=== PATIENT | male | born 1950 | race Caucasian/White ===

== ENCOUNTER 2018-04-14 20:03 | Observation (INO) | payer MEDICARE, BC, SELFPAY ==
[2018-04-14] VITALS (44 sets, daily range): BP systolic 94–129; BP diastolic 43–87; PULSE 58–142; RESP 10–18; TEMP 36.8–37; O2SAT 97–100
--- NOTE | 2018-04-14 20:14 | DI.RPTCT_ITS ---
SYMPTOM/DIAGNOSIS: INTERMITTENT NUMBNESS RT SIDE NONCONTRAST HEAD CT: Note is made of small regions of diminished density in the white matter bilaterally consistent with small vessel disease. The lee white matter differentiation is intact. There is no evidence of a hemorrhage or mass. The ventricles are unremarkable. The skull is unremarkable. No soft tissue abnormality is seen. The sinuses are unremarkable. There is no evidence of a mastoid effusion. SUMMARY: No acute abnormality is demonstrated.
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
[2018-04-14 20:32] LABS: Abs Immature Grans 0.01 k/cumm (0.0-0.09); Absolute Basophil Count 0.03 k/cumm (0.0-0.2); Absolute Eosinophil Count 0.14 k/cumm (0.0-0.7); Absolute Lymphocyte Count 1.71 k/cumm (1.2-3.4); Basophils % 0.5; Eosinophils % 2.4; HCT 33.6 % (40.0-50.0); HGB 10.5 g/dL (13.5-17.5); Immature Grans % 0.2; Lymphocytes % 29.5; Mean Corp. HGB Concentration 31.3 g/dL (32.0-36.0); Mean Corpuscular Hemoglobin 28.5 pg (27.0-33.0); Mean Corpuscular Volume 91.3 fL (80-95); Mean Platelet Volume 9.3 fL (8.0-11.0); Monocytes % 15.5; Neutrophils % 51.9; Platelet Count 282 x1000/uL (130-400); RBC 3.68 m/cumm (4.50-6.00); RBC Distribution Width 14.4 % (11.8-14.1); White Blood Cell Count 5.79 k/cumm (4.4-10.8)
[2018-04-14 20:42] LABS: ALT 41 U/L (12-78); AST 19 U/L (15-37); Albumin 3.5 g/dL (3.4-5.0); Alkaline Phosphatase 151 U/L (46-116); Anion Gap 6.4 mmol/L (3-11); BUN 12 mg/dL (7-18); Bilirubin, Total 0.3 mg/dL (0.2-1.0); CO2 27.6 mmol/L (21.0-32.0); Calcium 8.8 mg/dL (8.5-10.1); Chloride 105 mmol/L (98-107); Glucose 89 mg/dL (70-100); Magnesium 1.9 mg/dL (1.8-2.4); Potassium 3.9 mmol/L (3.5-5.1); Sodium 139 mmol/L (136-145); Total Protein 7.1 g/dL (6.4-8.2)
[2018-04-14 20:46] LABS: Troponin I 0.23 ng/mL (0.00-0.06)
--- NOTE | 2018-04-14 21:04 | DI.VRAD_ITS ---
EXAM: CT Head Without Intravenous Contrast CLINICAL HISTORY: 68 years old, male; Signs and symptoms; Numbness / parasthesia; Right TECHNIQUE: Axial computed tomography images of the head/brain without intravenous contrast. Coronal and sagittal reformatted images were created and reviewed. COMPARISON: CT - HEAD WITHOUT CONTRAST 01/19/2018 8:03 PM FINDINGS: Brain: There are areas of diminished density in the white matter bilaterally consistent with chronic small vessel ischemic changes. Becerril-white matter differentiation is intact and unremarkable. No mass lesion. No evidence of intracranial hemorrhage. Ventricles: Unremarkable. No ventriculomegaly. Bones/joints: Unremarkable. No acute fracture. Soft tissues: Unremarkable. Sinuses: Unremarkable as visualized. No acute sinusitis. Mastoid air cells: Unremarkable as visualized. No mastoid effusion. IMPRESSION: Chronic ischemic changes bilaterally. Dictated and Authenticated by: Jayde Prajapati MD. Ordering:LITTLE FRENCH MD
[2018-04-15] VITALS (30 sets, daily range): BP systolic 95–123; BP diastolic 59–80; PULSE 56–68; RESP 11–22; TEMP 36.2–37.2; O2SAT 98–100
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
[2018-04-15] MEDS: Lactated Ringers 1,000 ML 75 ML IV (00:23)
[2018-04-15 00:44] LABS: Troponin I 0.22 ng/mL (0.00-0.06)
[2018-04-15 04:28] LABS: Cholesterol 116 mg/dL (50-200); HDL Cholesterol 59 mg/dL (40-60); LDL CHOLESTEROL 56 mg/dL (<100); Triglyceride 67 mg/dL (30-150)
[2018-04-15 04:35] LABS: Troponin I 0.19 ng/mL (0.00-0.06)
[2018-04-15 04:53] LABS: Hemoglobin A1C 5.2 % (4.5-6.2)
--- NOTE | 2018-04-15 07:43 | PDOC.CMIN ---
Care Management Initial Assess REASON FOR HOSPITALIZATION:: TIA: Elevated troponin PAST MEDICAL HISTORY/PAST SURGICAL HISTORY:: CAD, AFIB, previously intubated, [place]), TIA, GERD, Arthroscopy (knee, shoulder),tonsillectomy, vasectomy, cardiac catherterization 12/19/17, had a period of rehabiliation following an acute stay at [facility]: discharged home on 04/12/18. PREVIOUS FUNCTIONAL STATUS/SOCIAL/FAMILY SUPPORTS:: Carlton is independent at baseline and resides with his , Areli in [place], [place]. 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 CURRENT FUNCTIONAL STATUS:: Carlton was unavailable throughout the morning due to testing and imaging. CM was able to meet with him in the afternoon, he was tired-reading a magazine and gracious in interaction. CM reviewed discharge planning-Carlton reported his was working on coordinating increased services at home including CHH/RN/PT/OT/Speech. CM will support coordination and request MD orders for discharge. ADVANCE DIRECTIVES:: On file at [facility]; Lula; as Agent, Will Erica Reed as alternate. CODE STATUS:: Full Code INSURANCE COVERAGE / FINANCIAL ISSUES:: Medicare. BC/BS CURRENT HOME/COMMUNITY SERVICES/EQUIPMENT:: Carlton reports no current services or equipment. PRIMARY CARE PHYSICIAN:: Umu Paredes POTENTIAL DISCHARGE NEEDS:: Transthoracic echocardiogram, MRI of the brain, CTA of cervical vessels and cerebral vessels. Possible prolonged cardiac rehabilitation program director upon discharge, new orders for CHH/RN/PT/OT/Speech. PATIENT/FAMILY EDUCATION NEEDS:: Review of discharge instructions, follow up appointments, discuss Ask Me Three. ANTICIPATED BARRIERS TO DISCHARGE:: None identified. TRANSPORTATION:: Via private vehicle with his , Areli. PLAN:: Carlton will have a workup of his symptomology. He will likely discharge home with an outpatient follow up plan, new orders for CHH/RN/PT/OT/RN and prolonged monitoring. He will transport via private vehicle with his .
--- NOTE | 2018-04-15 07:55 | INITIAL_ITS ---
Care Management Initial Assess REASON FOR HOSPITALIZATION:: TIA: Elevated troponin PAST MEDICAL HISTORY/PAST SURGICAL HISTORY:: CAD, AFIB, previously intubated, [place] (S), TIA, GERD, Arthroscopy (knee, shoulder),tonsillectomy, vasectomy, cardiac catherterization 12/19/17, had a period of rehabiliation following an acute stay at [facility]: discharged home on 04/12/18. PREVIOUS FUNCTIONAL STATUS/SOCIAL/FAMILY SUPPORTS:: Carlton is independent at baseline and resides with his , Areli in [place], [place]. 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 CURRENT FUNCTIONAL STATUS:: Carlton was unavailable throughout the morning due to testing and imaging. CM was able to meet with him in the afternoon, he was tired-reading a magazine and gracious in interaction. CM reviewed discharge planning-Carlton reported his was working on coordinating increased services at home including CHH/RN/PT/OT/Speech. CM will support coordination and request MD orders for discharge. ADVANCE DIRECTIVES:: On file at [facility]; Lula; as Agent, Will Erica Reed as alternate. CODE STATUS:: Full Code INSURANCE COVERAGE / FINANCIAL ISSUES:: Medicare. BC/BS CURRENT HOME/COMMUNITY SERVICES/EQUIPMENT:: Carlton reports no current services or equipment. PRIMARY CARE PHYSICIAN:: Umu Paredes POTENTIAL DISCHARGE NEEDS:: Transthoracic echocardiogram, MRI of the brain, CTA of cervical vessels and cerebral vessels. Possible prolonged potline monitor upon discharge, new orders for CHH/RN/PT/OT/Speech. PATIENT/FAMILY EDUCATION NEEDS:: Review of discharge instructions, follow up appointments, discuss Ask Me Three. ANTICIPATED BARRIERS TO DISCHARGE:: None identified. TRANSPORTATION:: Via private vehicle with his , Areli. PLAN:: Carlton will have a workup of his symptomology. He will likely discharge home with an outpatient follow up plan, new orders for CHH/RN/PT/OT/RN and prolonged monitoring. He will transport via private vehicle with his .
--- NOTE | 2018-04-15 08:55 | DI.RPTCT_ITS ---
SYMPTOM/DIAGNOSIS: TIA, S/P STEMI, VF ARREST, HYPOXIC ENCEPH [id number] CTA OF THE NECK AND BRAIN: CT angiography was performed with multi slice acquisition and multi planar and 3D reconstruction. The study was carried out with an intravenous administration of 85 cc's of Omnipaque 350. 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 Dense plaque is identified in the carotid bulb bilaterally and takeoff the right and left internal carotid artery and in the carotid syphon bilaterally. The [place] appears intact. The anterior, middle cerebral and posterior cerebral vessels are intact. SUMMARY: When compared with prior examinations, again noted is the occlusion of the left vertebral artery. Again noted are the atherosclerotic changes involving the carotid arteries with no evidence of significant stenosis. The [place] of [place] is intact.
[2018-04-15] MEDS: Omnipaque 350 MG/ML 100 ML BTL IJ (08:59)
--- NOTE | 2018-04-15 09:00 | MERGE_ITS ---
*[facility]* *[facility]* [address] [place] [address] Date of study: 04/15/2018 Transthoracic Echocardiography M-mode, complete 2D, complete spectral Doppler, and color Doppler *STUDY CONCLUSIONS* Summary: 1. Left ventricle: The cavity size was normal. Wall thickness was increased in a pattern of mild LVH. Systolic function was mildly reduced. The estimated ejection fraction was 45-50%. Hypokinesis of the inferolateral, inferior, and inferoseptal myocardium. 2. Right ventricle: The cavity size was normal. Systolic function was normal. 3. Aortic valve: There was mild regurgitation. 4. Mitral valve: There was mild to moderate regurgitation. 5. Inferior vena cava: The vessel was patent and normal in size. The respirophasic diameter changes were in the normal range (greater than or equal to 50%), consistent with normal central venous pressure. *PATIENT PRESENTATION* Height: 175.3cm ((69in) ) S/D Pressure: 111 / 68 Weight: 57.2kg ((125.7lb) ) BSA: 1.66m^2 Test start time: 09:00 AM. Test stop time: 10:00 AM. PERFORMING Unknown PERFORMING [facility] REFERRING David Blanchard [employer]ER RT Agustina Johns)(WILLOW)JUSTIN *PROCEDURE DATA* Procedure information: The patient was identified by two identifiers. This study was interpreted by [facility]. Pertinent images and digital data are archived for permanent storage and are available for subsequent review. No prior study was available for comparison. Study status: Routine. Transthoracic echocardiography. M-mode, complete 2D, complete spectral Doppler, and color Doppler. A Transthoracic Echocardiogram was performed. Scanning was performed from the parasternal, apical, subcostal, and suprasternal notch acoustic windows. Images were obtained using an [id number] cardiac ultrasound machine. Image quality was adequate. Study completion: The patient tolerated the procedure well. There were no complications. History: PMH: TIA s/p STEMI, VF arrest, hypoxic enceph. ( 01/2018) hx PAF. *CARDIAC ANATOMY* Left ventricle: The cavity size was normal. Wall thickness was increased in a pattern of mild LVH. Systolic function was mildly reduced. The estimated ejection fraction was 45-50%. Regional wall motion abnormalities: Hypokinesis of the inferolateral, inferior, and inferoseptal myocardium. Findings consistent with diastolic dysfunction. There was no evidence of elevated ventricular filling pressure by Doppler parameters. Aortic valve: Trileaflet; mildly thickened leaflets. Mobility was not restricted. Doppler: Transvalvular velocity was within the normal range. There was no stenosis. There was mild regurgitation. VTI ratio of LVOT to aortic valve: 0.63. Valve area (VTI): 1.9cm^2. Indexed valve area (VTI): 1.1cm^2/m^2. Peak velocity ratio of LVOT to aortic valve: 0.56. Valve area (Vmax): 1.7cm^2. Indexed valve area (Vmax): 1cm^2/m^2. Mean velocity ratio of LVOT to aortic valve: 0.57. Valve area (Vmean): 1.7cm^2. Indexed valve area (Vmean): 1cm^2/m^2. Mean gradient (S): 6.3mm Hg. Peak gradient (S): 11.4mm Hg. Aorta: Aortic root: The aortic root was normal in size. Ascending aorta: The ascending aorta was normal in size. Mitral valve: Mildly thickened leaflets. Mobility was not restricted. Doppler: Transvalvular velocity was within the normal range. There was no evidence for stenosis. There was mild to moderate regurgitation. Valve area by pressure half-time: 4.1cm^2. Indexed valve area by pressure half-time: 2.5cm^2/m^2. Left atrium: The atrium was normal in size. Right ventricle: The cavity size was normal. Systolic function was normal. Pulmonic valve: The pulmonary valve appears to be grossly normal. Doppler: Transvalvular velocity was within the normal range. There was no evidence for stenosis. There was trivial regurgitation. Tricuspid valve: Structurally normal valve. Doppler: Transvalvular velocity was within the normal range. There was no evidence for stenosis. There was trivial regurgitation. Pulmonary artery: The main pulmonary artery was normal-sized. Pulmonary systolic pressure was within the normal range, in the range of 25mm Hg to 30mm Hg. Right atrium: The atrium was normal in size. Pericardium: There was no pericardial effusion. Systemic veins: Inferior vena cava: Well visualized. The vessel was patent and normal in size. The respirophasic diameter changes were in the normal range (greater than or equal to 50%), consistent with normal central venous pressure. Baseline ECG: Normal sinus rhythm. Measurements Left ventricle Value Reference LV ID, ED, PLAX 4.3 cm 3.5 - 6.0 LV ID, ES, PLAX 3.4 cm 2.1 - 4.0 LV PW thickness, ED, PLAX 1.1 cm LV end-diastolic volume, 1-p A2C 63 ml LV ejection fraction, 1-p A2C 43 % LV end-diastolic volume, 1-p A4C 81 ml LV ejection fraction, 1-p A4C 47 % LV e', lateral 0.102 m/sec LV E/e', lateral 6 LV e', medial 0.071 m/sec LV E/e', medial 8 LV e', average 0.087 m/sec LV E/e', average 7 Ventricular septum Value Reference IVS thickness, ED, PLAX 1.1 cm LVOT Value Reference LVOT ID, A-P 1.9 cm LVOT area 3 cm^2 LVOT peak velocity, S 0.95 m/sec LVOT mean velocity, S 0.68 m/sec LVOT VTI, S 18.6 cm LVOT peak gradient, S 3.6 mm Hg LVOT mean gradient, S 2.1 mm Hg Stroke volume (SV), LVOT DP 55 ml Stroke index (SV/bsa), LVOT DP 33 ml/m^2 Aortic valve Value Reference Aortic valve peak velocity, S 1.7 m/sec Aortic valve mean velocity, S 1.19 m/sec Aortic valve VTI, S 29.5 cm Aortic mean gradient, S 6.3 mm Hg Aortic peak gradient, S 11.4 mm Hg VTI ratio, LVOT/AV 0.63 Aortic valve area, VTI 1.9 cm^2 Velocity ratio, peak, LVOT/AV 0.56 Aortic valve area, peak velocity 1.7 cm^2 Velocity ratio, mean, LVOT/AV 0.57 Aortic valve area, mean velocity 1.7 cm^2 Aortic valve area/bsa, mean velocity 1 cm^2/m^2 Aorta Value Reference Aortic root ID, ED 3.5 cm Ascending aorta ID, A-P, S 3.2 cm RVOT Value Reference RVOT VTI, S 14.9 cm Left atrium Value Reference LA ID, A-P, ES 2.7 cm LA ID/bsa, A-P 1.6 cm/m^2 <=2.2 LA area, ES, A4C 14.9 cm^2 8.8 - 23.4 LA area, ES, A2C 18 cm^2 LA volume/bsa, ES, 1-p A4C 22 ml/m^2 LA volume, ES, 2-p 41 ml LA volume/bsa, ES, 2-p 25 ml/m^2 LA/aortic root ratio 0.76 Mitral valve Value Reference Mitral E-wave peak velocity 0.58 m/sec Mitral A-wave peak velocity 0.56 m/sec Mitral deceleration time 184 ms 150 - 230 Mitral pressure half-time 53 ms Mitral E/A ratio, peak 1.03 Mitral valve area, PHT, DP 4.1 cm^2 Tricuspid valve Value Reference Tricuspid regurg peak velocity 2.7 m/sec Tricuspid peak RV-RA gradient 28.4 mm Hg Right atrium Value Reference RA area, ES, A4C 14.5 cm^2 8.3 - 19.5 Legend: (L) and (H) mino values outside specified reference range. I have personally reviewed the images and have reviewed and edited the reported findings. Electronically signed by Sabrina Naylor 04/15/2018 11:49
--- NOTE | 2018-04-15 09:08 | PHARADMIT ---
Admission Pharmacy Clinical Review TIA, Elevated troponis Code Status Full Code Current Weight Wgt- 57.1 kg Renally Cleared and Narrow Therapeutic Index Meds CrCl~ 64 mL/min Meds-OK QTc Value / Action Taken QTc-429 na BP Control, Fever BP- 111/68 Tmax- 37C Electrolytes reviewed Na- 139 K+3.9 Mag-1.9 DVT Prophylaxis Plavix, Opiate Usage / Scheduled Bowel Regimen Ordered No Yes Plt/SCr for Heparin / Enoxaparin Plts- 282 SCr-0.90 INR for Warfarin na H/H stable, WBC/Bands H&H- 10.5/33.6 WBC- 5.79 Antibiotic appropriateness na Cultures and Sensitivities na Surgical ABX d/c within 24 hr na DM control / Insulin Dosing BG- 89 HgA1c- 5.2 Heart Failure (Check EF%) (TYLER's, B-Block, Diuretics) Lisinopril, Lopressor, NTG IV to PO Switch No Home Meds Reviewed YES Home Meds Not Ordered Clonazepam, 5-FU Topical, Omeprazole, TAC Crm Comments
[2018-04-15] MEDS: Clopidogrel 75 MG TAB PO (10:46)
[2018-04-15] MEDS: Folic Acid 1 MG TAB PO (10:46)
[2018-04-15] MEDS: Aspirin E.C. 81 MG TABEC PO (10:46)
[2018-04-15] MEDS: Hydroxychloroquine 200 MG TAB PO (10:46)
[2018-04-15] MEDS: Metoprolol 25 MG TAB PO (10:47)
[2018-04-15] MEDS: Lisinopril 5 MG TAB 2.5 MG PO (10:57)
--- NOTE | 2018-04-15 11:40 | DI.REPORT_ITS ---
SYMPTOMS/DIAGNOSIS: TIA, S/P STEMI, VF ARREST, HYPOXIC ENCEPH 02/01 BRAIN MRI: T 2 sagittal and axial and T 2 axial Blade and T 1 axial and T 2 axial hemo and diffusion weighed pulse sequences were performed. Moderate generalized atrophy is demonstrated. There are small regions of increased signal in the frontoparietal white matter bilaterally. There is no evidence of a hemorrhage or mass. There is no evidence of an infarct. The ventricles are intact. The normal flow void is identified in the demonstrated segments of the [place] and cerebral vessels. SUMMARY: Atrophy and evidence of small vessel disease. No acute abnormality seen.
--- NOTE | 2018-04-15 14:44 | CHAPLAIN ---
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 I had been in the ER when Dr. Pepper was brought in for his heart attack and also saw Areli at [facility] [place] [facility] after Dr. Pepper was transferred there. She tells me that Dr. Pepper had just returned from rehab two days ago and has regained much of his abilities but still has some problem with short term memory. Their son just started as a Freshman at [employer] this week. They also have a younger daughter. Areli said the past few months have been very up and down, not smooth, but that Dr. Pepper's doctors said he could be back driving within a year.
--- NOTE | 2018-04-15 18:39 | PROG.BLANK ---
Date of Service: 04/15/18 Time of Service: 18:39 Progress Note Patient seen at 9:30 am. Case discussed now with Dr. Stacy after studies done including MRI. 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 No afib on monitor, but given his history and previous recommendations he should be on triple therapy including anticoagulation. Will draw INR and restart warfarin. Dr. Stacy also concerned with low BPs. He is on low dose metoprolol and lisinopril. Pulse in 50s. Will decrease metoprolol succinate to 12.5mg. Plan possible discharge if stable overnight.
--- NOTE | 2018-04-15 18:42 | PROG.BLANK_ITS ---
Date of Service: 04/15/18 Time of Service: 18:39 Progress Note Patient seen at 9:30 am. Case discussed now with Dr. Stacy after studies done including MRI. 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 No afib on monitor, but given his history and previous recommendations he should be on triple therapy including anticoagulation. Will draw INR and restart warfarin. Dr. Stacy also concerned with low BPs. He is on low dose metoprolol and lisinopril. Pulse in 50s. Will decrease metoprolol succinate to 12.5mg. Plan possible discharge if stable overnight.
[2018-04-15 19:52] LABS: Prothrombin Time 10.2 sec (9.3-10.8)
[2018-04-15] MEDS: Warfarin 5 MG TAB PO (20:23)
[2018-04-15] MEDS: Atorvastatin 40 MG TAB 80 MG PO (22:45)
[2018-04-15] MEDS: Donepezil 5 MG TAB PO (22:45)
[2018-04-16 07:06] LABS: Prothrombin Time 10.1 sec (9.3-10.8)
[2018-04-16 08:17] VITALS: BP 114/74; PULSE 63; RESP 20; TEMP 36.6; O2SAT 100
[2018-04-16] MEDS: Folic Acid 1 MG TAB PO (08:49)
[2018-04-16] MEDS: Clopidogrel 75 MG TAB PO (08:49)
[2018-04-16] MEDS: Metoprolol CR 25 MG TABCR 12.5 MG PO (08:49)
[2018-04-16] MEDS: Lisinopril 5 MG TAB 2.5 MG PO (08:49)
[2018-04-16] MEDS: Aspirin E.C. 81 MG TABEC PO (08:49)
[2018-04-16] MEDS: Hydroxychloroquine 200 MG TAB PO (08:49)
--- NOTE | 2018-04-16 09:29 | DISCHARGE ---
Discharge - Discharge Orders Referrals: Umu Paredes MD, DC [Primary Care Provider] - 04/20/18 11:00 am Sabrina Naylor MD [MD CONSULTING PHYSICIAN] - - Discharge Plan Disposition: HOME W/HOME HEALTH SERVICE Condition: Stable Diet:: Heart Heathy, but I would not restrict sodium Equipment/Supplies:: No Equipment Needed Activity:: Activity as Tolerated (As per physical therapy recommendations) - Instructions Micromedex Instructions: Ischemic Stroke (DC), Safe Use of Anticoagulants (DC) Additional Instructions: We are starting back on warfarin. You will need close follow up of INRs over the weekend this can be done through home health. [facility] should be able to follow and adjust the warfarin dose. Be on the look out for bleeding. We talked about the balance of your heart medications providing protection to your heart, and low blood pressures possibly contributing to in the brain. We discussed cutting metoprolol vs the lisinopril. Both are low doses already. The metoprolol can also prevent atrial fibrillation, so I think I will leave this for now. You saw Dr. Johnson from Neurology here. I have also placed a referral to see Dr. Seaman, the candle wrapping machine operator, as an outpatient per your request.
--- NOTE | 2018-04-16 09:34 | PDOC.DISCH_ITS ---
Discharge - Discharge Orders Referrals: Umu Paredes MD, DC [Primary Care Provider] - 04/20/18 11:00 am Sabrina Naylor MD [MD CONSULTING PHYSICIAN] - - Discharge Plan Disposition: HOME W/HOME HEALTH SERVICE Condition: Stable Diet:: Heart Heathy, but I would not restrict sodium Equipment/Supplies:: No Equipment Needed Activity:: Activity as Tolerated (As per physical therapy recommendations) - Instructions Micromedex Instructions: Ischemic Stroke (DC), Safe Use of Anticoagulants (DC) Additional Instructions: We are starting back on warfarin. You will need close follow up of INRs over the weekend this can be done through home health. [facility] should be able to follow and adjust the warfarin dose. Be on the look out for bleeding. We talked about the balance of your heart medications providing protection to your heart, and low blood pressures possibly contributing to in the brain. We discussed cutting metoprolol vs the lisinopril. Both are low doses already. The metoprolol can also prevent atrial fibrillation, so I think I will leave this for now. You saw Dr. Johnson from Neurology here. I have also placed a referral to see Dr. Seaman, the permaculture contractor, as an outpatient per your request.
--- NOTE | 2018-04-16 09:59 | PDOC.HHF2F ---
Date of Service: 04/16/18 Time of Service: 09:59 1. Encounter Date and Reason I certify that ALISON WEBSTER was seen by Trenton Beth on 04/16/18 and that I had a [id number] encounter with this patient that meets the physician face to face encounter requirements. 2. Clinical Findings Supporting Skilled Need and Homebound Status I certify that home health services are medically necessary, include either intermittent custodial and/or physical/speech therapy, and that this patient is homebound in that absences from the home require considerable and taxing effort and are infrequent or of short duration, or are attributable to the need to receive medical care. [X] (a) Attached documentation from encounter provides clinical findings supporting skilled need and homebound status (including what assistance patient requires to leave the home). The encounter with the patient was in whole, or in part, for the following medical condition, which is the primary reason for home health care: Acute CVA; Coronary Artery Disease; Paroxysmal Atrial Fibrillation, anoxic brain injury Retirement: medication management, follow up INR and warfarin dosing management for re-initiation of warfarin therapy Physical Therapy: unsteady gait, right leg numbness and history of falls after anoxic brain injury with new CVA with affecting left motor cortex with right hand weakness that has improved. Speech Therapy: decreased speech fluidity s/p anoxic brain injury and CVA Homebound: patient has limited mobility due to fall risk, unable to drive 3. Certification and Authentication I certify that I composed the above information based on my clinical judgement relating to this patient's medical condition and, if applicable, clinical findings communicated to me by the NPP or inpatient physician who performed the Home Health Referral. All further orders will be obtained through __Dr. Umu Paredes (Community Based Physician - PCP)
--- NOTE | 2018-04-16 10:08 | PDOC.HHF2F_ITS ---
Date of Service: 04/16/18 Time of Service: 09:59 1. Encounter Date and Reason I certify that ALISON WEBSTER was seen by Trenton Beth on 04/16/18 and that I had a [id number] encounter with this patient that meets the physician face to face encounter requirements. 2. Clinical Findings Supporting Skilled Need and Homebound Status I certify that home health services are medically necessary, include either intermittent intermediate and/or physical/speech therapy, and that this patient is homebound in that absences from the home require considerable and taxing effort and are infrequent or of short duration, or are attributable to the need to receive medical care. [X] (a) Attached documentation from encounter provides clinical findings supporting skilled need and homebound status (including what assistance patient requires to leave the home). The encounter with the patient was in whole, or in part, for the following medical condition, which is the primary reason for home health care: Acute CVA; Coronary Artery Disease; Paroxysmal Atrial Fibrillation, anoxic brain injury Snf: medication management, follow up INR and warfarin dosing management for re-initiation of warfarin therapy Physical Therapy: unsteady gait, right leg numbness and history of falls after anoxic brain injury with new CVA with affecting left motor cortex with right hand weakness that has improved. Speech Therapy: decreased speech fluidity s/p anoxic brain injury and CVA Homebound: patient has limited mobility due to fall risk, unable to drive 3. Certification and Authentication I certify that I composed the above information based on my clinical judgement relating to this patient's medical condition and, if applicable, clinical findings communicated to me by the NPP or inpatient physician who performed the Home Health Referral. All further orders will be obtained through __Dr. Umu Paredes ( Community Based Physician - PCP)
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
--- NOTE | 2018-04-16 12:18 | DSE_ITS ---
Date of Admission: April 14, 2018 Date of Discharge: April 16, 2018 PCP: Umu Paredes M.D. Presentation on Admission: This is a 68-year-old gentleman with history of [id number] cardiac arrest with prolonged recovery after an anoxic brain injury as well as history of CVA and paroxysmal atrial fibrillation, who presented with acute onset of right hand clumsiness, numbness. Initial CT of the head was unrevealing, but he was admitted for work-up for TIA vs. CVA. Hospital Course: New symptoms of clumsiness in the right hand resolved prior to arrival at the hospital. Upon evaluation here he did have some numbness in the right foot, but it had been chronic since his cardiac arrest in January. Initial CT of the head was negative as above. CTA of the head and neck showed old occlusion of left vertebral artery and atherosclerotic changes in the carotid arteries without significant stenosis. An echocardiogram was performed which showed mild LVH and mildly-reduced ejection fraction of 45 to 50%. MRI of the brain was then done which was read as no acute abnormality; however, the neurologist Dr. Chi did see a new punctate lesion in the left parietal lobe that is consistent with the patient's symptoms in his right hand. She felt that this was a new stroke. She recommended Dr. Pepper go back on triple anticoagulation given his history of atrial fibrillation and the recommendations made by his microfabrication engineer manager and neurologist at [facility]. She also expressed concern about the patient's low blood pressures possibly contributing to his stroke given that the abnormal area was in the circulatory watershed, and may be affected by general low perfusion to his brain. Patient's blood pressures do run in the 90s to 100s systolic with a pulse in the 50s at rest to the 60s. Patient was back to his previous baseline during his admission here. Home Health with physical therapy and speech were ordered on discharge, as the patient has had difficulty with gait stability and speech fluidity since his cardiac event with anoxic brain injury in January. Cardiovascular: Patient did have a troponin elevated to the intermediate range upon presentation. It trended down slightly. He does not have any chest pain and his EKG did not have ischemic changes, so this was not consistent with ACS. He was in normal sinus rhythm during his entire stay. As above, there was concern that his blood pressure is running lower than what is ideal for his brain health. Given this, when balanced with the known heart disease and slight troponin elevation, he was continued on his metoprolol at his current dose, but his lisinopril was stopped. His microfabrication engineer manager and neurologist may address this issue on follow-up. Significant Test Results: 1. CT of the head 04/14/2018 showing no acute abnormality. 2. CTA 04/15/2018 of the head and neck showing old occlusion of left vertebral artery. Atherosclerotic changes involving the carotid arteries with no evidence of significant stenosis. [place] intact. 3. Echocardiogram 04/15/2018 showing mild LVH. Systolic function mildly reduced with ejection fraction of 45 to 50%. Hypokinesis of the inferolateral, inferior, and inferior septal myocardium. No significant valvular disease or clot noted. Normal central venous pressure. 4. MRI of the brain 04/15/2018 showing atrophy and evidence of small vessel disease. No acute abnormality per Radiology; punctate left parietal acute ischemia in the motor cortex per Dr. Chi from Neurology. 5. Laboratory: Troponin of 0.23, 0.22, and 0.19. Hemoglobin and hematocrit of 10.5 and 33.6. INR of 1.0 on 04/15 and 1.0 on 04/16 after his first dose of 5 mg of Warfarin on . Discharge Problems: 1. Acute ischemic CVA, motor cortex of left parietal lobe. 2. Coronary artery disease with ischemic cardiomyopathy. 3. Paroxysmal atrial fibrillation. 4. Anemia. Other Diagnoses: 1. Rheumatoid arthritis. 2. Hypoxic ischemic encephalopathy. 3. History of traumatic vertebral artery dissection. Discharge Medications: 1. Aspirin 81 mg PO daily. 2. Clopidogrel 75 mg PO daily. 3. Warfarin 5 mg PO daily (dose titration based on INR follow-up with Home Health and outpatient primary care clinic). 4. Donepezil 5 mg PO daily. 5. Atorvastatin 80 mg PO daily. 6. Folic acid 1 mg PO daily. 7. Hydroxychloroquine 200 mg PO daily. 8. Keppra 750 mg PO BID. 9. Methotrexate 20 mg PO weekly. 10. Metoprolol tartrate 6.25 mg PO BID Discharge Plan: Patient will be discharged with Home Health services including nursing, PT, and speech therapy. Plan is for Home Health to draw the INRs over the weekend, then the patient should follow up for Warfarin dosing management through his primary care at [facility]. As above, his lisinopril is being held due to concern for low blood pressures. Bleeding precautions reviewed. Plan is to follow up locally with Neurology with Dr. Chi and Cardiology with Dr. Naylor. Condition on Discharge: Stable. Greater than 40 minutes spent coordinating this discharge. cc: Umu Paredes M.D. Dione Chi M.D. Sabrina Naylor M.D.
[2018-04-16 13:07] VITALS: PULSE 78
--- NOTE | 2018-04-16 14:51 | PDOC.CMDIS ---
LACE Index Scoring Tool - Questions: Length of Stay (in days): 3 Acuity (Admit via E.D.?): Yes E.D. Visits: 3 - Answers: Total Score: 9 Risk of Readmission: Low Risk Care Management Discharge Reason for Hospitalization: TIA: Elevated troponin Discharge Plan: [place] will likely discharge home with an outpatient follow up plan, new orders for [facility]/RN/PT/OT/RN and prolonged monitoring per MD. He will transport via private vehicle with his . Patient/Family Education Needs: Review of community based supports, discharge planning and discharge orders. Discussed Ask Me Three. Services Needed at Discharge: Home Health Care Services ([facility]/PT/OT/RN/Speech )
== END 2018-04-16 11:18 | disposition home health service (06) ==
PROVIDERS: Family Medicine; Admitting Provider Internal Medicine; Emergency Provider Emergency Medicine; PCP Family Medicine; Visit Provider Internal Medicine
DX: I63.8 Other cerebral infarction (principal); I95.9 Hypotension, unspecified; R20.0 Anesthesia of skin; G93.1 Anoxic brain damage, not elsewhere classified; Z86.74 Personal history of sudden cardiac arrest; Z86.73 Personal history of transient ischemic attack (TIA), and cerebral infarction without residual deficits; I48.0 Paroxysmal atrial fibrillation; I51.7 Cardiomegaly; R74.8 Abnormal levels of other serum enzymes; R26.81 Unsteadiness on feet; R47.89 Other speech disturbances; I25.5 Ischemic cardiomyopathy; I25.10 Atherosclerotic heart disease of native coronary artery without angina pectoris; D64.9 Anemia, unspecified; Z79.02 Long term (current) use of antithrombotics/antiplatelets; I08.0 Rheumatic disorders of both mitral and aortic valves; M06.9 Rheumatoid arthritis, unspecified; K21.9 Gastro-esophageal reflux disease without esophagitis; I25.2 Old myocardial infarction; Z95.5 Presence of coronary angioplasty implant and graft
CPT/HCPCS: 36415; 70496; 70498; 80053; 80061; 83721; 93005; 99215; 99285; 70450; 70551; 83036; 83735; 84484; 85025; 85610; 93010; 93306; 99220; G0378; J3490; J8610

== ENCOUNTER 2018-04-20 12:59 | Outpatient (CLI) | payer MEDICARE, BC, SELFPAY ==
[2018-04-20 13:45] LABS: INR 3.3 (1.0-3.5); Prothrombin Time 30.7 sec (9.3-10.8)
[2018-04-20 14:44] LABS: ALT 39 U/L (12-78); AST 18 U/L (15-37); Albumin 3.6 g/dL (3.4-5.0); Alkaline Phosphatase 144 U/L (46-116); Anion Gap 2.9 mmol/L (3-11); BUN 13 mg/dL (7-18); Bilirubin, Total 0.3 mg/dL (0.2-1.0); CO2 29.1 mmol/L (21.0-32.0); CREATININE 0.82 mg/dL (0.70-1.30); Calcium 8.6 mg/dL (8.5-10.1); Chloride 107 mmol/L (98-107); Creatine Kinase 66 U/L (39-308); Glucose 103 mg/dL (70-100); Potassium 4.3 mmol/L (3.5-5.1); Sodium 139 mmol/L (136-145); TSH (W/Ref FT4) 1.42 uIU/mL (0.358-3.74); Total Protein 6.6 g/dL (6.4-8.2)
[2018-04-20 22:29] LABS: Cortisol (Baseline) 11 ug/dl
== END 2018-04-20 13:19 ==
PROVIDERS: PCP Family Medicine; Visit Provider Family Medicine
DX: R53.83 Other fatigue (principal); G93.1 Anoxic brain damage, not elsewhere classified; Z86.79 Personal history of other diseases of the circulatory system; I48.91 Unspecified atrial fibrillation; Z79.01 Long term (current) use of anticoagulants
CPT/HCPCS: 36415; 80053; 80400; 82550; 84443; 85610

== ENCOUNTER 2018-04-22 08:06 | Outpatient (CLI) | payer MEDICARE, BC, SELFPAY ==
[2018-04-22 09:01] LABS: Abs Immature Grans 0.01 k/cumm (0.0-0.09); Absolute Basophil Count 0.02 k/cumm (0.0-0.2); Absolute Eosinophil Count 0.16 k/cumm (0.0-0.7); Absolute Neutrophil Count 3.55 k/cumm (1.2-6.7); Basophils % 0.3; Eosinophils % 2.8; HCT 33.4 % (40.0-50.0); HGB 10.4 g/dL (13.5-17.5); Immature Grans % 0.2; Lymphocytes % 22.6; Mean Corp. HGB Concentration 31.1 g/dL (32.0-36.0); Mean Corpuscular Hemoglobin 28.4 pg (27.0-33.0); Mean Corpuscular Volume 91.3 fL (80-95); Mean Platelet Volume 9.8 fL (8.0-11.0); Monocytes % 12.2; Neutrophils % 61.9; Platelet Count 226 x1000/uL (130-400); RBC 3.66 m/cumm (4.50-6.00); RBC Distribution Width 14.5 % (11.8-14.1); White Blood Cell Count 5.74 k/cumm (4.4-10.8)
[2018-04-22 09:45] LABS: ALT 41 U/L (12-78); AST 20 U/L (15-37); Albumin 3.5 g/dL (3.4-5.0); Alkaline Phosphatase 147 U/L (46-116); Anion Gap 6.7 mmol/L (3-11); BUN 9 mg/dL (7-18); Bilirubin, Total 0.3 mg/dL (0.2-1.0); CO2 28.3 mmol/L (21.0-32.0); CREATININE 0.92 mg/dL (0.70-1.30); Calcium 8.8 mg/dL (8.5-10.1); Chloride 107 mmol/L (98-107); Glucose 90 mg/dL (70-100); Potassium 4.3 mmol/L (3.5-5.1); Sodium 142 mmol/L (136-145); Total Protein 6.5 g/dL (6.4-8.2)
== END 2018-04-22 08:26 ==
PROVIDERS: PCP Family Medicine; Visit Provider Family Medicine
DX: M06.9 Rheumatoid arthritis, unspecified (principal)
CPT/HCPCS: 36415; 80053; 85025

== ENCOUNTER 2018-04-23 03:39 | Outpatient (CLI) | payer MEDICARE, BC, SELFPAY ==
[2018-04-23 14:43] LABS: INR 1.4 (1.0-3.5); Prothrombin Time 13.6 sec (9.3-10.8)
== END 2018-04-23 03:59 ==
PROVIDERS: PCP Family Medicine; Visit Provider Family Medicine
DX: I48.91 Unspecified atrial fibrillation (principal); Z79.01 Long term (current) use of anticoagulants
CPT/HCPCS: 36415; 85610

== ENCOUNTER → 2018-05-12 13:59 | Outpatient (BNVA) | payer MEDICARE, BC, SELFPAY | PROVIDERS: Visit Provider Internal Medicine Cardiovascular Disease | DX: I48.0 Paroxysmal atrial fibrillation (principal); I25.810 Atherosclerosis of coronary artery bypass graft(s) without angina pectoris; E78.00 Pure hypercholesterolemia, unspecified; Z86.73 Personal history of transient ischemic attack (TIA), and cerebral infarction without residual deficits; Z86.74 Personal history of sudden cardiac arrest; Z95.5 Presence of coronary angioplasty implant and graft | CPT/HCPCS: 99204; 99215 ==

== ENCOUNTER 2018-05-20 11:20 | Outpatient (CLI) | payer MEDICARE, BC, SELFPAY ==
[2018-05-20 11:40] LABS: Absolute Basophil Count 0.04 k/cumm (0.0-0.2); Absolute Lymphocyte Count 1.17 k/cumm (1.2-3.4); Absolute Monocyte Count 0.61 k/cumm (0.11-0.7); Absolute Neutrophil Count 2.39 k/cumm (1.2-6.7); Basophils % 0.9; Eosinophils % 2.3; HCT 35.3 % (40.0-50.0); Lymphocytes % 27.1; Mean Corp. HGB Concentration 31.2 g/dL (32.0-36.0); Mean Corpuscular Hemoglobin 28.3 pg (27.0-33.0); Mean Corpuscular Volume 90.7 fL (80-95); Mean Platelet Volume 9.1 fL (8.0-11.0); Monocytes % 14.2; Neutrophils % 55.5; Platelet Count 224 x1000/uL (130-400); RBC 3.89 m/cumm (4.50-6.00); RBC Distribution Width 15.2 % (11.8-14.1); White Blood Cell Count 4.31 k/cumm (4.4-10.8)
[2018-05-20 11:46] LABS: INR 1.5 (1.0-3.5); Prothrombin Time 14.5 sec (9.3-10.8)
[2018-05-20 12:38] LABS: ALT 40 U/L (12-78); AST 19 U/L (15-37); Albumin 3.7 g/dL (3.4-5.0); Alkaline Phosphatase 108 U/L (46-116); Anion Gap 9.6 mmol/L (3-11); BUN 18 mg/dL (7-18); Bilirubin, Total 0.3 mg/dL (0.2-1.0); CO2 28.4 mmol/L (21.0-32.0); Calcium 9.2 mg/dL (8.5-10.1); Chloride 105 mmol/L (98-107); Glucose 88 mg/dL (70-100); Potassium 4.2 mmol/L (3.5-5.1); Sodium 143 mmol/L (136-145); Total Protein 6.7 g/dL (6.4-8.2)
== END 2018-05-20 11:40 ==
PROVIDERS: PCP Family Medicine; Visit Provider Family Medicine
DX: I48.91 Unspecified atrial fibrillation (principal); Z79.01 Long term (current) use of anticoagulants; M06.9 Rheumatoid arthritis, unspecified
CPT/HCPCS: 36415; 80053; 85025; 85610

== ENCOUNTER 2018-06-01 07:55 | Outpatient (CLI) | payer MEDICARE, BC, SELFPAY ==
[2018-06-01 13:02] LABS: Prothrombin Time 19.1 sec (9.3-10.8)
[2018-06-01 13:34] LABS: ALT 30 U/L (12-78); AST 20 U/L (15-37); Albumin 3.7 g/dL (3.4-5.0); Alkaline Phosphatase 95 U/L (46-116); Anion Gap 6.6 mmol/L (3-11); BUN 11 mg/dL (7-18); Bilirubin, Total 0.2 mg/dL (0.2-1.0); CO2 29.4 mmol/L (21.0-32.0); CREATININE 0.93 mg/dL (0.70-1.30); Calcium 8.7 mg/dL (8.5-10.1); Chloride 107 mmol/L (98-107); Glucose 113 mg/dL (70-100); Potassium 5.1 mmol/L (3.5-5.1); Sodium 143 mmol/L (136-145); Total Protein 6.7 g/dL (6.4-8.2)
[2018-06-01 14:24] LABS: Absolute Basophil Count 0.01 k/cumm (0.0-0.2); Absolute Eosinophil Count 0.11 k/cumm (0.0-0.7); Absolute Lymphocyte Count 1.15 k/cumm (1.2-3.4); Absolute Neutrophil Count 2.36 k/cumm (1.2-6.7); Basophils % 0.2; Eosinophils % 2.7; HCT 37.6 % (40.0-50.0); HGB 11.4 g/dL (13.5-17.5); Lymphocytes % 27.8; Mean Corp. HGB Concentration 30.3 g/dL (32.0-36.0); Mean Corpuscular Hemoglobin 27.1 pg (27.0-33.0); Mean Corpuscular Volume 89.3 fL (80-95); Monocytes % 12.1; Neutrophils % 57.2; Platelet Count 229 x1000/uL (130-400); RBC 4.21 m/cumm (4.50-6.00); RBC Distribution Width 15.1 % (11.8-14.1); White Blood Cell Count 4.13 k/cumm (4.4-10.8)
== END 2018-06-01 08:15 ==
PROVIDERS: PCP Family Medicine; Visit Provider Family Medicine
DX: M06.9 Rheumatoid arthritis, unspecified (principal); I48.91 Unspecified atrial fibrillation; Z79.01 Long term (current) use of anticoagulants
CPT/HCPCS: 36415; 80053; 85025; 85610

== ENCOUNTER 2018-06-24 01:07 | Outpatient (CLI) | payer MEDICARE, BC, SELFPAY ==
[2018-06-24 13:20] LABS: INR 2.7 (1.0-3.5); Prothrombin Time 25.4 sec (9.3-10.8)
[2018-06-24 13:21] LABS: Abs Immature Grans 0.01 k/cumm (0.0-0.09); Absolute Basophil Count 0.02 k/cumm (0.0-0.2); Absolute Eosinophil Count 0.07 k/cumm (0.0-0.7); Absolute Lymphocyte Count 1.28 k/cumm (1.2-3.4); Absolute Monocyte Count 0.66 k/cumm (0.11-0.7); Absolute Neutrophil Count 3.08 k/cumm (1.2-6.7); Basophils % 0.4; Eosinophils % 1.4; HCT 37.7 % (40.0-50.0); HGB 11.7 g/dL (13.5-17.5); Immature Grans % 0.2; Mean Corpuscular Hemoglobin 26.8 pg (27.0-33.0); Mean Corpuscular Volume 86.5 fL (80-95); Mean Platelet Volume 9.8 fL (8.0-11.0); Monocytes % 12.9; Neutrophils % 60.1; Platelet Count 234 x1000/uL (130-400); RBC 4.36 m/cumm (4.50-6.00); RBC Distribution Width 15.1 % (11.8-14.1); White Blood Cell Count 5.12 k/cumm (4.4-10.8)
[2018-06-24 13:40] LABS: ALT 32 U/L (12-78); AST 19 U/L (15-37); Alkaline Phosphatase 87 U/L (46-116); Anion Gap 8.5 mmol/L (3-11); BUN 14 mg/dL (7-18); Bilirubin, Total 0.3 mg/dL (0.2-1.0); CO2 28.5 mmol/L (21.0-32.0); CREATININE 0.81 mg/dL (0.70-1.30); Calcium 9.1 mg/dL (8.5-10.1); Chloride 107 mmol/L (98-107); Glucose 90 mg/dL (70-100); Potassium 4.4 mmol/L (3.5-5.1); Sodium 144 mmol/L (136-145)
== END 2018-06-24 01:27 ==
PROVIDERS: PCP Family Medicine; Visit Provider Family Medicine
DX: M06.9 Rheumatoid arthritis, unspecified (principal); I48.1 Persistent atrial fibrillation; Z79.01 Long term (current) use of anticoagulants
CPT/HCPCS: 36415; 80053; 85025; 85610

== ENCOUNTER 2018-07-27 09:45 | Outpatient (CLI) | payer MEDICARE, BC, SELFPAY ==
[2018-07-27 12:26] LABS: Absolute Basophil Count 0.02 k/cumm (0.0-0.2); Absolute Eosinophil Count 0.07 k/cumm (0.0-0.7); Absolute Lymphocyte Count 1.02 k/cumm (1.2-3.4); Absolute Monocyte Count 0.63 k/cumm (0.11-0.7); Absolute Neutrophil Count 2.98 k/cumm (1.2-6.7); Basophils % 0.4; Eosinophils % 1.5; HCT 38.2 % (40.0-50.0); HGB 11.9 g/dL (13.5-17.5); Lymphocytes % 21.6; Mean Corp. HGB Concentration 31.2 g/dL (32.0-36.0); Mean Corpuscular Hemoglobin 26.3 pg (27.0-33.0); Mean Corpuscular Volume 84.3 fL (80-95); Mean Platelet Volume 9.8 fL (8.0-11.0); Monocytes % 13.3; Neutrophils % 63.2; Platelet Count 213 x1000/uL (130-400); RBC 4.53 m/cumm (4.50-6.00); RBC Distribution Width 15.9 % (11.8-14.1); White Blood Cell Count 4.72 k/cumm (4.4-10.8)
[2018-07-27 12:30] LABS: INR 2.9 (1.0-3.5); Prothrombin Time 27.6 sec (9.3-10.8)
[2018-07-27 13:00] LABS: ALT 34 U/L (12-78); AST 20 U/L (15-37); Albumin 3.9 g/dL (3.4-5.0); Alkaline Phosphatase 80 U/L (46-116); BUN 12 mg/dL (7-18); Bilirubin, Total 0.4 mg/dL (0.2-1.0); CREATININE 0.81 mg/dL (0.70-1.30); Calcium 9.1 mg/dL (8.5-10.1); Chloride 104 mmol/L (98-107); Glucose 91 mg/dL (70-100); Potassium 4.8 mmol/L (3.5-5.1); Sodium 142 mmol/L (136-145); Total Protein 6.9 g/dL (6.4-8.2)
== END 2018-07-27 10:05 ==
PROVIDERS: PCP Family Medicine; Visit Provider Family Medicine
DX: M06.9 Rheumatoid arthritis, unspecified (principal); I48.91 Unspecified atrial fibrillation; Z79.01 Long term (current) use of anticoagulants
CPT/HCPCS: 36415; 80053; 85025; 85610

== ENCOUNTER 2018-08-27 12:49 | Outpatient (CLI) | payer MEDICARE, BC, SELFPAY ==
[2018-08-27 13:45] LABS: INR 3.6 (0.9-1.1); Prothrombin Time 36.9 sec (9.3-11.0)
== END 2018-08-27 13:09 ==
PROVIDERS: PCP Family Medicine; Visit Provider Family Medicine
DX: I48.91 Unspecified atrial fibrillation (principal); Z79.01 Long term (current) use of anticoagulants
CPT/HCPCS: 36415; 85610

== ENCOUNTER 2018-09-08 11:49 | Outpatient (CLI) | payer MEDICARE, BC, SELFPAY ==
[2018-09-08 12:33] LABS: HCT 39.2 % (40.0-50.0); HGB 12.4 g/dL (13.5-17.5); Mean Corp. HGB Concentration 31.6 g/dL (32.0-36.0); Mean Corpuscular Hemoglobin 27.2 pg (27.0-33.0); Mean Platelet Volume 9.8 fL (8.0-11.0); Platelet Count 200 x1000/uL (130-400); RBC 4.56 m/cumm (4.50-6.00); RBC Distribution Width 16.2 % (11.8-14.1); White Blood Cell Count 4.54 k/cumm (4.4-10.8)
[2018-09-08 13:40] LABS: Iron 38 ug/dL (50-175)
[2018-09-08 13:54] LABS: ALT 25 U/L (12-78); AST 19 U/L (15-37); Albumin 3.9 g/dL (3.4-5.0); Alkaline Phosphatase 78 U/L (46-116); Anion Gap 9.8 mmol/L (3-11); BUN 15 mg/dL (7-18); Bilirubin, Total 0.5 mg/dL (0.2-1.0); CO2 27.2 mmol/L (21.0-32.0); CREATININE 0.92 mg/dL (0.70-1.30); Calcium 9.2 mg/dL (8.5-10.1); Chloride 106 mmol/L (98-107); Cholesterol 124 mg/dL (50-200); Glucose 86 mg/dL (70-100); HDL Cholesterol 53 mg/dL (40-60); LDL CHOLESTEROL 62 mg/dL (<100); Magnesium 1.8 mg/dL (1.8-2.4); Potassium 4.5 mmol/L (3.5-5.1); Sodium 143 mmol/L (136-145); TSH (W/Ref FT4) 2.29 uIU/mL (0.358-3.74); Triglyceride 54 mg/dL (30-150)
[2018-09-11 11:50] LABS: Testosterone, Free 9.12 ng/dL (3.47-13.0); Testosterone, Total 608 ng/dL (240-950)
== END 2018-09-08 12:09 ==
PROVIDERS: PCP Family Medicine; Visit Provider Family Medicine
DX: E06.9 Thyroiditis, unspecified (principal); E78.00 Pure hypercholesterolemia, unspecified; I48.0 Paroxysmal atrial fibrillation; G93.1 Anoxic brain damage, not elsewhere classified; I63.9 Cerebral infarction, unspecified; Z95.5 Presence of coronary angioplasty implant and graft
CPT/HCPCS: 36415; 80053; 80061; 83721; 84402; 84403; 85027; 83540; 83735; 84443

== ENCOUNTER → 2018-09-27 09:15 | Outpatient (BNVA) | payer MEDICARE, BC, SELFPAY | PROVIDERS: PCP Family Medicine; Visit Provider Internal Medicine Cardiovascular Disease | DX: I48.0 Paroxysmal atrial fibrillation (principal); I25.2 Old myocardial infarction; Z86.73 Personal history of transient ischemic attack (TIA), and cerebral infarction without residual deficits; I25.10 Atherosclerotic heart disease of native coronary artery without angina pectoris; I10 Essential (primary) hypertension | CPT/HCPCS: 99214 ==

== ENCOUNTER 2018-09-27 09:25 | Outpatient (CLI) | payer MEDICARE, BC, SELFPAY | END 2018-09-27 09:45 | PROVIDERS: PCP Family Medicine; Visit Provider Internal Medicine Cardiovascular Disease | DX: I48.0 Paroxysmal atrial fibrillation (principal); I25.2 Old myocardial infarction; I25.10 Atherosclerotic heart disease of native coronary artery without angina pectoris; Z86.73 Personal history of transient ischemic attack (TIA), and cerebral infarction without residual deficits | CPT/HCPCS: 99214; 93005; 93010 ==

== ENCOUNTER 2018-10-08 01:09 | Outpatient (CLI) | payer MEDICARE, BC, SELFPAY ==
[2018-10-08 12:12] LABS: Abs Immature Grans 0.01 k/cumm (0.0-0.09); Absolute Basophil Count 0.01 k/cumm (0.0-0.2); Absolute Eosinophil Count 0.07 k/cumm (0.0-0.7); Absolute Lymphocyte Count 1.13 k/cumm (1.2-3.4); Absolute Monocyte Count 0.54 k/cumm (0.11-0.7); Absolute Neutrophil Count 3.75 k/cumm (1.2-6.7); Basophils % 0.2; Eosinophils % 1.3; HCT 40.8 % (40.0-50.0); HGB 12.9 g/dL (13.5-17.5); Immature Grans % 0.2; Lymphocytes % 20.5; Mean Corp. HGB Concentration 31.6 g/dL (32.0-36.0); Mean Corpuscular Hemoglobin 27.4 pg (27.0-33.0); Mean Corpuscular Volume 86.6 fL (80-95); Mean Platelet Volume 9.5 fL (8.0-11.0); Monocytes % 9.8; Platelet Count 198 x1000/uL (130-400); RBC 4.71 m/cumm (4.50-6.00); RBC Distribution Width 16.2 % (11.8-14.1); White Blood Cell Count 5.51 k/cumm (4.4-10.8)
[2018-10-08 12:23] LABS: INR 1.8 (0.9-1.1); Prothrombin Time 17.9 sec (9.3-11.0)
[2018-10-08 13:30] LABS: ALT 25 U/L (12-78); AST 19 U/L (15-37); Albumin 3.9 g/dL (3.4-5.0); Alkaline Phosphatase 86 U/L (46-116); Anion Gap 8.6 mmol/L (3-11); BUN 13 mg/dL (7-18); Bilirubin, Total 0.4 mg/dL (0.2-1.0); CO2 27.4 mmol/L (21.0-32.0); CREATININE 0.86 mg/dL (0.70-1.30); Calcium 9.2 mg/dL (8.5-10.1); Chloride 106 mmol/L (98-107); Glucose 132 mg/dL (70-100); Potassium 4.5 mmol/L (3.5-5.1); Sodium 142 mmol/L (136-145)
== END 2018-10-08 01:29 ==
PROVIDERS: PCP Family Medicine; Visit Provider Family Medicine
DX: M06.9 Rheumatoid arthritis, unspecified (principal); I48.91 Unspecified atrial fibrillation; Z79.01 Long term (current) use of anticoagulants
CPT/HCPCS: 36415; 80053; 85025; 85610

== ENCOUNTER 2018-10-14 18:37 | Inpatient (IN) | payer MEDICARE, BC, SELFPAY ==
[2018-10-14] VITALS (49 sets, daily range): BP systolic 125–181; BP diastolic 79–116; PULSE 62–94; RESP 10–37; TEMP 36.8; O2SAT 97–100
--- NOTE | 2018-10-14 18:59 | DI.COMBO_ITS ---
SYMPTOM/DIAGNOSIS: CRACKLES LAURA, NOT FEELING WELL, ELEVATED TROPONINS, ? WIDENED MEDIASTINUM AP AND LATERAL CHEST: Comparison is made with portable chest dated 01/19/18 and PA and lateral exam dated 08/11/17. The heart size is normal. The aorta is again noted to be tortuous and unchanged in diameter. The lungs appear clear. No infiltrate, effusion or pneumothorax is seen. IMPRESSION: No acute abnormality. THORAX CTA: CT angiography was performed with multi slice acquisition and multi planar and 3D reconstruction. The aorta and pulmonary arteries are well opacified with IV contrast. No aortic dissection or pulmonary emboli are seen. There is dilatation of the ascending aorta to a diameter of 4.1 cm. maximum. The aortic root measures 3.5 by 3.3 cm. The descending aorta measures 2.9 by 3 cm. Coronary artery calcifications are seen. There are mild aortic calcifications. No pleural or pericardial effusions or infiltrates are seen. The visualized portions of the upper abdominal organs are unremarkable. Degenerative changes are seen in the spine. There is an old sternal fracture and old bilateral rib fractures. IMPRESSION: Dilatation of the ascending aorta to 4.1 cm. No evidence of dissection or pulmonary emboli. NONCONTRAST HEAD CT: Comparison is made with 04/14/18. Atrophy and white matter changes of small vessel disease are again noted. No acute infarct, hemorrhage or mass is seen. No lacunar infarct is seen in the left mayelin-insular region. No skull fracture or sinus opacification is seen. There is some sclerosis at the inferior left mastoid air cells which appears chronic and unchanged. IMPRESSION: Small vessel disease. No acute abnormality.
[2018-10-14] MEDS: Normal Saline 1,000 ML 1000 ML IV (19:06)
[2018-10-14] MEDS: Meclizine 25 MG TAB PO (19:06)
[2018-10-14 19:22] LABS: Abs Immature Grans 0.01 k/cumm (0.0-0.09); Absolute Basophil Count 0.02 k/cumm (0.0-0.2); Absolute Eosinophil Count 0.03 k/cumm (0.0-0.7); Absolute Lymphocyte Count 1.32 k/cumm (1.2-3.4); Absolute Monocyte Count 0.66 k/cumm (0.11-0.7); Absolute Neutrophil Count 2.98 k/cumm (1.2-6.7); Basophils % 0.4; Eosinophils % 0.6; HCT 39.6 % (40.0-50.0); HGB 12.8 g/dL (13.5-17.5); Immature Grans % 0.2; Lymphocytes % 26.3; Mean Corp. HGB Concentration 32.3 g/dL (32.0-36.0); Mean Corpuscular Hemoglobin 27.8 pg (27.0-33.0); Mean Corpuscular Volume 85.9 fL (80-95); Mean Platelet Volume 9.7 fL (8.0-11.0); Monocytes % 13.1; Neutrophils % 59.4; Platelet Count 209 x1000/uL (130-400); RBC 4.61 m/cumm (4.50-6.00); RBC Distribution Width 15.9 % (11.8-14.1); White Blood Cell Count 5.02 k/cumm (4.4-10.8)
--- NOTE | 2018-10-14 19:24 | W.ED.GENAD ---
Discharge Plan Disposition Patient Disposition: [facility] INPATIENT Condition: Stable Discharge Details Chief Complaint: Dizzy/Sync Clinical Impression: Non-ST elevation CA (NSTEMI) Primary Care Provider: Umu Paredes ED Provider: Chris Hatfield [place] Meds and New Rx's Prescriptions: No Action atorvastatin [Lipitor] 80 mg tablet 80 mg PO HS Qty: 90 RF: 4 clopidogrel [Plavix] 75 mg tablet 75 mg PO DAILY Qty: 90 RF: 4 folic acid 1 mg tablet 1 mg PO DAILY Qty: 90 RF: 4 hydroxychloroquine 200 mg tablet 200 mg PO DAILY Qty: 90 RF: 4 methotrexate sodium 2.5 mg tablet 20 mg PO DIRECTED Qty: 96 RF: 4 metoprolol succinate 25 mg tablet extended release 24 hr 12.5 mg PO DAILY Qty: 45 RF: 4 omeprazole 20 mg capsule,delayed release(DR/EC) 20 mg PO DAILY RF: 0 warfarin [Coumadin] 5 mg tablet See Rx Instructions PO QPM MDD 2 Qty: 100 RF: 6 levetiracetam [Keppra] 500 mg tablet 500 mg PO BID Qty: 180 RF: 4 FE C Plus [id number] hi-oc-kug-mg tablet 1 tab PO BID Qty: 180 RF: 4 aspirin [Aspir-81] 81 MG tablet,delayed release (DR/EC) 81 mg PO DAILY RF: 0 Medical Decision Making <Edgar Tate DO - Last Filed: 10/14/18 22:06> This is a pleasant 68-year-old male with a past medical history of A. fib and cardiac arrest this past January with subsequent anoxic brain injury who presents today for evaluation of fatigue over the last few days, mild nausea that occurred while eating dinner tonight. He denies any abdominal pain chest pain headache or other complaint. He actually has no significant complaints to speak of otherwise. Neurologic exam shows no focal neurologic deficits or abnormality. No abdominal tenderness, no concerning lung sounds. Patient may certainly just be suffering from mild dehydration or a mild viral illness, his vital signs are very reassuring. We will provide normal workup to evaluate for infectious etiology, cardiac etiology or acute intracranial process with his history. If the patient's workup is benign, and his vital signs remain reassuring, feel the patient may be able to be discharged home with close follow-up. 9:15 PM Patient's laboratory workup has returned demonstrates no significant elevation in white count. INR is 1.8. Electrolytes are normal, renal function normal, troponin 0.09. TSH and lipase are normal. EKGs are benign. No evidence of ST changes. The patient's slightly elevated troponin, certainly does bring concern for mild and STEMI. Patient continues to have no chest pain, and I do not think that immediate heparinization and nitroglycerin are indicated. Chest x-ray results have been read by the virtual radiologist and they do think that there is widening of the mediastinum concerning for dissection. This is not the current clinical presentation of the patient, and I do not think that the chest x-ray looks overly widened for the mediastinum however out of an abundance of precaution we will get a CTA of the chest for further evaluation per virtual radiology's recommendation. Additionally Dr. Patel of virtual radiology also thinks that there is partial opacification of the patient's mastoids, there is no clinical evidence on exam, and his signs and symptoms clinically with inconsistent with variant. 10 PM Still pending results for CT scan. Patient continues to remain chest pain-free. Pending results and potential disposition patient will be signed out to my colleague Dr. Hatfield EKG 18: 49 Rate 82, intervals demonstrate a MT of 166, QTc of 458, QRS of 92, sinus rhythm, PVC noted. No significant ST elevations or depressions, Q waves in lead II, III, and aVF with associated T wave inversions. No other significant abnormalities EKG 20: 38 Rate 69, intervals normal, sinus rhythm, no significant ST elevations or depressions, inverted T wave in lead II, III, and aVF. Q waves in lead II, III, and aVF FINDINGS: Lungs: Unremarkable. No consolidation. Pleural space: Unremarkable. No pleural effusion. No pneumothorax. Heart/Mediastinum: There is a widened appearance to the mediastinum. The right mediastinum is prominent. The descending thoracic aorta is tortuous. These findings are unchanged from 2017. Bones/joints: Skeletal degenerative changes. IMPRESSION: 1. No focal consolidation or pneumothorax. 2. There is a widened appearance to the mediastinum. The right mediastinum is prominent. Aneurysm/vascular abnormalities in this region are not excluded. The descending thoracic aorta is tortuous. These findings are unchanged from 2017. If there is concern for acute mediastinal or vascular abnormalities or if further characterization of the mediastinum is clinically indicated, CT scan could be considered. Dictated and Authenticated by: Precious Hathaway MD. Comparison: CT HEAD WITHOUT CONTRAST 04/14/2018 8:30 PM Findings: Brain: No acute intracranial hemorrhage identified. There are periventricular white matter ischemic changes. Vascular calcifications are seen. There is an unchanged hypodensity in the left mayelin-insular region which could represent an area of old infarction. Ventricles: Normal. No ventriculomegaly. Bones/joints: Unremarkable. No acute fracture. Sinuses: No fluid levels. Mastoid air cells: Partial opacification of the left mastoid air cells which should be correlated with any concern for mastoiditis. Soft tissues: Unremarkable. Impression: 1. No acute intracranial hemorrhage identified. 2. Partial opacification of the left mastoid air cells which should be correlated with any concern for mastoiditis. Dictated and Authenticated by: Precious Hathaway MD. Ordering:KADI Hernández MD HPI <Edgar Tate DO - Last Filed: 10/14/18 22:06> General Date/Time Provider Initiated Documentation: 10/14/18 18:38. 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 He also has a history of A. fib. He is on Coumadin, Plavix and aspirin. He presents today for evaluation of weakness and fatigue. The patient presents here with his , although the patient has chronic complaints of dizziness and lightheadedness, patient and his feel that over the last 24-48 hours they have become slightly worse than normal, in addition to this while at dinner he began to feel slightly nauseous and unwell in general. Patient denies any vomiting, abdominal pain, chest pain, arm pain, headache, neck pain, shortness of breath, numbness, tingling, weakness, falls, medication changes or trauma. Aside for the fatigue and very transient nausea that the patient had while eating dinner he denies any other complaints. No other modifying factors. No other complaints at this time. Related Data Home Medications Medication Instructions Recorded Confirmed aspirin [Aspir-81] 81 mg PO DAILY 08/11/17 10/14/18 atorvastatin 80 mg tablet 80 mg PO HS #90 tab 09/18/18 02/28/19 clopidogrel 75 mg tablet 75 mg PO DAILY #90 tab 05/04/18 10/14/18 folic acid 1 mg tablet 1 mg PO DAILY #90 tab-cap 05/04/18 10/14/18 hydroxychloroquine 200 mg tablet 200 mg PO DAILY #90 tab 05/04/18 10/14/18 methotrexate sodium 2.5 mg tablet 20 mg PO DIRECTED #96 tab 05/04/18 10/14/18 metoprolol succinate ER 25 mg 12.5 mg PO DAILY #45 tab 05/04/18 10/14/18 tablet,extended release 24 hr omeprazole 20 mg capsule,delayed 20 mg PO DAILY 06/03/18 10/14/18 release warfarin 5 mg tablet See Rx Instructions PO QPM #100 06/07/18 10/14/18 tab MDD 2 levetiracetam 500 mg tablet 500 mg PO BID #180 tab 06/23/18 10/14/18 iron-vit C-vit W37-wsjoy acid 100 1 tab PO BID #180 tab 09/08/18 10/14/18 mg-250 mg-25 mcg-1 mg tablet Previous Rx's Medication Instructions Recorded atorvastatin 80 mg tablet 80 mg PO HS #90 tab 05/04/18 clopidogrel 75 mg tablet 75 mg PO DAILY #90 tab 05/04/18 folic acid 1 mg tablet 1 mg PO DAILY #90 tab-cap 05/04/18 hydroxychloroquine 200 mg tablet 200 mg PO DAILY #90 tab 05/04/18 methotrexate sodium 2.5 mg tablet 20 mg PO DIRECTED #96 tab 05/04/18 metoprolol succinate ER 25 mg 12.5 mg PO DAILY #45 tab 05/04/18 tablet,extended release 24 hr warfarin 5 mg tablet See Rx Instructions PO QPM #100 06/07/18 tab MDD 2 levetiracetam 500 mg tablet 500 mg PO BID #180 tab 06/23/18 iron-vit C-vit Q09-wrtae acid 100 1 tab PO BID #180 tab 09/08/18 mg-250 mg-25 mcg-1 mg tablet Allergies Allergy/AdvReac Type Severity Reaction Status Date / Time No Known Allergies Allergy Unverified 10/14/18 18:57 General Stated Complaint: Dizzy/Sync NOA: 2 Review of Systems <DO Franky Encarnacion Filed: 10/14/18 22:06> Review of Systems All systems reviewed & are unremarkable except as noted in HPI and below PFSH <Edgar Tate DO - Last Filed: 10/14/18 22:06> Social History household members: spouse housing: house lives independently: Yes current occupational status: retired leisure activities: sports and exercise well-balanced diet: daily or most days what type of physical activity do you participate in: walking, bicycling and regular exercise Smoking and Tabacco status: Never alcohol intake: former substance use type: does not use What is your relationship status?: Panel score (0-1 are the most socially isolated patients): 1 Exam <Edgar Tate DO - Last Filed: 10/14/18 22:06> Narrative Exam Narrative: 1.Const: Well-nourished, Well-developed, appearing stated age 2.Eyes: PERRL, no conjunctival injection, and symmetrical lids. 3.ENT: Atraumatic external nose and ears. Moist MM. Neck: Symmetric, trachea midline, No thyromegaly. Patient demonstrates good movement of cervical neck. There is no nuchal rigidity, no nuchal tenderness. Patient is able to flex the neck without any difficulty or significant pain. Negative Kernig's and Brudzinski sign. 4.CVS: +S1/S2, No murmurs or gallops. Peripheral pulses 2+ and equal in all extremities. Brisk capillary refill in all extremities. 5.RESP: Unlabored respiratory effort. Clear to auscultation bilaterally. No wheezes rales or rhonchi 6.GI: Soft, Nontender/Nondistended, No hepatosplenomegaly. No guarding or rebound. No pain at McBurney's point, negative Lan sign, no pulsatile abdominal mass or abdominal mass in general. 7.MSK: Normocephalic/Atraumatic, Extremities w/o deformity or ttp No cyanosis or clubbing, Normal movement of all extremities 8.Skin: Warm, Dry. No rashes or lesions. 9.Neuro: rehabilitation services director II-XII grossly intact. Sensation grossly intact, no focal neurologic deficits. All 6 cardinal planes of vision are fully intact. No evidence of rotatory or vertical nystagmus. The patient demonstrated a normal [id number], good dexterity. There was no evidence of dysdiadochokinesia. Patient was able to ambulate without difficulty. There was no wide-based gait. Romberg, and [id number] are both normal on testing. Sensation was intact bilaterally as well as muscle strength bilaterally for all extremities. Patient was able to verbalize butter cup with no slurring, or miss pronunciation. 10.Psych: (AAO) x3. Appropriate mood and affect Course <Edgar Tate, DO - Last Filed: 10/14/18 22:06> Vital Signs Temperature 36.8 C 10/14/18 18:53 Pulse 94 H 10/14/18 18:53 Respiratory Rate 15 10/14/18 18:53 Blood Pressure 181/98 H 10/14/18 18:53 Pulse Oximetry 100 10/14/18 18:53 Temperature 36.8 C 10/14/18 18:53 Temperature Source Oral 10/14/18 18:53 Pulse 94 H 10/14/18 18:53 Respiratory Rate 16 10/14/18 19:16 Respiratory Effort Non-Labored 10/14/18 19:16 Respiratory Depth Normal 10/14/18 19:16 Respiratory Pattern Normal 10/14/18 19:16 Blood Pressure 181/98 H 10/14/18 18:53 Blood Pressure Position Supine 10/14/18 18:53 Pulse Oximetry 100 10/14/18 18:53 Oxygen Delivery Method Room Air 10/14/18 18:53 Oxygen Flow Rate 0 10/14/18 18:53 Pain Level 0 10/14/18 18:53 Lab/Test Results Lab/Test Results: Laboratory Tests Range/Units 10/14/18 19:15 WBC (4.4-10.8) k/cumm 5.02 RBC (4.50-6.00) m/cumm 4.61 Hgb (13.5-17.5) g/dL 12.8 L Hct (40.0-50.0) % 39.6 L MCV (80-95) fL 85.9 MCH (27.0-33.0) pg 27.8 MCHC (32.0-36.0) g/dL 32.3 RDW (11.8-14.1) % 15.9 H Plt Count (130-400) x1000/uL 209 MPV (8.0-11.0) fL 9.7 Immature Gran % 0.2 Neutrophils % 59.4 Lymphocytes % 26.3 Monocytes % 13.1 Eosinophils % 0.6 Basophils % 0.4 Absolute Neutrophils (1.2-6.7) k/cumm 2.98 Absolute Lymphocytes (1.2-3.4) k/cumm 1.32 Absolute Monocytes (0.11-0.7) k/cumm 0.66 Absolute Eosinophils (0.0-0.7) k/cumm 0.03 Absolute Basophils (0.0-0.2) k/cumm 0.02 Sign Out <Edgar Tate DO - Last Filed: 10/14/18 22:06> Sign Out Data: Sign Out Comment: Pending CTA results, contact with [facility] and potentially admission here. Last updated by Edgar Tate DO at 10/14/18 22:07 Post-Handoff Eval: Pt remains HD stable. Discussed the case with Dr. [place] [facility] [place] [facility]. Did not feel acute transfer indicated, recommended admission here and trend troponins and monitoring. Dr. bang will admit the patient
--- NOTE | 2018-10-14 19:31 | ED.GENADUL_ITS ---
Discharge Plan Disposition Patient Disposition: [facility] INPATIENT Condition: Stable Discharge Details Chief Complaint: Dizzy/Sync Clinical Impression: Non-ST elevation ID (NSTEMI) Primary Care Provider: Umu Paredes ED Provider: Chris Hatfield [place] Meds and New Rx's Prescriptions: No Action atorvastatin [Lipitor] 80 mg tablet 80 mg PO HS Qty: 90 RF: 4 clopidogrel [Plavix] 75 mg tablet 75 mg PO DAILY Qty: 90 RF: 4 folic acid 1 mg tablet 1 mg PO DAILY Qty: 90 RF: 4 hydroxychloroquine 200 mg tablet 200 mg PO DAILY Qty: 90 RF: 4 methotrexate sodium 2.5 mg tablet 20 mg PO DIRECTED Qty: 96 RF: 4 metoprolol succinate 25 mg tablet extended release 24 hr 12.5 mg PO DAILY Qty: 45 RF: 4 omeprazole 20 mg capsule,delayed release(DR/EC) 20 mg PO DAILY RF: 0 warfarin [Coumadin] 5 mg tablet See Rx Instructions PO QPM MDD 2 Qty: 100 RF: 6 levetiracetam [Keppra] 500 mg tablet 500 mg PO BID Qty: 180 RF: 4 FE C Plus [id number] [id number]-zc-[id number]-mg tablet 1 tab PO BID Qty: 180 RF: 4 aspirin [Aspir-81] 81 MG tablet,delayed release (DR/EC) 81 mg PO DAILY RF: 0 Medical Decision Making <Edgar Tate DO - Last Filed: 10/14/18 22:06> This is a pleasant 68-year-old male with a past medical history of A. fib and cardiac arrest this past January with subsequent anoxic brain injury who presents today for evaluation of fatigue over the last few days, mild nausea that occurred while eating dinner tonight. He denies any abdominal pain chest pain headache or other complaint. He actually has no significant complaints to speak of otherwise. Neurologic exam shows no focal neurologic deficits or abnormality. No abdominal tenderness, no concerning lung sounds. Patient may certainly just be suffering from mild dehydration or a mild viral illness, his vital signs are very reassuring. We will provide normal workup to evaluate for infectious etiology, cardiac etiology or acute intracranial process with his history. If the patient's workup is benign, and his vital signs remain reassuring, feel the patient may be able to be discharged home with close follow-up. 9:15 PM Patient's laboratory workup has returned demonstrates no significant elevation in white count. INR is 1.8. Electrolytes are normal, renal function normal, troponin 0.09. TSH and lipase are normal. EKGs are benign. No evidence of ST changes. The patient's slightly elevated troponin, certainly does bring concern for mild and STEMI. Patient continues to have no chest pain, and I do not think that immediate heparinization and nitroglycerin are indicated. Chest x-ray results have been read by the virtual radiologist and they do think that there is widening of the mediastinum concerning for dissection. This is not the current clinical presentation of the patient, and I do not think that the chest x-ray looks overly widened for the mediastinum however out of an abundance of precaution we will get a CTA of the chest for further evaluation per virtual radiology's recommendation. Additionally Dr. Patel of virtual radiology also thinks that there is partial opacification of the patient's mastoids, there is no clinical evidence on exam, and his signs and symptoms clinically with inconsistent with variant. 10 PM Still pending results for CT scan. Patient continues to remain chest pain-free. Pending results and potential disposition patient will be signed out to my colleague Dr. Hatfield EKG 18: 49 Rate 82, intervals demonstrate a TN of 166, QTc of 458, QRS of 92, sinus rhythm, PVC noted. No significant ST elevations or depressions, Q waves in lead II, III, and aVF with associated T wave inversions. No other significant abnormalities EKG 20: 38 Rate 69, intervals normal, sinus rhythm, no significant ST elevations or depressions, inverted T wave in lead II, III, and aVF. Q waves in lead II, III, and aVF FINDINGS: Lungs: Unremarkable. No consolidation. Pleural space: Unremarkable. No pleural effusion. No pneumothorax. Heart/Mediastinum: There is a widened appearance to the mediastinum. The right mediastinum is prominent. The descending thoracic aorta is tortuous. These findings are unchanged from 2017. Bones/joints: Skeletal degenerative changes. IMPRESSION: 1. No focal consolidation or pneumothorax. 2. There is a widened appearance to the mediastinum. The right mediastinum is prominent. Aneurysm/vascular abnormalities in this region are not excluded. The descending thoracic aorta is tortuous. These findings are unchanged from 2017. If there is concern for acute mediastinal or vascular abnormalities or if further characterization of the mediastinum is clinically indicated, CT scan could be considered. Dictated and Authenticated by: Precious Hathaway MD. Comparison: CT HEAD WITHOUT CONTRAST 04/14/2018 8:30 PM Findings: Brain: No acute intracranial hemorrhage identified. There are periventricular white matter ischemic changes. Vascular calcifications are seen. There is an unchanged hypodensity in the left mayelin-insular region which could represent an area of old infarction. Ventricles: Normal. No ventriculomegaly. Bones/joints: Unremarkable. No acute fracture. Sinuses: No fluid levels. Mastoid air cells: Partial opacification of the left mastoid air cells which should be correlated with any concern for mastoiditis. Soft tissues: Unremarkable. Impression: 1. No acute intracranial hemorrhage identified. 2. Partial opacification of the left mastoid air cells which should be correlated with any concern for mastoiditis. Dictated and Authenticated by: Precious Hathaway MD. Ordering:KADI Hernández MD HPI <Edgar Tate DO - Last Filed: 10/14/18 22:06> General Date/Time Provider Initiated Documentation: 10/14/18 18:38 . 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 He also has a history of A. fib. He is on Coumadin, Plavix and aspirin. He presents today for evaluation of weakness and fatigue. The patient presents here with his , although the patient has chronic complaints of dizziness and lightheadedness, patient and his feel that over the last 24- 48 hours they have become slightly worse than normal, in addition to this while at dinner he began to feel slightly nauseous and unwell in general. Patient denies any vomiting, abdominal pain, chest pain, arm pain, headache, neck pain, shortness of breath, numbness, tingling, weakness, falls, medication changes or trauma. Aside for the fatigue and very transient nausea that the patient had while eating dinner he denies any other complaints. No other modifying factors. No other complaints at this time. Related Data Home Medications Medication Instructions Recorded Confirmed aspirin [Aspir-81] 81 mg PO DAILY 08/11/17 10/14/18 atorvastatin 80 mg tablet 80 mg PO HS #90 tab 09/18/18 02/28/19 clopidogrel 75 mg tablet 75 mg PO DAILY #90 tab 05/04/18 10/14/18 folic acid 1 mg tablet 1 mg PO DAILY #90 tab-cap 05/04/18 10/14/18 hydroxychloroquine 200 mg tablet 200 mg PO DAILY #90 tab 05/04/18 10/14/18 methotrexate sodium 2.5 mg tablet 20 mg PO DIRECTED #96 tab 05/04/18 10/14/18 metoprolol succinate ER 25 mg 12.5 mg PO DAILY #45 tab 05/04/18 10/14/18 tablet,extended release 24 hr omeprazole 20 mg capsule,delayed 20 mg PO DAILY 06/03/18 10/14/18 release warfarin 5 mg tablet See Rx Instructions PO QPM #100 06/07/18 10/14/18 tab MDD 2 levetiracetam 500 mg tablet 500 mg PO BID #180 tab 06/23/18 10/14/18 iron-vit C-vit B90-xnoql acid 100 1 tab PO BID #180 tab 09/08/18 10/14/18 mg-250 mg-25 mcg-1 mg tablet Previous Rx's Medication Instructions Recorded atorvastatin 80 mg tablet 80 mg PO HS #90 tab 05/04/18 clopidogrel 75 mg tablet 75 mg PO DAILY #90 tab 05/04/18 folic acid 1 mg tablet 1 mg PO DAILY #90 tab-cap 05/04/18 hydroxychloroquine 200 mg tablet 200 mg PO DAILY #90 tab 05/04/18 methotrexate sodium 2.5 mg tablet 20 mg PO DIRECTED #96 tab 05/04/18 metoprolol succinate ER 25 mg 12.5 mg PO DAILY #45 tab 05/04/18 tablet,extended release 24 hr warfarin 5 mg tablet See Rx Instructions PO QPM #100 06/07/18 tab MDD 2 levetiracetam 500 mg tablet 500 mg PO BID #180 tab 06/23/18 iron-vit C-vit P77-tkyiw acid 100 1 tab PO BID #180 tab 09/08/18 mg-250 mg-25 mcg-1 mg tablet Allergies Allergy/AdvReac Type Severity Reaction Status Date / Time No Known Allergies Allergy Unverified 10/14/18 18:57 General Stated Complaint: Dizzy/Sync NOA: 2 Review of Systems <DO Franky Encarnacion Filed: 10/14/18 22:06> Review of Systems All systems reviewed & are unremarkable except as noted in HPI and below PFSH <Edgar Tate DO - Last Filed: 10/14/18 22:06> Social History household members: spouse housing: house lives independently: Yes current occupational status: retired leisure activities: sports and exercise well-balanced diet: daily or most days what type of physical activity do you participate in: walking, bicycling and regular exercise Smoking and Tabacco status: Never alcohol intake: former substance use type: does not use What is your relationship status?: Panel score (0-1 are the most socially isolated patients): 1 Exam <Edgar Tate DO - Last Filed: 10/14/18 22:06> Narrative Exam Narrative: 1.Const: Well-nourished, Well-developed, appearing stated age 2.Eyes: PERRL, no conjunctival injection, and symmetrical lids. 3.ENT: Atraumatic external nose and ears. Moist MM. Neck: Symmetric, trachea midline, No thyromegaly. Patient demonstrates good movement of cervical neck. There is no nuchal rigidity, no nuchal tenderness. Patient is able to flex the neck without any difficulty or significant pain. Negative Kernig's and Brudzinski sign. 4.CVS: +S1/S2, No murmurs or gallops. Peripheral pulses 2+ and equal in all extremities. Brisk capillary refill in all extremities. 5.RESP: Unlabored respiratory effort. Clear to auscultation bilaterally. No wheezes rales or rhonchi 6.GI: Soft, Nontender/Nondistended, No hepatosplenomegaly. No guarding or rebound. No pain at McBurney's point, negative Lan sign, no pulsatile abdominal mass or abdominal mass in general. 7.MSK: Normocephalic/Atraumatic, Extremities w/o deformity or ttp No cyanosis or clubbing, Normal movement of all extremities 8.Skin: Warm, Dry. No rashes or lesions. 9.Neuro: bird sitter II-XII grossly intact. Sensation grossly intact, no focal neurologic deficits. All 6 cardinal planes of vision are fully intact. No evidence of rotatory or vertical nystagmus. The patient demonstrated a normal [id number], good dexterity. There was no evidence of dysdiadochokinesia. Patient was able to ambulate without difficulty. There was no wide-based gait. Romberg, and [id number] are both normal on testing. Sensation was intact bilaterally as well as muscle strength bilaterally for all extremities. Patient was able to verbalize butter cup with no slurring, or miss pronunciation. 10.Psych: (AAO) x3. Appropriate mood and affect Course <Edgar Tate, DO - Last Filed: 10/14/18 22:06> Vital Signs Temperature 36.8 C 10/14/18 18:53 Pulse 94 H 10/14/18 18:53 Respiratory Rate 15 10/14/18 18:53 Blood Pressure 181/98 H 10/14/18 18:53 Pulse Oximetry 100 10/14/18 18:53 Temperature 36.8 C 10/14/18 18:53 Temperature Source Oral 10/14/18 18:53 Pulse 94 H 10/14/18 18:53 Respiratory Rate 16 10/14/18 19:16 Respiratory Effort Non-Labored 10/14/18 19:16 Respiratory Depth Normal 10/14/18 19:16 Respiratory Pattern Normal 10/14/18 19:16 Blood Pressure 181/98 H 10/14/18 18:53 Blood Pressure Position Supine 10/14/18 18:53 Pulse Oximetry 100 10/14/18 18:53 Oxygen Delivery Method Room Air 10/14/18 18:53 Oxygen Flow Rate 0 10/14/18 18:53 Pain Level 0 10/14/18 18:53 Lab/Test Results Lab/Test Results: Laboratory Tests Range/Units 10/14/18 19:15 WBC (4.4-10.8) k/cumm 5.02 RBC (4.50-6.00) m/cumm 4.61 Hgb (13.5-17.5) g/dL 12.8 L Hct (40.0-50.0) % 39.6 L MCV (80-95) fL 85.9 MCH (27.0-33.0) pg 27.8 MCHC (32.0-36.0) g/dL 32.3 RDW (11.8-14.1) % 15.9 H Plt Count (130-400) x1000/uL 209 MPV (8.0-11.0) fL 9.7 Immature Gran % 0.2 Neutrophils % 59.4 Lymphocytes % 26.3 Monocytes % 13.1 Eosinophils % 0.6 Basophils % 0.4 Absolute Neutrophils (1.2-6.7) k/cumm 2.98 Absolute Lymphocytes (1.2-3.4) k/cumm 1.32 Absolute Monocytes (0.11-0.7) k/cumm 0.66 Absolute Eosinophils (0.0-0.7) k/cumm 0.03 Absolute Basophils (0.0-0.2) k/cumm 0.02 Sign Out <Edgar Tate DO - Last Filed: 10/14/18 22:06> Sign Out Data: Sign Out Comment: Pending CTA results, contact with [facility] and potentially admission here. Last updated by Edgar Tate DO at 10/14/18 22:07 Post-Handoff Eval: Pt remains HD stable. Discussed the case with Dr. Randle from [facility]. Did not feel acute transfer indicated, recommended admission here and trend troponins and monitoring. Dr. bang will admit the patient
[2018-10-14 19:38] LABS: INR 1.8 (0.9-1.1); PTT Activated 26.1 sec (21.0-31.4); Prothrombin Time 17.6 sec (9.3-11.0)
[2018-10-14 19:50] LABS: ALT 27 U/L (12-78); AST 20 U/L (15-37); Albumin 3.8 g/dL (3.4-5.0); Alkaline Phosphatase 86 U/L (46-116); Anion Gap 8.1 mmol/L (3-11); BUN 12 mg/dL (7-18); Bilirubin, Total 0.5 mg/dL (0.2-1.0); CO2 28.9 mmol/L (21.0-32.0); CREATININE 0.91 mg/dL (0.70-1.30); Calcium 9.1 mg/dL (8.5-10.1); Chloride 106 mmol/L (98-107); Glucose 111 mg/dL (70-100); Lipase 175 U/L (73-393); Potassium 3.8 mmol/L (3.5-5.1); Sodium 143 mmol/L (136-145); TSH (W/Ref FT4) 2.57 uIU/mL (0.358-3.74); Total Protein 7.2 g/dL (6.4-8.2)
[2018-10-14 20:02] LABS: Troponin I 0.09 ng/mL (0.00-0.06)
--- NOTE | 2018-10-14 20:06 | DI.VRAD_ITS ---
EXAM: CT Head Without Contrast EXAM DATE/TIME: 10/14/2018 7:01 PM CLINICAL HISTORY: 68 years old, male; Signs and symptoms; Other: Feeling unwell, retired , HX of anoxic injury TECHNIQUE: Axial computed tomography images of the head/brain without contrast. All CT scans at this facility use at least one of these dose optimization techniques: automated exposure control; mA and/or kV adjustment per patient size (includes targeted exams where dose is matched to clinical indication); or iterative reconstruction. Coronal and sagittal reformatted images were created and reviewed. COMPARISON: CT HEAD WITHOUT CONTRAST 04/14/2018 8:30 PM FINDINGS: Brain: No acute intracranial hemorrhage identified. There are periventricular white matter ischemic changes. Vascular calcifications are seen. There is an unchanged hypodensity in the left mayelin-insular region which could represent an area of old infarction. Ventricles: Normal. No ventriculomegaly. Bones/joints: Unremarkable. No acute fracture. Sinuses: No fluid levels. Mastoid air cells: Partial opacification of the left mastoid air cells which should be correlated with any concern for mastoiditis. Soft tissues: Unremarkable. IMPRESSION: 1. No acute intracranial hemorrhage identified. 2. Partial opacification of the left mastoid air cells which should be correlated with any concern for mastoiditis. Dictated and Authenticated by: Precious Hathaway MD. Ordering:KADI Hernández MD
--- NOTE | 2018-10-14 20:14 | DI.VRAD_ITS ---
EXAM: XR Chest, 2 Views EXAM DATE/TIME: 10/14/2018 7:43 PM CLINICAL HISTORY: 68 years old, male; Signs and symptoms; Other: Feeling unwell, crackle l/ipper TECHNIQUE: XR of the chest, 2 views. COMPARISON: SC PORTABLE CHEST ONE VIEW 01/19/2018 8:02 PM . 08/11/2017. FINDINGS: Lungs: Unremarkable. No consolidation. Pleural space: Unremarkable. No pleural effusion. No pneumothorax. Heart/Mediastinum: There is a widened appearance to the mediastinum. The right mediastinum is prominent. The descending thoracic aorta is tortuous. These findings are unchanged from 2017. Bones/joints: Skeletal degenerative changes. IMPRESSION: 1. No focal consolidation or pneumothorax. 2. There is a widened appearance to the mediastinum. The right mediastinum is prominent. Aneurysm/vascular abnormalities in this region are not excluded. The descending thoracic aorta is tortuous. These findings are unchanged from 2017. If there is concern for acute mediastinal or vascular abnormalities or if further characterization of the mediastinum is clinically indicated, CT scan could be considered. Dictated and Authenticated by: Precious Hathaway MD. Ordering:KADI Hernández MD
[2018-10-14] MEDS: Omnipaque 350 MG/ML 100 ML BTL IJ (20:54)
--- NOTE | 2018-10-14 22:29 | DI.VRAD_ITS ---
EXAM: CT Angiography Chest With Contrast EXAM DATE/TIME: 10/14/2018 8:22 PM CLINICAL HISTORY: 68 years old, male; Abnormal findings; Abnormal radiologic exam of lung or chest TECHNIQUE: Axial computed tomographic angiography images of the chest with intravenous contrast using CT angiography protocol. All CT scans at this facility use at least one of these dose optimization techniques: automated exposure control; mA and/or kV adjustment per patient size (includes targeted exams where dose is matched to clinical indication); or iterative reconstruction. Coronal and sagittal reformatted images were created and reviewed. MIP reconstructed images were created and reviewed. CONTRAST: Contrast Material: 100 ml of [id number]; Contrast Route: iv COMPARISON: CR XR CHEST 2V PA LATERAL 10/14/2018 7:13 PM FINDINGS: Pulmonary arteries: No pulmonary emboli. Aorta: Ascending aortic aneurysm, 41 x 40 mm, no evidence of rupture. The aortic root appears slightly prominent, approximately 35 x 33 mm. The descending aorta measures 29 x 30 mm maximally. No dissection. Lungs: Pulmonary hyperinflation with no airspace consolidation. Pleural space: No pneumothorax. No pleural effusion. Heart: Coronary atherosclerosis. Lymph nodes: No enlarged lymph nodes. Bones/joints: Old bilateral rib fractures. No acute fracture or subluxation. Soft tissues: No suspicious lesions. IMPRESSION: Ascending aortic aneurysm, 41 x 40 mm, no evidence of rupture. No acute pathology. Dictated and Authenticated by: Emmy Barnhart MD. Ordering:KADI Hernández MD
--- NOTE | 2018-10-14 23:18 | W.PM.HP.N ---
Date of service: 10/14/18 Time of Service: 23:18 Assessment and Plan (1) Confusion: Current visit: Yes Status: Acute Waxing and waning confusion per but a bit worse this evening. No clear etiology. Perhaps related to medication? He was given hydroxyzine when he first came in the ER and that certainly may be causing some side effects now at the time of my evaluation. Keppra dose has been weaned down slowly, reports past history of increased myoclonic jerking when this was discontinued but not confusion. No signs or symptoms of any infection. I think it is unlikely that his mildly elevated troponin is playing a role in his confusion absent any hemodynamic consequences. At this point monitor clinically. He has not had any infectious symptoms or signs. Neurology consultation tomorrow if available. Consider repeat neuroimaging with MRI although the history sounds like a waxing and waning problem and imaging studies may show nothing structurally new or different. Perhaps EEG? (2) Troponin level elevated: Current visit: Yes Status: Acute No chest pain symptoms. Thus far no dysrhythmias noted on monitor. Given his past history will monitor on telemetry and cycle his troponins. No change in medications at this point. (3) Paroxysmal atrial fibrillation: Current visit: Yes Status: Chronic Monitor on telemetry. Continue anticoagulation with warfarin. INR is a little bit subtherapeutic. Give his usual 5 mg dose of warfarin tonight and recheck his INR tomorrow. (4) Rheumatoid arthritis: Current visit: No Status: Chronic This has been stable on his outpatient treatment with methotrexate 15 mg once a week () and toxic lower quadrant. (5) Anoxic brain injury: Current visit: No Status: Chronic Unclear if his mental status this evening is a significant change from his baseline. With conversation from his she thinks he has been a bit more confused recently. Workup as above. (6) Ascending aortic aneurysm: Current visit: Yes Status: Acute Incidental finding on CT angiography and not likely to be causing his current symptoms or elevated troponin. This will need to be followed over time. 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 He has a past history of anoxic encephalopathy, out of hospital cardiac arrest in January 2018 with prolonged rehab both at [facility] and in [facility]. He apparently has been recuperating at home, episodically confused according to his . This evening when sitting down to dinner he complained of just feeling generally unwell. He could be more specific. Because of his past severe problems, his brought him to the emergency room promptly for further evaluation. In the emergency room he could not be any more specific and describing how he felt other than feeling confused. He has had no recent falls. No headache or vision changes. He has chronic episodic tingly feeling in the right hip area but no focal weakness. He has not had any known seizures. Per his , his neurologist, Dr. Rivera at [facility], has been weaning down on his Keppra. She reports that during his rehab stays Keppra was started prophylactically and then weaned off but he had increased myoclonic jerking each time it was discontinued. He has had a very gradual taper down to 250 mg daily for the past several days with anticipation of stopping this in a few more days. There otherwise is been no medication changes. There is no reported fevers. He has had no dysuria. No cough. He denies any chest pain. Denies any trouble with shortness of breath. He knows that he is confused. He denies feeling depressed. He does state that he has not been sleeping well. Noncontrast CT scan did not show any changes. ECG did not show any changes. He has not yet voided to provide a urine sample. His CBC is unremarkable. His chemistries are normal with the exception of a troponin of 0.09. Chest x-ray is clear, question raised of widened mediastinum, with CT angiography showing a 4.1 x 4.0 cm ascending aortic aneurysm without evidence of rupture. Please note on his home medications that his methotrexate dose has been reduced to 15 mg every , his warfarin dose is 5 mg Mondays and , 2.5 mg all other days and his Keppra dose has been weaned down to 250 mg daily. Review of Systems Review of Systems As per HPI otherwise negative [facility] Medical History History of TIA (transient ischemic attack) (Chronic) Paroxysmal atrial fibrillation (Chronic) History of cardiac arrest (Chronic) Status post myocardial infarction of inferior wall (Chronic) CAD (coronary artery disease) (Chronic) Vertebral artery dissection (Chronic 04/01/15) Ventricular hypertrophy (Chronic 04/01/15) Rheumatoid arthritis (Chronic 10/19/17) Hypercholesterolemia (Chronic 04/01/15) Acute posterior circulation transient ischemic attack (Chronic 04/01/15) Anoxic brain injury (Chronic) Elevated troponin I level (Resolved) Lyme disease (Resolved) Transient ischemic attack (Resolved) Surgical History Stented coronary artery (Chronic) S/P ablation of atrial fibrillation (Chronic 10/19/17) History of open reduction and internal fixation (ORIF) procedure (Resolved) Fracture, Open Treatment (09/09/13) Social History household members: spouse housing: house lives independently: Yes current occupational status: retired leisure activities: sports and exercise well-balanced diet: daily or most days what type of physical activity do you participate in: walking, bicycling and regular exercise Smoking and Tabacco status: Never alcohol intake: former substance use type: does not use What is your relationship status?: Panel score (0-1 are the most socially isolated patients): 1 Med Home Medications Medication Instructions Recorded Confirmed Type aspirin [Aspir-81] 81 mg PO DAILY 08/11/17 10/14/18 History atorvastatin 80 mg tablet 80 mg PO HS #90 tab 05/04/18 10/14/18 Rx clopidogrel 75 mg tablet 75 mg PO DAILY #90 tab 05/04/18 10/14/18 Rx folic acid 1 mg tablet 1 mg PO DAILY #90 tab-cap 05/04/18 10/14/18 Rx hydroxychloroquine 200 mg tablet 200 mg PO DAILY #90 tab 05/04/18 10/14/18 Rx methotrexate sodium 2.5 mg tablet 20 mg PO DIRECTED #96 tab 05/04/18 10/14/18 Rx metoprolol succinate ER 25 mg 12.5 mg PO DAILY #45 tab 05/04/18 10/14/18 Rx tablet,extended release 24 hr omeprazole 20 mg capsule,delayed 20 mg PO DAILY 06/03/18 10/14/18 History release warfarin 5 mg tablet See Rx Instructions PO QPM #100 06/07/18 10/14/18 Rx tab MDD 2 levetiracetam 500 mg tablet 500 mg PO BID #180 tab 06/23/18 10/14/18 Rx iron-vit C-vit I44-[id number] acid 100 1 tab PO BID #180 tab 09/08/18 10/14/18 Rx mg-250 mg-25 mcg-1 mg tablet Allergies Allergy/AdvReac Type Severity Reaction Status Date / Time No Known Allergies Allergy Unverified 10/14/18 18:57 Exam Narrative Exam Narrative: He is awake alert he knows he is in the hospital, not sure of the day. He does recall me when I introduced myself. He is upset that he is confused. History difficult to obtain and unreliable. Pupils are equal and reactive extraocular movements normal. No facial asymmetry. No dysarthria. No JVD. No carotid bruits heard. Lungs are clear in all clancy. No heart murmur S3 or S4. Abdomen thin normal bowel sounds nontender. Bladder is not palpably distended. He has symmetric movement of all extremities with no tremor. 2-3+ DTRs symmetrically in the right and left upper and lower extremities. Good pulses distally. He sits up unassisted, no ataxia. He appears mildly anxious. ECG old inferior and anterior ID, subtle lateral ST changes nonspecific. Chest x-ray widened mediastinum no pulmonary infiltrates or effusion. CT of brain without contrast no changes CT angiography of chest with 41 x 40 mm a sending aortic aneurysm without dissection Results Labs : 10/14/18 19:15 10/14/18 19:15 Laboratory Results - last 24 hr 10/14/18 10/14/18 10/14/18 19:15 19:15 19:15 WBC 5.02 RBC 4.61 Hgb 12.8 L Hct 39.6 L MCV 85.9 MCH 27.8 MCHC 32.3 RDW 15.9 H Plt Count 209 MPV 9.7 Immature Gran % 0.2 Neutrophils % 59.4 Lymphocytes % 26.3 Monocytes % 13.1 Eosinophils % 0.6 Basophils % 0.4 Absolute Neutrophils 2.98 Absolute Lymphocytes 1.32 Absolute Monocytes 0.66 Absolute Eosinophils 0.03 Absolute Basophils 0.02 PT 17.6 H INR 1.8 H APTT 26.1 Sodium 143 Potassium 3.8 Chloride 106 Carbon Dioxide 28.9 Anion Gap 8.1 BUN 12 Creatinine 0.91 Estimated GFR/1.73 m2 >= 60.00 Glucose 111 H Calcium 9.1 Total Bilirubin 0.5 AST 20 ALT 27 Alkaline Phosphatase 86 Troponin I 0.09 H* Total Protein 7.2 Albumin 3.8 Lipase 175 TSH 2.57 Last Vital Signs Temp 36.8 C 10/14/18 18:53 Pulse 94 H 10/14/18 18:53 Resp 16 10/14/18 19:16 BP 181/98 H 10/14/18 18:53 Pulse Ox 100 10/14/18 18:53
[2018-10-15] VITALS (9 sets, daily range): BP systolic 111–171; BP diastolic 73–97; PULSE 55–78; RESP 16–18; TEMP 35.9–36.8; O2SAT 99–100
[2018-10-15] MEDS: Warfarin 5 MG TAB PO ×2 (00:21→20:18)
[2018-10-15] MEDS: Lactated Ringers 1,000 ML 80 ML IV ×2 (00:22→17:54)
[2018-10-15] MEDS: Metoprolol CR 25 MG TABCR 12.5 MG PO ×2 (00:22→08:51)
--- NOTE | 2018-10-15 00:45 | NUR.NOTE ---
Nursing Note: Pt. arrived to room via stretcher from the ED in stable condition, patient is awake, alert, answering questions appropriately. IV noted to left ac, will start IV fluids per MD orders. Pt. seems to have issues with recent memory, asks the same questions several times. Remote memory appears intact. monitoring and evaluation advisor applied to patient. Urine collected and sent to lab per MD orders. Patient oriented to room and call system, bed alarm on.
[2018-10-15 00:50] LABS: Bilirubin Negative (Negative); Blood Negative (Negative); Clarity Clear; Glucose Negative (Negative); Ketones Negative (Negative); Leukocyte Esterase Negative (Negative); Nitrite Negative (Negative); Specific Gravity 1.015 (1.005-1.025); Urobilinogen 0.2 EU/dL (Up TO 0.2)
[2018-10-15 00:59] LABS: Troponin I 0.12 ng/mL (0.00-0.06)
--- NOTE | 2018-10-15 01:09 | NUR.NOTE ---
Nursing Note: CC notified of troponin 0.12
[2018-10-15 04:38] LABS: Troponin I 0.13 ng/mL (0.00-0.06)
--- NOTE | 2018-10-15 04:41 | NUR.NOTE ---
Nursing Note: CC notified of troponin 0.13
[2018-10-15 08:09] LABS: INR 1.5 (0.9-1.1); Prothrombin Time 15.5 sec (9.3-11.0)
[2018-10-15] MEDS: Hydroxychloroquine 200 MG TAB PO (08:50)
[2018-10-15] MEDS: Pantoprazole 20 MG TABCR PO (08:50)
[2018-10-15] MEDS: Clopidogrel 75 MG TAB PO (08:50)
[2018-10-15] MEDS: Folic Acid 1 MG TAB PO (08:50)
[2018-10-15] MEDS: Aspirin E.C. 81 MG TABEC PO (08:51)
[2018-10-15] MEDS: Normal Saline Flush 10 ML SYR (08:54)
--- NOTE | 2018-10-15 09:36 | PDOC.CMIN ---
Care Management Initial Assess REASON FOR HOSPITALIZATION:: Confusion, Elevated Troponin PAST MEDICAL HISTORY/PAST SURGICAL HISTORY:: CAD, AFIB, previously intubated, [place](S), TIA, GERD, Arthroscopy (knee, shoulder),tonsillectomy, vasectomy, cardiac catherterization 12/19/17, had a period of rehabiliation following an acute stay at [facility]: discharged home on 04/12/18. PREVIOUS FUNCTIONAL STATUS/SOCIAL/FAMILY SUPPORTS:: Carlton resides with his , Areli in [place], [place]. 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 He has struggled the past year with ongoing medical issues. CURRENT FUNCTIONAL STATUS:: Carlton was confused when CM met with him. Discussion primarily focused on his text messages and appropriate grammar and use of plural nouns. Carlton was pleasant, but does not appear to be at his baseline of functioning. ADVANCE DIRECTIVES:: On file at [facility]; Lula; as Agent, Will Reed as alternate. Has patient been provided with information about the portal?: Yes Did the patient sign up for the portal?: No CODE STATUS:: Full Code INSURANCE COVERAGE / FINANCIAL ISSUES:: Medicare. BC/BS PRIMARY CARE PHYSICIAN:: Umu Paredes PATIENT/FAMILY EDUCATION NEEDS:: Review of discharge instructions, follow up appointments, discuss Ask Me Three. ANTICIPATED BARRIERS TO DISCHARGE:: None identified. TRANSPORTATION:: Via private vehicle with his , Areli. PLAN:: Carlton will discharge home with an outpatient follow up plan, anticipate new orders for VNA as well. He will transport via private vehicle with his , Areli.
--- NOTE | 2018-10-15 09:46 | INITIAL_ITS ---
Care Management Initial Assess REASON FOR HOSPITALIZATION:: Confusion, Elevated Troponin PAST MEDICAL HISTORY/PAST SURGICAL HISTORY:: CAD, AFIB, previously intubated, [place](S), TIA, GERD, Arthroscopy (knee, shoulder),tonsillectomy, vasectomy, cardiac catherterization 12/19/17, had a period of rehabiliation following an acute stay at [facility]: discharged home on 04/12/18. PREVIOUS FUNCTIONAL STATUS/SOCIAL/FAMILY SUPPORTS:: Carlton resides with his , Areli in [place], [place]. 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 He has struggled the past year with ongoing medical issues. CURRENT FUNCTIONAL STATUS:: Carlton was confused when CM met with him. Discussion primarily focused on his text messages and appropriate grammar and use of plural nouns. Carlton was pleasant, but does not appear to be at his baseline of functioning. ADVANCE DIRECTIVES:: On file at [facility]; Lula; as Agent, Will Reed as alternate. Has patient been provided with information about the portal?: Yes Did the patient sign up for the portal?: No CODE STATUS:: Full Code INSURANCE COVERAGE / FINANCIAL ISSUES:: Medicare. BC/BS PRIMARY CARE PHYSICIAN:: Umu Paredes PATIENT/FAMILY EDUCATION NEEDS:: Review of discharge instructions, follow up appointments, discuss Ask Me Three. ANTICIPATED BARRIERS TO DISCHARGE:: None identified. TRANSPORTATION:: Via private vehicle with his , Areli. PLAN:: Carlton will discharge home with an outpatient follow up plan, anticipate new orders for VNA as well. He will transport via private vehicle with his , Areli.
--- NOTE | 2018-10-15 10:29 | PHARADMIT ---
Addendum entered by Curtis Bone III 10/16/18 13:52: Pharmacy Note Subjective MD concerned that patient needs Neurology & Cardiology services. May transfer to [facility] Objective VS-OK Mag-1.7 Troponin 0.12 (flat) Other Labs-WNL Assessment Keppra IV bolus of 1gm followed by 500mg PO BID Plan awaiting Original Note: Admission Pharmacy Clinical Review CONFUSION, ELEVATED TROPONIN Code Status Full Code Current Weight Wgt-59.2 kg Renally Cleared and Narrow Therapeutic Index Meds CrCl~ 65 mL/min Meds-OK QTc Value / Action Taken QTc-458 NA BP Control, Fever BP- 171/97 Tmax- 36.8C Electrolytes reviewed Na- 143 K+3.8 DVT Prophylaxis Warfarin. Plavix, ASA-ec Opiate Usage / Scheduled Bowel Regimen Ordered No Yes Plt/SCr for Heparin / Enoxaparin Plts-209 SCr-0.91 INR for Warfarin INR-1.5 H/H stable, WBC/Bands H&H- 12.8/39.6 WBC- 5.02 Antibiotic appropriateness none Cultures and Sensitivities none Surgical ABX d/c within 24 hr na DM control / Insulin Dosing BG-111 Heart Failure (Check EF%) (TYLER's, B-Block, Diuretics) Toprol-XL, IV to PO Switch No Home Meds Reviewed Yes Home Meds Not Ordered Fe-c Plus, MTX, Comments Troponin- 0.09 ^ 0.12 ^ 0.13
[2018-10-15] MEDS: Potassium Chloride 20 MEQ TABCR PO (11:58)
[2018-10-15] MEDS: Magnesium Oxide 400 MG TAB PO (11:59)
--- NOTE | 2018-10-15 12:55 | PGE_ITS ---
Date of Service Date of service: 10/15/18 Time of Service: 12:54 Assessment and Plan (1) Altered mental status: Current visit: Yes Status: Acute Patient's spouse attributing worsening confusion to stoppage of Keppra - potential for medication withdrawl or atypical seizure considered, and Levetiracetam was reinitiated: Discussed with neurology at [facility] [place] - recommendation for loading dose of IV Kepppra, followed by reinitiation at 500mg BID dosing. Other Differential includes: - No evidence of alcohol or drug use. - CXR and CT Chest without evidence of infiltrates - not hypoxic. Patient also afebrile and without leukocytosis, with a normal urinalysis. Doubt infectious etiology. - No evidence of JUWAN or abnormal LFTs - doubt Uremia or Hepatic Encephalopathy. - Not dehydrated by exam, and worsened overnight despite gentle IVFs. - No appearance of arrhythmias by telemetry. - Patient does have a history of CAD, and with minimal and equivocal increase in troponin that appears flat and uncahnged. Will continue to trend, but doubt ischemia as etiology. - MRI brain ruled out acute CVA & space occupying lesion. - Normal electrolytes, sodium, calcium, and TSH. - No new medications reported. (2) Troponin level elevated: Current visit: Yes Status: Acute Plan as above. (3) Paroxysmal atrial fibrillation: Current visit: Yes Status: Chronic Continue BB. Monitor daily INR on coumadin. (4) CAD (coronary artery disease): Current visit: No Status: Chronic Continue DAPT - patient is s/p ELAN in January of 2018. Also on high potency statin, BB. (5) Rheumatoid arthritis: Current visit: No Status: Chronic Currently on Hydroxychloroquin. (6) DVT prophylaxis: Current visit: Yes Status: Acute On coumadin. Monitor daily INR. 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 Dr. Pepper has a history of Cardiac Arrest in January of 2018 secondary to an inferoposterior STEMI, requiring CPR in the field, defibrillation and intubation once transported to the hospital. The patient was then transferred to [facility] where he underwent a LHC, s/p ELAN to the RCA & RPDA. He was also noted to have a 60% stenosis of his LAD that was not intervened on. His hospitalization was further complicated by EEG proven hypoxic brain injury, as well as a small left parietal lobe lesion by MRI. He also developed Myoclonic jerks while hospitalized, and was treated with Keppra. The patient underwent a prolonged rehab following his hospitalization. Since then Dr. Pepper has been following with his neurologist Dr. Feliciano Rivera at [facility]. Attempts have been made to taper his Keppra off. Per discussion with the patient's , it appears that during 2 prior attempts at decreasing his dose the patient developed 'twitching' type behavior. He had been undergoing a taper with Keppra at 500mg twice daily for 2 weeks, 250mg twice daily for 2 weeks, followed by 250mg once a day for 2 weeks, and the day prior to his admission the patient's Keppra was finally tapered off. On the evening of his presentation to the ED the patient was noted to be confused, complaining of feeling unwell. His evaluation in the ED was generally unremarkable, but the patient is noted to be confused. This morning he appears oriented to person only, and his confusion appears to have worsened. He remains afebrile. The patient's other history includes RA, Paroxysmal Afib for which he is anticoagulated, CAD as above, and he remains on DAPT following his stenting, ICMP with an EF of 45%, Moderate MR, and prior traumatic vertebral artery dissection and associated CVA in March 2015. He also has evidence of a dilated ascending Aorta at 4.1 cm. Exam Narrative Exam Narrative: General: Patient appears comfortable, Awake and Alert, not oriented to time or place, NAD Neck: Supple CV: Regular, nontachycardic, S1S2, No rubs, murmurs, or gallops. Pulmonary: Clear to auscultation bilaterally, no crackles, wheezing, or rhonchi Abdomen: + Bowel Sounds, soft, nontender, nondistended Vascular: No lower extremity edema Neurologic: CN II-XII grossly intact. No focal deficits. Psych: Normal mood and affect. Objective Objective Clinical Data: Abnormal lab results 10/14/18 10/14/18 10/14/18 Range/Units 19:15 19:15 19:15 Hgb 12.8 L (13.5-17.5) g/dL Hct 39.6 L (40.0-50.0) % RDW 15.9 H (11.8-14.1) % PT 17.6 H (9.3-11.0) sec INR 1.8 H (0.9-1.1) Glucose 111 H (70-100) mg/dL Troponin I 0.09 H* (0.00-0.06) ng/mL 10/15/18 10/15/18 10/15/18 Range/Units 00:27 04:10 07:20 Hgb (13.5-17.5) g/dL Hct (40.0-50.0) % RDW (11.8-14.1) % PT 15.5 H (9.3-11.0) sec INR 1.5 H (0.9-1.1) Glucose (70-100) mg/dL Troponin I 0.12 H* 0.13 H* (0.00-0.06) ng/mL Vital Signs Temperature 36.7 C 10/15/18 11:32 Temperature Source Tympanic 10/15/18 11:32 Pulse 69 10/15/18 11:32 Pulse Rhythm Regular 10/15/18 00:01 Pulse 74 10/14/18 23:16 Respiratory Rate 18 10/15/18 11:32 Respiratory Effort Non-Labored 10/15/18 00:01 Respiratory Depth Normal 10/15/18 00:01 Respiratory Pattern Tachypnea 10/15/18 00:01 Blood Pressure 132/91 H 10/15/18 11:32 Blood Pressure Mean 107 10/14/18 23:16 Blood Pressure Position Supine 10/14/18 18:53 Pulse Oximetry 99 10/15/18 11:32 Oxygen Delivery Method Room Air 10/15/18 11:32 Oxygen Flow Rate 0 10/15/18 11:32 Pain Level 0 10/14/18 23:38 Intake & Output 10/14/18 10/15/18 10/15/18 23:59 11:59 23:59 Intake Total 1533.333 / 1533.333 Output Total 350 / 350 Balance 1183.333 / 1183.333 Weight 59.2 kg 59.2 kg Intake: IV 1533.333 / 1533.333 Output: Urine 350 / 350 Other: Urine Color Yellow Urine Appearance Clear Voiding Methods Toilet Laboratory Results WBC 5.02 k/cumm (4.4-10.8) 10/14/18 19:15 RBC 4.61 m/cumm (4.50-6.00) 10/14/18 19:15 Hgb 12.8 g/dL (13.5-17.5) L 10/14/18 19:15 Hct 39.6 % (40.0-50.0) L 10/14/18 19:15 MCV 85.9 fL (80-95) 10/14/18 19:15 MCH 27.8 pg (27.0-33.0) 10/14/18 19:15 MCHC 32.3 g/dL (32.0-36.0) 10/14/18 19:15 RDW 15.9 % (11.8-14.1) H 10/14/18 19:15 Plt Count 209 x1000/uL (130-400) 10/14/18 19:15 MPV 9.7 fL (8.0-11.0) 10/14/18 19:15 Immature Gran % 0.2 10/14/18 19:15 Neutrophils % 59.4 10/14/18 19:15 Lymphocytes % 26.3 10/14/18 19:15 Monocytes % 13.1 10/14/18 19:15 Eosinophils % 0.6 10/14/18 19:15 Basophils % 0.4 10/14/18 19:15 Absolute Neutrophils 2.98 k/cumm (1.2-6.7) 10/14/18 19:15 Absolute Lymphocytes 1.32 k/cumm (1.2-3.4) 10/14/18 19:15 Absolute Monocytes 0.66 k/cumm (0.11-0.7) 10/14/18 19:15 Absolute Eosinophils 0.03 k/cumm (0.0-0.7) 10/14/18 19:15 Absolute Basophils 0.02 k/cumm (0.0-0.2) 10/14/18 19:15 PT 15.5 sec (9.3-11.0) H 10/15/18 07:20 INR 1.5 (0.9-1.1) H 10/15/18 07:20 APTT 26.1 sec (21.0-31.4) 10/14/18 19:15 Sodium 143 mmol/L (136-145) 10/14/18 19:15 Potassium 3.8 mmol/L (3.5-5.1) 10/14/18 19:15 Chloride 106 mmol/L (98-107) 10/14/18 19:15 Carbon Dioxide 28.9 mmol/L (21.0-32.0) 10/14/18 19:15 Anion Gap 8.1 mmol/L (3-11) 10/14/18 19:15 BUN 12 mg/dL (7-18) 10/14/18 19:15 Creatinine 0.91 mg/dL (0.70-1.30) 10/14/18 19:15 Estimated GFR/1.73 m2 >= 60.00 (mL/min/1.73m2) 10/14/18 19:15 Glucose 111 mg/dL (70-100) H 10/14/18 19:15 Calcium 9.1 mg/dL (8.5-10.1) 10/14/18 19:15 Total Bilirubin 0.5 mg/dL (0.2-1.0) 10/14/18 19:15 AST 20 U/L (15-37) 10/14/18 19:15 ALT 27 U/L (12-78) 10/14/18 19:15 Alkaline Phosphatase 86 U/L (46-116) 10/14/18 19:15 Troponin I 0.13 ng/mL (0.00-0.06) H* 10/15/18 04:10 Total Protein 7.2 g/dL (6.4-8.2) 10/14/18 19:15 Albumin 3.8 g/dL (3.4-5.0) 10/14/18 19:15 Lipase 175 U/L (73-393) 10/14/18 19:15 TSH 2.57 uIU/mL (0.358-3.74) 10/14/18 19:15 Urine Color Yellow (Yellow) 10/15/18 00:30 Urine Clarity Clear 10/15/18 00:30 Urine pH 8.0 (5-8) 10/15/18 00:30 Ur Specific Schuyler 1.015 (1.005-1.025) 10/15/18 00:30 Urine Protein Negative mg/dL (Negative) 10/15/18 00:30 Urine Ketones Negative mg/dL (Negative) 10/15/18 00:30 Urine Blood Negative (Negative) 10/15/18 00:30 Urine Nitrite Negative (Negative) 10/15/18 00:30 Urine Bilirubin Negative (Negative) 10/15/18 00:30 Urine Urobilinogen 0.2 EU/dL (Up TO 0.2) 10/15/18 00:30 Ur Leukocyte Esterase Negative (Negative) 10/15/18 00:30 Urine Glucose Negative mg/dL (Negative) 10/15/18 00:30
--- NOTE | 2018-10-15 13:20 | DI.MRI_ITS ---
SYMPTOMS/DIAGNOSIS: ACUTELY ALTERED MENTAL STATUS, CONFUSION, ELEVATED TROPONIN MRA OF THE BRAIN: A 3D [id number] study was performed. The left vertebral artery appears diminutive. The remaining vessels are normal in diameter. No dissection, occlusion or significant stenosis is seen. IMPRESSION: MRA of the [place] is within normal limits. MRI OF THE BRAIN: Comparison is made with March,. T2 sagittal, T1, T2, FLAIR, diffusion and gradient echo axial sequences were performed. There is stable mild atrophy. There are a few tiny scattered areas of high signal in the white matter, consistent with small vessel disease. No acute infarct, hemorrhage or mass is seen. The ventricles are normal in size. The vascular flow voids appear intact. The orbits, sinuses and pituitary are unremarkable. IMPRESSION: Stable mild atrophy and small vessel disease. No acute abnormality.
--- NOTE | 2018-10-15 14:44 | CHAPLAIN ---
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 His had just left, he said. I explained who I was and he asked me to stay with because he didn't want to be alone. He said he felt nauseated and thought he might throw up. He asked that we make a plan for what he would do if he did throw up. He had a basin on his lap, but was worried about how he would get sitting up and then how he would get to the commode if he needed to. He talked about different steps we could take in making a plan. I assured him that we could get help if needed. His thoughts were jumbled, and he wasn't sure where he was and seemed surprised to learn that he was at [facility]. I asked if his kids (who are school age) were on vacation this week, and he said he didn't know. He talked about an episode of being sick when he was a teenager and responded to some questions about his childhood, but would get of track easily, although he said that talking was a good distraction. At times he would say he was going to rest, but that just lasted a few moments. I stayed about 45 minutes and left when his nurse returned.
[2018-10-15 15:26] LABS: Troponin I 0.15 ng/mL (0.00-0.06)
[2018-10-15] MEDS: Atorvastatin 40 MG TAB 80 MG PO (22:25)
[2018-10-16] VITALS (9 sets, daily range): BP systolic 111–124; BP diastolic 66–81; PULSE 52–65; RESP 16–18; TEMP 36–36.9; O2SAT 95–99
[2018-10-16] MEDS: Lactated Ringers 1,000 ML 80 ML IV ×2 (06:43→19:35)
[2018-10-16 07:24] LABS: Absolute Basophil Count 0.01 k/cumm (0.0-0.2); Absolute Eosinophil Count 0.07 k/cumm (0.0-0.7); Absolute Lymphocyte Count 1.16 k/cumm (1.2-3.4); Absolute Monocyte Count 0.58 k/cumm (0.11-0.7); Absolute Neutrophil Count 2.25 k/cumm (1.2-6.7); Basophils % 0.2; Eosinophils % 1.7; HCT 36.4 % (40.0-50.0); HGB 11.5 g/dL (13.5-17.5); Lymphocytes % 28.5; Mean Corp. HGB Concentration 31.6 g/dL (32.0-36.0); Mean Corpuscular Hemoglobin 27.3 pg (27.0-33.0); Mean Corpuscular Volume 86.5 fL (80-95); Mean Platelet Volume 9.4 fL (8.0-11.0); Monocytes % 14.3; Neutrophils % 55.3; Platelet Count 171 x1000/uL (130-400); RBC 4.21 m/cumm (4.50-6.00); RBC Distribution Width 16.1 % (11.8-14.1); White Blood Cell Count 4.07 k/cumm (4.4-10.8)
[2018-10-16 07:37] LABS: INR 1.8 (0.9-1.1); Prothrombin Time 18.4 sec (9.3-11.0)
[2018-10-16 07:44] LABS: BUN 11 mg/dL (7-18); CREATININE 0.81 mg/dL (0.70-1.30); Calcium 8.8 mg/dL (8.5-10.1); Chloride 109 mmol/L (98-107); Glucose 97 mg/dL (70-100); Magnesium 1.7 mg/dL (1.8-2.4); Potassium 3.9 mmol/L (3.5-5.1); Sodium 146 mmol/L (136-145)
[2018-10-16 07:45] LABS: Troponin I 0.12 ng/mL (0.00-0.06)
[2018-10-16] MEDS: Metoprolol CR 25 MG TABCR 12.5 MG PO (08:04)
[2018-10-16] MEDS: Clopidogrel 75 MG TAB PO (08:05)
[2018-10-16] MEDS: Folic Acid 1 MG TAB PO (08:05)
[2018-10-16] MEDS: Hydroxychloroquine 200 MG TAB PO (08:05)
[2018-10-16] MEDS: Aspirin E.C. 81 MG TABEC PO (08:05)
[2018-10-16] MEDS: Pantoprazole 20 MG TABCR PO (08:05)
[2018-10-16 12:06] LABS: NT-proBNP 405 pg/mL
[2018-10-16] MEDS: MAGNESIUM SULFATE 2 GM/50 ML BAG IVPB (12:14)
--- NOTE | 2018-10-16 12:48 | PDOC.CMPRO ---
- If Service Date Differs Date of service: 10/16/18 Time of Service: 12:48 Care Management Progress Note S/O: Carlton is lying in bed this morning, pleasant and receptive to discussion. his family is in the room with him and offering support. He remains on IVF and telemetry at this time. No change in DC plan. A: 68 y/o male admitted 10/14/18 for confusion, elevated troponin. P: Carlton will return home with no anticipated services once medically cleared. He will F/U with PCP and plan of care as prescribed.
--- NOTE | 2018-10-16 15:52 | W.PM.PROGNOT ---
Date of Service Date of service: 10/16/18 Time of Service: 15:52 Assessment and Plan (1) Altered mental status: Current visit: Yes Status: Acute Improved with reinitiation of keppra - therefore, it is possible he was having complex partial seizures resulting in his mental status change. Continue keppra 500mg BID dosing. Will discuss with neurology at [facility] to ensure they would not like an EEG. (2) Troponin level elevated: Current visit: Yes Status: Acute Checking echo. Does have a history of mild systolic dysfunction and pro BNP is slightly elevated. On tele, he does have frequent PVCs and bigeminy. Continue to monitor on tele. No obvious ACS. (3) Paroxysmal atrial fibrillation: Current visit: Yes Status: Chronic Continue BB. Monitor daily INR on coumadin. (4) CAD (coronary artery disease): Current visit: No Status: Chronic Continue DAPT - patient is s/p ELAN in January of 2018. Also on high potency statin, BB. Continue tele - as above (5) Rheumatoid arthritis: Current visit: No Status: Chronic Currently on Hydroxychloroquin. (6) DVT prophylaxis: Current visit: Yes Status: Acute On coumadin. Monitor daily INR. 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 When asked to speak about that in more detail, he stated that he is more aware of his self and his surroundings, not as confused. Denied dizziness except for after he got back into bed after using the bathroom. Denied headache, visual changes, neck pain, numbness, tingling, chest pain, shortness of breath, or nausea. Exam Narrative Exam Narrative: General: Very pleasant middle-aged male, laying comfortably in bed, able to fluently speak about his condition to me, but does tell me he does not know what tonic clonic mean when we talk about seizures, A&Ox2 (does not know the year). HEENT: EOMI, MMM Heart: RRR, no m/r/g Lungs: CTAB GI: abdomen is soft, nontender, nondistended Extremities: no e/c/c BLE's, 2+ pedal pulses B; 4/4 strength throughout Objective Objective Clinical Data: Abnormal lab results 10/16/18 10/16/18 10/16/18 Range/Units 07:05 07:05 07:05 WBC 4.07 L (4.4-10.8) k/cumm RBC 4.21 L (4.50-6.00) m/cumm Hgb 11.5 L (13.5-17.5) g/dL Hct 36.4 L (40.0-50.0) % MCHC 31.6 L (32.0-36.0) g/dL RDW 16.1 H (11.8-14.1) % Absolute Lymphocytes 1.16 L (1.2-3.4) k/cumm PT 18.4 H (9.3-11.0) sec INR 1.8 H (0.9-1.1) Sodium 146 H (136-145) mmol/L Chloride 109 H (98-107) mmol/L Magnesium 1.7 L (1.8-2.4) mg/dL Troponin I 0.12 H* (0.00-0.06) ng/mL NT-Pro-B Natriuret Pep 405 H ( - 299) pg/mL Vital Signs Temperature 36.3 C L 10/16/18 15:51 Temperature Source Tympanic 10/16/18 15:51 Pulse 52 L 10/16/18 15:51 Pulse Rhythm Regular 10/16/18 09:51 Pulse 74 10/14/18 23:16 Respiratory Rate 18 10/16/18 15:51 Respiratory Effort 10/16/18 09:51 Respiratory Depth Normal 10/16/18 09:51 Respiratory Pattern Normal 10/16/18 09:51 Blood Pressure 111/70 10/16/18 15:51 Blood Pressure Mean 107 10/14/18 23:16 Blood Pressure Position Supine 10/14/18 18:53 Pulse Oximetry 97 10/16/18 15:51 Oxygen Delivery Method Room Air 10/16/18 15:51 Oxygen Flow Rate 0 10/16/18 15:51 Pain Level 0 10/16/18 12:00 Intake & Output 10/15/18 10/16/18 10/16/18 23:59 11:59 23:59 Intake Total 859.333 / 2392.666 1450 / 9.333 689.333 / 2139.333 Balance 859.333 / 2.666 1450 / 9.333 689.333 / 9.333 Intake: IV 499.333 / 2032.666 1000 / 1449.333 449.333 / 1449.333 Oral 360 / 360 450 / 690 240 / 690 Other: Urine Color Yellow Yellow Urine Appearance Clear Clear Clear Comment pt stood at toilet, voided, and flushed. UOP x 1, large in toilet. not measured Voiding Methods Toilet Laboratory Results WBC 4.07 k/cumm (4.4-10.8) L 10/16/18 07:05 RBC 4.21 m/cumm (4.50-6.00) L 10/16/18 07:05 Hgb 11.5 g/dL (13.5-17.5) L 10/16/18 07:05 Hct 36.4 % (40.0-50.0) L 10/16/18 07:05 MCV 86.5 fL (80-95) 10/16/18 07:05 MCH 27.3 pg (27.0-33.0) 10/16/18 07:05 MCHC 31.6 g/dL (32.0-36.0) L 10/16/18 07:05 RDW 16.1 % (11.8-14.1) H 10/16/18 07:05 Plt Count 171 x1000/uL (130-400) 10/16/18 07:05 MPV 9.4 fL (8.0-11.0) 10/16/18 07:05 Immature Gran % 0.0 10/16/18 07:05 Neutrophils % 55.3 10/16/18 07:05 Lymphocytes % 28.5 10/16/18 07:05 Monocytes % 14.3 10/16/18 07:05 Eosinophils % 1.7 10/16/18 07:05 Basophils % 0.2 10/16/18 07:05 Absolute Neutrophils 2.25 k/cumm (1.2-6.7) 10/16/18 07:05 Absolute Lymphocytes 1.16 k/cumm (1.2-3.4) L 10/16/18 07:05 Absolute Monocytes 0.58 k/cumm (0.11-0.7) 10/16/18 07:05 Absolute Eosinophils 0.07 k/cumm (0.0-0.7) 10/16/18 07:05 Absolute Basophils 0.01 k/cumm (0.0-0.2) 10/16/18 07:05 PT 18.4 sec (9.3-11.0) H 10/16/18 07:05 INR 1.8 (0.9-1.1) H 10/16/18 07:05 APTT 26.1 sec (21.0-31.4) 10/14/18 19:15 Sodium 146 mmol/L (136-145) H 10/16/18 07:05 Potassium 3.9 mmol/L (3.5-5.1) 10/16/18 07:05 Chloride 109 mmol/L (98-107) H 10/16/18 07:05 Carbon Dioxide 29.0 mmol/L (21.0-32.0) 10/16/18 07:05 Anion Gap 8.0 mmol/L (3-11) 10/16/18 07:05 BUN 11 mg/dL (7-18) 10/16/18 07:05 Creatinine 0.81 mg/dL (0.70-1.30) 10/16/18 07:05 Estimated GFR/1.73 m2 >= 60.00 (mL/min/1.73m2) 10/16/18 07:05 Glucose 97 mg/dL (70-100) 10/16/18 07:05 Calcium 8.8 mg/dL (8.5-10.1) 10/16/18 07:05 Magnesium 1.7 mg/dL (1.8-2.4) L 10/16/18 07:05 Total Bilirubin 0.5 mg/dL (0.2-1.0) 10/14/18 19:15 AST 20 U/L (15-37) 10/14/18 19:15 ALT 27 U/L (12-78) 10/14/18 19:15 Alkaline Phosphatase 86 U/L (46-116) 10/14/18 19:15 Troponin I 0.12 ng/mL (0.00-0.06) H* 10/16/18 07:05 NT-Pro-B Natriuret Pep 405 pg/mL (-299) H 10/16/18 07:05 Total Protein 7.2 g/dL (6.4-8.2) 10/14/18 19:15 Albumin 3.8 g/dL (3.4-5.0) 10/14/18 19:15 Lipase 175 U/L (73-393) 10/14/18 19:15 TSH 2.57 uIU/mL (0.358-3.74) 10/14/18 19:15 Urine Color Yellow (Yellow) 10/15/18 00:30 Urine Clarity Clear 10/15/18 00:30 Urine pH 8.0 (5-8) 10/15/18 00:30 Ur Specific [place] 1.015 (1.005-1.025) 10/15/18 00:30 Urine Protein Negative mg/dL (Negative) 10/15/18 00:30 Urine Ketones Negative mg/dL (Negative) 10/15/18 00:30 Urine Blood Negative (Negative) 10/15/18 00:30 Urine Nitrite Negative (Negative) 10/15/18 00:30 Urine Bilirubin Negative (Negative) 10/15/18 00:30 Urine Urobilinogen 0.2 EU/dL (Up TO 0.2) 10/15/18 00:30 Ur Leukocyte Esterase Negative (Negative) 10/15/18 00:30 Urine Glucose Negative mg/dL (Negative) 10/15/18 00:30 MRI/MRA brain: Stable mild atrophy and small vessel disease. No acute abnormality. MRA of [place] is within normal limits.
[2018-10-16] MEDS: Warfarin 5 MG TAB 7.5 MG PO (19:32)
[2018-10-16] MEDS: Atorvastatin 40 MG TAB 80 MG PO (21:22)
[2018-10-17] VITALS (9 sets, daily range): BP systolic 110–126; BP diastolic 75–82; PULSE 47–63; RESP 16–18; TEMP 36.2–36.5; O2SAT 97–100
[2018-10-17 07:51] LABS: Abs Immature Grans 0.01 k/cumm (0.0-0.09); Absolute Basophil Count 0.02 k/cumm (0.0-0.2); Absolute Lymphocyte Count 1.11 k/cumm (1.2-3.4); Absolute Monocyte Count 0.53 k/cumm (0.11-0.7); Absolute Neutrophil Count 2.45 k/cumm (1.2-6.7); Basophils % 0.5; Eosinophils % 2.4; HCT 36.5 % (40.0-50.0); HGB 11.5 g/dL (13.5-17.5); Immature Grans % 0.2; Lymphocytes % 26.3; Mean Corp. HGB Concentration 31.5 g/dL (32.0-36.0); Mean Corpuscular Hemoglobin 27.4 pg (27.0-33.0); Mean Corpuscular Volume 86.9 fL (80-95); Mean Platelet Volume 9.8 fL (8.0-11.0); Monocytes % 12.6; Platelet Count 172 x1000/uL (130-400); RBC Distribution Width 15.7 % (11.8-14.1); White Blood Cell Count 4.22 k/cumm (4.4-10.8)
[2018-10-17 07:59] LABS: Anion Gap 8.9 mmol/L (3-11); BUN 12 mg/dL (7-18); CO2 27.1 mmol/L (21.0-32.0); CREATININE 0.78 mg/dL (0.70-1.30); Calcium 8.5 mg/dL (8.5-10.1); Chloride 108 mmol/L (98-107); Glucose 89 mg/dL (70-100); Magnesium 1.8 mg/dL (1.8-2.4); Potassium 3.8 mmol/L (3.5-5.1); Sodium 144 mmol/L (136-145)
[2018-10-17 08:00] LABS: INR 2.7 (0.9-1.1); Prothrombin Time 27.6 sec (9.3-11.0)
[2018-10-17] MEDS: Lactated Ringers 1,000 ML 80 ML IV (08:52)
[2018-10-17] MEDS: Folic Acid 1 MG TAB PO (08:53)
[2018-10-17] MEDS: Hydroxychloroquine 200 MG TAB PO (08:53)
[2018-10-17] MEDS: Aspirin E.C. 81 MG TABEC PO (08:53)
[2018-10-17] MEDS: Clopidogrel 75 MG TAB PO (08:53)
[2018-10-17] MEDS: Pantoprazole 20 MG TABCR PO (08:53)
[2018-10-17] MEDS: Metoprolol CR 25 MG TABCR 12.5 MG PO (08:53)
--- NOTE | 2018-10-17 14:06 | PGE_ITS ---
Date of Service Date of service: 10/17/18 Time of Service: 14:02 Assessment and Plan (1) Altered mental status: Current visit: Yes Status: Resolved Resolved with reinitiation of keppra - therefore, it is possible he was having complex partial seizures resulting in his mental status change. Continue keppra 500 mg BID. Will contact neurology at [facility]. (2) Troponin level elevated: Current visit: Yes Status: Acute Checking echo and obtaining a cardiology consult. Does have a history of mild systolic dysfunction and pro BNP is slightly elevated. On tele, he does have frequent PVCs and bigeminy. Continue to monitor on tele. No obvious ACS. (3) Paroxysmal atrial fibrillation: Current visit: Yes Status: Chronic Continue BB. Monitor daily INR on coumadin. (4) CAD (coronary artery disease): Current visit: No Status: Chronic Continue DAPT - patient is s/p ELAN in January of 2018. Also on high potency statin, BB. Continue tele - as above (5) Rheumatoid arthritis: Current visit: No Status: Chronic Currently on Hydroxychloroquin. (6) DVT prophylaxis: Current visit: Yes Status: Acute On coumadin. Monitor daily INR. (7) Discharge planning issues: Current visit: Yes Status: Acute Possible discharge tomorrow Subjective Interval history since last seen: Dr Pepper states he continues to feel better, less confused, almost back to his baseline. He is able to tell me the date and who the president is without hesitation today. Denies dizziness, headache, chest pain, shortness of breath, nausea, vomiting. Nursing notes that the patient has frequent PVC's on tele. Exam Narrative Exam Narrative: General: Very pleasant middle-aged male, laying comfortably in bed, looks even better, A&OX3, able to carry out a more complex conversation today HEENT: EOMI, MMM Heart: RRR, no m/r/g Lungs: CTAB GI: abdomen is soft, nontender, nondistended Extremities: no e/c/c BLE's, 2+ pedal pulses B; 4/4 strength throughout Objective Objective Clinical Data: Abnormal lab results 10/17/18 10/17/18 10/17/18 Range/Units 07:00 07:00 07:00 WBC 4.22 L (4.4-10.8) k/cumm RBC 4.20 L (4.50-6.00) m/cumm Hgb 11.5 L (13.5-17.5) g/dL Hct 36.5 L (40.0-50.0) % MCHC 31.5 L (32.0-36.0) g/dL RDW 15.7 H (11.8-14.1) % Absolute Lymphocytes 1.11 L (1.2-3.4) k/cumm PT 27.6 H D (9.3-11.0) sec INR 2.7 H D (0.9-1.1) Chloride 108 H (98-107) mmol/L Vital Signs Temperature 36.3 C L 10/17/18 07:50 Temperature Source Tympanic 10/17/18 07:50 Pulse 55 L 10/17/18 07:50 Pulse Rhythm Regular 10/16/18 15:50 Pulse 74 10/14/18 23:16 Respiratory Rate 16 10/17/18 07:50 Respiratory Effort 10/16/18 15:50 Respiratory Depth Normal 10/16/18 15:50 Respiratory Pattern Normal 10/16/18 15:50 Blood Pressure 116/78 10/17/18 07:50 Blood Pressure Mean 107 10/14/18 23:16 Blood Pressure Position Supine 10/14/18 18:53 Pulse Oximetry 99 10/17/18 07:50 Oxygen Delivery Method Room Air 10/17/18 07:50 Oxygen Flow Rate 0 10/17/18 07:50 Pain Level 0 10/17/18 07:50 Intake & Output 10/16/18 10/17/18 10/17/18 23:59 11:59 23:59 Intake Total 689.333 / 2139.333 1000 / 1000 Output Total 300 / 300 1100 / 1100 Balance 389.333 / 1839.333 -100 / -100 Intake: IV 449.333 / 6708.961 9940 / 1000 Oral 240 / 690 Output: Urine 300 / 300 1100 / 1100 Other: Urine Color Yellow Yellow Urine Appearance Clear Clear Comment not measured Voiding Methods Urinal Urinal Laboratory Results WBC 4.22 k/cumm (4.4-10.8) L 10/17/18 07:00 RBC 4.20 m/cumm (4.50-6.00) L 10/17/18 07:00 Hgb 11.5 g/dL (13.5-17.5) L 10/17/18 07:00 Hct 36.5 % (40.0-50.0) L 10/17/18 07:00 MCV 86.9 fL (80-95) 10/17/18 07:00 MCH 27.4 pg (27.0-33.0) 10/17/18 07:00 MCHC 31.5 g/dL (32.0-36.0) L 10/17/18 07:00 RDW 15.7 % (11.8-14.1) H 10/17/18 07:00 Plt Count 172 x1000/uL (130-400) 10/17/18 07:00 MPV 9.8 fL (8.0-11.0) 10/17/18 07:00 Immature Gran % 0.2 10/17/18 07:00 Neutrophils % 58.0 10/17/18 07:00 Lymphocytes % 26.3 10/17/18 07:00 Monocytes % 12.6 10/17/18 07:00 Eosinophils % 2.4 10/17/18 07:00 Basophils % 0.5 10/17/18 07:00 Absolute Neutrophils 2.45 k/cumm (1.2-6.7) 10/17/18 07:00 Absolute Lymphocytes 1.11 k/cumm (1.2-3.4) L 10/17/18 07:00 Absolute Monocytes 0.53 k/cumm (0.11-0.7) 10/17/18 07:00 Absolute Eosinophils 0.10 k/cumm (0.0-0.7) 10/17/18 07:00 Absolute Basophils 0.02 k/cumm (0.0-0.2) 10/17/18 07:00 PT 27.6 sec (9.3-11.0) H D 10/17/18 07:00 INR 2.7 (0.9-1.1) H D 10/17/18 07:00 APTT 26.1 sec (21.0-31.4) 10/14/18 19:15 Sodium 144 mmol/L (136-145) 10/17/18 07:00 Potassium 3.8 mmol/L (3.5-5.1) 10/17/18 07:00 Chloride 108 mmol/L (98-107) H 10/17/18 07:00 Carbon Dioxide 27.1 mmol/L (21.0-32.0) 10/17/18 07:00 Anion Gap 8.9 mmol/L (3-11) 10/17/18 07:00 BUN 12 mg/dL (7-18) 10/17/18 07:00 Creatinine 0.78 mg/dL (0.70-1.30) 10/17/18 07:00 Estimated GFR/1.73 m2 >= 60.00 (mL/min/1.73m2) 10/17/18 07:00 Glucose 89 mg/dL (70-100) 10/17/18 07:00 Calcium 8.5 mg/dL (8.5-10.1) 10/17/18 07:00 Magnesium 1.8 mg/dL (1.8-2.4) 10/17/18 07:00 Total Bilirubin 0.5 mg/dL (0.2-1.0) 10/14/18 19:15 AST 20 U/L (15-37) 10/14/18 19:15 ALT 27 U/L (12-78) 10/14/18 19:15 Alkaline Phosphatase 86 U/L (46-116) 10/14/18 19:15 Troponin I 0.12 ng/mL (0.00-0.06) H* 10/16/18 07:05 NT-Pro-B Natriuret Pep 405 pg/mL (-299) H 10/16/18 07:05 Total Protein 7.2 g/dL (6.4-8.2) 10/14/18 19:15 Albumin 3.8 g/dL (3.4-5.0) 10/14/18 19:15 Lipase 175 U/L (73-393) 10/14/18 19:15 TSH 2.57 uIU/mL (0.358-3.74) 10/14/18 19:15 Urine Color Yellow (Yellow) 10/15/18 00:30 Urine Clarity Clear 10/15/18 00:30 Urine pH 8.0 (5-8) 10/15/18 00:30 Ur Specific [place] 1.015 (1.005-1.025) 10/15/18 00:30 Urine Protein Negative mg/dL (Negative) 10/15/18 00:30 Urine Ketones Negative mg/dL (Negative) 10/15/18 00:30 Urine Blood Negative (Negative) 10/15/18 00:30 Urine Nitrite Negative (Negative) 10/15/18 00:30 Urine Bilirubin Negative (Negative) 10/15/18 00:30 Urine Urobilinogen 0.2 EU/dL (Up TO 0.2) 10/15/18 00:30 Ur Leukocyte Esterase Negative (Negative) 10/15/18 00:30 Urine Glucose Negative mg/dL (Negative) 10/15/18 00:30
--- NOTE | 2018-10-17 14:27 | PDOC.CMPRO ---
- If Service Date Differs Date of service: 10/17/18 Time of Service: 14:27 Care Management Progress Note S/O: Carlton is doing well when this underwriter solicitation director visits this morning. He states that he is feeling better and feeling clearer in regards to his mentation. He is scheduled to have an Echo tomorrow as well as cardiology consult. A: 68 y/o male admitted 10/14/18 for confusion, elevated troponin. P: Carlton will return home with no anticipated services once medically cleared. He will F/U with PCP and plan of care as prescribed.
[2018-10-17] MEDS: Warfarin 5 MG TAB PO (19:27)
[2018-10-17] MEDS: Atorvastatin 40 MG TAB 80 MG PO (21:39)
[2018-10-18] VITALS (7 sets, daily range): BP systolic 102–134; BP diastolic 58–86; PULSE 58–76; RESP 16–18; TEMP 36.2–36.7; O2SAT 99–100
--- NOTE | 2018-10-18 07:50 | MERGE_ITS ---
*[facility]* *[facility]* [address] [place] [address] Date of study: 10/18/2018 Transthoracic Echocardiography M-mode, complete 2D, complete spectral Doppler, and color Doppler *STUDY CONCLUSIONS* Summary: 1. Left ventricle: The cavity size was normal. Systolic function was at the lower limits of normal. The estimated ejection fraction was 50-55%. Moderate hypokinesis of the inferior myocardium. Severe hypokinesis of the basalinferior myocardium. Diastolic parameters were normal. There was no evidence of elevated ventricular filling pressure by Doppler parameters. 2. Mitral valve: There was moderate regurgitation. 3. Right ventricle: The cavity size was normal. Wall thickness was normal. Systolic function was normal. 4. Atrial septum: There was increased thickness of the septum, consistent with lipomatous hypertrophy. No defect or patent foramen ovale was identified. 5. Pulmonary arteries: Pulmonary systolic pressure was in the range of 20mm Hg to 30mm Hg. 6. Inferior vena cava: The vessel was patent and normal in size. The respirophasic diameter changes were in the normal range (greater than or equal to 50%), consistent with normal central venous pressure. *PATIENT PRESENTATION* Height: 172.7cm ((68in) ) S/D Pressure: 128 / 80 Weight: 59kg ((129.7lb) ) BSA: 1.68m^2 Test start time: 08:55 AM. Test stop time: 08:50 AM. CONSULTING Umu Paredes PERFORMING Unknown PERFORMING [facility] FIELD PLACEMENT DIRECTOR RT Nat (R)(CT), [facility] ORDERING Ivelisse Varela REFERRING Ivelisse Varela *PROCEDURE DATA* Procedure information: This study was interpreted by [facility]. Pertinent images and digital data are archived for permanent storage and are available for subsequent review. Comparison was made to the study of 04/15/2018. Study status: Routine. Transthoracic echocardiography. M-mode, complete 2D, complete spectral Doppler, and color Doppler. A Transthoracic Echocardiogram was performed. Scanning was performed from the parasternal, apical, subcostal, and suprasternal notch acoustic windows. Images were obtained using an [id number] cardiac ultrasound machine. Image quality was adequate. Study completion: The patient tolerated the procedure well. *CARDIAC ANATOMY* Left ventricle: The cavity size was normal. Systolic function was at the lower limits of normal. The estimated ejection fraction was 50-55%. Regional wall motion abnormalities: Moderate hypokinesis of the inferior myocardium. Severe hypokinesis of the basalinferior myocardium. The tissue Doppler parameters were normal. Diastolic parameters were normal. There was no evidence of elevated ventricular filling pressure by Doppler parameters. Aortic valve: Trileaflet; mildly thickened, mildly calcified leaflets. Doppler: There was no stenosis. There was no regurgitation. VTI ratio of LVOT to aortic valve: 0.79. Valve area (VTI): 2.2cm^2. Indexed valve area (VTI): 1.3cm^2/m^2. Peak velocity ratio of LVOT to aortic valve: 0.79. Valve area (Vmax): 2.2cm^2. Indexed valve area (Vmax): 1.3cm^2/m^2. Mean velocity ratio of LVOT to aortic valve: 0.75. Valve area (Vmean): 2.1cm^2. Indexed valve area (Vmean): 1.3cm^2/m^2. Mean gradient (S): 2.8mm Hg. Peak gradient (S): 4.9mm Hg. Aorta: Aortic root: The aortic root was normal in size. Ascending aorta: The ascending aorta was mildly dilated. Mitral valve: Doppler: There was no evidence for stenosis. There was moderate regurgitation. Valve area by pressure half-time: 3.8cm^2. Indexed valve area by pressure half-time: 2.3cm^2/m^2. Left atrium: The atrium was normal in size. Atrial septum: There was increased thickness of the septum, consistent with lipomatous hypertrophy. No defect or patent foramen ovale was identified. Right ventricle: The cavity size was normal. Wall thickness was normal. Systolic function was normal. Pulmonic valve: Doppler: There was no evidence for stenosis. There was trivial regurgitation. Tricuspid valve: Doppler: There was mild regurgitation. Pulmonary artery: Poorly visualized. Pulmonary systolic pressure was in the range of 20mm Hg to 30mm Hg. Right atrium: The atrium was normal in size. Pericardium: There was no pericardial effusion. Systemic veins: Inferior vena cava: Well visualized. The vessel was patent and normal in size. The respirophasic diameter changes were in the normal range (greater than or equal to 50%), consistent with normal central venous pressure. Baseline ECG: Bradycardia. Measurements Left ventricle Value 04/15/2018 Reference LV ID, ED, PLAX 5.4 cm 4.3 3.5 - 6.0 LV ID, ES, PLAX 3.8 cm 3.4 2.1 - 4.0 LV PW thickness, ED, PLAX 0.8 cm 1.1 LV end-diastolic volume, 105 ml 63 1-p A2C LV ejection fraction, 1-p 46 % 43 A2C LV end-diastolic volume, 133 ml 81 1-p A4C LV ejection fraction, 1-p 61 % 47 A4C LV e', lateral 0.13 m/sec 0.102 LV E/e', lateral 5 6 LV e', medial 0.101 m/sec 0.071 LV E/e', medial 6 8 LV e', average 0.115 m/sec 0.087 LV E/e', average 6 7 Ventricular septum Value 04/15/2018 Reference IVS thickness, ED, PLAX 1.1 cm 1.1 LVOT Value 04/15/2018 Reference LVOT ID, A-P 1.9 cm 1.9 LVOT area 2.8 cm^2 3 LVOT peak velocity, S 0.87 m/sec 0.95 LVOT mean velocity, S 0.6 m/sec 0.68 LVOT VTI, S 18.1 cm 18.6 LVOT peak gradient, S 3.1 mm Hg 3.6 LVOT mean gradient, S 1.6 mm Hg 2.1 Stroke volume (SV), LVOT 51 ml 55 DP Stroke index (SV/bsa), 31 ml/m^2 33 LVOT DP Aortic valve Value 04/15/2018 Reference Aortic valve peak 1.1 m/sec 1.7 velocity, S Aortic valve mean 0.79 m/sec 1.19 velocity, S Aortic valve VTI, S 23.0 cm 29.5 Aortic mean gradient, S 2.8 mm Hg 6.3 Aortic peak gradient, S 4.9 mm Hg 11.4 VTI ratio, LVOT/AV 0.79 0.63 Aortic valve area, VTI 2.2 cm^2 1.9 Velocity ratio, peak, 0.79 0.56 LVOT/AV Aortic valve area, peak 2.2 cm^2 1.7 velocity Velocity ratio, mean, 0.75 0.57 LVOT/AV Aortic valve area, mean 2.1 cm^2 1.7 velocity Aortic valve area/bsa, 1.3 cm^2/m^2 1 mean velocity Aorta Value 04/15/2018 Reference Aortic root ID, ED 3.7 cm 3.5 Ascending aorta ID, A-P, S 3.6 cm 3.2 Left atrium Value 04/15/2018 Reference LA ID, A-P, ES 3.2 cm 2.7 LA ID/bsa, A-P 1.9 cm/m^2 1.6 <=2.2 LA area, ES, A4C 16.2 cm^2 14.9 8.8 - 23.4 LA area, ES, A2C 18 cm^2 18 LA volume/bsa, ES, 1-p A4C 26 ml/m^2 22 LA volume, ES, 2-p 44 ml 41 LA volume/bsa, ES, 2-p 26 ml/m^2 25 LA/aortic root ratio 0.88 0.76 Mitral valve Value 04/15/2018 Reference Mitral E-wave peak 0.64 m/sec 0.58 velocity Mitral A-wave peak 0.5 m/sec 0.56 velocity Mitral deceleration time 197 ms 184 150 - 230 Mitral pressure half-time 57 ms 53 Mitral E/A ratio, peak 1.28 1.03 Mitral valve area, PHT, DP 3.8 cm^2 4.1 Pulmonary veins Value 04/15/2018 Reference Pulmonary vein peak 0.36 m/sec velocity, S Pulmonary vein peak 0.35 m/sec velocity, D Pulmonary vein velocity 1.01 ratio, peak, S/D Tricuspid valve Value 04/15/2018 Reference Tricuspid regurg peak 2.3 m/sec 2.7 velocity Tricuspid peak RV-RA 22 mm Hg 28.4 gradient Right atrium Value 04/15/2018 Reference RA area, ES, A4C 14.9 cm^2 14.5 8.3 - 19.5 Legend: (L) and (H) mino values outside specified reference range. I have personally reviewed the images and have reviewed and edited the reported findings. Electronically signed by Chris Burnette MD 10/18/2018 10:38
[2018-10-18 07:52] LABS: Abs Immature Grans 0.01 k/cumm (0.0-0.09); Absolute Basophil Count 0.01 k/cumm (0.0-0.2); Absolute Eosinophil Count 0.11 k/cumm (0.0-0.7); Absolute Lymphocyte Count 1.17 k/cumm (1.2-3.4); Absolute Monocyte Count 0.63 k/cumm (0.11-0.7); Absolute Neutrophil Count 3.11 k/cumm (1.2-6.7); Basophils % 0.2; Eosinophils % 2.2; HGB 12.2 g/dL (13.5-17.5); Immature Grans % 0.2; Lymphocytes % 23.2; Mean Corp. HGB Concentration 31.3 g/dL (32.0-36.0); Mean Corpuscular Hemoglobin 27.2 pg (27.0-33.0); Mean Corpuscular Volume 87.1 fL (80-95); Mean Platelet Volume 9.8 fL (8.0-11.0); Monocytes % 12.5; Neutrophils % 61.7; Platelet Count 195 x1000/uL (130-400); RBC 4.48 m/cumm (4.50-6.00); RBC Distribution Width 15.9 % (11.8-14.1); White Blood Cell Count 5.04 k/cumm (4.4-10.8)
[2018-10-18 07:57] LABS: Anion Gap 8.7 mmol/L (3-11); BUN 11 mg/dL (7-18); CO2 27.3 mmol/L (21.0-32.0); Calcium 8.7 mg/dL (8.5-10.1); Chloride 107 mmol/L (98-107); Glucose 94 mg/dL (70-100); Magnesium 1.9 mg/dL (1.8-2.4); Potassium 3.9 mmol/L (3.5-5.1); Sodium 143 mmol/L (136-145)
[2018-10-18 08:09] LABS: INR 3.8 (0.9-1.1); Prothrombin Time 38.4 sec (9.3-11.0)
--- NOTE | 2018-10-18 08:54 | PDOC.CMDIS ---
LACE Index Scoring Tool - Questions: Length of Stay (in days): 3 Acuity (Admit via E.D.?): Yes Comorbidities: Previous M.I. E.D. Visits: 3 - Answers: Total Score: 10 Risk of Readmission: High Risk Care Management Discharge Reason for Hospitalization: Confusion, Elevated Troponin Discharge Plan: Car[place] will discharge home with no additional services anticipated at this time. He will follow up with his PCP and plan of care as prescribed-including outpatient follow up with Neurology. He will transport via private vehicle with his , Areli. Patient/Family Education Needs: Review discharge instructions, discuss self care needs upon discharge Ask Me Three. Dr. 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
[2018-10-18] MEDS: Metoprolol CR 25 MG TABCR 12.5 MG PO (09:20)
[2018-10-18] MEDS: Hydroxychloroquine 200 MG TAB PO (09:20)
[2018-10-18] MEDS: Pantoprazole 20 MG TABCR PO (09:20)
[2018-10-18] MEDS: Aspirin E.C. 81 MG TABEC PO (09:20)
[2018-10-18] MEDS: Folic Acid 1 MG TAB PO (09:20)
[2018-10-18] MEDS: Clopidogrel 75 MG TAB PO (09:20)
--- NOTE | 2018-10-18 13:37 | W.PM.DS.N ---
Date of service: 10/18/18 Time of Service: 13:38 DS: Diagnosis Discharge Diagnosis (1) Altered mental status: Status: Resolved (2) Troponin level elevated: Status: Acute (3) Paroxysmal atrial fibrillation: Status: Chronic (4) CAD (coronary artery disease): Status: Chronic (5) Rheumatoid arthritis: Status: Chronic Discharge Plan Disposition Patient Disposition: HOME Condition: Stable Discharge Details Reason For Visit: CONFUSION, ELEVATED TROPONIN Admit Date/Time: 10/16/18 11:07 Admit Provider: Jose F Burton Attending Provider: Jose F Burton Primary Care Provider: Umu Paredes [facility] Hospital Course: Mr Pepper is a 68 year old male with PMHx of anoxic encephalopathy following a cardiac arrest, CAD s/p stenting, paroxysmal Afib on coumadin, h/o vertebral artery dissection and TIA, who was admitted to [facility] on 10/14/18 with mental status changes in setting of discontinuation of keppra as well as borderline elevated troponin. Both neurology and cardiology at [facility] were consulted as these services were not available at [facility] at the time. MRI/MRA of the brain ruled out any acute CVA. Per neurology, recommendations were made to resume keppra 500 mg PO BID after a loading dose. Per cardiology, we were to trend the troponins, monitor the patient on telemetry, obtain an echo, and if there is any evidence of ACS, treat accordingly. In short, the patient did not have an ACS on this admission. He did have frequent PVC's observed on tele, but no actual Vtach. He had an echocardiogram revealing EF of 50-55% (unchanged from prior). There were areas of hypokinesis at the basalinferior myocardium, and recommendation is for the patient to follow up for outpatient stress test as well as with his passenger elevator operator at [facility], Dr Naylor. Cardiology will have to follow his dilated aortic root. His mental status is now back to his baseline, and it is felt that the patient can be discharged home today. His INR is slightly elevated on discharged, so he is instructed to hold coumadin until INR check on 10/20/18. Home Meds and New Rx's Prescriptions: Continued atorvastatin [Lipitor] 80 mg tablet 80 mg PO HS Qty: 90 RF: 4 clopidogrel [Plavix] 75 mg tablet 75 mg PO DAILY Qty: 90 RF: 4 folic acid 1 mg tablet 1 mg PO DAILY Qty: 90 RF: 4 hydroxychloroquine 200 mg tablet 200 mg PO DAILY Qty: 90 RF: 4 methotrexate sodium 2.5 mg tablet 20 mg PO DIRECTED Qty: 96 RF: 4 metoprolol succinate 25 mg tablet extended release 24 hr 12.5 mg PO DAILY Qty: 45 RF: 4 omeprazole 20 mg capsule,delayed release(DR/EC) 20 mg PO DAILY RF: 0 FE C Plus [id number]-cb-[id number]-mg tablet 1 tab PO BID Qty: 180 RF: 4 levetiracetam [Keppra] 500 mg tablet 500 mg PO BID Qty: 180 RF: 4 aspirin [Aspir-81] 81 MG tablet,delayed release (DR/EC) 81 mg PO DAILY RF: 0 Discontinued warfarin [Coumadin] 5 mg tablet See Rx Instructions PO QPM MDD 2 Qty: 100 RF: 6 Discharge Instructions Instructions: Cardiac Stress Test (DC), Altered Mental Status (GEN) Additional Instructions: Do not take coumadin until follow up INR on 10/20/18. Follow up for your stress test at [facility] in 1-2 weeks. Follow up with your PCP as scheduled this week. Follow up with Dr Rivera and Dr Naylor in 1-2 weeks. Return to the hospital with any worsening of mental status, fever, bleeding, chest pain, or shortness of breath. Stand Alone Forms: Nursing Discharge Form Referrals: Diagnostic Imaging [Other] - 10/20/18 8:00 am (You have an MPI Stress Test on ThursdayOctober 20 at 8am. The instructions for the test will be provided to you. Please call [phone] if you have any quetions or need to reschedule.) Umu Paredes MD, [place] [Primary Care Provider] - Sabrina Naylor MD [MD CONSULTING PHYSICIAN] - (1-2 weeks - follow up post stress test) Activity:: Activity as Tolerated Equipment/Supplies:: No Equipment Needed Diet:: heart healthy Discharge Orders Discharge Orders: Discharge Order (Routine); Ordered 10/18/18 Ordered By: Ivelisse Varela Other Ambulatory Orders: Prothrombin Time (Routine) Timeframe: 20181020 Location: Determined by Patient Ordered By: Ivelisse Varela Exam Narrative Exam Narrative: General: Very pleasant middle-aged male, laying comfortably in bed, A&OX3, able to have a conversation about his care with me today, but asking questions like what am I looking for in the stress test. HEENT: EOMI, MMM Heart: RRR, no m/r/g Lungs: CTAB GI: abdomen is soft, nontender, nondistended Extremities: no e/c/c BLE's, 2+ pedal pulses B; 4/4 strength throughout DS: Data Vitals/I&O Vitals and I&O: Vital Signs Temperature 36.2 C L 10/18/18 11:55 Temperature Source Tympanic 10/18/18 11:55 Pulse 60 10/18/18 11:55 Pulse Rhythm Regular 10/18/18 09:40 Pulse 74 10/14/18 23:16 Respiratory Rate 16 10/18/18 11:55 Respiratory Effort Non-Labored 10/18/18 09:40 Respiratory Depth Normal 10/18/18 09:40 Respiratory Pattern Normal 10/18/18 09:40 Blood Pressure 134/86 10/18/18 11:55 Blood Pressure Mean 107 10/14/18 23:16 Blood Pressure Position Supine 10/14/18 18:53 Pulse Oximetry 99 10/18/18 11:55 Oxygen Delivery Method Room Air 10/18/18 11:55 Oxygen Flow Rate 0 10/18/18 11:55 Pain Level 0 10/18/18 11:55 Comment 10/18/18 03:25 Intake & Output 10/17/18 10/18/18 10/18/18 23:59 11:59 23:59 Intake Total 973.333 / 2333.333 610 / 610 Output Total 350 / 1450 225 / 925 700 / 925 Balance 623.333 / 883.333 -225 / -315 -90 / -315 Intake: IV 493.333 / 1493.333 Oral 480 / 840 610 / 610 Output: Urine 350 / 1450 225 / 925 700 / 925 Other: Urine Color Yellow Yellow Yellow Urine Appearance Clear Clear Urine Odor None Comment Pre bladder scan. Voiding Methods Urinal Urinal Urinal Completed studies during hospitalization [Text1]: CT head w/o contrast 10/14/18: Small vessel disease. No acute abnormality. CTA chest 10/14/18: Dilatation of the ascending aorta to 4.1 cm. No evidence of dissection or pulmonary emboli. CXR 10/14/18: No acute abnormality. MRI/MRA brain 10/15/18: MRA of the [place] is within normal limits. Stable mild atrophy and small vessel disease. No acute abnormality. Echo 10/18/18: 1. Left ventricle: The cavity size was normal. Systolic function was at the lower limits of normal. The estimated ejection fraction was 50-55%. Moderate hypokinesis of the inferior myocardium. Severe hypokinesis of the basalinferior myocardium. Diastolic parameters were normal. There was no evidence of elevated ventricular filling pressure by Doppler parameters. 2. Mitral valve: There was moderate regurgitation. 3. Right ventricle: The cavity size was normal. Wall thickness was normal. Systolic function was normal. 4. Atrial septum: There was increased thickness of the septum, consistent with lipomatous hypertrophy. No defect or patent foramen ovale was identified. 5. Pulmonary arteries: Pulmonary systolic pressure was in the range of 20mm Hg to 30mm Hg. 6. Inferior vena cava: The vessel was patent and normal in size. The respirophasic diameter changes were in the normal range (greater than or equal to 50%), consistent with normal central venous pressure. Labs on day of discharge: Labs from last 24 hours 10/18/18 10/18/18 10/18/18 07:15 07:15 07:15 WBC 5.04 RBC 4.48 L Hgb 12.2 L Hct 39.0 L MCV 87.1 MCH 27.2 MCHC 31.3 L RDW 15.9 H Plt Count 195 MPV 9.8 Immature Gran % 0.2 Neutrophils % 61.7 Lymphocytes % 23.2 Monocytes % 12.5 Eosinophils % 2.2 Basophils % 0.2 Absolute Neutrophils 3.11 Absolute Lymphocytes 1.17 L Absolute Monocytes 0.63 Absolute Eosinophils 0.11 Absolute Basophils 0.01 PT 38.4 H D INR 3.8 H D Sodium 143 Potassium 3.9 Chloride 107 Carbon Dioxide 27.3 Anion Gap 8.7 BUN 11 Creatinine 0.80 Estimated GFR/1.73 m2 >= 60.00 Glucose 94 Calcium 8.7 Magnesium 1.9 PFSH Medical History History of TIA (transient ischemic attack) (Chronic) Paroxysmal atrial fibrillation (Chronic) History of cardiac arrest (Chronic) Status post myocardial infarction of inferior wall (Chronic) CAD (coronary artery disease) (Chronic) Vertebral artery dissection (Chronic 04/01/15) Ventricular hypertrophy (Chronic 04/01/15) Rheumatoid arthritis (Chronic 10/19/17) Hypercholesterolemia (Chronic 04/01/15) Acute posterior circulation transient ischemic attack (Chronic 04/01/15) Anoxic brain injury (Chronic) Elevated troponin I level (Resolved) Lyme disease (Resolved) Transient ischemic attack (Resolved) Surgical History Stented coronary artery (Chronic) S/P ablation of atrial fibrillation (Chronic 10/19/17) History of open reduction and internal fixation (ORIF) procedure (Resolved) Fracture, Open Treatment (09/09/13) Social History household members: spouse housing: house lives independently: Yes current occupational status: retired leisure activities: sports and exercise well-balanced diet: daily or most days what type of physical activity do you participate in: walking, bicycling and regular exercise Smoking and Tabacco status: Never alcohol intake: former substance use type: does not use What is your relationship status?: Panel score (0-1 are the most socially isolated patients): 1
--- NOTE | 2018-10-18 13:47 | DSE_ITS ---
Date of service: 10/18/18 Time of Service: 13:38 DS: Diagnosis Discharge Diagnosis (1) Altered mental status: Status: Resolved (2) Troponin level elevated: Status: Acute (3) Paroxysmal atrial fibrillation: Status: Chronic (4) CAD (coronary artery disease): Status: Chronic (5) Rheumatoid arthritis: Status: Chronic Discharge Plan Disposition Patient Disposition: HOME Condition: Stable Discharge Details Reason For Visit: CONFUSION, ELEVATED TROPONIN Admit Date/Time: 10/16/18 11:07 Admit Provider: Jose F Burton Attending Provider: Jose F Burton Primary Care Provider: Umu Paredes [facility] Course Hospital Course: Mr Pepper is a 68 year old male with PMHx of anoxic encephalopathy following a cardiac arrest, CAD s/p stenting, paroxysmal Afib on coumadin, h/o vertebral artery dissection and TIA, who was admitted to [facility] on 10/14/18 with mental status changes in setting of discontinuation of keppra as well as borderline elevated troponin. Both neurology and cardiology at [facility] were consulted as these services were not available at [facility] at the time. MRI/MRA of the brain ruled out any acute CVA. Per neurology, recommendations were made to resume keppra 500 mg PO BID after a loading dose. Per cardiology, we were to trend the troponins, monitor the patient on telemetry, obtain an echo, and if there is any evidence of ACS, treat accordingly. In short, the patient did not have an ACS on this admission. He did have frequent PVC's observed on tele, but no actual Vtach. He had an echocardiogram revealing EF of 50-55% (unchanged from prior). There were areas of hypokinesis at the basalinferior myocardium, and recommendation is for the patient to follow up for outpatient stress test as well as with his thermal intelligence analyst at [facility], Dr Naylor. Cardiology will have to follow his dilated aortic root. His mental status is now back to his baseline, and it is felt that the patient can be discharged home today. His INR is slightly elevated on discharged, so he is instructed to hold coumadin until INR check on 10/20/18. Home Meds and New Rx's Prescriptions: Continued atorvastatin [Lipitor] 80 mg tablet 80 mg PO HS Qty: 90 RF: 4 clopidogrel [Plavix] 75 mg tablet 75 mg PO DAILY Qty: 90 RF: 4 folic acid 1 mg tablet 1 mg PO DAILY Qty: 90 RF: 4 hydroxychloroquine 200 mg tablet 200 mg PO DAILY Qty: 90 RF: 4 methotrexate sodium 2.5 mg tablet 20 mg PO DIRECTED Qty: 96 RF: 4 metoprolol succinate 25 mg tablet extended release 24 hr 12.5 mg PO DAILY Qty: 45 RF: 4 omeprazole 20 mg capsule,delayed release(DR/EC) 20 mg PO DAILY RF: 0 FE C Plus [id number] [id number]-bt-[id number]-mg tablet 1 tab PO BID Qty: 180 RF: 4 levetiracetam [Keppra] 500 mg tablet 500 mg PO BID Qty: 180 RF: 4 aspirin [Aspir-81] 81 MG tablet,delayed release (DR/EC) 81 mg PO DAILY RF: 0 Discontinued warfarin [Coumadin] 5 mg tablet See Rx Instructions PO QPM MDD 2 Qty: 100 RF: 6 Discharge Instructions Instructions: Cardiac Stress Test (DC), Altered Mental Status (GEN) Additional Instructions: Do not take coumadin until follow up INR on 10/20/18. Follow up for your stress test at [facility] in 1-2 weeks. Follow up with your PCP as scheduled this week. Follow up with Dr Rivera and Dr Naylor in 1-2 weeks. Return to the hospital with any worsening of mental status, fever, bleeding, chest pain, or shortness of breath. Stand Alone Forms: Nursing Discharge Form Referrals: Diagnostic Imaging [Other] - 10/20/18 8:00 am (You have an MPI Stress Test on ThursdayOctober 20 at 8am. The instructions for the test will be provided to you. Please call [phone] if you have any quetions or need to reschedule.) Umu Paredes MD, [place] [Primary Care Provider] - Sabrina Naylor MD [MD CONSULTING PHYSICIAN] - (1-2 weeks - follow up post stress test) Activity:: Activity as Tolerated Equipment/Supplies:: No Equipment Needed Diet:: heart healthy Discharge Orders Discharge Orders: Discharge Order (Routine); Ordered 10/18/18 Ordered By: Ivelisse Varela Other Ambulatory Orders: Prothrombin Time (Routine) Timeframe: 20181020 Location: Determined by Patient Ordered By: Ivelisse Varela Exam Narrative Exam Narrative: General: Very pleasant middle-aged male, laying comfortably in bed, A&OX3, able to have a conversation about his care with me today, but asking questions like what am I looking for in the stress test. HEENT: EOMI, MMM Heart: RRR, no m/r/g Lungs: CTAB GI: abdomen is soft, nontender, nondistended Extremities: no e/c/c BLE's, 2+ pedal pulses B; 4/4 strength throughout DS: Data Vitals/I&O Vitals and I&O: Vital Signs Temperature 36.2 C L 10/18/18 11:55 Temperature Source Tympanic 10/18/18 11:55 Pulse 60 10/18/18 11:55 Pulse Rhythm Regular 10/18/18 09:40 Pulse 74 10/14/18 23:16 Respiratory Rate 16 10/18/18 11:55 Respiratory Effort Non-Labored 10/18/18 09:40 Respiratory Depth Normal 10/18/18 09:40 Respiratory Pattern Normal 10/18/18 09:40 Blood Pressure 134/86 10/18/18 11:55 Blood Pressure Mean 107 10/14/18 23:16 Blood Pressure Position Supine 10/14/18 18:53 Pulse Oximetry 99 10/18/18 11:55 Oxygen Delivery Method Room Air 10/18/18 11:55 Oxygen Flow Rate 0 10/18/18 11:55 Pain Level 0 10/18/18 11:55 Comment 10/18/18 03:25 Intake & Output 10/17/18 10/18/18 10/18/18 23:59 11:59 23:59 Intake Total 973.333 / 2333.333 610 / 610 Output Total 350 / 1450 225 / 925 700 / 925 Balance 623.333 / 883.333 -225 / -315 -90 / -315 Intake: IV 493.333 / 1493.333 Oral 480 / 840 610 / 610 Output: Urine 350 / 1450 225 / 925 700 / 925 Other: Urine Color Yellow Yellow Yellow Urine Appearance Clear Clear Urine Odor None Comment Pre bladder scan. Voiding Methods Urinal Urinal Urinal Completed studies during hospitalization [Text1]: CT head w/o contrast 10/14/18: Small vessel disease. No acute abnormality. CTA chest 10/14/18: Dilatation of the ascending aorta to 4.1 cm. No evidence of dissection or pulmonary emboli. CXR 10/14/18: No acute abnormality. MRI/MRA brain 10/15/18: MRA of the [place] is within normal limits. Stable mild atrophy and small vessel disease. No acute abnormality. Echo 10/18/18: 1. Left ventricle: The cavity size was normal. Systolic function was at the lower limits of normal. The estimated ejection fraction was 50-55%. Moderate hypokinesis of the inferior myocardium. Severe hypokinesis of the basalinferior myocardium. Diastolic parameters were normal. There was no evidence of elevated ventricular filling pressure by Doppler parameters. 2. Mitral valve: There was moderate regurgitation. 3. Right ventricle: The cavity size was normal. Wall thickness was normal. Systolic function was normal. 4. Atrial septum: There was increased thickness of the septum, consistent with lipomatous hypertrophy. No defect or patent foramen ovale was identified. 5. Pulmonary arteries: Pulmonary systolic pressure was in the range of 20mm Hg to 30mm Hg. 6. Inferior vena cava: The vessel was patent and normal in size. The respirophasic diameter changes were in the normal range (greater than or equal to 50%), consistent with normal central venous pressure. Labs on day of discharge: Labs from last 24 hours 10/18/18 10/18/18 10/18/18 07:15 07:15 07:15 WBC 5.04 RBC 4.48 L Hgb 12.2 L Hct 39.0 L MCV 87.1 MCH 27.2 MCHC 31.3 L RDW 15.9 H Plt Count 195 MPV 9.8 Immature Gran % 0.2 Neutrophils % 61.7 Lymphocytes % 23.2 Monocytes % 12.5 Eosinophils % 2.2 Basophils % 0.2 Absolute Neutrophils 3.11 Absolute Lymphocytes 1.17 L Absolute Monocytes 0.63 Absolute Eosinophils 0.11 Absolute Basophils 0.01 PT 38.4 H D INR 3.8 H D Sodium 143 Potassium 3.9 Chloride 107 Carbon Dioxide 27.3 Anion Gap 8.7 BUN 11 Creatinine 0.80 Estimated GFR/1.73 m2 >= 60.00 Glucose 94 Calcium 8.7 Magnesium 1.9 PFSH Medical History History of TIA (transient ischemic attack) (Chronic) Paroxysmal atrial fibrillation (Chronic) History of cardiac arrest (Chronic) Status post myocardial infarction of inferior wall (Chronic) CAD (coronary artery disease) (Chronic) Vertebral artery dissection (Chronic 04/01/15) Ventricular hypertrophy (Chronic 04/01/15) Rheumatoid arthritis (Chronic 10/19/17) Hypercholesterolemia (Chronic 04/01/15) Acute posterior circulation transient ischemic attack (Chronic 04/01/15) Anoxic brain injury (Chronic) Elevated troponin I level (Resolved) Lyme disease (Resolved) Transient ischemic attack (Resolved) Surgical History Stented coronary artery (Chronic) S/P ablation of atrial fibrillation (Chronic 10/19/17) History of open reduction and internal fixation (ORIF) procedure (Resolved) Fracture, Open Treatment (09/09/13) Social History household members: spouse housing: house lives independently: Yes current occupational status: retired leisure activities: sports and exercise well-balanced diet: daily or most days what type of physical activity do you participate in: walking, bicycling and regular exercise Smoking and Tabacco status: Never alcohol intake: former substance use type: does not use What is your relationship status?: Panel score (0-1 are the most socially isolated patients): 1
== END 2018-10-18 15:25 | disposition home or self-care (01) | DRG 948 ==
LOC: ER 23:16 → MS 23:44
PROVIDERS: Internal Medicine; Student in an Organized Health Care Education/Training Program; Admitting Provider Internal Medicine; Emergency Provider Emergency Medicine; PCP Family Medicine; Visit Provider Internal Medicine
DX: R41.82 Altered mental status, unspecified (principal); G93.1 Anoxic brain damage, not elsewhere classified; G40.209 Localization-related (focal) (partial) symptomatic epilepsy and epileptic syndromes with complex partial seizures, not intractable, without status epilepticus; R74.8 Abnormal levels of other serum enzymes; I48.0 Paroxysmal atrial fibrillation; I25.10 Atherosclerotic heart disease of native coronary artery without angina pectoris; M06.9 Rheumatoid arthritis, unspecified; Z86.74 Personal history of sudden cardiac arrest; Z79.01 Long term (current) use of anticoagulants; I34.0 Nonrheumatic mitral (valve) insufficiency; Z86.73 Personal history of transient ischemic attack (TIA), and cerebral infarction without residual deficits; Z79.899 Other long term (current) drug therapy; I49.3 Ventricular premature depolarization; R00.8 Other abnormalities of heart beat
CPT/HCPCS: 36415; 70544; 71275; 80048; 80053; 83690; 93005; 93306; 96360; 96361; 99220; 99232; 99233; 99239; 99285; 70450; 70551; 71046; 81003; 83735; 83880; 84443; 84484; 85025; 85610; 85730; 93010; 99226; G0378; J1953; J3490

== ENCOUNTER → 2018-10-18 08:30 | Outpatient (BNVA) | payer MEDICARE, BC, SELFPAY | PROVIDERS: PCP Family Medicine; Visit Provider Internal Medicine Interventional Cardiology | DX: R69 Illness, unspecified (principal) ==

== ENCOUNTER 2018-10-20 00:22 | Outpatient (CLI) | payer MEDICARE, BC, SELFPAY ==
--- NOTE | 2018-10-20 08:30 | MERGEMPI_ITS ---
*[facility]* *[facility]* [address] [place] [address] Myocardial Perfusion Imaging - SPECT Colin protocol Date of study: 10/20/2018 (Report amended ) *PATIENT PRESENTATION* Height: 175.3cm (69in) Blood Pressure: Weight: 59.1kg (130lb) BSA: 1.69m^2 Referring physician: Angel Talbot Ordering physician: Ivelisse Varela Impressions: - Study changed from exercise to pharmacological stress test because of unstable gait. - Moderate myocardial infarction, in the territory of the left anterior descending coronary artery. - No evidence for myocardial ischemia. Summary: 1. Myocardial perfusion imaging: There is a moderate sized, complete, fixed defect involving the apical anterior, apical inferior, apical lateral, apical septal, and apical wall(s). This suggests moderate myocardial infarction in the distribution of the left anterior descending coronary artery. 2. The calculated left ventricular ejection fraction after stress: 37%. LV global systolic function is moderately reduced. There is dyskinesis involving the apical wall(s) of the left ventricle. There is hypokinesis involving the inferior wall(s) of the left ventricle. 3. Stress ECG conclusions: The stress ECG is negative. 4. Stress: The target heart rate was not achieved. 5. Baseline ECG: There was an oldinferior myocardial infarction. 6. Treadmill exercise testing was performed using the Colin protocol. The patient exercised for 3 min, to protocol stage 1, to a maximal work rate of 4.9mets. Exercise was terminated due to gait disturbance. Imaging information: gated. Image quality reduced due to diaphragmatic attenuation and subdiaphragmatic activity. Recommendations: 1. Medical management is recommended. 2. Clinical correlation is recommended. Indication: I25.10. History: REASON FOR TESTING: PATIENT TESTING TODAY FOR FURTHER RISK STRATIFICATION RELATED TO RECENT HOSPITILIZATION FOR AMS AND ELEVATED TROPONIN. DENIES CHEST PAIN UPON ARRIVAL TO TESTING TODAY. SIGNIFICANT PAST MEDICAL HISTORY: PAROXYSMAL ATRIAL FIBRILLATION, S/P ABLATION (10/2017), ANOXIC ENCEPHALOPATHY, CARDIAC ARREST JANUARY 2018, STENTED CORONARY ARTERY, TIA, VERTEBRAL ARTERY DISSECTION 2014, VENTRICULAR HYPERTROPHY, CARDIAC ECHO EF 50-55% (OCTOBER 2018). SMOKING STATUS: NEVER. EXERCISE ROUTINE: SEDENTARY SINCE ME LAST JANUARY. PRIOR TO ME PATIENT WAS WALKING, BICYCLING AND EXERCISING DAILY. Risk factors: Dyslipidemia. Cholesterol: 124mg/dl. HDL: 53mg/dl. LDL: 62mg/dl. Triglycerides: 54mg/dl. ALLERGIES: NO KNOWN ALLERGIES. MEDICATIONS: ASPIRIN 81 MG DAILY, ATORVASTATIN 80 MG HS, CLOPIDOGREL 75 MG DAILY, FOLIC ACID 1 MG DAILY, HYDROXYCHLOROQUINE 200 MG DAILY, METHOTREXATE SODIUM 20 MG DIRECTED, METOPROLOL SUCCINATE ER 12.5 MG DAILY, OMEPRAZOLE 20 MG DAILY, WARFARIN 2.5 MG DAILY EXCEPT FOR TUESDAYS AND FRIDAYS, THOSE DAYS HE TAKES 5 MGS (CURRENTLY ON HOLD TILL WHEN HE SEES HIS PCP), LEVETIRACETAM 500 MG BID, IRON/VIT C/B12/FOLIC ACID 1 TAB DAILY. Imaging Technique: Protocol: Colin protocol. Acquisition: Gated SPECT; 1 day - rest/stress. The patient was imaged in the supine position. Attenuation correction used. Isotope administration: - Rest. Tc[99m]-sestamibi. Dose: 10.2mCi. Injection time: 08:15 AM. Injection to stress time: 00:45. - Stress. Tc[99m]-sestamibi. Dose: 32.1mCi. Injection time: 10:17 AM. 1-2 min before end of exercise Baseline ECG: SINUS RHYTHM. HR 66 BPM. There was an oldinferior myocardial infarction. Stress protocol: + +---+ + + !Stage !HR !BP (mmHg) !Comments ! + +---+ + + !Baseline supine !66 !106/80 (89)! ! + +---+ + + !Baseline standing !80 !108/78 (88)! ! + +---+ + + !Stage I; 1.7mph, 10degrees; 3 min!104!120/74 (89)! ! + +---+ + + !Recovery; 1 min !103!124/80 (95)! ! + +---+ + + !1 min !98 !126/80 (95)!Inject Regadenoson.! + +---+ + + !3 min !89 !110/78 (89)! ! + +---+ + + !6 min !81 !110/80 (90)! ! + +---+ + + !1 min !---! !Inject Regadenoson.! + +---+ + + * Stress results: STRESS TEST ENDED IN 3 MINUTES 10 SECONDS DUE TO INABILITY TO CONTINUE SAFELY WALKING AT A FASTER RATE. NORMAL HEART RATE AND BLOOD PRESSURE RESPONSE TO EXERCISE. MAX HEART RATE: 108 70 % OF TARGET HEART RATE ACHIEVED. MET'S: 4.93. OCCASIONAL PVC'S WITH PRE EXERCISE STANDING AND WALKING ON TREADMILL, THROUGH EARLY RECOVERY PERIOD. ONCE PATIENT RESTING ON STRETCHER PVC'S SUBSIDED. NO ANGINA. NO SIGNIFICANT ST SEGMENT CHANGES. FUNCTIONAL CAPACITY: MARKEDLY DIMINISHED CAPACITY. LEXISCAN STRESS TEST ENDED IN 6 MINUTES 30 SECONDS. NORMAL HEART RATE AND BLOOD PRESSURE RESPONSE TO LEXISCAN INJECTION. PVC'S NOTED IN THE FIRST MINUTE POST LEXICAN INJECTION, THEN SUBSIDED. NO ANGINA. NO SIGNIFICAN ST SEGMENT CHANGES. Maximal heart rate during stress was 108bpm (71% of maximal predicted heart rate). The maximal predicted heart rate was 153bpm. The target heart rate was not achieved. The rate-pressure product for the peak heart rate and blood pressure was 56615iw Hg/min. Stress ECG: The stress ECG is negative. Myocardial perfusion: Imaging information: gated. Image quality reduced due to diaphragmatic attenuation and subdiaphragmatic activity. There is a moderate sized, complete, fixed defect involving the apical anterior, apical inferior, apical lateral, apical septal, and apical wall(s). This suggests moderate myocardial infarction in the distribution of the left anterior descending coronary artery. Ventricular Function (Wall Motion): The calculated left ventricular ejection fraction after stress: 37%. LV global systolic function is moderately reduced. There is dyskinesis involving the apical wall(s) of the left ventricle. There is hypokinesis involving the inferior wall(s) of the left ventricle. Study data: Angel Talbot MD supervised and was readily available during the procedure. This study was interpreted by [facility]. Study status: Routine. Consent: The risks, benefits, and alternatives to the procedure were explained to the patient and informed consent was obtained. Procedure: Initial setup. A baseline ECG was recorded. Surface ECG leads and manual cuff blood pressure measurements were monitored. Heart sounds: Normal. Lung sounds: Normal. Treadmill exercise testing was performed using the Colin protocol. The patient exercised for 3 min, to protocol stage 1, to a maximal work rate of 4.9mets. Exercise was terminated due to gait disturbance. Study completion: All catheters inserted during the procedure were removed. The patient tolerated the procedure well and was discharged from the lab. Discharge: The patient left the laboratory in stable condition. Birthdate: Patient birthdate: 1950. Sex: Gender: male. Study date: Study date: 10/20/2018. Study time: 00:01 AM. Signature Documentation: - The imaging portion of this study was interpreted by Nuclear Customer Management Specialist Angel Talbot MD. - The imaging portion of this study was interpreted by Nuclear Radiologist Tera Guzman MD. - The Stress ECG portion of this study was interpreted by Angel Talbot MD. Electronically signed by Angel Talbot 10/20/2018 15:23
[2018-10-20] MEDS: Regadenoson 0.4 MG/5 ML SYR IVP (10:26)
[2018-10-20 11:55] LABS: INR 2.1 (0.9-1.1); Prothrombin Time 21.1 sec (9.3-11.0)
== END 2018-10-20 00:42 ==
PROVIDERS: PCP Family Medicine; Visit Provider Internal Medicine
DX: I48.0 Paroxysmal atrial fibrillation (principal); I25.2 Old myocardial infarction; R26.81 Unsteadiness on feet; I25.10 Atherosclerotic heart disease of native coronary artery without angina pectoris; E78.5 Hyperlipidemia, unspecified; Z79.01 Long term (current) use of anticoagulants
CPT/HCPCS: 36415; 78452; 93016; 93018; 85610; 93017; J2785

== ENCOUNTER 2018-11-08 07:34 | Outpatient (CLI) | payer MEDICARE, BC, SELFPAY ==
[2018-11-08 11:47] LABS: HCT 41.5 % (40.0-50.0); HGB 13.1 g/dL (13.5-17.5); Mean Corp. HGB Concentration 31.6 g/dL (32.0-36.0); Mean Corpuscular Hemoglobin 27.5 pg (27.0-33.0); Mean Corpuscular Volume 87.2 fL (80-95); Mean Platelet Volume 9.9 fL (8.0-11.0); Platelet Count 202 x1000/uL (130-400); RBC 4.76 m/cumm (4.50-6.00); RBC Distribution Width 15.1 % (11.8-14.1); White Blood Cell Count 4.58 k/cumm (4.4-10.8)
[2018-11-08 12:16] LABS: ALT 29 U/L (12-78); AST 17 U/L (15-37); Albumin 3.8 g/dL (3.4-5.0); Alkaline Phosphatase 81 U/L (46-116); BUN 14 mg/dL (7-18); Bilirubin, Total 0.4 mg/dL (0.2-1.0); CREATININE 0.89 mg/dL (0.70-1.30); Chloride 105 mmol/L (98-107); Glucose 89 mg/dL (70-100); Sodium 143 mmol/L (136-145); Total Protein 6.7 g/dL (6.4-8.2)
[2018-11-08 12:40] LABS: ESR 6 MM/HR (1-20)
== END 2018-11-08 07:54 ==
PROVIDERS: PCP Family Medicine; Visit Provider Internal Medicine Rheumatology
DX: M05.79 Rheumatoid arthritis with rheumatoid factor of multiple sites without organ or systems involvement (principal)
CPT/HCPCS: 36415; 80053; 85027; 85652

== ENCOUNTER 2018-11-15 07:28 | Outpatient (CLI) | payer MEDICARE, BC, SELFPAY ==
[2018-11-15 11:18] LABS: Abs Immature Grans 0.01 k/cumm (0.0-0.09); Absolute Basophil Count 0.02 k/cumm (0.0-0.2); Absolute Eosinophil Count 0.04 k/cumm (0.0-0.7); Absolute Lymphocyte Count 1.27 k/cumm (1.2-3.4); Absolute Monocyte Count 0.57 k/cumm (0.11-0.7); Absolute Neutrophil Count 3.34 k/cumm (1.2-6.7); Basophils % 0.4; Eosinophils % 0.8; HCT 41.2 % (40.0-50.0); HGB 13.3 g/dL (13.5-17.5); Immature Grans % 0.2; Lymphocytes % 24.2; Mean Corp. HGB Concentration 32.3 g/dL (32.0-36.0); Mean Corpuscular Hemoglobin 27.9 pg (27.0-33.0); Mean Corpuscular Volume 86.4 fL (80-95); Mean Platelet Volume 9.5 fL (8.0-11.0); Monocytes % 10.9; Neutrophils % 63.5; Platelet Count 189 x1000/uL (130-400); RBC 4.77 m/cumm (4.50-6.00); RBC Distribution Width 15.1 % (11.8-14.1); White Blood Cell Count 5.25 k/cumm (4.4-10.8)
[2018-11-15 11:32] LABS: Prothrombin Time 20.6 sec (9.3-11.0)
[2018-11-15 12:03] LABS: ALT 27 U/L (12-78); AST 16 U/L (15-37); Alkaline Phosphatase 84 U/L (46-116); Anion Gap 11.1 mmol/L (3-11); BUN 12 mg/dL (7-18); Bilirubin, Total 0.5 mg/dL (0.2-1.0); CO2 28.9 mmol/L (21.0-32.0); CREATININE 0.91 mg/dL (0.70-1.30); Calcium 9.2 mg/dL (8.5-10.1); Chloride 104 mmol/L (98-107); Glucose 106 mg/dL (70-100); Potassium 3.8 mmol/L (3.5-5.1); Sodium 144 mmol/L (136-145)
== END 2018-11-15 07:48 ==
PROVIDERS: PCP Family Medicine; Visit Provider Family Medicine
DX: I48.91 Unspecified atrial fibrillation (principal); Z79.01 Long term (current) use of anticoagulants; M06.9 Rheumatoid arthritis, unspecified
CPT/HCPCS: 36415; 80053; 85025; 85610

== ENCOUNTER 2018-12-13 09:12 | Outpatient (CLI) | payer MEDICARE, BC, SELFPAY ==
[2018-12-13 14:15] LABS: Prothrombin Time 12.5 sec (9.3-11.0)
[2018-12-13 14:26] LABS: INR 1.2 (0.9-1.1)
== END 2018-12-13 09:32 ==
PROVIDERS: PCP Family Medicine; Visit Provider Family Medicine
DX: I48.91 Unspecified atrial fibrillation (principal); Z79.01 Long term (current) use of anticoagulants
CPT/HCPCS: 36415; 85610

== ENCOUNTER 2018-12-21 07:56 | Outpatient (CLI) | payer MEDICARE, BC, SELFPAY ==
[2018-12-21 12:27] LABS: INR 2.9 (0.9-1.1); Prothrombin Time 29.7 sec (9.3-11.0)
== END 2018-12-21 08:16 ==
PROVIDERS: PCP Family Medicine; Visit Provider Family Medicine
DX: I48.91 Unspecified atrial fibrillation (principal); Z79.01 Long term (current) use of anticoagulants
CPT/HCPCS: 36415; 85610

== ENCOUNTER → 2018-12-31 12:41 | Outpatient (BNVA) | payer MEDICARE, BC, SELFPAY | PROVIDERS: PCP Family Medicine; Visit Provider Internal Medicine Cardiovascular Disease | DX: I25.10 Atherosclerotic heart disease of native coronary artery without angina pectoris (principal); I48.0 Paroxysmal atrial fibrillation; Z79.01 Long term (current) use of anticoagulants; E78.00 Pure hypercholesterolemia, unspecified; I10 Essential (primary) hypertension | CPT/HCPCS: 99214 ==

== ENCOUNTER 2019-01-11 08:31 | Outpatient (CLI) | payer MEDICARE, BC, SELFPAY ==
[2019-01-11 13:44] LABS: Absolute Basophil Count 0.02 k/cumm (0.0-0.2); Absolute Eosinophil Count 0.15 k/cumm (0.0-0.7); Absolute Lymphocyte Count 1.44 k/cumm (1.2-3.4); Absolute Monocyte Count 0.93 k/cumm (0.11-0.7); Absolute Neutrophil Count 2.57 k/cumm (1.2-6.7); Basophils % 0.4; Eosinophils % 2.9; HCT 41.8 % (40.0-50.0); HGB 13.3 g/dL (13.5-17.5); Lymphocytes % 28.2; Mean Corp. HGB Concentration 31.8 g/dL (32.0-36.0); Mean Corpuscular Hemoglobin 27.7 pg (27.0-33.0); Mean Corpuscular Volume 86.9 fL (80-95); Mean Platelet Volume 9.8 fL (8.0-11.0); Monocytes % 18.2; Neutrophils % 50.3; Platelet Count 183 x1000/uL (130-400); RBC 4.81 m/cumm (4.50-6.00); RBC Distribution Width 14.9 % (11.8-14.1); White Blood Cell Count 5.11 k/cumm (4.4-10.8)
[2019-01-11 14:03] LABS: INR 1.9 (0.9-1.1); Prothrombin Time 18.9 sec (9.3-11.0)
[2019-01-11 14:20] LABS: ALT 28 U/L (12-78); AST 19 U/L (15-37); Albumin 3.9 g/dL (3.4-5.0); Alkaline Phosphatase 105 U/L (46-116); Anion Gap 10.9 mmol/L (3-11); BUN 11 mg/dL (7-18); Bilirubin, Total 0.5 mg/dL (0.2-1.0); CO2 29.1 mmol/L (21.0-32.0); CREATININE 0.97 mg/dL (0.70-1.30); Calcium 9.1 mg/dL (8.5-10.1); Chloride 102 mmol/L (98-107); Glucose 96 mg/dL (70-100); Potassium 3.9 mmol/L (3.5-5.1); Sodium 142 mmol/L (136-145)
== END 2019-01-11 08:51 ==
PROVIDERS: PCP Family Medicine; Visit Provider Family Medicine
DX: I48.91 Unspecified atrial fibrillation (principal); Z79.01 Long term (current) use of anticoagulants; M06.9 Rheumatoid arthritis, unspecified
CPT/HCPCS: 80053; 85025; 85610

== ENCOUNTER 2019-01-27 16:39 | Outpatient (CLI) | payer MEDICARE, BC, SELFPAY ==
[2019-01-27 17:23] LABS: Abs Immature Grans 0.01 k/cumm (0.0-0.09); Absolute Basophil Count 0.01 k/cumm (0.0-0.2); Absolute Lymphocyte Count 1.38 k/cumm (1.2-3.4); Absolute Monocyte Count 0.95 k/cumm (0.11-0.7); Absolute Neutrophil Count 5.51 k/cumm (1.2-6.7); Basophils % 0.1; Eosinophils % 1.3; HGB 13.1 g/dL (13.5-17.5); Immature Grans % 0.1; Lymphocytes % 17.3; Mean Corpuscular Hemoglobin 27.9 pg (27.0-33.0); Mean Corpuscular Volume 87.2 fL (80-95); Mean Platelet Volume 9.8 fL (8.0-11.0); Monocytes % 11.9; Neutrophils % 69.3; Platelet Count 213 x1000/uL (130-400); RBC Distribution Width 15.3 % (11.8-14.1); White Blood Cell Count 7.96 k/cumm (4.4-10.8)
[2019-01-27 17:27] LABS: INR 3.4 (0.9-1.1); Prothrombin Time 34.1 sec (9.3-11.0)
[2019-01-27 19:01] LABS: ALT 25 U/L (12-78); AST 16 U/L (15-37); Albumin 3.7 g/dL (3.4-5.0); Alkaline Phosphatase 99 U/L (46-116); Anion Gap 12.4 mmol/L (3-11); BUN 11 mg/dL (7-18); Bilirubin, Total 0.4 mg/dL (0.2-1.0); CO2 25.6 mmol/L (21.0-32.0); Calcium 9.1 mg/dL (8.5-10.1); Chloride 104 mmol/L (98-107); Glucose 134 mg/dL (70-100); Potassium 4.1 mmol/L (3.5-5.1); Sodium 142 mmol/L (136-145); Total Protein 6.9 g/dL (6.4-8.2)
== END 2019-01-27 16:59 ==
PROVIDERS: PCP Family Medicine; Visit Provider Family Medicine
DX: M06.9 Rheumatoid arthritis, unspecified (principal); I48.91 Unspecified atrial fibrillation
CPT/HCPCS: 36415; 80053; 85025; 85610

== ENCOUNTER 2019-02-09 11:30 | Outpatient (CLI) | payer MEDICARE, BC, SELFPAY ==
[2019-02-09 13:35] LABS: INR 2.9 (0.9-1.1); Prothrombin Time 29.2 sec (9.3-11.0)
== END 2019-02-09 11:50 ==
PROVIDERS: PCP Family Medicine; Visit Provider Family Medicine
DX: I48.91 Unspecified atrial fibrillation (principal); Z79.01 Long term (current) use of anticoagulants
CPT/HCPCS: 36415; 85610

== ENCOUNTER 2019-03-08 01:38 | Outpatient (CLI) | payer MEDICARE, BC, SELFPAY ==
[2019-03-08 10:56] LABS: Abs Immature Grans 0.01 k/cumm (0.0-0.09); Absolute Basophil Count 0.01 k/cumm (0.0-0.2); Absolute Eosinophil Count 0.06 k/cumm (0.0-0.7); Absolute Lymphocyte Count 1.01 k/cumm (1.2-3.4); Absolute Monocyte Count 0.58 k/cumm (0.11-0.7); Basophils % 0.2; Eosinophils % 1.3; HCT 42.7 % (40.0-50.0); HGB 13.4 g/dL (13.5-17.5); Immature Grans % 0.2; Lymphocytes % 21.6; Mean Corp. HGB Concentration 31.4 g/dL (32.0-36.0); Mean Corpuscular Hemoglobin 27.5 pg (27.0-33.0); Mean Corpuscular Volume 87.5 fL (80-95); Mean Platelet Volume 10.1 fL (8.0-11.0); Monocytes % 12.4; Neutrophils % 64.3; Platelet Count 181 x1000/uL (130-400); RBC 4.88 m/cumm (4.50-6.00); RBC Distribution Width 15.4 % (11.8-14.1); White Blood Cell Count 4.67 k/cumm (4.4-10.8)
[2019-03-08 11:57] LABS: ALT 52 U/L (12-78); AST 27 U/L (15-37); Albumin 3.7 g/dL (3.4-5.0); Alkaline Phosphatase 87 U/L (46-116); Bilirubin, Total 0.3 mg/dL (0.2-1.0); Total Protein 6.7 g/dL (6.4-8.2)
[2019-03-08 11:59] LABS: C-Reactive Protein < 0.05 mg/dL (0.0-0.3)
== END 2019-03-08 01:58 ==
PROVIDERS: PCP Family Medicine; Visit Provider Internal Medicine
DX: M06.9 Rheumatoid arthritis, unspecified (principal)
CPT/HCPCS: 36415; 80076; 82565; 85025; 86140

== ENCOUNTER 2019-03-16 09:25 | Outpatient (CLI) | payer MEDICARE, BC, SELFPAY | END 2019-03-16 09:45 | PROVIDERS: PCP Family Medicine; Visit Provider Family Medicine | DX: I48.91 Unspecified atrial fibrillation (principal); Z79.01 Long term (current) use of anticoagulants | CPT/HCPCS: 36415; 85610 ==

== ENCOUNTER 2019-04-13 09:55 | Outpatient (CLI) | payer MEDICARE, BC, SELFPAY ==
[2019-04-13 11:47] LABS: Abs Immature Grans 0.01 k/cumm (0.0-0.09); Absolute Basophil Count 0.01 k/cumm (0.0-0.2); Absolute Eosinophil Count 0.07 k/cumm (0.0-0.7); Absolute Lymphocyte Count 0.94 k/cumm (1.2-3.4); Absolute Monocyte Count 0.65 k/cumm (0.11-0.7); Absolute Neutrophil Count 2.66 k/cumm (1.2-6.7); Basophils % 0.2; Eosinophils % 1.6; HGB 14.3 g/dL (13.5-17.5); Immature Grans % 0.2; Lymphocytes % 21.7; Mean Corp. HGB Concentration 32.5 g/dL (32.0-36.0); Mean Corpuscular Hemoglobin 28.4 pg (27.0-33.0); Mean Corpuscular Volume 87.3 fL (80-95); Mean Platelet Volume 9.7 fL (8.0-11.0); Neutrophils % 61.3; Platelet Count 188 x1000/uL (130-400); RBC 5.04 m/cumm (4.50-6.00); RBC Distribution Width 15.4 % (11.8-14.1); White Blood Cell Count 4.34 k/cumm (4.4-10.8)
[2019-04-13 11:57] LABS: INR 3.3 (0.9-1.1); Prothrombin Time 33.6 sec (9.3-11.0)
[2019-04-13 12:41] LABS: ALT 50 U/L (16-63); AST 24 U/L (15-37); Albumin 3.8 g/dL (3.4-5.0); Alkaline Phosphatase 94 U/L (46-116); Anion Gap 8.6 mmol/L (3-11); BUN 14 mg/dL (7-18); Bilirubin, Total 0.4 mg/dL (0.2-1.0); CO2 29.4 mmol/L (21.0-32.0); CREATININE 0.92 mg/dL (0.70-1.30); Chloride 106 mmol/L (98-107); Glucose 94 mg/dL (70-100); Potassium 4.8 mmol/L (3.5-5.1); Sodium 144 mmol/L (136-145); Total Protein 6.9 g/dL (6.4-8.2)
== END 2019-04-13 10:15 ==
PROVIDERS: PCP Family Medicine; Visit Provider Family Medicine
DX: M06.9 Rheumatoid arthritis, unspecified (principal); I48.91 Unspecified atrial fibrillation; Z79.01 Long term (current) use of anticoagulants
CPT/HCPCS: 36415; 80053; 85025; 85610

== ENCOUNTER 2019-05-12 08:41 | Outpatient (CLI) | payer MEDICARE, BC, SELFPAY ==
[2019-05-12 12:32] LABS: Abs Immature Grans 0.01 k/cumm (0.0-0.09); Absolute Basophil Count 0.02 k/cumm (0.0-0.2); Absolute Eosinophil Count 0.07 k/cumm (0.0-0.7); Absolute Lymphocyte Count 1.03 k/cumm (1.2-3.4); Absolute Monocyte Count 0.52 k/cumm (0.11-0.7); Absolute Neutrophil Count 2.59 k/cumm (1.2-6.7); Basophils % 0.5; Eosinophils % 1.7; HCT 41.7 % (40.0-50.0); HGB 13.5 g/dL (13.5-17.5); Immature Grans % 0.2; Lymphocytes % 24.3; Mean Corp. HGB Concentration 32.4 g/dL (32.0-36.0); Mean Corpuscular Hemoglobin 28.4 pg (27.0-33.0); Mean Corpuscular Volume 87.8 fL (80-95); Mean Platelet Volume 9.4 fL (8.0-11.0); Monocytes % 12.3; Platelet Count 177 x1000/uL (130-400); RBC 4.75 m/cumm (4.50-6.00); RBC Distribution Width 14.7 % (11.8-14.1); White Blood Cell Count 4.24 k/cumm (4.4-10.8)
[2019-05-12 12:51] LABS: Prothrombin Time 42.8 sec (9.3-11.0)
[2019-05-12 13:42] LABS: INR 4.4 (0.9-1.1)
[2019-05-12 14:40] LABS: ALT 32 U/L (16-63); AST 18 U/L (15-37); Albumin 3.7 g/dL (3.4-5.0); Alkaline Phosphatase 91 U/L (46-116); Anion Gap 8.9 mmol/L (3-11); BUN 10 mg/dL (7-18); Bilirubin, Total 0.5 mg/dL (0.2-1.0); CO2 28.1 mmol/L (21.0-32.0); Calcium 8.9 mg/dL (8.5-10.1); Chloride 107 mmol/L (98-107); Glucose 89 mg/dL (70-100); Potassium 4.2 mmol/L (3.5-5.1); Sodium 144 mmol/L (136-145); Total Protein 6.6 g/dL (6.4-8.2)
== END 2019-05-12 09:01 ==
PROVIDERS: PCP Family Medicine; Visit Provider Family Medicine
DX: M06.9 Rheumatoid arthritis, unspecified (principal); I48.91 Unspecified atrial fibrillation; Z79.01 Long term (current) use of anticoagulants
CPT/HCPCS: 36415; 80053; 85025; 85610

== ENCOUNTER → 2019-05-13 09:16 | Outpatient (BNVA) | payer MEDICARE, BC, SELFPAY | PROVIDERS: PCP Family Medicine; Referring Provider Family Medicine; Visit Provider Internal Medicine Cardiovascular Disease | DX: G93.1 Anoxic brain damage, not elsewhere classified (principal); I25.10 Atherosclerotic heart disease of native coronary artery without angina pectoris; I48.0 Paroxysmal atrial fibrillation; I77.74 Dissection of vertebral artery; I10 Essential (primary) hypertension | CPT/HCPCS: 99214 ==

== ENCOUNTER 2019-05-17 07:40 | Outpatient (CLI) | payer MEDICARE, BC, SELFPAY ==
[2019-05-17 14:12] LABS: INR 1.8 (0.9-1.1); Prothrombin Time 18.3 sec (9.3-11.0)
== END 2019-05-17 08:00 ==
PROVIDERS: PCP Family Medicine; Visit Provider Family Medicine
DX: I48.91 Unspecified atrial fibrillation (principal); Z79.01 Long term (current) use of anticoagulants
CPT/HCPCS: 36415; 85610

== ENCOUNTER 2019-05-24 11:09 | Outpatient (CLI) | payer MEDICARE, BC, SELFPAY ==
[2019-05-24 11:50] LABS: INR 2.3 (0.9-1.1)
== END 2019-05-24 11:29 ==
PROVIDERS: PCP Family Medicine; Visit Provider Family Medicine
DX: I48.91 Unspecified atrial fibrillation (principal); Z79.01 Long term (current) use of anticoagulants
CPT/HCPCS: 36415; 85610

== ENCOUNTER 2019-06-13 07:52 | Outpatient (CLI) | payer MEDICARE, BC, SELFPAY ==
[2019-06-13 16:08] LABS: Abs Immature Grans 0.01 k/cumm (0.0-0.09); Absolute Basophil Count 0.01 k/cumm (0.0-0.2); Absolute Eosinophil Count 0.06 k/cumm (0.0-0.7); Absolute Lymphocyte Count 1.36 k/cumm (1.2-3.4); Absolute Monocyte Count 0.61 k/cumm (0.11-0.7); Absolute Neutrophil Count 3.98 k/cumm (1.2-6.7); Basophils % 0.2; HCT 44.8 % (40.0-50.0); HGB 14.6 g/dL (13.5-17.5); Immature Grans % 0.2; Lymphocytes % 22.6; Mean Corp. HGB Concentration 32.6 g/dL (32.0-36.0); Mean Corpuscular Hemoglobin 28.6 pg (27.0-33.0); Mean Corpuscular Volume 87.7 fL (80-95); Mean Platelet Volume 9.5 fL (8.0-11.0); Monocytes % 10.1; Neutrophils % 65.9; Platelet Count 197 x1000/uL (130-400); RBC 5.11 m/cumm (4.50-6.00); RBC Distribution Width 14.5 % (11.8-14.1); White Blood Cell Count 6.03 k/cumm (4.4-10.8)
[2019-06-13 16:22] LABS: INR 2.2 (0.9-1.1); Prothrombin Time 21.5 sec (9.3-11.0)
[2019-06-13 17:15] LABS: ALT 43 U/L (16-63); AST 22 U/L (15-37); Albumin 4.1 g/dL (3.4-5.0); Alkaline Phosphatase 92 U/L (46-116); Anion Gap 9.8 mmol/L (3-11); BUN 11 mg/dL (7-18); Bilirubin, Total 0.4 mg/dL (0.2-1.0); CO2 28.2 mmol/L (21.0-32.0); CREATININE 0.95 mg/dL (0.70-1.30); Calcium 9.3 mg/dL (8.5-10.1); Chloride 106 mmol/L (98-107); Glucose 113 mg/dL (70-100); Sodium 144 mmol/L (136-145); Total Protein 7.1 g/dL (6.4-8.2)
== END 2019-06-13 08:12 ==
PROVIDERS: PCP Family Medicine; Visit Provider Family Medicine
DX: M06.9 Rheumatoid arthritis, unspecified (principal); I48.91 Unspecified atrial fibrillation; Z79.01 Long term (current) use of anticoagulants
CPT/HCPCS: 36415; 80053; 85025; 85610

== ENCOUNTER 2019-06-30 07:51 | Outpatient (CLI) | payer MEDICARE, BC, SELFPAY ==
[2019-06-30 13:44] LABS: INR 3.4 (0.9-1.1); Prothrombin Time 33.1 sec (9.3-11.0)
== END 2019-06-30 08:11 ==
PROVIDERS: PCP Family Medicine; Visit Provider Family Medicine
DX: I48.91 Unspecified atrial fibrillation (principal); Z79.01 Long term (current) use of anticoagulants
CPT/HCPCS: 36415; 85610

== ENCOUNTER 2019-07-08 01:39 | Outpatient (CLI) | payer MEDICARE, BC, SELFPAY ==
[2019-07-08 12:56] LABS: Prothrombin Time 19.8 sec (9.3-11.0)
== END 2019-07-08 01:59 ==
PROVIDERS: PCP Family Medicine; Visit Provider Family Medicine
DX: I48.91 Unspecified atrial fibrillation (principal); Z79.01 Long term (current) use of anticoagulants
CPT/HCPCS: 36415; 85610

== ENCOUNTER 2019-07-11 16:20 | Outpatient (CLI) | payer MEDICARE, BC, SELFPAY ==
[2019-07-11 16:48] LABS: Abs Immature Grans 0.01 k/cumm (0.0-0.09); Absolute Basophil Count 0.02 k/cumm (0.0-0.2); Absolute Eosinophil Count 0.05 k/cumm (0.0-0.7); Absolute Neutrophil Count 4.48 k/cumm (1.2-6.7); Basophils % 0.3; Eosinophils % 0.8; HCT 44.4 % (40.0-50.0); HGB 14.5 g/dL (13.5-17.5); Immature Grans % 0.2; Lymphocytes % 22.5; Mean Corp. HGB Concentration 32.7 g/dL (32.0-36.0); Mean Corpuscular Hemoglobin 28.8 pg (27.0-33.0); Mean Corpuscular Volume 88.3 fL (80-95); Mean Platelet Volume 9.7 fL (8.0-11.0); Neutrophils % 67.2; Platelet Count 191 x1000/uL (130-400); RBC 5.03 m/cumm (4.50-6.00); RBC Distribution Width 14.7 % (11.8-14.1); White Blood Cell Count 6.66 k/cumm (4.4-10.8)
[2019-07-11 17:34] LABS: CREATININE 0.88 mg/dL (0.70-1.30)
[2019-07-11 17:42] LABS: C-Reactive Protein < 0.05 mg/dL (0.0-0.3)
[2019-07-11 18:17] LABS: ESR 13 mm/hr (1-20)
== END 2019-07-11 16:40 ==
PROVIDERS: PCP Family Medicine; Visit Provider Internal Medicine
DX: M06.9 Rheumatoid arthritis, unspecified (principal)
CPT/HCPCS: 36415; 85652; 82040; 82565; 85025; 86140

== ENCOUNTER 2019-07-25 10:55 | Outpatient (CLI) | payer MEDICARE, BC, SELFPAY ==
[2019-07-25 15:48] LABS: INR 1.6 (0.9-1.1); Prothrombin Time 16.3 sec (9.3-11.0)
== END 2019-07-25 11:15 ==
PROVIDERS: PCP Family Medicine; Visit Provider Family Medicine
DX: I48.91 Unspecified atrial fibrillation (principal); Z79.01 Long term (current) use of anticoagulants
CPT/HCPCS: 36415; 85610

== ENCOUNTER 2019-08-22 08:21 | Outpatient (CLI) | payer MEDICARE, BC, SELFPAY ==
[2019-08-22 16:22] LABS: INR 1.5 (0.9-1.1); Prothrombin Time 14.9 sec (9.3-11.0)
== END 2019-08-22 08:41 ==
PROVIDERS: PCP Family Medicine; Visit Provider Family Medicine
DX: I48.91 Unspecified atrial fibrillation (principal); Z79.01 Long term (current) use of anticoagulants
CPT/HCPCS: 36415; 85610

== ENCOUNTER 2019-08-31 09:12 | Outpatient (CLI) | payer MEDICARE, BC, SELFPAY ==
[2019-08-31 14:42] LABS: INR 3.5 (0.9-1.1)
== END 2019-08-31 09:32 ==
PROVIDERS: PCP Family Medicine; Visit Provider Family Medicine
DX: I48.91 Unspecified atrial fibrillation (principal); Z79.01 Long term (current) use of anticoagulants
CPT/HCPCS: 36415; 85610

== ENCOUNTER 2019-09-09 09:28 | Outpatient (CLI) | payer MEDICARE, BC, SELFPAY | END 2019-09-09 09:48 | PROVIDERS: PCP Family Medicine; Visit Provider Family Medicine | DX: R69 Illness, unspecified (principal) | CPT/HCPCS: 36415; 80053; 85025 ==

== ENCOUNTER 2019-09-12 11:55 | Outpatient (CLI) | payer MEDICARE, BC, SELFPAY ==
[2019-09-12 17:00] LABS: INR 2.6 (0.9-1.1); Prothrombin Time 25.4 sec (9.3-11.0)
== END 2019-09-12 12:15 ==
PROVIDERS: PCP Family Medicine; Visit Provider Family Medicine
DX: I48.91 Unspecified atrial fibrillation (principal); Z79.01 Long term (current) use of anticoagulants
CPT/HCPCS: 36415; 85610

== ENCOUNTER 2019-09-19 13:49 | Outpatient (CLI) | payer MEDICARE, BC, SELFPAY ==
[2019-09-19 16:50] LABS: INR 2.8 (0.9-1.1); Prothrombin Time 27.5 sec (9.3-11.0)
== END 2019-09-19 14:09 ==
PROVIDERS: PCP Family Medicine; Visit Provider Family Medicine
DX: I48.91 Unspecified atrial fibrillation (principal); Z79.01 Long term (current) use of anticoagulants
CPT/HCPCS: 36415; 85610

== ENCOUNTER 2019-10-18 09:44 | Outpatient (CLI) | payer MEDICARE, BC, SELFPAY ==
[2019-10-18 12:33] LABS: Abs Immature Grans 0.01 k/cumm (0.0-0.09); Absolute Basophil Count 0.01 k/cumm (0.0-0.2); Absolute Eosinophil Count 0.04 k/cumm (0.0-0.7); Absolute Lymphocyte Count 1.32 k/cumm (1.2-3.4); Absolute Monocyte Count 0.65 k/cumm (0.11-0.7); Absolute Neutrophil Count 2.92 k/cumm (1.2-6.7); Basophils % 0.2; Eosinophils % 0.8; HCT 44.6 % (40.0-50.0); HGB 14.8 g/dL (13.5-17.5); Immature Grans % 0.2 %; Lymphocytes % 26.7; Mean Corp. HGB Concentration 33.2 g/dL (32.0-36.0); Mean Corpuscular Volume 90.5 fL (80-95); Mean Platelet Volume 9.7 fL (8.0-11.0); Monocytes % 13.1; Platelet Count 186 x1000/uL (130-400); RBC 4.93 m/cumm (4.50-6.00); RBC Distribution Width 14.5 % (11.8-14.1); White Blood Cell Count 4.95 k/cumm (4.4-10.8)
[2019-10-18 12:42] LABS: INR 2.3 (0.9-1.1); Prothrombin Time 22.2 sec (9.3-11.0)
[2019-10-18 13:22] LABS: Albumin 3.9 g/dL (3.4-5.0); C-Reactive Protein 0.06 mg/dL (0.0-0.3); CREATININE 0.92 mg/dL (0.70-1.30)
[2019-10-18 13:25] LABS: ESR 2 mm/hr (1-20)
[2019-10-21 16:05] LABS: ALT 36 U/L (16-63); AST 22 U/L (15-37); Alkaline Phosphatase 82 U/L (46-116); Bilirubin, Direct 0.18 mg/dL (0.00-0.20); Bilirubin, Total 0.6 mg/dL (0.2-1.0); Total Protein 6.6 g/dL (6.4-8.2)
== END 2019-10-18 10:04 ==
PROVIDERS: PCP Family Medicine; Visit Provider Internal Medicine
DX: M06.9 Rheumatoid arthritis, unspecified (principal); I48.91 Unspecified atrial fibrillation; Z79.01 Long term (current) use of anticoagulants; Z79.899 Other long term (current) drug therapy
CPT/HCPCS: 36415; 80076; 85652; 82040; 82565; 85025; 85610; 86140

== ENCOUNTER → 2020-01-05 16:05 | Outpatient (BNVA) | payer MEDICARE, BC, SELFPAY | PROVIDERS: PCP Family Medicine; Referring Provider Family Medicine; Visit Provider Internal Medicine Cardiovascular Disease | DX: I25.10 Atherosclerotic heart disease of native coronary artery without angina pectoris (principal); I63.9 Cerebral infarction, unspecified; Z79.01 Long term (current) use of anticoagulants; Z95.5 Presence of coronary angioplasty implant and graft; Z86.73 Personal history of transient ischemic attack (TIA), and cerebral infarction without residual deficits; I48.0 Paroxysmal atrial fibrillation; Z86.74 Personal history of sudden cardiac arrest | CPT/HCPCS: 99204; 99443 ==

== ENCOUNTER 2020-01-16 01:29 | Outpatient (CLI) | payer MEDICARE, BC, SELFPAY ==
--- NOTE | 2020-01-16 11:45 | DI.NM_ITS ---
APPROVED REPORT Exam: Pharmacologic Patient Location: Out-Patient Room/Bed: Stress Nurse: Bibi Romo RN BMI: 19.93 Baseline Rhythm: Sinus Bradycardia, Old Inferior Infarct. Indications: Patient testing today for further risk stratification. Medical History Medical History: Ascending Aortic Aneurysm, Paroxysmal Atrial Fibrillation with Ablation (10/2017), Ch ronic Coagulation, CAD, Cardiac Arrest, TIA, CVA, Vertebral Artery Dissection with Thrombosis, Ventri cular Hypertrophy, Anoxic Brain Injury, RA. Cardiac Medications: Atorvastatin, Warfarin, Aspirin Allergies: No known drug allergies Cardiac Risk Factors: FHX of CAD, Hyperlipidemia, CVD Previous Cardiac Procedures: PCI, Ablation, Stent (3) placement. Pretest Chest Pain Characteristics: None Exercise History: Sedentary Physical Disabilities: Legs Lung Sounds: Clear to auscultation Heart Sounds: Regular Stress Test Details Test: Pharmacologic stress testing performed using 0.4 mg of regadenoson per 5 mL given IV over 10 s econds. Reason for pharmacologic stress test: physical limitation. Nuclear Acquisition: Rest Tc-99m/Stress Tc-99m 1 day Rest Isotope: Tc-99m Sestamibi. Dose: 10.5 Date: 01/16/2020 Injection Time: 1200 Stress Isotope: Tc-99m Sestamibi. Dose: 32.3 Date: 01/16/2020 Injection Time: 1435 HR Resting HR Supine: 56 bpm Max Heart Rate (APMHR): 152 bpm Target HR (85% APMHR): 129 bpm Max HR Achieved: 86 bpm % of APMHR: 56 BP Resting BP Supine: 148/80 mmHg Max BP: 148/80 mmHg ECG Resting ECG: Sinus Bradycardia, Old Inferior Infarct. Ectopy: Occasional PVC's Clinical Stress Symptoms: None reported per patient. Stress ECG Conclusion 1. Patient underwent pharmacologic stress. There were no symptoms to suggest angina 2. Blunted heart rate and blood pressure response to pharmacologic stress 3. Echocardiographically nondiagnostic due to inadequate heart rate (56% of maximal predicted heart r ate for age) 4. Occasional PVCs seen Stress Test Summary STAGE HR BP Symptoms NOTES Supine 56 148/80 1 min post Lexiscan injection 85 135/80 3 min post Lexiscan injection 81 124/82 6 min post Lexiscan injection 73 124/80 MPI Conclusion Areas of infarction in the evolving the inferior, apical and anterolateral segments No ischemia Calculated EF 50% Radiologist Interpretation Probable small areas of ischemia associated with the predominantly fixed defects of inferior, apical, and anterolateral LV wall. Radiologist Interpretation by: Jay Jay Fox MD Interpretation Date/Time: 01/18/2020 08:23:23
[2020-01-16] MEDS: Regadenoson 0.4 MG/5 ML SYR IVP (14:49)
== END 2020-01-16 01:49 ==
PROVIDERS: PCP Family Medicine; Visit Provider Internal Medicine Cardiovascular Disease
DX: I25.10 Atherosclerotic heart disease of native coronary artery without angina pectoris (principal); I48.0 Paroxysmal atrial fibrillation; I25.2 Old myocardial infarction; E78.5 Hyperlipidemia, unspecified; Z79.01 Long term (current) use of anticoagulants; Z82.49 Family history of ischemic heart disease and other diseases of the circulatory system
CPT/HCPCS: 78452; 93016; 93018; 93017; J2785

== ENCOUNTER 2020-02-08 01:43 | Outpatient (CLI) | payer MEDICARE, BC, SELFPAY ==
--- NOTE | 2020-02-08 12:23 | DI.US_ITS ---
APPROVED REPORT EXAM: Comprehensive 2D, Doppler, and color-flow Echocardiogram Patient Location: Out-Patient Senior Librarian: Lyssa Valera RDCS (AE) Indications: HS STEMI, ACUTE CVA Other Information Study Quality: Adequate Conclusion Left Ventricle : The left ventricle is normal size. The overall left ventricular systolic function ap pears mildly reduced. There is normal left ventricular wall thickness. Regional wall motion abnormali ties are noted. The left ventricular diastolic function is normal. LVEF is 45-50%. Right Ventricle : The right ventricle is normal size and function. Atria : The left atrium size is normal. The right atrium size is normal. Mitral Valve : There is mitral annular calcification. No evidence of mitral valve stenosis. Mild to m oderate mitral regurgitation. Great Vessels : The aortic root is normal in size. IVC is normal in size and collapses >50% with insp iration. The ascending aorta is mildly dilated. Aortic arch is normal in caliber. See remainder of study for further details. Current echocardiogram from 10/18/2018: There is no significant change though ejection fraction has dec reased slightly. Wall motion Left Ventricle The left ventricle is normal size. The overall left ventricular systolic function appears mildly redu noreen. There is normal left ventricular wall thickness. Regional wall motion abnormalities are noted. T he left ventricular diastolic function is normal. LVEF is 45-50%. Right Ventricle The right ventricle is normal size. The right ventricular systolic function is normal. The RVSP is 24 .6 mmHg. Atria The left atrium size is normal. The right atrium size is normal. Aortic Valve The Aortic valve is sclerotic. There is no aortic valvular stenosis. Trace aortic regurgitation. Mitral Valve There is mitral annular calcification. No evidence of mitral valve stenosis. Mild to moderate mitral regurgitation. Tricuspid Valve The tricuspid valve is normal in structure. There is no tricuspid valve stenosis. Trace to mild tricu spid regurgitation. Pulmonic Valve Pulmonic valve is not well visualized. There is no pulmonic valvular stenosis. There is no pulmonic v alvular regurgitation. Great Vessels The aortic root is normal in size. The ascending aorta is mildly dilated. Aortic arch is normal in ca liber. IVC is normal in size and collapses >50% with inspiration. Pericardium There is no pericardial effusion. 2D Dimensions IVSD d PLAX 0.93 cm M: 0.6-1.2 LV Vol A2C d MOD 117.8 mL LVPW d PLAX 0.89 cm M: 0.6 - 1.2 LV Vol A4C d MOD 91.2 mL LVID d PLAX 4.64 cm M: 4.2 - 5.8 LA vol/ BSA A2C s A-L 31.3 mL/m2 LVDs 3.55 cm M: 2.5 - 4.0 LA vol/ BSA A4C s A-L 22.9 mL/m2 Ao Root d 2.70 cm M: 3.1 - 3.7 LA Vol/ BSA Biplane s A-L 30.2 mL/m2 RA Area A4C 13.67 cm2 LA Area A4C s MOD 14.00 cm2 RA Vol/ BSA A4C s A-L 20.4 mL/m2 LA Area A2C s MOD 18.52 cm2 Ao Asc Diam d 3.52 cm M: 2.6 - 3.4 LV EF A4C MOD 45.1 % LV EF Teichholz 45.7 % LV EF A2C MOD 49.2 % LVEF (Johnson's) 44.51 % M: 52 - 72 LV EF Biplane MOD 44.5 % LV Volume 82.02 mL M: 62 - 150 SV 46.17 mL LV Volume Index 47.68 mL/m2 M: 34 - 74 SV Index 26.84 mL/m2 LV Vol Biplane MOD 103.7 mL FS 22.65 % M-Mode TAPSE 2.09 cm (M/F) >1.7 LV Diastology MV E' medial 0.068 (>0.07 m/s) E/A Ratio 1.1 LV E/e MED 8.60 (<14) MV E Vmax 0.59 (0.4-1.3 m/s) MV E' lateral 0.125 (>0.1 m/s) MV A Vmax 0.55 (0.4-1.3 m/s) LV E/e LAT 4.70 (<14) MV E/A Ratio 0.99 MV E/E' medial 8.63 MV E/E' lateral 4.72 Aortic Valve LVOT Area 3.25 cm2 AoV Area Vmax 1.96 cm2 LVOT Vmax 0.72 m/s AoV Area/ BSA (Vmax) 1.14 cm2/m2 LVOT Mean Chicho. 0.47 m/s ESTUARDO Mean Chicho. 1.90 cm2 LVOT Peak Grad 2.1 mmHg ESTUARDO Mean Chicho. Index 1.10 cm2/m2 LVOT Mean Grad 1.0 mmHg LVOT VTI 0.147 m LVOT Diam s 2.00 cm AoV Vmax 1.19 m/s Velocity Ratio 0.60 AoV Mean Chicho. 0.81 m/s AoV Peak Grad 5.7 mmHg LVOT SV 47.70 mL AoV Mean Grad 3.0 mmHg AoV VTI 0.217 m AoV Area VTI 2.19 cm2 AoV Area/ BSA (VTI) 1.28 cm/m2 Mitral Valve MV DT 313 (160-240 msec) MR Vmax 5.83 m/s MV PHT 91 msec MR VTI 1.888 m MV Area PHT 2.42 cm2 MR Peak Grad 136.1 mmHg MR Mean Grad 85.0 mmHg MR PISA Radius 0.46 cm MR EROA 0.08 cm2 MR Aliasing Velocity 0.35 m/s MR PISA 1.31 cm2 Pulmonary Valve PV Vmax 0.91 (0.5-1.5 m/s) RVOT Peak Gr. 1.08 mmHg PV Peak Grad 3.3 mmHg RVOT Mean Gr. 0.75 mmHg PV Mean Grad 1.7 mmHg RVOT VTI 0.110 m PV VTI 0.139 m RVOT Vmax 0.52 m/s Tricuspid Valve TR Peak Grad 21.5 mmHg TR Vmax 2.32 m/s RA Pressure 3.00 mmHg RVSP (TR) 24.6 mmHg
== END 2020-02-08 02:03 ==
PROVIDERS: PCP Family Medicine; Visit Provider Internal Medicine Cardiovascular Disease
DX: I25.2 Old myocardial infarction (principal); I25.10 Atherosclerotic heart disease of native coronary artery without angina pectoris; I34.0 Nonrheumatic mitral (valve) insufficiency; I63.9 Cerebral infarction, unspecified
CPT/HCPCS: 93306

== ENCOUNTER → 2020-02-14 14:09 | Outpatient (BNVA) | payer MEDICARE, BC, SELFPAY | PROVIDERS: PCP Family Medicine; Referring Provider Family Medicine; Visit Provider Internal Medicine Cardiovascular Disease | DX: I48.0 Paroxysmal atrial fibrillation (principal); Z95.5 Presence of coronary angioplasty implant and graft; I10 Essential (primary) hypertension; E78.00 Pure hypercholesterolemia, unspecified; I42.8 Other cardiomyopathies | CPT/HCPCS: 99214 ==

== ENCOUNTER 2020-06-12 01:52 | Outpatient (CLI) | payer MEDICARE, BC, SELFPAY ==
[2020-06-12 10:54] LABS: INR 3.5 (0.9-1.1); Prothrombin Time 34.4 sec (9.3-11.0)
== END 2020-06-12 02:12 ==
PROVIDERS: PCP Family Medicine; Visit Provider Family Medicine
DX: Z79.01 Long term (current) use of anticoagulants (principal)
CPT/HCPCS: 36415; 85610

== ENCOUNTER 2020-06-20 03:51 | Outpatient (CLI) | payer MEDICARE, BC, SELFPAY ==
[2020-06-20 11:08] LABS: Abs Immature Grans 0.03 10^3/uL (0.0-0.06); Absolute Basophil Count 0.01 10^3/uL (0.0-0.2); Absolute Eosinophil Count 0.03 10^3/uL (0.0-0.7); Absolute Monocyte Count 0.51 10^3/uL (0.1-0.8); Absolute Neutrophil Count 3.85 10^3/uL (1.2-6.7); Basophils % 0.2; Eosinophils % 0.5; HGB 15.8 g/dL (13.5-17.5); Immature Grans % 0.5; Lymphocytes % 22.7; MCH 29.5 pg (27.0-33.0); MCHC 32.2 % (32.0-36.0); MCV 91.6 fL (80-95); MPV 9.9 fL (8.0-11.0); Monocytes % 8.9; Neutrophils % 67.2; Nucleated RBC 0 %; Platelet Count 166 10^3/uL (130-400); RBC 5.35 10^6/uL (4.36-5.78); RDW 13.9 % (11.8-14.1); RDW-SD 46.4 fL; WBC 5.73 10^3/uL (4.4-10.8)
[2020-06-20 11:19] LABS: INR 2.2 (0.9-1.1)
[2020-06-20 11:37] LABS: ALT 48 U/L (16-63); AST 26 U/L (15-37); Alkaline Phosphatase 99 U/L (46-116); Bilirubin, Direct 0.21 mg/dL (0.00-0.20); Bilirubin, Total 0.9 mg/dL (0.2-1.0); Total Protein 6.9 g/dL (6.4-8.2)
[2020-06-20 12:11] LABS: ESR 3 mm/hr (1-20)
[2020-06-20 18:22] LABS: C-Reactive Protein < 0.05 mg/dL (0.0-0.3)
== END 2020-06-20 04:11 ==
PROVIDERS: Internal Medicine; PCP Family Medicine; Visit Provider Family Medicine
DX: I48.91 Unspecified atrial fibrillation (principal); Z79.01 Long term (current) use of anticoagulants; M06.9 Rheumatoid arthritis, unspecified; Z79.899 Other long term (current) drug therapy
CPT/HCPCS: 36415; 80076; 85652; 82565; 85025; 85610; 86140

== ENCOUNTER 2020-07-03 02:01 | Outpatient (CLI) | payer MEDICARE, BC, SELFPAY ==
[2020-07-03 13:52] LABS: Abs Immature Grans 0.03 10^3/uL (0.0-0.06); Absolute Basophil Count 0.02 10^3/uL (0.0-0.2); Absolute Eosinophil Count 0.04 10^3/uL (0.0-0.7); Absolute Lymphocyte Count 1.39 10^3/uL (1.2-3.4); Absolute Monocyte Count 0.59 10^3/uL (0.1-0.8); Absolute Neutrophil Count 3.72 10^3/uL (1.2-6.7); Basophils % 0.3; Eosinophils % 0.7; HCT 47.7 % (40.0-50.0); HGB 15.9 g/dL (13.5-17.5); Immature Grans % 0.5; MCH 29.9 pg (27.0-33.0); MCHC 33.3 % (32.0-36.0); MCV 89.7 fL (80-95); MPV 9.7 fL (8.0-11.0); Monocytes % 10.2; Neutrophils % 64.3; Nucleated RBC 0 %; Platelet Count 182 10^3/uL (130-400); RBC 5.32 10^6/uL (4.36-5.78); RDW 13.7 % (11.8-14.1); RDW-SD 44.4 fL; WBC 5.79 10^3/uL (4.4-10.8)
[2020-07-03 14:14] LABS: INR 1.7 (0.9-1.1); Prothrombin Time 16.7 sec (9.3-11.0)
[2020-07-03 14:48] LABS: ESR 3 mm/hr (1-20)
[2020-07-03 15:22] LABS: ALT 47 U/L (16-63); AST 27 U/L (15-37); Albumin 4.2 g/dL (3.4-5.0); Alkaline Phosphatase 101 U/L (46-116); Bilirubin, Direct 0.15 mg/dL (0.00-0.20); Bilirubin, Total 0.7 mg/dL (0.2-1.0); CREATININE 0.94 mg/dL (0.70-1.30); Total Protein 7.2 g/dL (6.4-8.2)
[2020-07-03 15:53] LABS: C-Reactive Protein < 0.05 mg/dL (0.0-0.3)
== END 2020-07-03 02:21 ==
PROVIDERS: Internal Medicine; PCP Family Medicine; Visit Provider Family Medicine
DX: Z79.899 Other long term (current) drug therapy (principal); M06.8A Other specified rheumatoid arthritis, other specified site
CPT/HCPCS: 36415; 80076; 85652; 82565; 85025; 85610; 86140

== ENCOUNTER 2020-07-18 03:43 | Outpatient (CLI) | payer MEDICARE, BC, SELFPAY ==
[2020-07-18 15:28] LABS: Prothrombin Time 29.4 sec (9.3-11.0)
== END 2020-07-18 04:03 ==
PROVIDERS: PCP Family Medicine; Visit Provider Family Medicine
DX: I48.91 Unspecified atrial fibrillation (principal); Z79.01 Long term (current) use of anticoagulants
CPT/HCPCS: 36415; 85610

== ENCOUNTER 2020-08-01 01:25 | Outpatient (CLI) | payer MEDICARE, BC, SELFPAY ==
[2020-08-01 10:47] LABS: Abs Immature Grans 0.01 10^3/uL (0.0-0.06); Absolute Basophil Count 0.02 10^3/uL (0.0-0.2); Absolute Eosinophil Count 0.06 10^3/uL (0.0-0.7); Absolute Lymphocyte Count 1.44 10^3/uL (1.2-3.4); Absolute Monocyte Count 0.48 10^3/uL (0.1-0.8); Absolute Neutrophil Count 3.02 10^3/uL (1.2-6.7); Basophils % 0.4; Eosinophils % 1.2; HCT 48.9 % (40.0-50.0); HGB 15.7 g/dL (13.5-17.5); Immature Grans % 0.2; Lymphocytes % 28.6; MCH 29.2 pg (27.0-33.0); MCHC 32.1 % (32.0-36.0); MCV 91.1 fL (80-95); MPV 9.6 fL (8.0-11.0); Monocytes % 9.5; Neutrophils % 60.1; Nucleated RBC 0 %; Platelet Count 177 10^3/uL (130-400); RBC 5.37 10^6/uL (4.36-5.78); RDW 13.4 % (11.8-14.1); WBC 5.03 10^3/uL (4.4-10.8)
[2020-08-01 10:54] LABS: Prothrombin Time 29.1 sec (9.3-11.0)
[2020-08-01 11:38] LABS: ESR 3 mm/hr (1-20)
[2020-08-01 12:12] LABS: ALT 46 U/L (16-63); AST 23 U/L (15-37); Albumin 4.1 g/dL (3.4-5.0); Alkaline Phosphatase 97 U/L (46-116); Bilirubin, Direct 0.14 mg/dL (0.00-0.20); Bilirubin, Total 0.6 mg/dL (0.2-1.0); CREATININE 0.93 mg/dL (0.70-1.30); Total Protein 6.9 g/dL (6.4-8.2)
[2020-08-01 12:14] LABS: C-Reactive Protein < 0.05 mg/dL (0.0-0.3)
== END 2020-08-01 01:45 ==
PROVIDERS: Internal Medicine; PCP Family Medicine; Visit Provider Family Medicine
DX: I48.91 Unspecified atrial fibrillation (principal); Z79.01 Long term (current) use of anticoagulants; M06.9 Rheumatoid arthritis, unspecified; Z79.899 Other long term (current) drug therapy
CPT/HCPCS: 36415; 80076; 85652; 82565; 85025; 85610; 86140

== ENCOUNTER 2020-08-15 02:46 | Outpatient (CLI) | payer MEDICARE, BC, SELFPAY ==
[2020-08-15 12:00] LABS: INR 2.5 (0.9-1.1); Prothrombin Time 24.9 sec (9.3-11.0)
== END 2020-08-15 03:06 ==
PROVIDERS: PCP Family Medicine; Visit Provider Family Medicine
DX: I48.91 Unspecified atrial fibrillation (principal); Z79.01 Long term (current) use of anticoagulants
CPT/HCPCS: 36415; 85610

== ENCOUNTER 2020-08-28 02:59 | Outpatient (CLI) | payer MEDICARE, BC, SELFPAY ==
[2020-08-28 14:24] LABS: Prothrombin Time 31.7 sec (9.3-11.0)
[2020-08-28 14:26] LABS: INR 3.2 (0.9-1.1)
== END 2020-08-28 03:19 ==
PROVIDERS: PCP Family Medicine; Visit Provider Family Medicine
DX: I48.91 Unspecified atrial fibrillation (principal); Z79.01 Long term (current) use of anticoagulants
CPT/HCPCS: 36415; 85610

== ENCOUNTER 2020-09-27 02:58 | Outpatient (CLI) | payer MEDICARE, BC, SELFPAY ==
[2020-09-27 14:37] LABS: Prothrombin Time 29.2 sec (9.3-11.0)
== END 2020-09-27 02:59 | disposition home or self-care (01) ==
LOC: LBO 02:59
PROVIDERS: PCP Family Medicine; Visit Provider Family Medicine
DX: I48.0 Paroxysmal atrial fibrillation (principal); Z95.2 Presence of prosthetic heart valve; Z79.01 Long term (current) use of anticoagulants
CPT/HCPCS: 36415; 99214; 85610

== ENCOUNTER 2020-10-17 04:31 | Outpatient (CLI) | payer MEDICARE, BC, SELFPAY ==
[2020-10-17 13:49] LABS: INR 2.6 (0.9-1.1); Prothrombin Time 25.4 sec (9.3-11.0)
== END 2020-10-17 04:32 | disposition home or self-care (01) ==
LOC: LBO 04:32
PROVIDERS: PCP Family Medicine; Visit Provider Family Medicine
DX: I48.91 Unspecified atrial fibrillation (principal); Z79.01 Long term (current) use of anticoagulants
CPT/HCPCS: 36415; 85610

== ENCOUNTER → 2020-11-28 12:20 | Outpatient (BNVA) | payer MEDICARE, BC, SELFPAY | PROVIDERS: PCP Family Medicine; Referring Provider Family Medicine; Visit Provider Psychiatry & Neurology Neurology | DX: G93.1 Anoxic brain damage, not elsewhere classified (principal); R41.3 Other amnesia; I63.9 Cerebral infarction, unspecified; G25.3 Myoclonus; I10 Essential (primary) hypertension | CPT/HCPCS: 99215; G2212 ==

== ENCOUNTER 2020-12-05 03:27 | Outpatient (CLI) | payer MEDICARE, BC, SELFPAY ==
[2020-12-05 14:20] LABS: INR 1.9 (0.9-1.1); Prothrombin Time 18.7 sec (9.3-11.0)
== END 2020-12-05 03:28 | disposition home or self-care (01) ==
LOC: LBO 03:28
PROVIDERS: PCP Family Medicine; Visit Provider Family Medicine
DX: I48.91 Unspecified atrial fibrillation (principal); Z79.01 Long term (current) use of anticoagulants
CPT/HCPCS: 36415; 85610

== ENCOUNTER 2021-01-02 02:44 | Outpatient (CLI) | payer MEDICARE, BC, SELFPAY ==
[2021-01-02 15:24] LABS: Prothrombin Time 19.4 sec (9.3-11.0)
== END 2021-01-02 02:45 | disposition home or self-care (01) ==
LOC: LBO 02:44
PROVIDERS: PCP Family Medicine; Visit Provider Family Medicine
DX: I48.91 Unspecified atrial fibrillation (principal); Z79.01 Long term (current) use of anticoagulants
CPT/HCPCS: 36415; 85610

== ENCOUNTER 2021-03-07 03:44 | Outpatient (CLI) | payer MEDICARE, BC, SELFPAY ==
[2021-03-07 11:02] LABS: INR 2.3 (0.9-1.1); Prothrombin Time 22.4 sec (9.3-11.0)
== END 2021-03-07 03:45 | disposition home or self-care (01) ==
LOC: LBO 03:44
PROVIDERS: PCP Family Medicine; Visit Provider Family Medicine
DX: I48.0 Paroxysmal atrial fibrillation (principal); Z79.01 Long term (current) use of anticoagulants
CPT/HCPCS: 36415; 85610

== ENCOUNTER 2021-04-17 02:51 | Outpatient (CLI) | payer MEDICARE, BC, SELFPAY ==
[2021-04-17 11:02] LABS: INR 2.7 (0.9-1.1); Prothrombin Time 26.9 sec (9.3-11.0)
== END 2021-04-17 02:52 | disposition home or self-care (01) ==
LOC: LBO 02:51
PROVIDERS: PCP Family Medicine; Visit Provider Family Medicine
DX: I48.0 Paroxysmal atrial fibrillation (principal); Z79.01 Long term (current) use of anticoagulants
CPT/HCPCS: 36415; 85610

== ENCOUNTER 2021-06-20 03:01 | Outpatient (CLI) | payer MEDICARE, BC, SELFPAY ==
[2021-06-20 12:42] LABS: INR 1.9 (0.9-1.1); Prothrombin Time 18.4 sec (9.3-11.0)
== END 2021-06-20 03:02 | disposition home or self-care (01) ==
LOC: LBO 03:01
PROVIDERS: PCP Family Medicine; Visit Provider Family Medicine
DX: I48.0 Paroxysmal atrial fibrillation (principal); Z79.01 Long term (current) use of anticoagulants
CPT/HCPCS: 36415; 85610

== ENCOUNTER 2021-07-17 02:34 | Outpatient (CLI) | payer MEDICARE, BC, SELFPAY ==
[2021-07-17 13:00] LABS: INR 1.6 (0.9-1.1); Prothrombin Time 15.8 sec (9.3-11.0)
== END 2021-07-17 02:35 | disposition home or self-care (01) ==
LOC: LBO 02:35
PROVIDERS: PCP Family Medicine; Visit Provider Family Medicine
DX: I63.9 Cerebral infarction, unspecified (principal); Z79.01 Long term (current) use of anticoagulants
CPT/HCPCS: 36415; 85610

== ENCOUNTER 2021-08-12 04:12 | Outpatient (CLI) | payer MEDICARE, BC, SELFPAY ==
[2021-08-12 11:09] LABS: INR 2.4 (0.9-1.1); Prothrombin Time 23.6 sec (9.3-11.0)
== END 2021-08-12 04:13 | disposition home or self-care (01) ==
LOC: LBO 04:12
PROVIDERS: PCP Family Medicine; Visit Provider Family Medicine
DX: Z79.01 Long term (current) use of anticoagulants (principal); I63.9 Cerebral infarction, unspecified
CPT/HCPCS: 36415; 85610

== ENCOUNTER → 2021-11-27 11:14 | Outpatient (BNVA) | payer MEDICARE, BC, SELFPAY | PROVIDERS: PCP Family Medicine; Referring Provider Family Medicine; Visit Provider Psychiatry & Neurology Neurology | DX: I69.393 Ataxia following cerebral infarction (principal); I69.318 Other symptoms and signs involving cognitive functions following cerebral infarction; I69.398 Other sequelae of cerebral infarction; G25.3 Myoclonus; Z79.01 Long term (current) use of anticoagulants | CPT/HCPCS: 99214 ==

== ENCOUNTER 2022-01-06 04:04 | Outpatient (CLI) | payer MEDICARE, BC, SELFPAY ==
[2022-01-06 14:10] LABS: Prothrombin Time 21.2 sec (9.3-11.0)
[2022-01-06 14:19] LABS: INR 2.1 (0.9-1.1)
== END 2022-01-06 04:05 | disposition home or self-care (01) ==
LOC: LBO 04:04
PROVIDERS: PCP Family Medicine; Visit Provider Family Medicine
DX: I63.89 Other cerebral infarction (principal); Z79.01 Long term (current) use of anticoagulants
CPT/HCPCS: 36415; 85610

== ENCOUNTER 2022-02-21 02:25 | Outpatient (CLI) | payer MEDICARE, BC, SELFPAY ==
[2022-02-21 09:35] LABS: Prothrombin Time 19.7 sec (9.3-11.0)
== END 2022-02-21 02:26 | disposition home or self-care (01) ==
LOC: LBO 02:25
PROVIDERS: PCP Family Medicine; Visit Provider Family Medicine
DX: I48.0 Paroxysmal atrial fibrillation (principal); Z79.01 Long term (current) use of anticoagulants
CPT/HCPCS: 36415; 85610

== ENCOUNTER 2022-04-04 01:41 | Outpatient (CLI) | payer MEDICARE, BC, SELFPAY ==
[2022-04-04 11:22] LABS: INR 3.4 (0.9-1.1); Prothrombin Time 31.7 sec (9.3-11.0)
== END 2022-04-04 01:42 | disposition home or self-care (01) ==
LOC: LBO 01:41
PROVIDERS: PCP Family Medicine; Visit Provider Family Medicine
DX: I48.0 Paroxysmal atrial fibrillation (principal)
CPT/HCPCS: 36415; 85610

== ENCOUNTER 2022-04-11 01:14 | Outpatient (CLI) | payer MEDICARE, BC, SELFPAY ==
[2022-04-11 10:18] LABS: INR 2.5 (0.9-1.1); Prothrombin Time 23.5 sec (9.3-11.0)
== END 2022-04-11 01:15 | disposition home or self-care (01) ==
LOC: LBO 01:14
PROVIDERS: PCP Family Medicine; Visit Provider Family Medicine
DX: I48.0 Paroxysmal atrial fibrillation (principal); Z79.01 Long term (current) use of anticoagulants
CPT/HCPCS: 36415; 85610

== ENCOUNTER 2022-04-25 01:53 | Outpatient (CLI) | payer MEDICARE, BC, SELFPAY ==
[2022-04-25 08:21] LABS: INR 3.7 (0.9-1.1); Prothrombin Time 33.9 sec (9.3-11.0)
== END 2022-04-25 01:54 | disposition home or self-care (01) ==
LOC: LBO 01:54
PROVIDERS: PCP Family Medicine; Visit Provider Family Medicine
DX: I48.0 Paroxysmal atrial fibrillation (principal)
CPT/HCPCS: 36415; 85610

== ENCOUNTER 2022-05-02 01:43 | Outpatient (CLI) | payer MEDICARE, BC, SELFPAY ==
[2022-05-02 09:57] LABS: Prothrombin Time 19.6 sec (9.3-11.0)
== END 2022-05-02 01:44 | disposition home or self-care (01) ==
LOC: LBO 01:44
PROVIDERS: PCP Family Medicine; Visit Provider Family Medicine
DX: I48.0 Paroxysmal atrial fibrillation (principal)
CPT/HCPCS: 36415; 85610

== ENCOUNTER 2022-06-20 01:49 | Outpatient (CLI) | payer MEDICARE, BC, SELFPAY ==
[2022-06-20 11:02] LABS: INR 2.6 (0.9-1.1)
== END 2022-06-20 01:50 | disposition home or self-care (01) ==
LOC: LBO 01:51
PROVIDERS: PCP Family Medicine; Visit Provider Family Medicine
DX: I48.0 Paroxysmal atrial fibrillation (principal)
CPT/HCPCS: 36415; 85610

== ENCOUNTER 2022-08-21 02:26 | Outpatient (CLI) | payer MEDICARE, BC, SELFPAY ==
[2022-08-21 13:41] LABS: INR 2.6 (0.9-1.1); Prothrombin Time 24.6 sec (9.3-11.0)
== END 2022-08-21 02:27 | disposition home or self-care (01) ==
LOC: LBO 02:26
PROVIDERS: PCP Family Medicine; Visit Provider Family Medicine
DX: I48.0 Paroxysmal atrial fibrillation (principal)
CPT/HCPCS: 36415; 85610

== ENCOUNTER 2022-10-30 02:44 | Outpatient (CLI) | payer MEDICARE, BC, SELFPAY ==
[2022-10-30 12:39] LABS: INR 3.3 (0.9-1.1); Prothrombin Time 33.1 sec (9.3-11.0)
== END 2022-10-30 02:45 | disposition home or self-care (01) ==
LOC: LBO 02:44
PROVIDERS: PCP Family Medicine; Visit Provider Family Medicine
DX: I48.0 Paroxysmal atrial fibrillation (principal); Z79.01 Long term (current) use of anticoagulants
CPT/HCPCS: 36415; 85610

== ENCOUNTER 2022-11-13 02:27 | Outpatient (CLI) | payer MEDICARE, BC, SELFPAY ==
[2022-11-13 12:52] LABS: INR 2.2 (0.9-1.1)
== END 2022-11-13 02:28 | disposition home or self-care (01) ==
LOC: LBO 02:28
PROVIDERS: PCP Family Medicine; Visit Provider Family Medicine
DX: I48.0 Paroxysmal atrial fibrillation (principal); Z79.01 Long term (current) use of anticoagulants
CPT/HCPCS: 36415; 85610

== ENCOUNTER → 2022-12-01 11:14 | Outpatient (BNVA) | payer MEDICARE, BC, SELFPAY | PROVIDERS: PCP Family Medicine; Visit Provider Psychiatry & Neurology Neurology | DX: G93.1 Anoxic brain damage, not elsewhere classified (principal); R41.3 Other amnesia; G25.3 Myoclonus; Z86.73 Personal history of transient ischemic attack (TIA), and cerebral infarction without residual deficits; I10 Essential (primary) hypertension; E78.5 Hyperlipidemia, unspecified | CPT/HCPCS: 99214 ==

== ENCOUNTER 2022-12-18 01:40 | Outpatient (CLI) | payer MEDICARE, BC, SELFPAY ==
[2022-12-18 12:45] LABS: INR 2.5 (0.9-1.1); Prothrombin Time 24.8 sec (9.3-11.0)
== END 2022-12-18 01:41 | disposition home or self-care (01) ==
LOC: LBO 01:40
PROVIDERS: PCP Family Medicine; Visit Provider Family Medicine
DX: I48.0 Paroxysmal atrial fibrillation (principal); Z79.01 Long term (current) use of anticoagulants
CPT/HCPCS: 36415; 85610

== ENCOUNTER 2023-01-26 04:31 | Outpatient (CLI) | payer MEDICARE, BC, SELFPAY ==
[2023-01-26 11:06] LABS: INR 2.9 (0.9-1.1); Prothrombin Time 28.9 sec (9.3-11.0)
== END 2023-01-26 04:32 | disposition home or self-care (01) ==
LOC: LBO 04:31
PROVIDERS: PCP Family Medicine; Visit Provider Family Medicine
DX: I48.0 Paroxysmal atrial fibrillation (principal); Z79.01 Long term (current) use of anticoagulants
CPT/HCPCS: 36415; 85610

== ENCOUNTER 2023-02-24 08:42 | Emergency (ER) | payer MEDICARE, BC, SELFPAY ==
[2023-02-24] VITALS (18 sets, daily range): BP systolic 100–145; BP diastolic 68–90; PULSE 61–70; RESP 18; O2SAT 97–100
--- NOTE | 2023-02-24 08:30 | DI.RAD_ITS ---
Exam(s) XR PORTABLE CHEST AP EXAM: XR PORTABLE CHEST AP CLINICAL HISTORY: dizzy. TECHNIQUE: 2D digital imaging was performed. COMPARISON: No exams were available for comparison FINDINGS: Single AP portable view. Heart size is upper normal. The mediastinum is not widened. Lungs are clear. No infiltrates nor obvious pleural effusions. IMPRESSION: No acute pulmonary findings on this single AP portable view of the chest. DATA REPOSITORY: RADIATION DOSE DELIVERED:
--- NOTE | 2023-02-24 08:30 | RT.EKG_ITS ---
APPROVED REPORT Exam: Resting ECG Reason for Exam: dizzy Patient Location: E HR:64 bpm ECG Measurements Heart Rate 64 AXIS MI 170 P 43 QRSd 89 QRS 11 QT 433 T 75 QTc 447 Conclusion Sinus rhythm...normal P axis, V-rate 60- 99 Inferior infarct, old...Q >35mS, II III aVF Anterior infarct, old...Q >40mS, abnormal ST-T, V2-V5
--- NOTE | 2023-02-24 08:38 | ED.GENADUL_ITS ---
Discharge Plan Disposition Patient Disposition: Home Condition: Improving Discharge Details Clinical Impression: Vertigo Primary Care Provider: Umu Paredes ED Provider: Gudelia Peace Home Meds and New Rx's Prescriptions: New meclizine 25 mg tablet 25 mg PO TID PRN (Reason: dizziness) Qty: 30 0RF ondansetron 8 mg tablet,disintegrating 8 mg PO Q8H PRN (Reason: nausea and vomiting) Qty: 30 0RF Continued warfarin 5 mg tablet 5 mg PO DAILY Qty: 90 7RF Protocol: Dose Management Condition: Thursday Dose/Route: 2.5 mg Instruction: 0.5 x 5 mg tablets Condition: Thursday Dose/Route: 2.5 mg Instruction: 0.5 x 5 mg tablets Condition: Thursday Dose/Route: 2.5 mg Instruction: 0.5 x 5 mg tablets Condition: Thursday Dose/Route: 2.5 mg Instruction: 0.5 x 5 mg tablets Condition: Dose/Route: 2.5 mg Instruction: 0.5 x 5 mg tablets Condition: Thursday Dose/Route: 2.5 mg Instruction: 0.5 x 5 mg tablets Condition: Thursday Dose/Route: 2.5 mg Instruction: 0.5 x 5 mg tablets Protocol Text: Adjustment Start Date: Thursday02/27/23 INR Value: 2.5 INR Date: 02/27/23 Recheck Date: 03/29/23 Rx Instructions: according to [facility] levetiracetam 250 mg tablet See Rx Instructions .ROUTE .COMPLEX Qty: 180 3RF Dose Instruction: TAKE 1 TABLET BY MOUTH TWICE DAILY Rx Instructions: TAKE 1 TABLET BY MOUTH TWICE DAILY atorvastatin [Lipitor] 80 mg tablet 80 mg PO HS Qty: 90 4RF aspirin [Aspir-81] 81 MG tablet,delayed release (DR/EC) 81 mg PO DAILY Discharge Instructions Instructions: Vertigo (ED) Additional Instructions: Meclizine 25 to 50 mg every 8 hours as needed for dizziness. Zofran under your tongue as needed for nausea. Drink plenty of fluids. Recheck with your primary care doctor if no better in 24 to 48 hours. Return to ED for any concerns. Discharge Data Discharge Date/Time-TO BE ENTERED AT DEPARTURE: 02/24/23 17:01 Medical Decision Making 1115 MRI staff are trying to fit the patient in. Dr. Pino from radiology has spoken to them. The family has been updated. MRI test results discussed with Dr. Pino from radiology. He states the brain MRI is unchanged from 2019. The patient was updated on his test results. He says he is feeling a lot better and would like to go home. He looks much brighter and is cheerful and appropriate. I will discharge him with Zofran and Meclizine. Ambulating steadily. Temp 98.9. Medical Records Medical records reviewed: Yes I reviewed the patient's medical records. Imaging Data Radiologic Study: Attestation: I personally reviewed and interpreted this imaging study as follows: Radiologist's impression: Patient Name: Carlton Pepper Unit #: [id number] Loc: ER ? Ordering Provider:? Gudelia Peace M.D. Status: PRE ER ? Primary Care Provider: Umu Paredes M.D., DC Date of Exam: 02/24/23 Sex: M ? Admission Date: 02/24/23? : 1950 ? Age: 73 ? Exam(s) XR PORTABLE CHEST AP EXAM:? XR PORTABLE CHEST AP CLINICAL HISTORY: ? dizzy. ? TECHNIQUE:? 2D digital imaging was performed. COMPARISON:? No exams were available for comparison FINDINGS: Single AP portable view. Heart size is upper normal.? The mediastinum is not widened. Lungs are clear.? No infiltrates nor obvious pleural effusions. IMPRESSION: No acute pulmonary findings on this single AP portable view of the chest. MRI brain shows NAD Lab Data Lab results reviewed: Yes I reviewed the patient's lab results. Lab results narrative: Troponin 123 at 0927. This patient is baseline going back sometime. Patient's glucose is 158, INR 2.2, PTT 24.4, troponin normal, albumin 3.3, remainder benign Labs: 1300. 2nd trop unchanged. ECG Data Attestation: I personally reviewed and interpreted this ECG (s) as follows: (EKG: Normal sinus rhythm at 65, Q waves inferiorly and anteroseptally, no change vs 10/14/18) HPI General Date/Time Provider Initiated Documentation: 02/24/23 08:54 . 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 The patient has a history of atrial fibrillation and is on warfarin. He also has a history of a large stroke with anoxic brain injury. He has coronary artery disease as well as an ascending aortic aneurysm. He also has a history of vertebral artery dissection. Patient reports that he has had dizziness previously but does not think it was associated with movement (not sure). He does not have this frequently but the symptoms this morning are somewhat different. He denies chest pain, difficulty breathing, abdominal pain. He has no diarrhea or dysuria. He denies headache. He reports no fever at home but has felt cold a lot. There have been no rigors. He feels more fatigued than baseline. Related Data Home Medications Medication Instructions Recorded Confirmed aspirin 81 mg tablet,delayed 81 mg PO DAILY 08/11/17 02/24/23 release (Aspir-) atorvastatin 80 mg tablet (Lipitor) 80 mg PO HS #90 tabs 04/02/21 02/24/23 warfarin 5 mg tablet 5 mg PO DAILY #90 tabs 10/10/21 02/24/23 levetiracetam 250 mg tablet See Rx Instructions .Route 12/01/22 02/24/23 .COMPLEX #180 tabs meclizine 25 mg tablet 25 mg PO TID PRN dizziness #30 tabs 02/24/23 ondansetron 8 mg disintegrating 8 mg PO Q8H PRN nausea and 02/24/23 tablet vomiting #30 tabs Previous Rx's Medication Instructions Recorded atorvastatin 80 mg tablet (Lipitor) 80 mg PO HS #90 tabs 04/02/21 warfarin 5 mg tablet 5 mg PO DAILY #90 tabs 10/10/21 levetiracetam 250 mg tablet See Rx Instructions .Route 12/01/22 .COMPLEX #180 tabs meclizine 25 mg tablet 25 mg PO TID PRN dizziness #30 tabs 02/24/23 ondansetron 8 mg disintegrating 8 mg PO Q8H PRN nausea and 02/24/23 tablet vomiting #30 tabs Allergies Allergy/AdvReac Type Severity Reaction Status Date / Time No Known Allergies Allergy Verified 12/01/22 11:17 General NOA: 2 Review of Systems Constitutional Constitutional: Denies chills, Denies fever(s), Denies headache(s), Reports weakness and Reports other (has cold sweats) Eyes Eyes: Denies diplopia and Reports other (no redness) ENT Ears, Nose, Mouth, and Throat: Denies otalgia, Denies headache(s), Denies nasal congestion, Denies nasal discharge, Denies neck pain and Denies sore throat Cardiovascular Cardiovascular: Denies chest pain, Denies palpitations and Denies dyspnea Respiratory Respiratory: Denies cough and Denies dyspnea Gastrointestinal Gastrointestinal: Denies abdominal pain, Denies diarrhea, Reports nausea and Rep orts vomiting Genitourinary Genitourinary: Denies difficulty urinating and Denies dysuria Musculoskeletal Musculoskeletal: Denies myalgias, Denies muscle weakness, Denies neck pain, Denies numbness and Reports other (edema) Integumentary/Breasts Skin/Breast: Denies change in pigmentation and Denies rash Neurologic Neurologic: Denies headache(s), Denies numbness, Reports weakness and Reports other (has fatigue) Endocrine Endocrine: Denies palpitations PFSH All Active Problems (Updated 02/24/23 @ 16:18 by Gudelia Peace MD) Vertigo (Acute) Ambulatory dysfunction (Acute) Weakness (Acute) Apathy (Acute) Advance care planning (Acute) Myoclonus (Acute) Hypoxic brain injury (Acute) Vision changes (Acute) Supratherapeutic INR (Acute) Depression (Chronic) Memory changes (Acute) Chronic anticoagulation (Acute) Ascending aortic aneurysm (Acute) Stented coronary artery (Chronic) Resolute [place] (Zotarolimus-Eluting Coronary Stent System) Resolute Brett [id number] Ref: [id number] Lot: [id number] Exp: 10/04/2019 Resolute [place] [id number] Ref:[id number] Exp: 08/28/2019 History of TIA (transient ischemic attack) (Chronic) Paroxysmal atrial fibrillation (Chronic) History of cardiac arrest (Chronic) CAD (coronary artery disease) (Chronic) 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 S/P ablation of atrial fibrillation (Chronic 10/19/17) Rheumatoid arthritis (Chronic 10/19/17) Hypercholesterolemia (Chronic 04/01/15) Acute posterior circulation transient ischemic attack (Chronic 04/01/15) Acute CVA (cerebrovascular accident) (Chronic) Anoxic brain injury (Chronic) History of coronary artery disease (Acute) Medical History Altered mental status Confusion Discharge planning issues Dizziness DVT prophylaxis Elevated troponin I level Lyme disease 07/30/15 Lyme disease 07/30/15 Lyme disease (07/30/15) Status post myocardial infarction of inferior wall Transient ischemic attack Troponin level elevated Surgical History Fracture, Open Treatment (09/09/13) ORIF; RIGHT 5TH METATARSAL FX History of open reduction and internal fixation (ORIF) procedure 08/17/13 right 5th metatarsal fx History of open reduction and internal fixation (ORIF) procedure 08/17/13 right 5th metatarsal fx History of open reduction and internal fixation (ORIF) procedure Family History Mother , age 82 No problems noted. Father , age 78 No problems noted. Sister No problems noted. Sister No problems noted. Brother No problems noted. Social History Smoking/Tobacco Use Status: Never Smoking risk assessment performed?: Yes Alcohol Intake: former Drug use: Never Substance use type: does not use Caregiver/Support person: Yes Household members: spouse and children Housing: house Communication Needs: None Do you need help understanding health information?: Never Pets and animals: Yes Pets and animals: cat(s) and dog(s) Sexually active: Yes Do you think of yourself as: straight/heterosexual Current gender identity: male What is your relationship status?: How often do you talk on the phone with friends or family?: twice per week How often do you get together with friends or relatives?: decline to answer How often do you attend yarsanism or rastafarian services?: 1-3 times per year Do you belong to any clubs or organized social groups?: no Panel score (0-1 are the most socially isolated patients): 1 What type of physical activity do you participate in: other Details: franca chi, PT Duration: 30-45 minutes/day Frequency: 3-4 times per week Nini/Anabaptist: Evangelical Special nini needs: No Seatbelt use: always Helmet use: Yes Helmet use: always Drive intox or ride w/intox garbage collector driver: No Do you feel safe at home: Yes Do you feel safe in your relationship?: Yes Exam Const General: no acute distress, well developed, well groomed and not in acute distress Nutritional Appearance: well nourished Orientation: alert and oriented x3 HENMT Head: normocephalic and atraumatic Ears: external ears normal and TM's normal bilaterally Mouth: oropharynx normal and moist mucous membranes Throat: posterior oropharynx normal Eyes Conjunctivae: conjunctivae normal Pupils: PERRL EOM: EOM intact bilaterally Other: Nonsustainable nystagmus, several beats Neck Neck: full ROM, supple and other (2+ carotids no bruits) Chest Chest: normal inspection of the chest Resp Effort & Inspection: normal respiratory effort Auscultation: clear to auscultation bilaterally Cardio Rate: regular rate Rhythm: regular rhythm Heart Sounds: no murmurs and no rubs GI Inspection: normal to inspection Palpation: soft, nontender and other (non distended) Auscultation: normal bowel sounds Skin General skin exam: no rashes or lesions noted and other (pink, warm, dry) Neuro General: patient alert, patient awake and patient oriented x3 Cranial Nerves: CN's II-XI intact bilaterally Cognition: normal cognition (Gets slightly frustrated and forgetful but overall quite good) Speech: speech normal Motor: muscle tone normal throughout, strength 5/5 throughout and other (BARRAZA) Sensory Exam: no sensory deficits noted Coordination: [id number] test normal and Romberg test normal Extrem General: normal to inspection, full ROM and pedal edema present Psych Mental Status: mental status grossly normal Speech and Movement: speech and movement normal Affect: normal affect
--- NOTE | 2023-02-24 08:45 | DI.MRI_ITS ---
Exam(s) MR BRAIN WO EXAM: MR BRAIN WO CLINICAL HISTORY: hx CVA, anoxic inj; vertigo w/vomiting TECHNIQUE: Multiplanar multisequence MRI of the brain was performed. COMPARISON: MR MR brain wo from 10/15/2018 FINDINGS: CEREBRAL PARENCHYMA: There is no evidence of intracranial hemorrhage, mass effect, or shift of midline structures. There are no extra-axial fluid collections. Ventricular size again noted be slightly prominent but unchang ed. There is no significant new focal signal abnormality in the cerebellar hemispheres nor within the medhat s, midbrain, and thalami. Bilateral periventricular signal abnormality is again noted and appears relatively stable when compar ed to the MRI scan of 10/15/2018. Also small lacunar infarct in the left external capsule again note d. There is no significant focal signal abnormality evident on diffusion imaging to suggest acute ischem ic event. No restricted diffusion. PITUITARY GLAND: No mass nor parasellar abnormality. No obvious abnormality in the cavernous sinuses. FLOW VOIDS: Decreased flow void in the upper left vertebral artery is unchanged from previous. Flow voids in the anterior intracranial circulation remain unremarkable. PARANASAL SINUSES: The visualized paranasal sinuses appear unremarkable. No obvious finding ORBITS: No obvious findings. IMPRESSION: Minimal if any significant change when compared to the prior MRI scan of 10/15/2018. Stable chronic small-vessel white matter ischemic changes. No evidence of acute territorial infarct, new lacunar in farct, nor intracranial hemorrhage. Asymmetric abnormal signal void within the left vertebral artery at the skull base. This may reflect prior thrombosis/dissection of this vessel.. Called by myself to ER physician DATA REPOSITORY:
[2023-02-24 09:06] LABS: HCT 48.3 % (40.0-50.0); HGB 16.5 g/dL (13.5-17.5); MCH 29.4 pg (27.0-33.0); MCHC 34.2 % (32.0-36.0); MCV 86 fL (80-95); MPV 8.7 fL (8.0-11.0); Platelet Count 199 10^3/uL (130-400); RBC 5.62 10^6/uL (4.36-5.78); RDW 13.8 % (11.8-14.1); WBC 5.71 10^3/uL (4.4-10.8)
[2023-02-24] MEDS: Ondansetron 4 MG/2 ML VIAL 8 MG IVP (09:07)
[2023-02-24] MEDS: Meclizine 25 MG TAB PO (09:07)
[2023-02-24] MEDS: Normal Saline 1,000 ML 1000 ML IV (09:08)
[2023-02-24 09:17] LABS: INR 2.2 (0.9-1.1); Prothrombin Time 22.4 sec (9.3-11.0)
[2023-02-24 09:24] LABS: ALT 16 U/L (16-63); AST 13 U/L (15-37); Albumin 3.3 g/dL (3.4-5.0); Alkaline Phosphatase 88 U/L (46-116); Anion Gap 10.7 mmol/L (3-11); BUN 10 mg/dL (7-18); Bilirubin, Total 0.6 mg/dL (0.2-1.0); CO2 24.3 mmol/L (21.0-32.0); CREATININE 1.1 mg/dL (0.70-1.30); Calcium 8.8 mg/dL (8.5-10.1); Chloride 107 mmol/L (98-107); Estimated GFR 71.32 (mL/min/1.73m2); Glucose 158 mg/dL (74-106); Potassium 4.4 mmol/L (3.5-5.1); Sodium 142 mmol/L (136-145)
[2023-02-24 09:26] LABS: Magnesium 1.9 mg/dL (1.8-2.4)
[2023-02-24 09:27] LABS: Troponin I 123 ng/L (<or=60)
--- NOTE | 2023-02-24 10:22 | NUR.NOTE ---
Nursing Note: patient reports nausea is gone. call light within reach of patient at this time of writing
[2023-02-24 12:37] LABS: Troponin I 121 ng/L (<or=60)
== END 2023-02-24 17:01 | disposition home or self-care (01) ==
PROVIDERS: Emergency Provider Emergency Medicine; PCP Family Medicine
DX: R42 Dizziness and giddiness (principal); R11.2 Nausea with vomiting, unspecified
CPT/HCPCS: 36415; 80053; 85027; 93005; 96361; 96374; 99284; 70551; 71045; 80177; 83735; 84484; 85610; 93010; J2405; J3490

== ENCOUNTER 2023-02-27 02:18 | Outpatient (CLI) | payer MEDICARE, BC, SELFPAY ==
[2023-02-27 12:05] LABS: INR 2.5 (0.9-1.1); Prothrombin Time 25.4 sec (9.3-11.0)
== END 2023-02-27 02:19 | disposition home or self-care (01) ==
LOC: LBO 02:18
PROVIDERS: PCP Family Medicine; Visit Provider Family Medicine
DX: I48.0 Paroxysmal atrial fibrillation (principal); Z79.01 Long term (current) use of anticoagulants
CPT/HCPCS: 36415; 85610

== ENCOUNTER 2023-03-30 03:58 | Outpatient (CLI) | payer MEDICARE, BC, SELFPAY ==
[2023-03-30 11:57] LABS: INR 1.8 (0.9-1.1); Prothrombin Time 18.7 sec (9.3-11.0)
[2023-03-30 12:30] LABS: ALT 18 U/L (16-63); AST 16 U/L (15-37); Albumin 3.6 g/dL (3.4-5.0); Alkaline Phosphatase 91 U/L (46-116); Anion Gap 7.3 mmol/L (3-11); BUN 12 mg/dL (7-18); Bilirubin, Total 0.5 mg/dL (0.2-1.0); CO2 29.7 mmol/L (21.0-32.0); CREATININE 1.1 mg/dL (0.70-1.30); Calculated LDL 177 mg/dL (<100); Chloride 102 mmol/L (98-107); Cholesterol 264 mg/dL (<200); Estimated GFR 71.32 (mL/min/1.73m2); Glucose 80 mg/dL (74-106); HDL Cholesterol 49 mg/dL (40-60); Potassium 3.6 mmol/L (3.5-5.1); Sodium 139 mmol/L (136-145); Total Protein 7.5 g/dL (6.4-8.2); Triglyceride 190 mg/dL (<150)
[2023-03-31 16:14] LABS: Levetiracetam 2.3 mcg/mL
== END 2023-03-30 03:59 | disposition home or self-care (01) ==
LOC: LBO 03:58
PROVIDERS: PCP Family Medicine; Visit Provider Family Medicine
DX: E78.00 Pure hypercholesterolemia, unspecified (principal); G93.1 Anoxic brain damage, not elsewhere classified; I25.10 Atherosclerotic heart disease of native coronary artery without angina pectoris; I48.0 Paroxysmal atrial fibrillation; R42 Dizziness and giddiness
CPT/HCPCS: 36415; 80053; 80061; 80177; 85610

== ENCOUNTER 2023-04-09 04:07 | Outpatient (CLI) | payer MEDICARE, BC, SELFPAY ==
[2023-04-09 11:23] LABS: INR 1.7 (0.9-1.1); Prothrombin Time 16.8 sec (9.3-11.0)
== END 2023-04-09 04:08 | disposition home or self-care (01) ==
LOC: LBO 04:07
PROVIDERS: PCP Family Medicine; Visit Provider Family Medicine
DX: I48.0 Paroxysmal atrial fibrillation (principal); Z79.01 Long term (current) use of anticoagulants
CPT/HCPCS: 36415; 85610

== ENCOUNTER 2023-04-24 01:54 | Outpatient (CLI) | payer MEDICARE, BC, SELFPAY ==
[2023-04-24 11:39] LABS: INR 2.6 (0.9-1.1); Prothrombin Time 26.3 sec (9.3-11.0)
== END 2023-04-24 01:55 | disposition home or self-care (01) ==
LOC: LBO 01:54
PROVIDERS: PCP Family Medicine; Visit Provider Family Medicine
DX: I48.0 Paroxysmal atrial fibrillation (principal); Z79.01 Long term (current) use of anticoagulants
CPT/HCPCS: 36415; 85610

== ENCOUNTER 2023-07-02 04:51 | Outpatient (CLI) | payer MEDICARE, BC, SELFPAY ==
[2023-07-02 13:34] LABS: Prothrombin Time 36.8 sec (9.1-11.1)
[2023-07-02 13:42] LABS: INR 4.1 (0.9-1.1)
== END 2023-07-02 04:52 | disposition home or self-care (01) ==
LOC: LBO 04:52
PROVIDERS: PCP Family Medicine; Visit Provider Family Medicine
DX: I48.0 Paroxysmal atrial fibrillation (principal)
CPT/HCPCS: 36415; 85610

== ENCOUNTER 2023-07-10 00:54 | Outpatient (CLI) | payer MEDICARE, BC, SELFPAY ==
[2023-07-10 13:19] LABS: INR 2.3 (0.9-1.1); Prothrombin Time 21.4 sec (9.1-11.1)
== END 2023-07-10 00:55 | disposition home or self-care (01) ==
LOC: LBO 00:54
PROVIDERS: PCP Family Medicine; Visit Provider Family Medicine
DX: I48.0 Paroxysmal atrial fibrillation (principal)
CPT/HCPCS: 36415; 85610

== ENCOUNTER 2023-07-24 03:08 | Outpatient (CLI) | payer MEDICARE, BC, SELFPAY ==
[2023-07-24 13:35] LABS: INR 3.5 (0.9-1.1); Prothrombin Time 31.7 sec (9.1-11.1)
== END 2023-07-24 03:09 | disposition home or self-care (01) ==
LOC: LBO 03:08
PROVIDERS: PCP Family Medicine; Visit Provider Family Medicine
DX: I48.0 Paroxysmal atrial fibrillation (principal)
CPT/HCPCS: 36415; 85610

== ENCOUNTER 2023-07-31 02:27 | Outpatient (CLI) | payer MEDICARE, BC, SELFPAY ==
[2023-07-31 10:59] LABS: INR 2.2 (0.9-1.1); Prothrombin Time 20.5 sec (9.1-11.1)
== END 2023-07-31 02:28 | disposition home or self-care (01) ==
LOC: LBO 02:28
PROVIDERS: PCP Family Medicine; Visit Provider Family Medicine
DX: I48.0 Paroxysmal atrial fibrillation (principal)
CPT/HCPCS: 36415; 85610

== ENCOUNTER 2023-09-04 01:23 | Outpatient (CLI) | payer MEDICARE, BC, SELFPAY ==
[2023-09-04 13:34] LABS: INR 2.7 (0.9-1.1); Prothrombin Time 24.8 sec (9.1-11.1)
== END 2023-09-04 01:24 | disposition home or self-care (01) ==
LOC: LBO 01:24
PROVIDERS: PCP Family Medicine; Visit Provider Family Medicine
DX: I48.0 Paroxysmal atrial fibrillation (principal); Z79.01 Long term (current) use of anticoagulants
CPT/HCPCS: 36415; 85610

== ENCOUNTER 2023-11-05 05:46 | Outpatient (CLI) | payer MEDICARE, BC, SELFPAY ==
[2023-11-05 11:53] LABS: INR 2.5 (0.9-1.1); Prothrombin Time 23.1 sec (9.1-11.1)
== END 2023-11-05 05:47 | disposition home or self-care (01) ==
LOC: LBO 05:46
PROVIDERS: PCP Family Medicine; Visit Provider Family Medicine
DX: I48.0 Paroxysmal atrial fibrillation (principal)
CPT/HCPCS: 36415; 85610

== ENCOUNTER 2023-12-11 01:10 | Outpatient (CLI) | payer MEDICARE, BC, SELFPAY ==
[2023-12-11 11:05] LABS: INR 2.6 (0.9-1.1); Prothrombin Time 24.3 sec (9.1-11.1)
== END 2023-12-11 01:11 | disposition home or self-care (01) ==
LOC: LBO 01:11
PROVIDERS: PCP Family Medicine; Visit Provider Family Medicine
DX: I48.0 Paroxysmal atrial fibrillation (principal)
CPT/HCPCS: 36415; 85610

== ENCOUNTER 2024-01-15 00:54 | Outpatient (CLI) | payer MEDICARE, BC, SELFPAY ==
[2024-01-15 13:56] LABS: INR 2.4 (0.9-1.1); Prothrombin Time 22.1 sec (9.1-11.1)
== END 2024-01-15 00:55 | disposition home or self-care (01) ==
LOC: LBO 00:54
PROVIDERS: PCP Family Medicine; Visit Provider Family Medicine
DX: I48.0 Paroxysmal atrial fibrillation (principal)
CPT/HCPCS: 36415; 85610

== ENCOUNTER 2024-01-30 03:05 | Inpatient (IN) | payer MEDICARE, BC, SELFPAY ==
[2024-01-30] VITALS (76 sets, daily range): BP systolic 106–179; BP diastolic 71–115; PULSE 62–91; RESP 10–25; TEMP 36.7–38; O2SAT 93–99
--- NOTE | 2024-01-30 03:00 | RT.EKG_ITS ---
APPROVED REPORT Exam: Resting ECG Reason for Exam: dizziness Patient Location: E HR:78 bpm ECG Measurements Heart Rate 78 AXIS LA 147 P 44 QRSd 97 QRS 16 QT 396 T 72 QTc 452 Conclusion Sinus rhythm...normal P axis, V-rate 60- 99 Inferior infarct, old...Q >35mS, II III aVF Nonspecific T abnormalities, lateral leads...T <-0.10mV, I aVL V5 V6 appropriate intervals no ST segment or T wave abnormalities to suggest occlusive UT
--- NOTE | 2024-01-30 03:45 | DI.CT_ITS ---
Exam(s) CT BRAIN NECK CTA EXAM: CT BRAIN NECK CTA CLINICAL HISTORY: vertigo, fall on warfarin, benign exam. TECHNIQUE: Imaging Protocol: Axial CT angiography was performed with multi-slice acquisition and mu lti-planar and/or 3D reconstructions. CONTRAST MATERIAL: Intravenous: Contrast contrast volume:structured data in ml mL COMPARISON: CT CT THORAX CTA from 10/14/2018 FINDINGS: CT Head W/O and W: Ventricles and Extra axial spaces: Normal in size and morphology for the patient's age. Hemorrhage: None. Cerebral parenchyma: Normal. Midline shift: None. Brainstem/Cerebellum: Normal. Calvarium: Normal. Visualized Paranasal sinuses/Mastoids: Clear. Soft Tissues: Unremarkable. Enhancement: Unremarkable. CTA Neck W: Common Carotid: Right: No dissection, occlusion or significant stenosis. Left: No dissection, occlusion or significant stenosis. External Carotid: Right: No occlusion or significant stenosis. Left: No occlusion or significant stenosis. Internal Carotid: Right: No dissection, occlusion or significant stenosis. Left: No dissection, occlusion or significant stenosis. Vertebral Artery: Right: No dissection, occlusion or significant stenosis. Left: No dissection, occlusion or significant stenosis. Lung Apices: Normal. Bones: Within normal limits for the patient's age. Soft Tissues: Normal. Thyroid gland: Unremarkable. CTA Brain W: Internal Carotid Arteries: Normal. Anterior Cerebral Arteries: Right: No aneurysm, occlusion or significant stenosis. Left: No aneurysm, occlusion or significant stenosis. Middle Cerebral Arteries: Right: No aneurysm, occlusion or significant stenosis. Left: No aneurysm, occlusion or significant stenosis. Posterior Cerebral Arteries: Right: No aneurysm, occlusion or significant stenosis. Left: No aneurysm, occlusion or significant stenosis. Vertebral Arteries: Right: No aneurysm, occlusion or significant stenosis. Left: No aneurysm, occlusion or significant stenosis. Basilar Artery: No aneurysm, occlusion or significant stenosis. IMPRESSION: 1. No large vessel occlusion or significant stenosis on the CT angiography of the head. 2. No acute intracranial process. 3. No occlusion or significant stenosis on the CT angiography of the neck. RADIATION DOSE DELIVERED: Total DLP DATA REPOSITORY: All CT scans at this facility are submitted to the National Radiology Data Registry (NRDR) Dose Index Registry (DIR) with the [employer] (ACR). RADIATION OPTIMIZATION: All CT scans at this facility use at least one of these dose optimization te chniques: automated exposure control; mA and/or kV adjustment per patient size (includes targeted exa ms where dose is matched to clinical indication); or iterative reconstruction.
--- NOTE | 2024-01-30 03:55 | ED.GENADUL_ITS ---
Discharge Plan Disposition Patient Disposition: Admit to [facility] Condition: Good Discharge Details Clinical Impression: Anticoagulated, Vertigo, Fall, Stroke Primary Care Provider: Umu Paredes ED Provider: Precious Hooker Home Meds and New Rx's Prescriptions: No Action levetiracetam 250 mg tablet See Rx Instructions .ROUTE .COMPLEX Qty: 180 3RF Dose Instruction: TAKE 1 TABLET BY MOUTH TWICE DAILY Rx Instructions: TAKE 1 TABLET BY MOUTH TWICE DAILY atorvastatin [Lipitor] 80 mg tablet 80 mg PO HS Qty: 90 4RF warfarin 5 mg tablet 5 mg PO DAILY Qty: 90 7RF Protocol: Dose Management Condition: Thursday Dose/Route: 2.5 mg Instruction: 0.5 x 5 mg tablets Condition: Thursday Dose/Route: 2.5 mg Instruction: 0.5 x 5 mg tablets Condition: Thursday Dose/Route: 2.5 mg Instruction: 0.5 x 5 mg tablets Condition: Thursday Dose/Route: 2.5 mg Instruction: 0.5 x 5 mg tablets Condition: Dose/Route: 2.5 mg Instruction: 0.5 x 5 mg tablets Condition: Thursday Dose/Route: 2.5 mg Instruction: 0.5 x 5 mg tablets Condition: Thursday Dose/Route: 2.5 mg Instruction: 0.5 x 5 mg tablets Protocol Text: Adjustment Start Date: Thursday01/15/24 INR Value: 2.4 INR Date: 01/15/24 Recheck Date: 02/14/24 Rx Instructions: according to corner medical instruction aspirin [Aspir-81] 81 MG tablet,delayed release (DR/EC) 81 mg PO DAILY meclizine 25 mg tablet 25 mg PO TID PRN (Reason: dizziness) Qty: 30 0RF ondansetron 8 mg tablet,disintegrating 8 mg PO Q8H PRN (Reason: nausea and vomiting) Qty: 30 0RF HPI General Mode of arrival: EMS . Date/Time Provider Initiated Documentation: 01/30/24 03:18 . Limitations to Documentation: no limitations . Information obtained by: patient and EMS . HPI Narrative: 73yo M with hx prior ischemic infarct with no residual deficits, intermittent vertigo, on coumadin, presenting via EMS with severe vertigo and fall. Has never had vertigo this severe before. This evening 'felt the room spinning' and lost his balance, fell to the ground. Caught himself with his hands and lowered himself to the ground which was thickly carpeted. No head strike or loss of consciousness. Denies any pain. No numbness, tingling, or weakness. No chest pain, shortness of breath, or lightheadedness. He is otherwise in his usual state of health. Related Data Home Medications Medication Instructions Recorded Confirmed aspirin 81 mg tablet,delayed 81 mg PO DAILY 08/11/17 01/30/24 release (Aspir-) atorvastatin 80 mg tablet (Lipitor) 80 mg PO HS #90 tabs 04/02/21 01/30/24 levetiracetam 250 mg tablet See Rx Instructions .Route 12/01/22 01/30/24 .COMPLEX #180 tabs meclizine 25 mg tablet 25 mg PO TID PRN dizziness #30 tabs 02/24/23 01/30/24 ondansetron 8 mg disintegrating 8 mg PO Q8H PRN nausea and 02/24/23 01/30/24 tablet vomiting #30 tabs warfarin 5 mg tablet 5 mg PO DAILY #90 tabs 03/13/23 01/30/24 Previous Rx's Medication Instructions Recorded atorvastatin 80 mg tablet (Lipitor) 80 mg PO HS #90 tabs 04/02/21 levetiracetam 250 mg tablet See Rx Instructions .Route 12/01/22 .COMPLEX #180 tabs meclizine 25 mg tablet 25 mg PO TID PRN dizziness #30 tabs 02/24/23 ondansetron 8 mg disintegrating 8 mg PO Q8H PRN nausea and 02/24/23 tablet vomiting #30 tabs warfarin 5 mg tablet 5 mg PO DAILY #90 tabs 03/13/23 Allergies Allergy/AdvReac Type Severity Reaction Status Date / Time No Known Allergies Allergy Verified 01/30/24 03:18 General Stated Complaint: Fall/Non TraumaCriteria NOA: 3 Review of Systems Narrative: see HPI Exam Narrative Exam Narrative: GENERAL: Alert, no acute distress. SKIN: Warm and well perfused. HEAD: Atraumatic, normocephalic without edema, discoloration or evidence of trauma. Facial bones without deformities or tenderness. EYES: PERRL. No scleral icterus or conjunctival injection. Extraocular muscles intact without nystagmus or diplopia. EARS: No hemotympanum. NOSE: No nasal septal hematoma. MOUTH: No malocclusion or trismus. Moist mucus membranes without blood. NECK: Trachea midline. No discolorations or edema. CV: Regular rate and rhythm, Normal s1 and s2. No murmurs, rubs, or gallops. PV: Radial pulses 2+ bilaterally and symmetric. Dorsalis pedis pulses 2+ bilaterally and symmetric. 2+ capillary refill. No extremity edema. CHEST: No abrasions or ecchymosis. Chest symmetric with respirations. No chest wall tenderness. Lungs are clear to auscultation bilaterally. ABDOMEN: No ecchymosis or abrasions. Soft, nondistended, nontender. BACK: No abrasions, skin openings, or ecchymosis. Spine without bony tenderness, no step offs. PELVIC: Pelvis stable, nontender to lateral compression MSK: No gross deformities. Tolerates full range of motion of extremities without tenderness. Neuro: ? GCS 15.? PERRL.? EOMI.? Fluent speech, no dysarthria. Motor- 5/5 strength symmetric bilateral upper and lower extremities including shoulder abductors/adductors, elbow flexors/extensors, wrist flexors/extensors, finger abductors/adductors, hipflexors/extensors, knee flexors/extensors, ankle dorsiflexors and planter flexors. Sensation- ?Intact to light touch and symmetric multiple dermatomes including upper and lower extremities Coordination- No dysmetria on finger to nose Gait/station: ?Marked unsteadiness, unable to test. [place]-Hallpike negative. CRANIAL NERVES: II: Pupils equal and reactive, III, IV, : EOM intact, no gaze preference or deviation, no nystagmus. V: normal sensation in V1, V2, and V3 segments bilaterally VII: no asymmetry, no nasolabial fold flattening VIII: normal hearing to speech IX, X: normal palatal elevation, no uvular deviation XI: 5/5 head turn and 5/5 shoulder shrug bilaterally XII: midline tongue protrusion Course Vital Signs Vital signs: Vital Signs Temperature 36.8 C 01/30/24 03:11 Pulse 89 01/30/24 03:11 Respiratory Rate 14 01/30/24 03:11 Blood Pressure 158/115 H 01/30/24 03:11 Pulse Oximetry 98 01/30/24 03:11 Temperature 36.8 C 01/30/24 03:11 Temperature Source Temporal Artery Scan 01/30/24 03:11 Pulse 89 01/30/24 03:11 Respiratory Rate 14 01/30/24 03:11 Respiratory Effort Normal 01/30/24 03:15 Blood Pressure 158/115 H 01/30/24 03:11 Blood Pressure Position Sitting 01/30/24 03:11 Pulse Oximetry 98 01/30/24 03:11 Oxygen Delivery Method Room Air 01/30/24 03:11 Oxygen Flow Rate 0 01/30/24 03:11 Pain Level 1 01/30/24 03:11 Medical Decision Making 73yo M with hx prior ischemic infarct with no residual deficits, intermittent vertigo, presenting with severe vertigo and fall. This evening 'felt the room spinning' and lost his balance, fell to the ground. Caught himself with his hands and lowered himself to the ground which was thickly carpeted. No head strike or loss of consciousness. Vital signs reassuring on arrival, benign trauma exam. No focal neurologic deficits, no symptoms while sitting on stretcher. No vertigo provoked with head movement. Presentation concerning for possible posterior stroke vs peripheral vertigo. Will get labs, CTA head and neck, no indication for imaging of chest/abd/pelvis given reassuring trauma exam. -EKG NSR, no ST segment or T wave abnormalities to suggest occlusive [place] -Labs reviewed as below, CBC & CMP reassuring, INR therapeutic. Troponin 94 to 89 three hours later, within range of his chronic troponemia on [facility] record review; would not further pursue ACS. -CTA head and neck independently reviewed, no large intracranial hemmoraghe on my view, agree with radiology read below. -Assisted patient to stand; markedly symptomatic, unable to stand or walk. -Consulted [facility]; see their note for details, thought to be potent ially ischemic. To them he disclosed worsening vertigo over the past 5 days. Not candidate for lytics. Advised admission for further stroke care, MRI. -Discussed with patient and at bedside, agree to admission. Imaging Data Radiologic Study: Radiologist's impression: IMPRESSION: 1. No large vessel occlusion. 2. Short-segment severe stenosis the intracranial right vertebral artery. IMPRESSION: 1. No do stenosis or occlusion. 2. Redemonstrated chronically occluded left vertebral artery. 3. Poor visualization of the left ICA secondary to motion. There is probable moderate stenosis Lab Data Lab results reviewed: Yes I reviewed the patient's lab results. Labs: Laboratory Tests Range/Units 01/30/24 01/30/24 03:16 06:35 WBC (4.4-10.8) 10^3/uL 8.78 RBC (4.36-5.78) 10^6/uL 5.50 Hgb (13.5-17.5) g/dL 16.5 Hct (40.0-50.0) % 49.2 MCV (80-95) fL 90 MCH (27.0-33.0) pg 30.0 MCHC (32.0-36.0) % 33.5 RDW (11.8-14.1) % 13.6 Plt Count (130-400) 10^3/uL 179 MPV (8.0-11.0) fL 9.4 Immature Gran % % 1.5 Neutrophils % % 66.0 Lymphocytes % % 20.8 Monocytes % % 9.0 Eosinophils % % 2.1 Basophils % % 0.6 Nucleated RBC % (0.0-0.3) % 0.0 Absolute Neutrophils (1.2-6.7) 10^3/uL 5.80 Absolute Lymphocytes (1.2-3.4) 10^3/uL 1.83 Absolute Monocytes (0.1-0.8) 10^3/uL 0.79 Absolute Eosinophils (0.0-0.7) 10^3/uL 0.18 Absolute Basophils (0.0-0.2) 10^3/uL 0.05 PT (9.1-11.1) sec 21.0 H INR (0.9-1.1) 2.2 H APTT (23.6-32.8) sec 29.2 Sodium (136-145) mmol/L 143 Potassium (3.5-5.1) mmol/L 3.8 Chloride (98-107) mmol/L 104 Carbon Dioxide (21.0-32.0) mmol/L 27.7 Anion Gap (3-11) mmol/L 11.3 H BUN (7-18) mg/dL 10 Creatinine (0.70-1.30) mg/dL 1.1 Est GFR (CKD-EPI 2020) (mL/min/1.73m2) 71.32 Glucose (74-106) mg/dL 123 H Calcium (8.5-10.1) mg/dL 9.1 Magnesium (1.8-2.4) mg/dL 1.9 Total Bilirubin (0.2-1.0) mg/dL 0.5 AST (15-37) U/L 15 ALT (16-63) U/L 22 Alkaline Phosphatase (46-116) U/L 95 Troponin I (< or =60) ng/L 94 H* 89 H* Total Protein (6.4-8.2) g/dL 7.7 Albumin (3.4-5.0) g/dL 3.7 Quality:SDOH Health Related Social Needs: No Data to Display PFSH All Active Problems (Updated 01/30/24 @ 08:46 by Precious Hooker MD) Stroke (Chronic) Fall (Acute) Vertigo (Acute) Anticoagulated (Acute) Ambulatory dysfunction (Acute) Weakness (Acute) Apathy (Acute) Advance care planning (Acute) Hypoxic brain injury (Acute) Depression (Chronic) Memory changes (Acute) Chronic anticoagulation (Acute) Ascending aortic aneurysm (Acute) Paroxysmal atrial fibrillation (Chronic) 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 Rheumatoid arthritis (Chronic 10/19/17) Hypercholesterolemia (Chronic 04/01/15) Acute posterior circulation transient ischemic attack (Chronic 04/01/15) Acute CVA (cerebrovascular accident) (Chronic) Anoxic brain injury (Chronic) Medical History (Updated 01/30/24 @ 08:46 by Precious Hooker MD) Lyme disease (07/30/15) Lyme disease 07/30/15 Discharge planning issues DVT prophylaxis Altered mental status Troponin level elevated Confusion Lyme disease 07/30/15 Dizziness History of TIA (transient ischemic attack) History of cardiac arrest Status post myocardial infarction of inferior wall Elevated troponin I level Transient ischemic attack Surgical History (Updated 10/05/23 @ 20:26 by Umu Paredes MD, [place]) History of open reduction and internal fixation (ORIF) procedure History of open reduction and internal fixation (ORIF) procedure 08/17/13 right 5th metatarsal fx History of open reduction and internal fixation (ORIF) procedure 08/17/13 right 5th metatarsal fx Stented coronary artery Resolute Vansant (Zotarolimus-Eluting Coronary Stent System) Resolute Vansant [id number] Ref: [id number]: [id number] Exp: 10/04/2019 Resolute Vansant [id number] Ref:[id number] Exp: 08/28/2019 S/P ablation of atrial fibrillation (10/19/17) Fracture, Open Treatment (09/09/13) ORIF; RIGHT 5TH METATARSAL FX Family History Mother , age 82 No problems noted. Father , age 78 No problems noted. Sister No problems noted. Sister No problems noted. Brother No problems noted. Social History Smoking/Tobacco Use Status: Never Smoking risk assessment performed?: Yes Alcohol Intake: former Drug use: Never Substance use type: does not use Caregiver/Support person: Yes Household members: spouse and children Housing: house Communication Needs: None Do you need help understanding health information?: Never Pets and animals: Yes Pets and animals: cat(s) and dog(s) Sexually active: Yes Do you think of yourself as: straight/heterosexual Current gender identity: male What is your relationship status?: How often do you talk on the phone with friends or family?: twice per week How often do you get together with friends or relatives?: decline to answer How often do you attend quaker or baptist services?: 1-3 times per year Do you belong to any clubs or organized social groups?: no Panel score (0-1 are the most socially isolated patients): 1 What type of physical activity do you participate in: other Details: franca chi, PT Duration: 30-45 minutes/day Frequency: 3-4 times per week Nini/Hindu: Shinto Special nini needs: No Seatbelt use: always Helmet use: Yes Helmet use: always Drive intox 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
[2024-01-30 04:09] LABS: Abs Immature Grans 0.13 10^3/uL (0.0-0.06); Absolute Basophil Count 0.05 10^3/uL (0.0-0.2); Absolute Eosinophil Count 0.18 10^3/uL (0.0-0.7); Absolute Lymphocyte Count 1.83 10^3/uL (1.2-3.4); Absolute Monocyte Count 0.79 10^3/uL (0.1-0.8); Basophils % 0.6 %; Eosinophils % 2.1 %; HCT 49.2 % (40.0-50.0); HGB 16.5 g/dL (13.5-17.5); Immature Grans % 1.5 %; Lymphocytes % 20.8 %; MCHC 33.5 % (32.0-36.0); MCV 90 fL (80-95); MPV 9.4 fL (8.0-11.0); Platelet Count 179 10^3/uL (130-400); RDW 13.6 % (11.8-14.1); RDW-SD 44.7 fL; WBC 8.78 10^3/uL (4.4-10.8)
[2024-01-30 04:20] LABS: INR 2.2 (0.9-1.1); PTT Activated 29.2 sec (23.6-32.8)
[2024-01-30] MEDS: Normal Saline - Diluent 50 ML VIAL IJ (04:30)
[2024-01-30] MEDS: Omnipaque 350 MG/ML 100 ML BTL IJ (04:34)
[2024-01-30 04:35] LABS: ALT 22 U/L (16-63); AST 15 U/L (15-37); Albumin 3.7 g/dL (3.4-5.0); Alkaline Phosphatase 95 U/L (46-116); Anion Gap 11.3 mmol/L (3-11); BUN 10 mg/dL (7-18); Bilirubin, Total 0.5 mg/dL (0.2-1.0); CO2 27.7 mmol/L (21.0-32.0); CREATININE 1.1 mg/dL (0.70-1.30); Calcium 9.1 mg/dL (8.5-10.1); Chloride 104 mmol/L (98-107); Estimated GFR 71.32 (mL/min/1.73m2); Glucose 123 mg/dL (74-106); Magnesium 1.9 mg/dL (1.8-2.4); Potassium 3.8 mmol/L (3.5-5.1); Sodium 143 mmol/L (136-145); Total Protein 7.7 g/dL (6.4-8.2)
[2024-01-30 04:37] LABS: Troponin I 94 ng/L (< or =60)
--- NOTE | 2024-01-30 06:07 | DI.VRAD_ITS ---
PROCEDURE INFORMATION: Exam: CTA Head Without And With Contrast, Arteriography Exam date and time: 01/30/2024 4:26 AM Age: 73 years old Clinical indication: Other: Vertigo, fall on warfarin, benign exam TECHNIQUE: Imaging protocol: Computed tomographic angiography of the head without and with contrast. Exam focused on the arteries. 3D rendering (Not supervised by radiologist): MIP and/or 3D reconstructed images were created by the technologist. Contrast material: OMNI 350; Contrast volume: 85 ml; Contrast route: INTRAVENOUS (IV); COMPARISON: HEAD^MRA COW 10/15/2018 1:30 PM FINDINGS: Limitations: Limited by motion artifact. ANTERIOR CIRCULATION: Right internal carotid artery: Intracranial segment is patent with no significant stenosis or occlusion. No aneurysm. Right middle cerebral artery: No occlusion or significant stenosis. No aneurysm. Right anterior cerebral artery: No occlusion or significant stenosis. No aneurysm. Left internal carotid artery: Intracranial segment is patent with no significant stenosis. No aneurysm. Left middle cerebral artery: No occlusion or significant stenosis. No aneurysm. Left anterior cerebral artery: Redemonstrated diminutive left A1 with distal reconstitution. POSTERIOR CIRCULATION: Right vertebral artery: Severe stenosis of the V4 segment of the right vertebral artery. No occlusion. Left vertebral artery: No occlusion or significant stenosis. No aneurysm. Basilar artery: No occlusion or significant stenosis. No aneurysm. Right posterior cerebral artery: No occlusion or significant stenosis. No aneurysm. Left posterior cerebral artery: No occlusion or significant stenosis. No aneurysm. HEAD: Brain: Diffuse cerebral atrophy, consistent with patient's age. Moderate periventricular and subcortical white matter hypodensities compatible with chronic small vessel ischemic disease. No intracranial hemorrhage. No acute infarct. No extra-axial fluid collection. Cerebral ventricles: Ventricles size in proportion to the degree of atrophy. Bones: Unremarkable. No acute fracture. Paranasal sinuses: Visualized sinuses are normal. No fluid levels. Mastoid air cells: Visualized mastoids are normal. No mastoid effusion. Soft tissues: Unremarkable. IMPRESSION: 1. No large vessel occlusion. 2. Short-segment severe stenosis the intracranial right vertebral artery. PROCEDURE INFORMATION: Exam: CTA Neck Without And With Contrast Exam date and time: 01/30/2024 4:26 AM Age: 73 years old Clinical indication: Other: Vertigo, fall on warfarin, benign exam TECHNIQUE: Imaging protocol: Computed tomographic angiography of the neck without and with contrast. Exam focused on the cervical segments of the vasculature. 3D rendering (Not supervised by radiologist): MIP and/or 3D reconstructed images were created by the technologist. Contrast material: OMNI 350; Contrast volume: 85 ml; Contrast route: INTRAVENOUS (IV); COMPARISON: Vascular^CTA HEAD NECK (Adult) 04/15/2018 8:29 AM FINDINGS: Limitations: Limited by motion artifact. Right common carotid artery: No stenosis. No dissection or occlusion. Right internal carotid artery: Atherosclerotic calcifications of the proximal right internal carotid artery. No occlusion or high-grade stenosis. Right external carotid artery: No occlusion or stenosis of the origin. Left common carotid artery: No stenosis. No dissection or occlusion. Left internal carotid artery: Atherosclerotic calcifications of the proximal left internal carotid artery with at least moderate stenosis. Left external carotid artery: No occlusion or stenosis of the origin. Right vertebral artery: No stenosis. No dissection or occlusion. Left vertebral artery: Chronically occluded left vertebral artery. Soft tissues: Normal. No significant soft tissue swelling. Bones/joints: No acute fracture. IMPRESSION: 1. No do stenosis or occlusion. 2. Redemonstrated chronically occluded left vertebral artery. 3. Poor visualization of the left ICA secondary to motion. There is probable moderate stenosis. REFERENCES: NASCET CRITERIA. The degree of stenosis in the cervical segment of the internal carotid artery is based on NASCET criteria. Normal is no stenosis. Mild is less than 50% stenosis. Moderate is 50-69% stenosis. Severe is 70% to 99% stenosis. Total occlusion is no detectable patent lumen. Dictated and Authenticated by: Ciera Hill MD. Ordering:TALI Lang MD
[2024-01-30 07:11] LABS: Troponin I 89 ng/L (< or =60)
--- NOTE | 2024-01-30 08:40 | HPE_ITS ---
Date of service: 01/30/24 Time of Service: 08:40 Assessment and Plan Assessment and plan (1) Vertigo: Status: Acute Assessment and plan: patient relates hx of vertigo usually controlled w/ meclizine but now w/ acute severe attack which led to his fall at home. He did not sustained any trauma. CTA head shows chronic LICA and L vertebral artery occlusions but also he has moderate R. vertebral artery stenosis at V4 segment. It may be that his significantly compromised cerebrovascular disease may have set him up for posterior circulation TIA or CVA. While he is low therapeutic levels on his warfarin (INR 2.2), given his hx of PAF (although he is currently in NSR), I am questioning why he is not on a DOAC which would provider more reliable antcoagulation given his extensive thromobis. We will monitor him for arrhythmias overnight, get echo w/ bubble study on Thursday, looking for PFO, LV thrombus, etc. His troponin levels are mildly elevated and this may be related to a CVA. His EKG while he has old inferior MO (q's in II, III, aVF) and lateral ST-T depression they are unchanged and he denies any dyspnea or chest pain. I will trend his troponin and get echo on Thursday. For now will continue high dose statin, aspirin and warfarin but will call Neurology to discuss mangement as the ED provider did not give my any information as to the neurologists recommendation for managing his anticoagulation. Will get MRI brain on Thursday to document any new strokes. will consult PT and WASHING MACHINE STRIPER and OT tomorrow. get updated lipid profile and glycohemoglobin A1C (2) Stroke: Status: Acute Assessment and plan: suspected posterior circulation CVA although he does not have other signs/symptoms ie. quandrantic or hemianopsis, hemiparesthesia Qualifiers: CVA mechanism: unspecified Qualified Code(s): I63.9 - Cerebral infarction, unspecified (3) Left carotid artery occlusion: Status: Chronic Assessment and plan: unclear as to the age of the LICA occlusion. I have requested that nursing obtain prior MRI/MRA, CT[place] head and neck from [facility] and have asked our diagnostic imaging department to send our images from today to [facility] for overread since there is discrepancy between V-RAD and our inhouse radiologist readings. I spoke with the tele neurologist regarding therapy. He indicated that it would be reasonable to either change his warfarin to a DOAC + aspirin or continue the warfarin and change his aspirin to plavix. I would like his CTA sent to [facility] for second opinion and then hold conversation w/ an in house stroke specialist. I have relayed this to Dr. Paz to follow up and he will check w/ [facility]. 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 (5) Ascending aortic aneurysm: Status: Chronic Assessment and plan: this has been stable although was not specifically addressed this admission. was 4.1 cm but his was on thoracic angiogram from 2019 so need to find out more recent studies from [facility] Qualifiers: Presence of rupture: without rupture Qualified Code(s): I71.21 - Aneurysm of the ascending aorta, without rupture (6) Coronary atherosclerosis of [place] coronary artery: Status: Acute Assessment and plan: as noted above, no new EKG changes and no symptoms of ACS although he has mild troponin elevation, will trend, continue ASA and warfarin, statin. Qualifiers: Associated angina: without angina [place] vs. 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 He had a prolonged rehab stay and subsequently was hospitalized at [facility] 04/15/2018 to 04/16/2018 for CVA involving the left parietal cortex. At that time CTA had shown old occlusion of his left vertebral artery but intact [place]. Patient was noted to have paroxysmal atrial fibrillation was started on warfarin. He now presents with symptoms of vertigo. He said he has had dizziness off and on for months and has been treated with meclizine. However his current episode was severe enough in which she felt spinning of the room and he lost his balance and fell to the ground. He did not sustain any head injury or loss of consciousness. He denies any focal paresthesias or paraparesis and had no symptoms of chest pain or palpitations. Workup in the ER included a CTA of his head and neck which showed an occlusion of the left vertebral artery throughout its entire length and near complete occlusion of the left internal carotid artery at the level of C4 with distal reconstitution. He was also noted to have moderate stenosis of the right V4 segment vertebral artery. Laboratory studies include CBC, CMP, troponin I levels, pro time and activated PTT. Prothrombin time was therapeutic with an INR 2.2. Chemistries were remarkable for a glucose of 123 and a troponin I level of 94 with a repeat level of 89. ECG was remarkable for an old inferior infarct with Q waves in 2 3 and aVF as well as some ST depression in limb lead I mg 5 and 6 which had been present on his previous ECG unchanged compared to prior ECG performed 02/24/2023. ED provider obtained a teleneurology consult with [facility] and they recommended hospitalization for treatment of probable CVA. I did not make any further recommendations regarding antiplatelet therapy or anticoagulation therapy. The patient denies any headached, nausea or blurred vision or visual loss. He says he has glasses to treat astigmatism but does not have his glasses w/ him. He denies any focal paresthesias or weakness. Review of Systems All systems reviewed & are unremarkable except as noted in HPI and below PFSH All Active Problems (Updated 01/30/24 @ 12:19 by Baron Blanchard MD) Coronary atherosclerosis of [place] coronary artery (Acute) Occlusion of left vertebral artery (Chronic ~04/01/15) Left carotid artery occlusion (Chronic) Stroke (Acute) Fall (Acute) Vertigo (Acute) Anticoagulated (Acute) Ambulatory dysfunction (Acute) Weakness (Acute) Apathy (Acute) Advance care planning (Acute) Hypoxic brain injury (Acute) Depression (Chronic) Memory changes (Acute) Chronic anticoagulation (Acute) Ascending aortic aneurysm (Chronic) Paroxysmal atrial fibrillation (Chronic) 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 Rheumatoid arthritis (Chronic 10/19/17) Hypercholesterolemia (Chronic 04/01/15) Acute posterior circulation transient ischemic attack (Chronic 04/01/15) Acute CVA (cerebrovascular accident) (Chronic) Anoxic brain injury (Chronic) Medical History (Updated 01/30/24 @ 12:19 by Baron Blanchard MD) Lyme disease (07/30/15) Lyme disease 07/30/15 Discharge planning issues DVT prophylaxis Altered mental status Troponin level elevated Confusion Lyme disease 07/30/15 Dizziness History of TIA (transient ischemic attack) History of cardiac arrest Status post myocardial infarction of inferior wall Elevated troponin I level Transient ischemic attack Surgical History History of open reduction and internal fixation (ORIF) procedure History of open reduction and internal fixation (ORIF) procedure 08/17/13 right 5th metatarsal fx History of open reduction and internal fixation (ORIF) procedure 08/17/13 right 5th metatarsal fx Stented coronary artery Resolute [place] (Zotarolimus-Eluting Coronary Stent System) Resolute Brett [id number] Ref: [id number] Lot: [id number] Exp: 10/04/2019 Resolute [place] [id number] Ref:[id number] Exp: 08/28/2019 S/P ablation of atrial fibrillation (10/19/17) Fracture, Open Treatment (09/09/13) ORIF; RIGHT 5TH METATARSAL FX Family History Mother , age 82 No problems noted. Father , age 78 No problems noted. Sister No problems noted. Sister No problems noted. Brother No problems noted. Social History Smoking/Tobacco Use Status: Never Smoking risk assessment performed?: Yes Alcohol Intake: former Drug use: Never Substance use type: does not use Caregiver/Support person: Yes Household members: spouse and children Housing: house Communication Needs: None Do you need help understanding health information?: Never Pets and animals: Yes Pets and animals: cat(s) and dog(s) Sexually active: Yes Do you think of yourself as: straight/heterosexual Current gender identity: male What is your relationship status?: How often do you talk on the phone with friends or family?: twice per week How often do you get together with friends or relatives?: decline to answer How often do you attend hoahaoism or jewish services?: 1-3 times per year Do you belong to any clubs or organized social groups?: no Panel score (0-1 are the most socially isolated patients): 1 What type of physical activity do you participate in: other Details: franca chi, PT Duration: 30-45 minutes/day Frequency: 3-4 times per week Nini/Yazidi: Mandaeism Special nini needs: No Seatbelt use: always Helmet use: Yes Helmet use: always Drive intox or ride w/intox four horse hitch driver: No Do you feel safe at home: Yes Do you feel safe in your relationship?: Yes Meds Allergies and Home Medications Allergies Allergy/AdvReac Type Severity Reaction Status Date / Time No Known Allergies Allergy Verified 01/30/24 03:18 Home Medications Medication Instructions Recorded Confirmed Type aspirin 81 mg tablet,delayed 81 mg PO DAILY 08/11/17 01/30/24 History release (Aspir-) atorvastatin 80 mg tablet (Lipitor) 80 mg PO HS #90 tabs 04/02/21 01/30/24 Rx levetiracetam 250 mg tablet See Rx Instructions .Route 12/01/22 01/30/24 Rx .COMPLEX #180 tabs meclizine 25 mg tablet 25 mg PO TID PRN dizziness #30 tabs 02/24/23 01/30/24 Rx ondansetron 8 mg disintegrating 8 mg PO Q8H PRN nausea and 02/24/23 01/30/24 Rx tablet vomiting #30 tabs warfarin 5 mg tablet 5 mg PO DAILY 01/30/24 01/30/24 History Exam Narrative Exam Narrative: Dr. Reed sitting up in bed he is alert oriented x 3 no acute distress HEENT is unremarkable there is no facial asymmetry full extraocular motions intact. Neck is supple no JVD no carotid bruits Lungs are clear to auscultation Heart is regular rate and rhythm no appreciable murmur rub or gallop Abdomen soft nondistended nontender Lower extremities without peripheral cyanosis or edema Neurologic exam: normal speech, EOMI, no nystagmus, PERRLA, no facial asymmtry, normal ROM and strenght in both UE and LE, normal sensation to light touch over face, arms, legs; Babinski equivocal as too much withdrawal, no focal visual field deficits. Results Labs 01/30/24 03:16 01/30/24 03:16 Labs: Laboratory Results - last 24 hr 01/30/24 01/30/24 03:16 06:35 WBC 8.78 RBC 5.50 Hgb 16.5 Hct 49.2 MCV 90 MCH 30.0 MCHC 33.5 RDW 13.6 Plt Count 179 MPV 9.4 Immature Gran % 1.5 Neutrophils % 66.0 Lymphocytes % 20.8 Monocytes % 9.0 Eosinophils % 2.1 Basophils % 0.6 Nucleated RBC % 0.0 Absolute Neutrophils 5.80 Absolute Lymphocytes 1.83 Absolute Monocytes 0.79 Absolute Eosinophils 0.18 Absolute Basophils 0.05 PT 21.0 H INR 2.2 H APTT 29.2 Sodium 143 Potassium 3.8 Chloride 104 Carbon Dioxide 27.7 Anion Gap 11.3 H BUN 10 Creatinine 1.1 Est GFR (CKD-EPI 2020) 71.32 Glucose 123 H Calcium 9.1 Magnesium 1.9 Total Bilirubin 0.5 AST 15 ALT 22 Alkaline Phosphatase 95 Troponin I 94 H* 89 H* Total Protein 7.7 Albumin 3.7 Last Vital Signs Temp 36.8 C 01/30/24 03:11 Pulse 72 01/30/24 07:16 Resp 16 01/30/24 07:16 BP 157/92 H 01/30/24 07:16 Pulse Ox 96 01/30/24 07:16 Time Spent Time spent with Patient: 55-74 minutes Time was spent: preparing to see the patient(eg.review tests), obtaining and/or reviewing separately otained hiistory, ordering medications,tests, procedures, referring, communicating with other health workforce investment act career manager, counseling the patient and care coordination
[2024-01-30] MEDS: Pantoprazole 40 MG TABCR PO (09:35)
[2024-01-30] MEDS: levETIRAcetam 250 MG TAB PO ×2 (10:36→22:59)
[2024-01-30] MEDS: Acetaminophen 325 MG TAB PO (10:37)
[2024-01-30] MEDS: Normal Saline Flush 10 ML SYR IVP ×2 (10:38→23:00)
[2024-01-30] MEDS: Aspirin E.C. 81 MG TABEC PO (10:38)
[2024-01-30 10:44] LABS: Hemoglobin A1C 5.5 % (<5.7)
[2024-01-30 10:49] LABS: Troponin I 101 ng/L (< or =60)
--- NOTE | 2024-01-30 11:47 | IN_ITS ---
PT Notes Visit Reasons: vertigo, r/o CVA, gait instability Inpatient Physical Therapy Evaluation Date: 01/30/24 Referring Doctor: Dr. 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 Admitted to acute care following acute episode of severe dizziness resulting in fall. Imaging indicates the followin. There is occlusion of the left vertebral artery through its entire length. This is been present on prior examinations. 2. There is near complete occlusion of the left internal carotid artery at the level of C4 with distal reconstitution. 3. No acute intracranial process. 4. Atherosclerotic calcification is seen in the distal right vertebral artery with moderate stenosis at the level of the foramen magnum. Social History/Home Situation: Carlton resides in a private home with his . They have 2 college-age children. He uses a 4WW at baseline due to chronic ataxia. Equipment Owned/DME: 4WW Subjective: Carlton states that he has had dizziness for years, but yesterday had a severe attack like he's never experienced. States that he felt as though he was pushed to the ground. He denies room-spinning dizziness, but does endorse oscillopsia intermittently. Denies nausea, vomiting, visual changes, hearing changes, difficulty with speech or swallowing. Exacerbating factors: standing, walking, turning head. Relieving factors: lying in bed Quality: off balance, like being pushed, oscillopsia. (-) room spinning. Symptoms do not resolve with time. Objective: General Observation: Resting in bed with IV in RUE. Mental Status: A&Ox3. Pleasant and cooperative. Endorses issues with his memory. Unable to recall specifics on pattern of symptoms prior to acute issues yesterday. Also questions whether his has been here at the hospital with him at any point. He is able to provide a general history, and follow commands easily. Pain: stiffness in bilat hips Vital Signs: BP 157/101, HR 95. Nursing aware. ROM: Right Upper Extremity: WFL Left Upper Extremity: WFL Right Lower Extremity: Hip flexion 120*. ER 45*. IR 20*. Knee motion 0-135. Left Lower Extremity: Hip flexion 120*. ER 45*. IR 20*. Knee motion 0-135. Strength: Right Upper Extremity: Shoulder flexion 4/5. Biceps 4+/5. Triceps 4/5. Photovoltaic Panel Installer is strong and equal. Left Upper Extremity: Shoulder flexion 4/5. Biceps 4+/5. Triceps 4/5. Photovoltaic Panel Installer is strong and equal. Right Lower Extremity: Hip flexion 4+/5. Quads 5/5. Ankle DF 3/5 or greater. Left Lower Extremity: Hip flexion 4+/5. Quads 5/5. Ankle DF 3/5 or greater. Bed Mobility/Transfers: supine-sit: supervision, with cues for slow transfer sit-supine: independent sit-stand: CGA with bed elevated, wide SHEREE, cues for technique. Very apprehensive, but completes with CGA only stand-sit: CGA Gait: Performs stand step transfer to chair, with FWW and min A. Requires cues for steps, and demonstrates wide SHEREE throughout. Posture: In standing, he demonstrates increased thoracic kyphosis and heavy reliance on UE support to walker. Cervical protraction and extension, which he's able to correct with cues. Coordination: markedly reduced with alternating toe tapping Balance: Static Sitting: good Dynamic Sitting: good Static Standing: fair Dynamic Standing: poor Special Tests: Mobility Limitations Standardized Measure [facility] 6 clicks Basic Mobility Inpatient Short Form: Raw Score: 17 CMS Score: 51% impairment Vestibular Screen: Test of skew: (-) Head thrust: (-) Nystagmus: demonstrates vertical nystagmus in lateral gaze Melvin-Halpike: performed in modified sidelying position to avoid vertebral artery occlusion. (-) to either side for dizziness, although does demonstrate non-fatiguing vertical nystagmus with testing to the L>R Lateral body position (for assessment of horizontal canal BPPV): (-) Informed Consent/Education: Patient instructed in purpose of PT consult and plan of care. Treatment: Initial Evaluation 82904 Therapeutic Activities 03496 (10 minutes) Instruction in bed mobility and transfer techniques with slow movements to reduce symptoms of dizziness Performed static standing x 2 minutes with UE support to FWW, cues for cervical positioning and monitoring of symptoms. Patient remains moderately symptomatic throughout. Instructed in chin tuck positioning in standing to avoid cervical extension in standing position Assessment: Patient is a 73 year old male referred to physical therapy services with the diagnosis of fall risk assessment. Patient presents with significant mobility impairments with continued dizziness in sitting and standing positions. He has an extensive medical history, including vertebral artery dissection in 2015 and [place] resulting in hypoxic brain injury in 2018. He's not showing any signs of peripheral vestibular component contributing to his symptoms. He does have underlying mobility issues, exacerbated by his current medical issues. Requires skilled PT intervention during his acute care stay to maximize safety and mobility with goal of resuming independent ambulation with device. He currently demonstrates the following impairment level findings: 1. vertical nystagmus with (-) testing for peripheral vestibular disorders 2. elevated blood pressure 3. ataxia 4. decreased coordination Impairments are contributing to the following functional limitations: 1. unable to transfer independently 2. unable to ambulate household distances 3. unable to manage stairs Patient is assessed as Moderate 93190 complexity based on the following: History: As above. Complicated by chronic mobility impairments and complicated medical history Examination: functional limitations as above Presentation: evolving Decision Making: moderate Goals: Goals X1 week 1. Supine-Sit : independent 2. Sit-Supine : independent 3. Sit-Stand SBA with FWW 4. Stand-Sit SBA with FWW 5. Bed-Chair SBA with FWW 6. Chair-Bed SBA with FWW 7. Gait SBA with FWW x 50' Plan of Care/Treatment Plan: 1-2x/day, 7 days/week x 1 week. Plan of care has been reviewed with the BROADCAST FIELD SUPERVISOR providing the service under Physical Therapy direction. Initiate Physical Therapy intervention for strengthening, bed mobility, transfers, gait, stairs, balance training, use of assistive device. DISCHARGE RECOMMENDATIONS: Home with Home Health PT TREATMENT CODE/TIME: [id number] ([id number], 44238) Peyton Hernandez PT, DPT, AIB-C [facility] Please sign an return this page within 30 days if you agree with the above POC. Thank you! Physician Signature Date [facility] All Active Problems (Updated 01/30/24 @ 12:19 by Baron Blanchard MD) Coronary atherosclerosis of [place] coronary artery (Acute) Occlusion of left vertebral artery (Chronic ~04/01/15) Left carotid artery occlusion (Chronic) Stroke (Acute) Fall (Acute) Vertigo (Acute) Anticoagulated (Acute) Ambulatory dysfunction (Acute) Weakness (Acute) Apathy (Acute) Advance care planning (Acute) Hypoxic brain injury (Acute) Depression (Chronic) Memory changes (Acute) Chronic anticoagulation (Acute) Ascending aortic aneurysm (Chronic) Paroxysmal atrial fibrillation (Chronic) 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 Rheumatoid arthritis (Chronic 10/19/17) Hypercholesterolemia (Chronic 04/01/15) Acute posterior circulation transient ischemic attack (Chronic 04/01/15) Acute CVA (cerebrovascular accident) (Chronic) Anoxic brain injury (Chronic) Medical History (Updated 01/30/24 @ 12:19 by Baron Blanchard MD) Lyme disease (07/30/15) Lyme disease 07/30/15 Discharge planning issues DVT prophylaxis Altered mental status Troponin level elevated Confusion Lyme disease 07/30/15 Dizziness History of TIA (transient ischemic attack) History of cardiac arrest Status post myocardial infarction of inferior wall Elevated troponin I level Transient ischemic attack Surgical History History of open reduction and internal fixation (ORIF) procedure History of open reduction and internal fixation (ORIF) procedure 08/17/13 right 5th metatarsal fx History of open reduction and internal fixation (ORIF) procedure 08/17/13 right 5th metatarsal fx Stented coronary artery Resolute [place] (Zotarolimus-Eluting Coronary Stent System) Resolute Brett [id number] Ref: [id number] Lot: [id number] Exp: 10/04/2019 Resolute Brett 2.80spc67da Ref:[id number] Lot:[id number] Exp: 08/28/2019 S/P ablation of atrial fibrillation (10/19/17) Fracture, Open Treatment (09/09/13) ORIF; RIGHT 5TH METATARSAL FX
[2024-01-30 11:54] LABS: Bilirubin Negative (Negative); Blood Trace-intact (Negative); Clarity Clear (Clear); Glucose Negative (Negative); Ketones Negative (Negative); Leukocyte Esterase Negative (Negative); Nitrite Negative (Negative); Urobilinogen 0.2 mg/dL (Up to 0.2)
[2024-01-30 12:06] LABS: Bacteria Negative HPF (Negative); C & S Indicated? No; Casts Negative LPF (Negative); Crystals Negative HPF (Negative); Epithelial Cells Negative HPF (Negative); Mucus Negative (Negative); WBC 0-2 HPF (0-5)
[2024-01-30 14:17] LABS: Troponin I 103 ng/L (< or =60)
--- NOTE | 2024-01-30 16:06 | INITIAL_ITS ---
Date of service: 01/30/24 Time of Service: 16:06 Care Management Initial Assmt Initial Assessment Reason for Hospitalization: Vertigo Functional Status/Living Situation Patient Presentation: Carlton was awake watching TV when CM met with him. He is pleasant and easily engages in conversation. 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 He enjoyed his profession and stated that he had hoped to work until he was 81 but had to retire early after suffering complications of a stroke nearly 6 years ago. He is now thinking about writing a book about his experiences, in his free time. Town of Residence: [facility] Resides with: Spouse (Areli Pepper) Significant Other/Family: Local Natural Supports: , son and daughter Employment Status: Retired Instrumental Activities of Daily Living (ADLs): Independent Medications Medication Management: No Issues/Barriers identified Physical Functioning/Mobility Assistive Device: FWW walker Advance Directives Advance Directives: Do you have an Advance Directive: Y 09/06/18 15:04 AD On File at [facility]: Y 10/21/17 12:23 Date Asked 10/27/22 10/27/22 16:32 AD Date Reviewed 11/01/23 11/01/23 09:54 COLST On File at [facility] Yes 02/18/22 15:11 COLST Date Scanned 03/05/21 02/18/22 15:11 Code Status Resuscitation Status Full Code Portal Pt does not currently have a portal and education provided: Yes Insurance Coverage/Financial Issues Insurance: BC/BS of [place] Medicare ACO Member: Yes Care Team Visit Care Team Role Provider Type Umu Paredes MD, [place] Primary Care Provider [facility] Dilma Barragan Other Providers REG OCCUPATIONAL THERAPIST InPatient [facility] Other Providers OTHER Precious Hooker MD Emergency Provider [facility] STAFF PHYSICIAN Baron Blanchard MD Admit Provider [facility] STAFF PHYSICIAN Attending Provider Discharge Potential Discharge Needs: PCP F/U Appt Anticipated Barriers to Discharge: None Identified Patient/Family Education Needs: Review discharge instructions, discuss Ask Me Three Transportation: Private vehicle Plan: Anticipated Carlton will discharge home with [facility] PT services. He will follow up with community providers and his discharge plan of care as instructed. He will transport via private vehicle with . CM will follow. 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 Rheumatoid arthritis (Chronic 10/19/17) Hypercholesterolemia (Chronic 04/01/15) Acute posterior circulation transient ischemic attack (Chronic 04/01/15) Acute CVA (cerebrovascular accident) (Chronic) Anoxic brain injury (Chronic) Medical History (Updated 01/30/24 @ 12:19 by Baron Blanchard MD) Lyme disease (07/30/15) Lyme disease 07/30/15 Discharge planning issues DVT prophylaxis Altered mental status Troponin level elevated Confusion Lyme disease 07/30/15 Dizziness History of TIA (transient ischemic attack) History of cardiac arrest Status post myocardial infarction of inferior wall Elevated troponin I level Transient ischemic attack Surgical History History of open reduction and internal fixation (ORIF) procedure History of open reduction and internal fixation (ORIF) procedure 08/17/13 right 5th metatarsal fx History of open reduction and internal fixation (ORIF) procedure 08/17/13 right 5th metatarsal fx Stented coronary artery Resolute [place] (Zotarolimus-Eluting Coronary Stent System) Resolute [place] [id number] Ref: [id number] Lot: [id number] Exp: 10/04/2019 Resolute [place] [id number] Ref:[id number] Exp: 08/28/2019 S/P ablation of atrial fibrillation (10/19/17) Fracture, Open Treatment (09/09/13) ORIF; RIGHT 5TH METATARSAL FX Family History Mother , age 82 No problems noted. Father , age 78 No problems noted. Sister No problems noted. Sister No problems noted. Brother No problems noted. Social History Smoking/Tobacco Use Status: Never Smoking risk assessment performed?: Yes Alcohol Intake: former Drug use: Never Substance use type: does not use Caregiver/Support person: Yes Household members: spouse and children Housing: house Communication Needs: None Do you need help understanding health information?: Never Pets and animals: Yes Pets and animals: cat(s) and dog(s) Sexually active: Yes Do you think of yourself as: straight/heterosexual Current gender identity: male What is your relationship status?: How often do you talk on the phone with friends or family?: twice per week How often do you get together with friends or relatives?: decline to answer How often do you attend latter-day or buddhist services?: 1-3 times per year Do you belong to any clubs or organized social groups?: no Panel score (0-1 are the most socially isolated patients): 1 What type of physical activity do you participate in: other Details: franca chi, PT Duration: 30-45 minutes/day Frequency: 3-4 times per week Nini/Quaker: Jehovah'S Witness Special nini needs: No Seatbelt use: always Helmet use: Yes Helmet use: always Drive intox or ride w/intox helper driver: No Do you feel safe at home: Yes Do you feel safe in your relationship?: Yes SDOH(Care Management) Screening Will the Patient Participate in the Screening?: Declined to provide Do you worry about having a steady place to live?: choose not to answer In the past 12 months, have you had to go without electric, gas, oil or water in your home?: choose not to answer Have you or anyone in your house had to go without enough food to eat?: choose not to answer Has lack of transportation kept you from medical appointments or from doing things needed for daily living?: choose not to answer Has anyone in your support network made you feel unsafe for any reason?: choose not to answer
[2024-01-30] MEDS: Atorvastatin 40 MG TAB 80 MG PO (22:59)
[2024-01-30] MEDS: Meclizine 25 MG TAB PO (23:00)
[2024-01-31] VITALS (7 sets, daily range): BP systolic 95–145; BP diastolic 63–98; PULSE 69–86; RESP 16; TEMP 36.9–37.1; O2SAT 95–99
[2024-01-31 07:10] LABS: INR 2.1 (0.9-1.1); Prothrombin Time 19.5 sec (9.1-11.1)
[2024-01-31 07:33] LABS: Anion Gap 8.9 mmol/L (3-11); BUN 7 mg/dL (7-18); CO2 27.1 mmol/L (21.0-32.0); Calcium 8.9 mg/dL (8.5-10.1); Calculated LDL 152 mg/dL (<100); Chloride 106 mmol/L (98-107); Cholesterol 212 mg/dL (<200); Estimated GFR 79.97 (mL/min/1.73m2); Glucose 95 mg/dL (74-106); HDL Cholesterol 45 mg/dL (40-60); Potassium 3.5 mmol/L (3.5-5.1); Sodium 142 mmol/L (136-145); Triglyceride 78 mg/dL (<150)
[2024-01-31 07:38] LABS: Troponin I 101 ng/L (< or =60)
[2024-01-31] MEDS: Pantoprazole 40 MG TABCR PO (08:18)
[2024-01-31] MEDS: Aspirin E.C. 81 MG TABEC PO (08:18)
[2024-01-31] MEDS: levETIRAcetam 250 MG TAB PO ×2 (08:18→21:45)
[2024-01-31] MEDS: Normal Saline Flush 10 ML SYR IVP ×2 (08:19→22:45)
--- NOTE | 2024-01-31 11:02 | PGE_ITS ---
Date of Service Date of service: 01/31/24 Time of Service: 11:02 Assessment and Plan Assessment and plan (1) Vertigo: Status: Acute Assessment and plan: patient has central vertigo which was recently worsened over past few days but now has improved and seems to have resolved. The issue I am left with is his LICA seems to be new but unclear as to how new. It does not seem to be the cause of his current symptoms however, I am concerned since he has significant cerebrovascular and cardiac atherosclerotic disease and he is dependent on cerebral flow from the right side to supply his left side. His right vertebral V4 semgement is moderately narrowed. I think his severe vertigo episode may have been d/t the low flow through his left V4 segment. Hypotension and arrhythmias need to be avoided. I have spoken w/ 3 different neurologists [place] [facility] [place] two different tele- health neurologists (Dr. Leonardo Fontaine yesterday and Dr. Mccauley today) and with [facility] neurologist, Dr. Nuria Lee. Both Dr. Fontaine and Dr. Mccauley agreed that his anticoagulation should be changed from warfarin to a DOAC such as apixaban d/t ease of administration, more reliable anticoagulation, less drug-drug interaction and food interaction, and that his platelet therapy ought to be changed to Plavix. Dr. Lee did not want to give a third opinion on the patient's anticoagulation/antiplatelet strategy but only would review [facility] images compared to our images with regard to the LICA occlusion. [facility] was having trouble uploading our images but she said that the only CTA images [facility] has were from 2018 and this did not show LICA occlusion although he had moderate atherosclerotic calcifications of the left internal bulb. (2) Stroke: Status: Acute Assessment and plan: suspected posterior circulation CVA although he does not have other signs/symptoms ie. quandrantic or hemianopsis, hemiparesthesia. His vertigo has now resolved. I have implemented the changes in his antiplatelet and anticoagulant therapy as noted above. Qualifiers: CVA mechanism: unspecified Qualified Code(s): I63.9 - Cerebral infarction, unspecified (3) Left carotid artery occlusion: Status: Chronic Assessment and plan: discussion w/ [facility] as noted above (4) Occlusion of left vertebral artery: Status: Chronic Assessment and plan: this appears old and dates back to 2014. (5) Ascending aortic aneurysm: Status: Chronic Assessment and plan: this has been stable although was not specifically addressed this admission. was 4.1 cm but his was on thoracic angiogram from 2019 so need to find out more recent studies from [facility] Qualifiers: Presence of rupture: without rupture Qualified Code(s): I71.21 - Aneurysm of the ascending aorta, without rupture (6) Coronary atherosclerosis of pala coronary artery: Status: Acute Assessment and plan: as noted above, no new EKG changes and no symptoms of ACS although he has mild troponin elevation Qualifiers: [place] vs. transplanted heart: pala heart Associated angina: without angina Qualified Code(s): I25.10 - Atherosclerotic heart disease of pala coronary artery without angina pectoris Subjective Subjective Interval history since last seen: Dr. Pepper says that his dizziness is much improved, it is gone now. He managed to transfer from the bed to the chair w/out any vertigo feelings. Appetite is improved. His Areli was in the room at the time of my visit and had questions for me. She would like to inquire if he is eligible for a short term rehab stay. She feels that he is less mobile than his usual state and week and needs some rehab before returning home. She is concerned since he will be home alone. I told her that depends upon P.T. recommendations. I told them about his CTA of his head and neck which showed total LICA occlusion in addition to prior known LVA occlusion (present since 2014). I told them that I could not ascertain when this occurred as his LICA was patent on his other studies from 2018 (that was the last CTA of head and neck in our system), his other brain imaging studies were from brain MRI/MRA 10/15/2018 (but no MRA cervical vessels), head CT 10/14/18 and brain MRI 04/15/18. I told them that I would reach out to [facility] neurology again for guidance. I told them that I spoke w/ tele-neurologist yesterday and he (Dr. Fontaine) recommended a change from warfarin to a DOAC such as apixaban and change aspirin to Plavix. Exam Narrative Exam Narrative: Carlton is sitting up in his chair watching TV, alert, oriented, pleasant, smiling; normal speech pattern, normal though pattern No facial asymmetry Normal ROM and strength in arms and legs Lungs: clear Heart: RRR (telemetry shows sinus rhythm rates 60's to 70's, 1st degree AV block Abdomen: soft, nontender Objective Last Vital Signs Temp 37.0 C 01/31/24 07:35 Pulse 69 01/31/24 07:35 Resp 16 01/31/24 07:35 BP 130/70 01/31/24 08:17 Pulse Ox 98 01/31/24 07:35 Laboratory Results - last 24 hr 01/30/24 01/30/24 01/31/24 11:10 13:50 05:50 PT 19.5 H INR 2.1 H Sodium 142 Potassium 3.5 Chloride 106 Carbon Dioxide 27.1 Anion Gap 8.9 BUN 7 Creatinine 1.0 Est GFR (CKD-EPI 2020) 79.97 Glucose 95 Calcium 8.9 Troponin I 103 H* 101 H* Triglycerides 78 Total Cholesterol 212 H LDL Cholesterol, Calc 152 H HDL Cholesterol 45 Urine Color Yellow Urine Clarity Clear Urine pH 6.0 Ur Specific [place] 1.010 Urine Protein Negative Urine Ketones Negative Urine Blood Trace-intact H Urine Nitrite Negative Urine Bilirubin Negative Urine Urobilinogen 0.2 Ur Leukocyte Esterase Negative Urine RBC 3-5 H Urine WBC 0-2 Ur Epithelial Cells Negative Urine Crystals Negative Urine Bacteria Negative Urine Casts Negative Urine Mucus Negative Ur Culture Indicated? No Urine Glucose Negative Time Spent with Patient Time Spent with Patient: >50 minutes Time was spent: preparing to see the patient(eg.review tests), ordering medications,tests, procedures, referring, communicating with other health adult live in caregiver, indepentently interpreting results, counseling the patient and care coordination
--- NOTE | 2024-01-31 11:37 | PT.INTREAT ---
Date of service: 01/31/24 Time of Service: 10:50 PT Notes Visit Reasons: vertigo, r/o CVA, gait instability Inpatient Physical Therapy Treatment Note [facility] Date: 01/31/2024 PRECAUTIONS: Standard, Fall SUBJECTIVE: Stated he did feel slight dizziness when attempting to go from supine to sitting, but once he slowed down and maintained good posture indicated he was good. Discussed the importance of keeping good positioning of his back and neck when transferring to avoid instability. Dr. Pepper and his expressed concern about having ongoing home health PT once discharged from hospital. This was relayed to supervising PT. Nurse Karlo indicated that Dr. Pepper would like to take a shower so kept activity level light to allow for this later in the morning if able. Indicated he vaguely remembers getting up with PT yesterday. OBJECTIVE: ? PAIN: Back pain for recent fall and ongoing history with spinal issues. Therapeutic Activities (52729l7): Direct one-on-one instruction in dynamic activities to improve functional performance. ? BED MOBILITY/TRANSFERS? Rolling right with HOB at 45 degrees with CGA and verbal cueing, is to maintain slight chin tuck to avoid cervical extension Supine-sit:?CGA and verbal cuing ? Sit-stand: CGA of 2 with verbal cueing for hand placement on bed and walker? Stand-sit: CGA of 2 with verbal cueing for hand placement on walker and chair ? Bed-Chair: side stepped for 4 steps and 2 steps backward, with CGA and verbal cueing for posture and safety? Slow controlled movement to maintain proper posture and safe gait patterning Provided skilled cues and instruction on performance and technique throughout. ? Therapeutic Exercises (63158h7): Direct one-on-one instruction in therapeutic exercises to develop strength, endurance, range of motion and flexibility. ? Exercises: ? Performed ankle pumps, LAQs, seated marching and seated hip abd/ adduction x 10 reps each. ASSESSMENT:? Did well with transitions in bed and ambulation to chair, but does require reminders for safe posturing and assurance with his movement. PLAN: Continue to encourage increased mobility as tolerated and instruct with safe position training to avoid instability with movement/ dizziness. TREATMENT CODE/TIME: [id number], 10:50 to 11:05 (15 minutes)
[2024-01-31] MEDS: Clopidogrel 75 MG TAB PO (12:35)
[2024-01-31] MEDS: Ezetimibe 10 MG TAB PO (12:35)
[2024-01-31] MEDS: Apixaban 5 MG TAB PO (21:44)
[2024-01-31] MEDS: Rosuvastatin 20 MG TAB 40 MG PO (21:45)
[2024-01-31] MEDS: Meclizine 25 MG TAB PO (22:44)
[2024-02-01] VITALS (11 sets, daily range): BP systolic 115–148; BP diastolic 86–117; PULSE 49–131; RESP 16–20; TEMP 36.9–37.3; O2SAT 94–99
--- NOTE | 2024-02-01 08:15 | RT.EKG_ITS ---
APPROVED REPORT Exam: Resting ECG Reason for Exam: NR to Afib Patient Location: I HR:123 bpm ECG Measurements Heart Rate 123 AXIS NE [id number] P [id number] QRSd 88 QRS 32 QT 275 T 193 QTc 394 Conclusion Atrial fibrillation...V-rate 93-150, irreg A-activity Inferior infarct, old...Q >35mS, II III aVF Repol abnrm suggests ischemia, diffuse leads...ST-T neg, ant/lat/inf
[2024-02-01] MEDS: Metoprolol 5 MG/5 ML VIAL IVP (08:36)
--- NOTE | 2024-02-01 08:43 | PT.INTREAT ---
PT Notes Visit Reasons: vertigo, r/o CVA, gait instability Inpatient Physical Therapy Treatment Note [facility] Date: 02/01/24 PRECAUTIONS:Standard OBJECTIVE: Therapeutic Activities (08904e[2]): Direct one-on-one instruction in dynamic activities to improve functional performance. ? BED MOBILITY/TRANSFERS? Supine-sit: Min assist x 1? Sit-supine: Min asssit x1 ? Sit-stand: CGAx1? Stand-sit: CGAx1 ? Provided skilled cues and instruction on performance and technique throughout. Gait Training ([id number][]): Direct one-on-one instruction and skilled instruction in: [X] movement sequencing [X] Provided verbal cues for equipment management and technique GAIT? Assistive Device: FWW ? Weight bearing: Full Assist: CGA ? Distance:? approx 30ft ? Nursing met with us while we were on our way back into the room and mentioned pt was experiencing tachycardia and that was going to be enough PT for now.? ASSESSMENT:? Pt required assist with transfers from supine to sit and sit to supine but did well once up and moving. We will check in with nursing on pts status and if able cont to progress as per sugar. PLAN: Cont as per PT POC. TREATMENT CODE/TIME: 8-8:23 TAx2
[2024-02-01] MEDS: Clopidogrel 75 MG TAB PO (08:48)
[2024-02-01] MEDS: levETIRAcetam 250 MG TAB PO ×2 (08:48→20:12)
[2024-02-01] MEDS: Pantoprazole 40 MG TABCR PO (08:48)
[2024-02-01] MEDS: Apixaban 5 MG TAB PO ×2 (08:49→20:12)
[2024-02-01] MEDS: Ezetimibe 10 MG TAB PO (08:49)
[2024-02-01] MEDS: Normal Saline Flush 10 ML SYR IVP ×2 (09:21→20:13)
--- NOTE | 2024-02-01 09:50 | PDOC.CMPRO ---
Date of service: 02/01/24 Time of Service: 09:50 Care Management Progress Note Progress Note Text Progress Note Text: Carlton was working with PT when CM met with him. His mobility appeared to be limited by his pain and anxiety regarding falling. He expressed concern about staff being able to intervene if he fell; he was assured by PT that there were several staff members in the room, prepared to help, as there were two RN's in the room at the time as well. CM sat down and discussed his discharge plan with him after his PT session ended; PT made a recommendation that he consider short term rehab based on how he responded to therapy today. CM discussed short term rehab with Carlton, and he stated that he is agreeable, but does want to stay local, if possible. CM will send referrals to [facility] and [facility], at his request. Carlton also asked that CM discuss this with his , whom he stated is at work today, but will be present tomorrow. CM will meet with them both tomorrow to discuss discharge planning considerations further. Discharge Potential Discharge Needs: Consult Consult Services Needed: Other (Neurology, OT, Speech) and PT Evaluation Anticipated Barriers to Discharge: Medical Status Patient/Family Education Needs: Review discharge instructions, discuss Ask Me Three Transportation: Private vehicle Plan: Anticipated Carlton will discharge home with New [facility] PT services vs SNF for short term rehab. He will follow up with community providers and his discharge plan of care as instructed. He will transport via private vehicle with . CM will follow. SDOH(Care Management) Screening Will the Patient Participate in the Screening?: Declined to provide Do you worry about having a steady place to live?: choose not to answer In the past 12 months, have you had to go without electric, gas, oil or water in your home?: choose not to answer Have you or anyone in your house had to go without enough food to eat?: choose not to answer Has lack of transportation kept you from medical appointments or from doing things needed for daily living?: choose not to answer Has anyone in your support network made you feel unsafe for any reason?: choose not to answer
--- NOTE | 2024-02-01 09:55 | DI.MRI_ITS ---
Exam(s) MR BRAIN WO EXAM: MR BRAIN WO CLINICAL HISTORY: vertigo, cva TECHNIQUE: Multiplanar multisequence MRI of the brain was performed. COMPARISON: MR MR BRAIN WO from 02/24/[address] BRAIN NECK CTA from 01/30/2024 FINDINGS: VENTRICLES AND EXTRA AXIAL SPACES: Prominent but unchanged. MIDLINE SHIFT: None. CEREBRAL PARENCHYMA: No focus of restricted diffusion to suggest acute infarct. No space-occupying le tonya identified. Moderate atrophy. Mild scattered foci of high signal in the white matter consistent with sequela of chronic microvascular disease. single punctate focus of signal void on SWI images, consistent with punctate microhemorrhage, unchanged from prior. HEMORRHAGE: None. BRAINSTEM/CEREBELLUM: Normal. VISUALIZED PARANASAL SINUSES/MASTOIDS:Clear. Vasculature: Lack of flow void in the left vertebral artery., old finding. PITUITARY GLAND: Unremarkable. ORBITS: Unremarkable. IMPRESSION: No evidence of acute infarct or other acute abnormality. DATA REPOSITORY:
--- NOTE | 2024-02-01 10:30 | DI.US_ITS ---
APPROVED REPORT EXAM: Comprehensive 2D, Doppler, and color-flow Echocardiogram Patient Location: In-Patient Room/Bed: [address] Machine: Brandon Mora RDCS (AE) Indications: CVA Echo Enhancing Agent Indication: Rule out Shunt Agent(s) / Amount(s) Used: Agitated Saline 30.0 cc Comments: Contrast study was performed with 3 IV injections of 10ccs of agitated normal saline, at re st, with cough and post valsalva maneuver. Negative contrast study for shunt flow. Other Information Technically limited study due to body habitus, inability to position patient. Conclusion Very technically difficult and suboptimal study Left ventricular wall thickness chamber size and systolic function appears grossly normal Normal right ventricular size and function Both atria are normal in size No intracardiac shunting is identified on injection of agitated saline Aortic valve is sclerotic without hemodynamically significant aortic stenosis or regurgitation There is mild mitral regurgitation Wall motion Left Ventricle The left ventricle is grossly normal size. Technically limited exam due to body habitus. The left sabine tricular systolic function is normal. The left ventricular ejection fraction is within the normal ran ge. Unable to assess LV wall thickness. There is normal LV segmental wall motion. There is no ventric ular septal defect visualized. LVEF is 55%. Right Ventricle The right ventricle is normal size. Right ventricular systolic function is grossly normal. Atria The left atrium size is normal. The right atrium size is normal. Saline bubble contrast intravenous i njection does not demonstrate PFO. Aortic Valve The aortic valve is not well visualized. Number of aortic valve leaflets could not be assessed. There is no aortic valvular stenosis. No aortic regurgitation is present. Mitral Valve The mitral valve is normal in structure. No evidence of mitral valve stenosis. Mild mitral regurgitat ion. Tricuspid Valve The tricuspid valve is normal in structure. There is no tricuspid valve stenosis. Trace tricuspid reg urgitation. Unable to assess PA pressure. Pulmonic Valve Pulmonic valve is not well visualized. Great Vessels The aortic root is normal in size. Ascending aorta is not well visualized. Aortic arch is not well vi sualized. IVC is normal in size and collapses >50% with inspiration. Pericardium There is no pericardial effusion. 2D Dimensions Ao Root d 2.94 cm M: 3.1 - 3.7 M-Mode TAPSE 1.31 cm (M/F) >1.7 Auto EF LV EDV A4C 71.2 mL LV EDV A2C 39.7 mL LV EDV BP LV ESV A4C 35.6 mL LV ESV A2C 20.1 mL LV ESV BP LVEF(%) A4C 50.0 % LVEF(%) A2C 49.5 % LVEF(%) BP LV SV A4C 35.6 ml LV SV A2C 19.7 ml LV SV BP LV CO A4C 3.7 L/min LV CO A2C 1.9 L/min LV CO BP HR A4C 104.35 BPM HR A2C 98.37 BPM LV EDV Index (BP) LA Volume LA Length A4C 2.4 cm LA Length A2C 3.3 cm LA Area A4C s 7.56 cm2 LA Area A2C s 5.84 cm2 LA Vol A4C A-L 20.16 mL LA Vol A2C A-L 8.90 mL LA Vol Biplane A-L 15.6 mL LA Vol/BSA A4C A-L LA Vol/BSA A2C A-L LA Vol/BSA BP A-L 8.7 mL/m2 LA Vol A4C MOD 18.7 mL LA Vol A2C MOD 8.5 mL LA Vol BP MOD 14.6 mL RA Volume RA Area A4C 3.6 cm2 RA ESV A4C (A-L) 4.9mL RA Vol/BSA A4C A-L RA Length A4C 2.2 cm RA ESV A4C (MOD) 4.5mL LV Diastology MV E' medial 0.069 (>0.07 m/s) MV E Vmax 0.72 (0.4-1.3 m/s) MV E' lateral 0.088 (>0.1 m/s) Aortic Valve AoV Vmax 0.81 m/s LVOT Vmax 0.62 m/s AoV Peak Grad 2.6 mmHg LVOT Peak Grad 1.6 mmHg AoV Area (Vmax) 1.94 cm2 LVOT VTI 0.109 m AoV VTI 0.144 m LVOT Mean Grad 0.8 mmHg AoV Mean [place]o. 0.54 m/s LVOT SV 27.62 mL AoV Mean Grad 1.4 mmHg LVOT Diam s 1.75 cm AoV Area (VTI) 1.91 cm2 Velocity Ratio 0.77
--- NOTE | 2024-02-01 12:43 | SP_ITS ---
Date of service: 02/01/24 Time of Service: 12:00 Subjective Clinical (Bedside) Swallow Evaluation Speech Language Pathology Referred by: Dr Blanchard Referral Type: Clinical Swallow Evaluation, Cognitive/Communication Screening Reason for Referral/HPI: Carlton Pepper is a 73 yo male who was adm to [facility] 01/30/24 with fall due to significant dizziness. 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 He is undergoing workup for posterior circulation CVA vs TIA. FURNACE ATTENDANT referral placed per stroke protocol; RN questioning some processing difficulty - eg when asked to grab walker which was in front of him, he initially reached behind him. Patient states he feels slow motion mentally as well as physically deconditioned, but otherwise mentally feels back at baseline. He denies changes with memory/focus/processing/word retrieval. MRI negative for acute infarct. FURNACE ATTENDANT IMPRESSIONS & RECOMMENDATIONS: Patient presents with WNL swallow function- oral mechanism examination and PO trials were unremarkable. In regards to cognitive-communication functioning, patient achieved 100% accuracy for screening completed today with the Quick Aphasia Battery, including areas of complex auditory comprehension and multi-step instructions. FURTHER FURNACE ATTENDANT SERVICES: No further FURNACE ATTENDANT services indicated Diet Recommendations: Regular Solids Thin Liquids Medications as per patient preference [address] with PO SUBJECTIVE: Patient received alert/awake, oriented x 4, agreeable to evaluation Pain Reported? Low back spasms, no pain reported Baseline Swallow Function: Patient denies swallowing difficulty prior to admission and eats a regular diet at baseline. PO Trials Assessed: IDDSI 0 Thin Liquids IDDSI 7 Regular Solid Oral Mechanism Examination: Dentition is WNL. Oral mucosa is pink, moist. Cranial Nerve Assessment: CN V ? Trigeminal Facial Sensation WNL Jaw Strength/ROM WNL ?WNL CN VII- Facial WNL labial ROM, strength, coordination. WNL lingual sensation WNL CN IX ? Glossopharyngeal WNL palatal elevation with phonation. No evidence of nasal emissions WNL CN X ? Vagus WNL Vocal quality and volume. Strong/sharp volitional cough WNL CX XII ? Hypoglossal WNL lingual ROM, strength, coordination WNL Oral Phase Findings: WFL Pharyngeal Phase Findings: WFL ? [place] Swallow Protocol Results: PASS Quick Aphasia Battery (QAB): Orientation = 3/3 Follow Commands = 2/2 Action Picture Description = 2/2 Connected Speech Sample = normal rate of speech/word finding/syntax. No impairment evident. Word Comprehension (Fo8 pictures) = 8/8 Auditory Comprehension (eg If I was at the park when you arrived, did I get there first?)07/28 Picture Naming = 6/6 Repetition = 6/6 Reading Aloud (word to sentence) = 6/6 Motor Speech = 5/5 ASSESSMENT: Further FURNACE ATTENDANT Services not indicated. Recommendation at Discharge: N/A Recommendations: ? Education Provided to: Patient Topics Addressed: rationale for FURNACE ATTENDANT jackelin, findings PLAN:Eval Only FURNACE ATTENDANT CPT Code: 25518 Clinical Swallowing Evaluation TOTAL TIME: 20 Minutes 1200-1220pm
--- NOTE | 2024-02-01 13:28 | W.PM.PROGNOT ---
Date of Service Date of service: 02/01/24 Time of Service: 13:28 Assessment and Plan Assessment and plan (1) Vertigo: Status: Acute Assessment and plan: -patient has central vertigo which was recently worsened over past few days but now has improved and seems to have resolved. -LICA seems to be new but unclear as to how new; does not seem to be the cause of his current symptoms however, -His right vertebral V4 semgement is moderately narrowed. -severe vertigo episode may have been d/t the low flow through his left V4 segment. Hypotension and arrhythmias need to be avoided. -previous physician had spoken w/ 3 different neurologists [place] [facility] including two different [facility] neurologists (Dr. Leonardo Fontaine yesterday and Dr. Mccauley today) and with [facility] neurologist, Dr. Nuria Lee. -Both Dr. Fontaine and Dr. Mccauley agreed that his anticoagulation should be changed from warfarin to a DOAC such as apixaban d/t ease of administration, more reliable anticoagulation, less drug-drug interaction and food interaction, and that his platelet therapy ought to be changed to Plavix. -Dr. Lee did not want to give a third opinion on the patient's anticoagulation/antiplatelet strategy but only would review [facility] images compared to our images with regard to the LICA occlusion. -[facility] was having trouble uploading our images but she said that the only CTA images [facility] has were from 2018 and this did not show LICA occlusion although he had moderate atherosclerotic calcifications of the left internal bulb. -MRI on 01/31 did not show any evidence of acute infarct or other acute abnormalities (2) Stroke: Status: Acute Assessment and plan: -had suspected posterior circulation CVA although he does not have other signs/symptoms ie. quandrantic or hemianopsis, hemiparesthesia and MRI was without acute findings as noted above -His vertigo has now resolved. -changes in his antiplatelet and anticoagulant therapy are noted above. 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 (5) Ascending aortic aneurysm: Status: Chronic Assessment and plan: -this has been stable although was not specifically addressed this admission. was 4.1 cm but his was on thoracic angiogram from 2019 so need to find out more recent studies from [facility] Qualifiers: Presence of rupture: without rupture Qualified Code(s): I71.21 - Aneurysm of the ascending aorta, without rupture (6) Coronary atherosclerosis of [place] coronary artery: Status: Acute Assessment and plan: -as noted above, no new EKG changes and no symptoms of ACS although he has mild troponin elevation Qualifiers: [place] vs. transplanted heart: [place] heart Associated angina: without angina Qualified Code(s): I25.10 - Atherosclerotic heart disease of [place] coronary artery without angina pectoris (7) Paroxysmal A-fib: Status: Acute Assessment and plan: -has history of a-fib but was NSR on admission -converted to a-fib AM 01/31 with HR up to 120's at rest -gave 5mg IV lopressor with good effect -started 12.5mg PO lopressor afternoon 01/31, will increase dose as needed -already on anticoagulation as noted above Subjective Subjective Interval history since last seen: Patient states that he is doing well today and his only complaint is his back pain. Of note, he does not recall me showing up to his room about half hour prior when he was on the phone Exam Narrative Exam Narrative: Well-appearing older gentleman laying in bed in no acute distress, ANO x 4, heart irregularly irregular with rate in the low 100s, lungs clear to auscultation bilaterally, abdomen soft, nontender, nondistended, normal strength and sensation of bilateral upper and lower extremities Objective Last Vital Signs Temp 98.8 F 02/01/24 12:47 Pulse 90 02/01/24 12:47 Resp 18 02/01/24 12:47 BP 129/98 H 02/01/24 12:47 Pulse Ox 95 02/01/24 12:47 Time Spent with Patient Time Spent with Patient: >50 minutes Time was spent: preparing to see the patient(eg.review tests), obtaining and/or reviewing separately otained hiistory, ordering medications,tests, procedures, referring, communicating with other health child care education coordinator, indepentently interpreting results, counseling the patient and care coordination
[2024-02-01] MEDS: Lidocaine 5% Patch 1 PATCH TP (13:42)
[2024-02-01] MEDS: Metoprolol 12.5 MG TAB PO ×2 (13:42→15:43)
--- NOTE | 2024-02-01 13:57 | PHA.REVIEW2 ---
Pharmacy Admission Review Admission Clinical Review Admission Pharmacy Review: Coronary atherosclerosis of [place] coronary artery (Acute) Stroke (Acute) Fall (Acute) Vertigo (Acute) Anticoagulated (Acute) No Known Allergies Allergy (Verified 01/30/24 03:18) Resuscitation Status Full Code Height 5 ft 9 in Weight 63.8 kg Comments Comments/Follow Ups: Watch BP, HR, SCr, labs and for med changes (possible renal dose adjustments). Pharmacy Admission Review Renal Dosing Renal Dosing: BUN 7 mg/dL (7-18) 01/31/24 05:50 Creatinine 1.0 mg/dL (0.70-1.30) 01/31/24 05:50 Medications needing adjustments: Reviewed (Crcl ~60 mL/min current meds okay.) Anticoagulation Anticoagulation: Hgb 16.5 g/dL (13.5-17.5) 01/30/24 03:16 Hct 49.2 % (40.0-50.0) 01/30/24 03:16 Plt Count 179 10^3/uL (130-400) 01/30/24 03:16 INR 2.1 (0.9-1.1) H 01/31/24 05:50 Creatinine 1.0 mg/dL (0.70-1.30) 01/31/24 05:50 DVT Prophylaxis: N/A Therapeutic Anticoagulation: Reviewed Medications: Apixaban Opiate Usage Evaluate Pain Scale/Pains Meds: N/A Relevant Labs Relevant Labs: Sodium 142 mmol/L (136-145) 01/31/24 05:50 Potassium 3.5 mmol/L (3.5-5.1) 01/31/24 05:50 Chloride 106 mmol/L (98-107) 01/31/24 05:50 Magnesium 1.9 mg/dL (1.8-2.4) 01/30/24 03:16 Electrolytes, C-Reactive P, ESR: Reviewed (no labs today) DM Control DM Control: N/A Cardiac Review Cardiac Review: Troponin I 101 ng/L (< or =60) H* 01/31/24 05:50 BP, HR, EF%: Reviewed (BP and HR have been normal to high most of admission so far. Pt. went into afib this morning per progress note, metoprolol started.) QTc Review QTc: Reviewed (QTc 394 on EKG today) IV to PO Switch IV Medications: Reviewed Home Meds Home Med List reviewed: Reviewed Relevent Home Meds Not ordered & why?: aspirin (changed to clopidogrel per progress note), atorvastatin (has rosuvastatin ordered), warfarin (changed to apixaban per progress note) Current Meds Current Medication Order Review: Reviewed Comments Comments/Follow Ups: Watch BP, HR, SCr, labs and for med changes (possible renal dose adjustments).
--- NOTE | 2024-02-01 15:27 | PTTR_ITS ---
PT Notes Visit Reasons: vertigo, r/o CVA, gait instability Inpatient Physical Therapy Treatment Note [facility] Date: 02/01/2024 PRECAUTIONS: Standard. Impaired safety awareness. Activity as tolerated. OBJECTIVE: Resting in bed. Nurse Eunice and Nurse preceptee present in rom to assist Vital signs: HR rapid fluctuation from 98-130s during slow bed mobility attempt for this session, BP 148/117 right before supine to sit BED MOBILITY/TRANSFERS? Supine-sit: minimal assist with HOB at 45 degrees with report of increased back pain and lightheadedness ? Sit-supine: minimal asssit x 2 with report of with report of increased back pain and lightheadedness ? Sit-stand: Deferred due to HR fluctuation, increase in LBP, and confusion? Stand-sit: Deferred due to HR fluctuation, increase in LBP, and confusion? ? GAIT? Deferred due to medical status with rapid HR fluctuation of 98-130s bpm right after sitting from supine even with HOB elevated to about 45 degrees above horizontal. ? ASSESSMENT:? Pain in low back, increased confusion, lightheadedness and HR fluctuation severely limited patient's bed mobility performance this afternoon. He only was able to tolerated edge of bed sitting before he complained of significant loss of sense of balance. Transfers and ambulation were deferred for this patient for safety reasons due to severe lightheadedness and confusion. He will benefit from gradual functional mobility progression under a short-term SNF placement pr ior to discharging home. PLAN: Coordinate with nurse for pain/HR medication to minimize limitations in functional performance. Progress mobility level, strength, balance, range of motion as tolerated to achieve highest functional level and reduce fall risk. DISCHARGE RECOMMENDATIONS: [] [] Home with no services [] [] Home with services [specify] [] Home with outpatient PT [] [] SNF for continued rehabilitation [] [] Cream Separator Operator Care [] [] SNF versus LTC based on ability to participate and progress [] [X] Short-term rehab placement prior to discharge to home vs PT to regain highest functional level and increased ability of patient to thrive at home with TREATMENT CODE/TIME: 23608 x 20 minutes for 1 unit (14:27-14:47).
--- NOTE | 2024-02-01 15:49 | NUR.NOTE ---
PT went to reevaluate pt for dc and he became fearful of falling when starting to sit up in bed. His low back pain was strong as well and he experienced vertigo. He became agitated with his situation and clenched his jaw, his bottom teeth started to bleed as a direct result. His HR shot up to the 140s. Hospitalist notified. Additional dose of metoprolol has already been ordered, which was given at this time. Nursing Note:
--- NOTE | 2024-02-01 16:47 | PCNE_ITS ---
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 PMHx sig for h/o [place] (2018), vertigo, PAF, CVA hx Hospital course: Presented to ED on January 29 after suffering from a fall at home related to increased dizziness[place] [facility] [place] advised admit for further stroke care and MRI, scans with concerns over cerebrovascular cardiac atherosclerotic blood flow. Echo and MRI today both negative. PT initial evaluation okay for home with services, per CM report post palliative visit PT now recommending SNF after significant assistance needed with standing, tachycardic with fear of falling and uncontrolled pain Per staff: Pain low back, worse with any movement, stable with rest. Able to walk 30 feet today however the needed assistance getting up. New onset of A-fib today now on metoprolol. Some concerns with short-term memory loss Ciro is exhausted today he feels like he is mowing the hospital for 3 weeks, he is aware he is only there for 3 days. He is only had the 1 fall prior to admission. He uses a walker full-time at home due to fear of falling and chronic back pain, feels this onset is an acute on chronic back pain and he is not too worried, feels it will get better with time and rest. He lives in a 3 story home in [email or web address] bedroom is now downstairs, he feels mostly comfortable to return home his said Tatum could provide assistance that he needs, however he would follow her direction and if she felt more comfortable going to a correction he would do this. His 2 children Kiersten and Ilya are home from college intermittently this summer. 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 He does not want any of his care to be rushed, would not want surgery or transfer to tertiary hospital, would like slow cautious decision-making. Assessment and Plan Assessment and plan (1) Paroxysmal A-fib: Status: Acute Assessment and plan: Started on metoprolol 12.5 mg today (2) Coronary atherosclerosis of [place] coronary artery: Status: Acute Qualifiers: [place] vs. 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 (4) Left carotid artery occlusion: Status: Chronic (5) Stroke: Status: Acute Assessment and plan: Vertigo resolved, MRI today no evidence of acute infarct or other acute abnormalities changes to medications Per [facility] telene[place] recommendations, changed from warfarin to apixaban and antiplatelet therapy to Plavix Qualifiers: CVA mechanism: unspecified Qualified Code(s): I63.9 - Cerebral infarction, unspecified (6) Fall: Status: Acute Assessment and plan: With significant fear of falling New PT recommendation skilled rehab ondischarge (7) Vertigo: Status: Acute Assessment and plan: Resolved, central vertigo, LICA new compared to previous studies, right vertebral be worse segment moderately narrowed, to avoid hypotension and arrhythmias (8) Ambulatory dysfunction: Status: Acute Assessment and plan: As above (9) Weakness: Status: Acute Assessment and plan: As above (10) Memory changes: Status: Acute Assessment and plan: Suspect vascular component Will continue to review (11) Physician orders for life-sustaining treatment (POLST) form indicates patient wish for [id number] status: Status: Acute Assessment and plan: Reviewed previously completed COLST form, up-to-date, change CODE STATUS back to original preference (12) Advance care planning: Status: Acute Assessment and plan: Reviewed previously completed COLST form including care preferences. He does not want CPR performed on him if his heart were to stop. He would not want a big theatrical workup including transfer or surgery, no rushed procedures, would want thoughtful conversations regarding goals of care prior to completing anything Reviewed discharge plan of home health versus rehab, concern for inability to care safely for self at home, he would be agreeable to rehab for short time with plan to return home as soon as able Reviewed palliative care and role in future care, agreeable to ongoing conversations and work Spent 20 minutes with ACP (13) Palliative care patient: Status: Acute Assessment and plan: Palliative care will continue to follow in outpatient setting, office visit versus correction to be determined in 1 to 2 weeks Review of Systems Narrative: As per HPI PFSH All Active Problems (Updated 02/01/24 @ 17:08 by Aleida Peralta NP) Palliative care patient (Acute) Physician orders for life-sustaining treatment (POLST) form indicates patient wish for [id number] status (Acute) Paroxysmal A-fib (Acute) Coronary atherosclerosis of [place] coronary artery (Acute) Occlusion of left vertebral artery (Chronic ~04/01/15) Left carotid artery occlusion (Chronic) Stroke (Acute) Fall (Acute) Vertigo (Acute) Anticoagulated (Acute) Ambulatory dysfunction (Acute) Weakness (Acute) Apathy (Acute) Advance care planning (Acute) Hypoxic brain injury (Acute) Depression (Chronic) Memory changes (Acute) Chronic anticoagulation (Acute) Ascending aortic aneurysm (Chronic) Paroxysmal atrial fibrillation (Chronic) 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 Rheumatoid arthritis (Chronic 10/19/17) Hypercholesterolemia (Chronic 04/01/15) Acute posterior circulation transient ischemic attack (Chronic 04/01/15) Acute CVA (cerebrovascular accident) (Chronic) Anoxic brain injury (Chronic) Medical History Lyme disease (07/30/15) Lyme disease 07/30/15 Discharge planning issues DVT prophylaxis Altered mental status Troponin level elevated Confusion Lyme disease 07/30/15 Dizziness History of TIA (transient ischemic attack) History of cardiac arrest Status post myocardial infarction of inferior wall Elevated troponin I level Transient ischemic attack Surgical History History of open reduction and internal fixation (ORIF) procedure History of open reduction and internal fixation (ORIF) procedure 08/17/13 right 5th metatarsal fx History of open reduction and internal fixation (ORIF) procedure 08/17/13 right 5th metatarsal fx Stented coronary artery Resolute Brett (Zotarolimus-Eluting Coronary Stent System) Resolute Buckner [id number] Ref: [id number] Lot: [id number] Exp: 10/04/2019 Resolute Brett [id number] Ref:[id number] Exp: 08/28/2019 S/P ablation of atrial fibrillation (10/19/17) Fracture, Open Treatment (09/09/13) ORIF; RIGHT 5TH METATARSAL FX Family History Mother , age 82 No problems noted. Father , age 78 No problems noted. Sister No problems noted. Sister No problems noted. Brother No problems noted. Social History Smoking/Tobacco Use Status: Never Smoking risk assessment performed?: Yes Alcohol Intake: former Drug use: Never Substance use type: does not use Caregiver/Support person: Yes Household members: spouse and children Housing: house Communication Needs: None Do you need help understanding health information?: Never Pets and animals: Yes Pets and animals: cat(s) and dog(s) Sexually active: Yes Do you think of yourself as: straight/heterosexual Current gender identity: male What is your relationship status?: How often do you talk on the phone with friends or family?: twice per week How often do you get together with friends or relatives?: decline to answer How often do you attend druze or adventism services?: 1-3 times per year Do you belong to any clubs or organized social groups?: no Panel score (0-1 are the most socially isolated patients): 1 What type of physical activity do you participate in: other Details: franca chi, PT Duration: 30-45 minutes/day Frequency: 3-4 times per week Nini/Episcopal: Lutheran Special nini needs: No Seatbelt use: always Helmet use: Yes Helmet use: always Drive intox or ride w/intox train driver: No Do you feel safe at home: Yes Do you feel safe in your relationship?: Yes Exam Narrative Exam Narrative: General: Older adult male lying in hospital bed; awake and alert, oriented to person and place HEENT:Hearing grossly within normal limits, Normocephalic atraumatic Resp: Even and unlabored, speaks full sentences with no shortness of breath, no audible wheeze, no cough Skin: No rashes or lesions, did not conduct full skin exam Psych: MS grossly WNL, speech movement WNL, thought process impoverished/normal, cooperative. Insight/judgment Limited Results Last Vital Signs Temp 98.8 F 02/01/24 12:47 Pulse 110 H 02/01/24 15:31 Resp 18 02/01/24 15:00 BP 148/117 H 02/01/24 15:31 Pulse Ox 97 02/01/24 15:31 Labs 01/30/24 03:16 01/31/24 05:50
[2024-02-01] MEDS: Metoprolol 25 MG TAB PO (20:12)
[2024-02-01] MEDS: Rosuvastatin 20 MG TAB 40 MG PO (20:13)
[2024-02-02] MEDS: Patch Removal LIDOCAINE 1 EACH TP (03:08)
[2024-02-02 03:09] VITALS: BP 110/80; PULSE 67; RESP 15; TEMP 36.9; O2SAT 95
--- NOTE | 2024-02-02 07:15 | RT.EKG_ITS ---
APPROVED REPORT Exam: Resting ECG Reason for Exam: conversion from aflutter to nsr @2551 on tele Patient Location: I HR:63 bpm ECG Measurements Heart Rate 63 AXIS VA 164 P 28 QRSd 89 QRS -13 QT 433 T 60 QTc 444 Conclusion Sinus rhythm...normal P axis, V-rate 50- 99 Inferior infarct, old...Q >35mS, II III aVF Anterior infarct, old...Q >40mS, abnormal ST-T, V2-V5
[2024-02-02 07:24] VITALS: BP 115/86; PULSE 65; RESP 20; TEMP 37.4; O2SAT 94
[2024-02-02] MEDS: Clopidogrel 75 MG TAB PO (07:58)
[2024-02-02] MEDS: Pantoprazole 40 MG TABCR PO (07:59)
[2024-02-02] MEDS: Metoprolol 25 MG TAB PO (07:59)
[2024-02-02] MEDS: levETIRAcetam 250 MG TAB PO ×2 (07:59→19:27)
[2024-02-02] MEDS: Ezetimibe 10 MG TAB PO (07:59)
[2024-02-02] MEDS: Apixaban 5 MG TAB PO ×2 (08:00→19:27)
[2024-02-02] MEDS: Normal Saline Flush 10 ML SYR IVP ×2 (08:00→19:29)
--- NOTE | 2024-02-02 09:10 | PGE_ITS ---
Date of Service Date of service: 02/02/24 Time of Service: 09:10 Assessment and Plan Assessment and plan (1) Vertigo: Status: Acute Assessment and plan: -patient has central vertigo which was recently worsened over past few days but now has improved and seems to have resolved. -LICA seems to be new but unclear as to how new; does not seem to be the cause of his current symptoms however, -His right vertebral V4 semgement is moderately narrowed. -severe vertigo episode may have been d/t the low flow through his left V4 segment. Hypotension and arrhythmias need to be avoided. -previous physician had spoken w/ 3 [place] [facility] [place] two different [employer] neurologists (Dr. Leonardo Fontaine yesterday and Dr. Mccauley today) and with [facility] [place], Dr. Nuria Lee. -Both Dr. Fontaine and Dr. Mccauley agreed that his anticoagulation should be changed from warfarin to a DOAC such as apixaban d/t ease of administration, more reliable anticoagulation, less drug-drug interaction and food interaction, and that his platelet therapy ought to be changed to Plavix. -Dr. Lee did not want to give a third opinion on the patient's anti coagulation/antiplatelet strategy but only would review [facility] [place] compared to our images with regard to the LICA occlusion. -[facility] [place] having trouble [place] our images but she said that the only CTA images [facility] [place] were from 2018 and this did not show LICA occlusion although he had moderate atherosclerotic calcifications of the left internal bulb. -MRI on 01/31 did not show any evidence of acute infarct or other acute abnormalities (2) Stroke: Status: Acute Assessment and plan: -had suspected posterior circulation CVA although he does not have other signs/symptoms ie. quandrantic or hemianopsis, hemiparesthesia and MRI was without acute findings as noted above -His vertigo has now resolved. -changes in his antiplatelet and anticoagulant therapy are noted above. 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 (5) Ascending aortic aneurysm: Status: Chronic Assessment and plan: -this has been stable although was not specifically addressed this admission. was 4.1 cm but his was on thoracic angiogram from 2019 so need to find out more recent studies from [facility] [place] Qualifiers: Presence of rupture: without rupture Qualified Code(s): I71.21 - Aneurysm of the ascending aorta, without rupture (6) Coronary atherosclerosis of [place] coronary artery: Status: Acute Assessment and plan: -as noted above, no new EKG changes and no symptoms of ACS although he has mild troponin elevation Qualifiers: [place] vs. transplanted heart: [place] heart Associated angina: without angina Qualified Code(s): I25.10 - Atherosclerotic heart disease of [place] coronary artery without angina pectoris (7) Paroxysmal A-fib: Status: Acute Assessment and plan: -has history of a-fib but was NSR on admission -converted to a-fib AM 01/31 with HR up to 120's at rest -gave 5mg IV lopressor with good effect -started 12.5mg PO lopressor afternoon 01/31 -converted to NSR ~23:30 01/31, will contiune PO BID lopressor -already on anticoagulation as noted above Subjective Subjective Interval history since last seen: Patient states that he is doing well today. He understands that he converted to NSR last night, and that he is currently waiting for [facility] placement. Exam Narrative Exam Narrative: Well-appearing older gentleman laying in bed in no acute distress, ANO x 4, heart RRR, lungs clear to auscultation bilaterally, abdomen soft, nontender, nondistended, normal strength and sensation of bilateral upper and lower extremities Objective Last Vital Signs Temp 99.3 F 02/02/24 07:24 Pulse 65 02/02/24 07:24 Resp 20 02/02/24 07:24 BP 115/86 02/02/24 07:24 Pulse Ox 94 02/02/24 07:24 Time Spent with Patient Time Spent with Patient: >50 minutes Time was spent: preparing to see the patient(eg.review tests), obtaining and/or reviewing separately otained hiistory, ordering medications,tests, procedures, referring, communicating with other health residential care officer, indepentently interpreting results, counseling the patient and care coordination
[2024-02-02 11:09] VITALS: BP 101/71; PULSE 55; RESP 17; TEMP 37; O2SAT 98
--- NOTE | 2024-02-02 11:57 | PT.INTREAT ---
PT Notes Visit Reasons: vertigo, r/o CVA, gait instability Inpatient Physical Therapy Treatment Note [facility] Date: 02/02/2024 PRECAUTIONS: Standard. Impaired safety awareness. Activity as tolerated. SUBJECTIVE: Feeling better this morning. Agreebale to walking with PT using FWW. On board with going to a a short-term rehab before going home. Verbalized feeling overwhelemed about how much energy he needs to walk. h eis happy though about the distance he covered. OBJECTIVE: Resting on bedside chair. BED MOBILITY/TRANSFERS: Moderate verbal and tactile cueing provided for use of B hands as needed for support, movement sequence, AD management, and posture to reduce fall risk and minimize pain report? Sit-stand: contact guard assist ? Stand-sit: minimal assist GAIT? Facilitated short distance ambulation using front-wheeled walker covering about 50 feet using front wheeled walker with contact-guard assist and chair follow provided for safety. Wide base of support. Decreased step height and length. Moderate verbal cueing provided for stepping strategy, posture, and AD management for increased stability.? ASSESSMENT:? Pain in low back, increased confusion, lightheadedness much controlled during this session allowing for improved mobility performance. He will benefit from gradual functional mobility progression under a short-term SNF placement prior to discharging home. PLAN: Coordinate with nurse for pain/HR medication to minimize limitations in functional performance. Progress mobility level, strength, balance, range of motion as tolerated to achieve highest functional level and reduce fall risk. DISCHARGE RECOMMENDATIONS: [] [] Home with no services [] [] Home with services [specify] [] Home with outpatient PT [] [] SNF for continued rehabilitation [] [] [facility] Care [] [] SNF versus LTC based on ability to participate and progress [] [X] Short-term rehab placement prior to discharge to home vs PT to regain highest functional level and increased ability of patient to thrive at home with TREATMENT CODE/TIME: 76930 x 15 minutes for 1 unit (11:57-12:12).
[2024-02-02] MEDS: Ibuprofen 600 MG TAB PO (12:16)
--- NOTE | 2024-02-02 14:28 | PDOC.CMPRO ---
Date of service: 02/02/24 Time of Service: 14:29 Care Management Progress Note Progress Note Text Progress Note Text: Carlton was sitting up in his chair when CM met with him. He stated that his back pain is well controlled today. CM reviewed his plan; he will transition to a SNF for short term rehab prior to returning home. He has a bed offer from the [facility], and at that time, Saige Rosetta was still reviewing the referral. He stated that he prefers [facility], as it is very close to home. Later in the afternoon, [facility] offered a rehab bed for him for tomorrow. Carlton identified that this was his first choice. He will likely discharge to [facility] tomorrow. CM tye continue to follow. Discharge Anticipated Barriers to Discharge: Bed availability Patient/Family Education Needs: Review discharge instructions, discuss [facility] Transportation: RCT RCT Transportation: Wheel chair van (Dependent on disposition) Plan: Anticipated Carlton will discharge home with [facility] PT services vs SNF for short term rehab. He will follow up with community providers and his discharge plan of care as instructed. He will transport via private vehicle with . CM will follow. SDOH(Care Management) Screening Will the Patient Participate in the Screening?: Declined to provide Do you worry about having a steady place to live?: choose not to answer In the past 12 months, have you had to go without electric, gas, oil or water in your home?: choose not to answer Have you or anyone in your house had to go without enough food to eat?: choose not to answer Has lack of transportation kept you from medical appointments or from doing things needed for daily living?: choose not to answer Has anyone in your support network made you feel unsafe for any reason?: choose not to answer
[2024-02-02] MEDS: Lidocaine 5% Patch 1 PATCH TP (14:36)
[2024-02-02 15:17] VITALS: BP 107/73; PULSE 59; RESP 16; TEMP 36.7; O2SAT 97
--- NOTE | 2024-02-02 15:18 | PTTR_ITS ---
PT Notes Visit Reasons: vertigo, r/o CVA, gait instability Date: 02/02/24 PRECAUTIONS: Standard. Impaired safety awareness. Activity as tolerated. SUBJECTIVE: Pt in bed when approached for therapy, agreed to participating with session OBJECTIVE: ? PAIN: low back VITALS: monitored by nursing? Therapeutic Activities 24964: Direct one-on-one instruction in dynamic activities to improve functional performance. ?? BED MOBILITY/TRANSFERS? Rolling L/R: min A Supine-sit: ? CGA ? Sit-supine: ? CGA? Sit-stand: ? CGA? Stand-sit: ??CGA ? Bed-Chair:? ?CGA Chair-bed: CGA Provided skilled cues and instruction on performance and technique throughout. Gait Training 38150: Direct one-on-one instruction and skilled instruction in: Employing an assistive device Modified weight-bearing status Movement sequencing Turning and movement with proper form Provided verbal cues for equipment management and technique Provided instruction in gait pattern Patient education regarding pacing and breathing techniques to maximize activity tolerance? GAIT? Assistive Device: ??FWW ? Weight bearing: FWB Assist: ?CGA? Distance:?? ? 20'? Deviation: ? Wide base of support. Decreased step height and length.? ASSESSMENT:?Pt much more alert, able to follow instructions. needs to stop and stay in place for every positional change to prevent pt from getting dizzy. PLAN: Coordinate with nurse for pain/HR medication to minimize limitations in functional performance. Progress mobility level, strength, balance, range o f motion as tolerated to achieve highest functional level and reduce fall risk. TREATMENT CODE/TIME: [id number] 25mins (1:35-2:00pm)
--- NOTE | 2024-02-02 16:27 | CHAPLAIN ---
Carlton was sitting up in the chair when I visited. He was pleasant and easily engaged in a conversation. He seemed relaxed. 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 He had a medical event (stroke?) several years ago and spent months rehabbing from that. He lives in [place] with his and two college-age kids.Carlton said he believes his will be in to visit today. He son has just graduating from [employer] and will be going to grad school in business, but Carlton wasn't sure where he'll be going. His daughter, Kiersten is working on cooking, involved with a cooking show, but Carlton wasn't sure of the details. I introduce myself and offered support.
[2024-02-02 19:24] VITALS: BP 121/86; PULSE 52; RESP 16; TEMP 36.6; O2SAT 98
[2024-02-02] MEDS: Rosuvastatin 20 MG TAB 40 MG PO (19:29)
[2024-02-02 23:09] VITALS: BP 111/81; PULSE 57; RESP 16; TEMP 36.7; O2SAT 95
[2024-02-03] MEDS: Patch Removal LIDOCAINE 1 EACH TP (04:59)
[2024-02-03 07:35] VITALS: BP 130/95; PULSE 63; RESP 16; TEMP 37.3; O2SAT 96
[2024-02-03] MEDS: Apixaban 5 MG TAB PO (08:15)
[2024-02-03] MEDS: Pantoprazole 40 MG TABCR PO (08:15)
[2024-02-03] MEDS: Ezetimibe 10 MG TAB PO (08:15)
[2024-02-03] MEDS: Clopidogrel 75 MG TAB PO (08:15)
[2024-02-03] MEDS: levETIRAcetam 250 MG TAB PO (08:15)
[2024-02-03] MEDS: Normal Saline Flush 10 ML SYR IVP (08:16)
[2024-02-03] MEDS: Metoprolol 25 MG TAB PO (08:16)
--- NOTE | 2024-02-03 08:41 | OTIE_ITS ---
Occupational Therapy Notes Inpatient Occupational Therapy Evaluation Date: 02/03/24 Referring Doctor: Dr. Blanchard OT Orders: Non Urgent Precautions: Fall, Standard, DNR/DNI PATIENT PROFILE/ADMITTING DIAGNOSIS: Pt is a 74 yea rold male who is admitted to [facility] with the following dx of history of an anoxic encephalopathy secondary to [id number] cardiac arrest in January 2018, with previous h/o vertebral artery dissection. Admitted to acute care following acute episode of severe dizziness resulting in fall. Past Medical History: All Active Problems (Updated 01/30/24 @ 12:19 by Baron Blanchard MD) Coronary atherosclerosis of [place] coronary artery (Acute) Occlusion of left vertebral artery (Chronic ~04/01/15) Left carotid artery occlusion (Chronic) Stroke (Acute) Fall (Acute) Vertigo (Acute) Anticoagulated (Acute) Ambulatory dysfunction (Acute) Weakness (Acute) Apathy (Acute) Advance care planning (Acute) Hypoxic brain injury (Acute) Depression (Chronic) Memory changes (Acute) Chronic anticoagulation (Acute) Ascending aortic aneurysm (Chronic) Paroxysmal atrial fibrillation (Chronic) 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 Rheumatoid arthritis (Chronic 10/19/17) Hypercholesterolemia (Chronic 04/01/15) Acute posterior circulation transient ischemic attack (Chronic 04/01/15) Acute CVA (cerebrovascular accident) (Chronic) Anoxic brain injury (Chronic) Medical History (Updated 01/30/24 @ 12:19 by Baron Blanchard MD) Lyme disease (07/30/15) Lyme disease 07/30/15Discharge planning issues DVT prophylaxis Altered mental status Troponin level elevated Confusion Lyme disease 07/30/15Dizziness History of TIA (transient ischemic attack) History of cardiac arrest Status post myocardial infarction of inferior wall Elevated troponin I level Transient ischemic attack Surgical History History of open reduction and internal fixation (ORIF) procedure History of open reduction and internal fixation (ORIF) procedure 08/17/13 right 5th metatarsal fxHistory of open reduction and internal fixation (ORIF) procedure 08/17/13 right 5th metatarsal fxStented coronary artery Resolute Vona (Zotarolimus-Eluting Coronary Stent System) Resolute Brett [id number] Ref: [id number] Lot: [id number] Exp: 10/04/2019 Resolute Vona [id number] Ref:[id number] Exp: 08/28/2019S/P ablation of atrial fibrillation (10/19/17) Fracture, Open Treatment (09/09/13) ORIF; RIGHT 5TH METATARSAL FX Social History/Home Situation: Pt states that he lives in a private home with his who supports him with all of his ADL/IADL routines. He notes that his home is a 3 story home where his daughter lives as well. He has recently moved his bedroom down to the first floor but his shower is on the 2nd floor of his home. He notes that he uses a FWW for functional mobility throughout the day on his daily routine. He states that he has a walk in shower but is OT would recomm end a shower seat for increased safety with his bathing routines when he returns home. He states that he does not drive and that anything that he is unable to do his (A) him. Equipment owned/DME: FWW SUBJECTIVE: Pt was sitting in bed when OT arrived. He states that he is so limited d/t his HR and medical condition but is receptive to perform his ADLs if he is okay to do so. He notes that he would like to return home with his if possible. OBJECTIVE: General Observation: Pleasant, IV in (R) atecubital fossa. Mental Status: A&Ox4 Pain: c/o pain in low back which he states limits him in all of his functional movements. ROM: RUE AROM WFL L UE AROM WFL STRENGTH: RUE Casino Surveillance Officer is strong, bicep 4/5, tricep 3/5, shoulder flexion 4/5, wrist flexion 4/5, wrist extensors 5/5 LUE [employer] Surveillance Officer is strong, bicep 4/5, tricep 3/5, shoulder flexion 4/5, wrist flexion 4/5, wrist extensors 5/5 FUNCTIONAL MOBILITY/ADLS: Transfers pt notes that he would like to stay in bed at this time d/t his back and discomfort in his body Self Care Training [id number]: OT educated and trained pt in adaptive equipment use for LE dressing and bathing including a dressing stick, sock aide, and quality assurance technician. BALANCE: Static sitting Normal Dynamic Sitting Normal SPECIAL TESTS: Daily Activity Limitations Standardized Measure [facility] AM -PAC ?6 clicks? Daily Activity Inpatient Short Form: Raw score: 16 Standardized score: 35.96 CMS score: 53.32% INFORMED CONSENT/EDUCATION: Pt instructed in purpose of OT Consult and plan of care. ASSESSMENT: Patient is a 74-year-old male referred to occupational therapy services with diagnosis of occlusion of the left vertebral artery through its entire length. This is been present on prior examinations. 2. There is near complete occlusion of the left internal carotid artery at the level of C4 with distal reconstitution. 3. No acute intracranial process. 4. Atherosclerotic calcification is seen in the distal right vertebral artery with moderate stenosis at the level of the foramen magnum.. Patient presents with clinical signs and symptoms consistent with dx, as demonstrated by the following impairment level findings/functional limitations: Impairments in ADL/IADL routines, decreased functional activity tolerance, pain in low back, decreased functional mobility required for ADL performance. AMPA score 16 Patient is assessed as a Moderate 85054 complexity based on the following: History: see above Examination: see functional limitations as noted above Presentation: evolving Decision Making: AMPAC score 16 GOALS Goals x1 week 1. Transfers with mod (A) 2. Dressing seated (I) UE and mod (I) LE with min vc 3. Bathing max (A) Set up (I) 4. Toileting on toilet min (A) 5. Eating (I) PLAN OF CARE/TREATMENT PLAN: 1x/day, 5 days/ week x 1week Initiate Occupational Therapy Services for bathing, dressing, grooming, toileting, eating, transfer training. DISCHARGE RECOMMENDATIONS Home with HH OT and shower seat to increase pts functional (I) and safety with his bathing routines. TREATMENT TIME/MINUTES/CODES 04977, 79748, 20 minutes [facility] [place], [place]
--- NOTE | 2024-02-03 09:23 | W.PM.DS.N ---
Date of service: 02/03/24 Time of Service: 09:23 DS: Diagnosis Discharge Diagnosis (1) Vertigo: Status: Acute Asessment and Plan: -patient has central vertigo which was recently worsened over past few days but now has improved and seems to have resolved. -LICA seems to be new but unclear as to how new; does not seem to be the cause of his current symptoms however, -His right vertebral V4 semgement is moderately narrowed. -severe vertigo episode may have been d/t the low flow through his left V4 segment. Hypotension and arrhythmias need to be avoided. -previous physician had spoken w/ 3 different neurologists at [facility] including two different [facility] neurologists (Dr. Leonardo Fontaine yesterday and Dr. Mccauley today) and with [facility] neurologist, Dr. Nuria Lee. -Both Dr. Fontaine and Dr. Mccauley agreed that his anticoagulation should be changed from warfarin to a DOAC such as apixaban d/t ease of administration, more reliable anticoagulation, less drug-drug interaction and food interaction, and that his platelet therapy ought to be changed to Plavix. -Dr. Lee did not want to give a third opinion on the patient's anticoagulation/antiplatelet strategy but only would review [facility] images compared to our images with regard to the LICA occlusion. -[facility] was having trouble uploading our images but she said that the only CTA images [facility] has were from 2018 and this did not show LICA occlusion although he had moderate atherosclerotic calcifications of the left internal bulb. 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 (4) Ascending aortic aneurysm: Status: Chronic Asessment and Plan: -this has been stable although was not specifically addressed this admission. was 4.1 cm but his was on thoracic angiogram from 2019 so need to find out more recent studies from [facility] (5) Coronary atherosclerosis of [place] coronary artery: Status: Acute (6) Paroxysmal A-fib: Status: Acute Asessment and Plan: -has history of a-fib but was NSR on admission -converted to a-fib AM 01/31 with HR up to 120's at rest -gave 5mg IV lopressor with good effect -started 12.5mg PO lopressor afternoon 01/31 -converted to NSR ~23:30 01/31, -will be discharged with 25mg BID lopressor -already on anticoagulation as noted above Discharge Plan Disposition Patient Disposition: [facility]) Condition: Good Discharge Details Reason For Visit: vertigo, r/o CVA, gait instability Admit Date/Time: 01/30/24 08:26 Admit Provider: Baron Blanchard Attending Provider: Baron Blanchard Primary Care Provider: Umu Paredes [place] [facility] Course Hospital Course: Patient initially presented with signs and symptoms concerning for vertigo versus posterior circulation CVA. He had multiple teleneuro consultations with [facility] with the ultimate recommendation being the patient should be changed from warfarin to apixaban for more reliable anticoagulation and that he should be changed to Plavix for antiplatelet. Subsequently, MRI does not show any evidence of acute infarct or other intracranial abnormalities. However, patient also did experience episode of paroxysmal A-fib with RVR with rates up to the 120s at rest. Patient was started on 25mg p.o. Lopressor and converted to sinus rhythm later in the evening on 02/01/2024. Additionally, patient was evaluated by physical therapy and determined to benefit from subacute rehab placement. Ultimately was determined that the patient was stable for discharge to subacute rehab with the above mentioned medication changes. Home Meds and New Rx's Prescriptions: New clopidogrel 75 mg Tablet 75 mg PO DAILY Qty: 90 0RF ezetimibe 10 mg Tablet 10 mg PO DAILY Qty: 90 0RF rosuvastatin 20 mg Tablet 40 mg PO QPM Qty: 90 0RF metoprolol tartrate 25 mg Tablet 25 mg PO BID Qty: 90 0RF Eliquis 5 mg Tablet 5 mg PO BID Qty: 90 0RF Continued levetiracetam 250 mg tablet See Rx Instructions .ROUTE .COMPLEX Qty: 180 3RF Dose Instruction: TAKE 1 TABLET BY MOUTH TWICE DAILY Rx Instructions: TAKE 1 TABLET BY MOUTH TWICE DAILY atorvastatin [Lipitor] 80 mg tablet 80 mg PO HS Qty: 90 4RF aspirin [Aspir-81] 81 MG tablet,delayed release (DR/EC) 81 mg PO DAILY meclizine 25 mg tablet 25 mg PO TID PRN (Reason: dizziness) Qty: 30 0RF ondansetron 8 mg tablet,disintegrating 8 mg PO Q8H PRN (Reason: nausea and vomiting) Qty: 30 0RF Discontinued warfarin 5 mg tablet 5 mg PO DAILY Protocol: Dose Management Condition: Thursday Dose/Route: 2.5 mg Instruction: 0.5 x 5 mg tablets Condition: Thursday Dose/Route: 2.5 mg Instruction: 0.5 x 5 mg tablets Condition: Thursday Dose/Route: 2.5 mg Instruction: 0.5 x 5 mg tablets Condition: Thursday Dose/Route: 2.5 mg Instruction: 0.5 x 5 mg tablets Condition: Dose/Route: 2.5 mg Instruction: 0.5 x 5 mg tablets Condition: Thursday Dose/Route: 2.5 mg Instruction: 0.5 x 5 mg tablets Condition: Thursday Dose/Route: 2.5 mg Instruction: 0.5 x 5 mg tablets Protocol Text: Adjustment Start Date: Thursday01/15/24 INR Value: 2.4 INR Date: 01/15/24 Recheck Date: 02/14/24 Rx Instructions: according to [facility] instruction (recent dose = 2.5 mg daily) Discharge Instructions Activity:: Activity as Tolerated Equipment/Supplies:: No Equipment Needed Diet:: As Tolerated Discharge Orders Discharge Orders: Discharge Order (Routine); Ordered 02/03/24 Ordered By: Max Hall DS: Summary Time Spent with Patient providing and/or coordinating discharge services: Greater than 30 minutes Status at Discharge Functional status at discharge: independent ambulation Overall status at discharge: patient is back to baseline Mental Status: mental status grossly normal Speech and Movement: speech and movement normal Mood: congruent mood Affect: normal affect Quality:SDOH Health Related Social Needs: No Data to Display Exam Narrative Exam Narrative: Well-appearing older gentleman laying in bed in no acute distress, ANO x 4, heart RRR, lungs clear to auscultation bilaterally, abdomen soft, nontender, nondistended, normal strength and sensation of bilateral upper and lower extremities Psych Mental Status: mental status grossly normal Speech and Movement: speech and movement normal Mood: congruent mood Affect: normal affect DS: Data Vitals/I&O Vitals and I&O: Vital Signs Temperature 99.1 F 02/03/24 07:35 Temperature Source Temporal Artery Scan 02/03/24 07:35 Pulse 63 02/03/24 07:35 Pulse Rhythm Regular 02/03/24 09:16 Pulse 81 01/30/24 09:31 Respiratory Rate 16 02/03/24 07:35 Respiratory Effort Normal 02/03/24 09:16 Respiratory Depth Normal 02/03/24 09:16 Respiratory Pattern Normal 02/03/24 09:16 Blood Pressure 130/95 H 02/03/24 07:35 Blood Pressure Mean 111 01/30/24 09:31 Blood Pressure Position Sitting 01/30/24 03:11 Pulse Oximetry 96 02/03/24 07:35 Oxygen Delivery Method Room Air 02/03/24 07:35 Oxygen Flow Rate 0 02/03/24 07:35 Pain Level 0 02/03/24 07:35 Comment Will inform RN of BP 02/03/24 07:35 Intake & Output 02/02/24 02/03/24 02/03/24 17:59 05:59 17:59 Intake Total 260 / 260 480 / 740 240 / 240 Output Total 550 / 550 1100 / 1650 Balance -290 / -290 -620 / -910 240 / 240 Weight 142 lb 3.17 oz Intake: IV 20 / 20 Oral 240 / 240 480 / 720 240 / 240 Output: Urine 550 / 550 1100 / 1650 Other: Urine Color Straw Yellow Urine Appearance Clear Clear Clear Urine Odor Normal Voiding Methods Urinal Urinal PFSH All Active Problems (Updated 02/01/24 @ 17:08 by Aleida Peralta NP) Palliative care patient (Acute) Physician orders for life-sustaining treatment (POLST) form indicates patient wish for sr-ppy-rhaazmgrqps status (Acute) Paroxysmal A-fib (Acute) Coronary atherosclerosis of [place] coronary artery (Acute) Occlusion of left vertebral artery (Chronic ~04/01/15) Left carotid artery occlusion (Chronic) Stroke (Acute) Fall (Acute) Vertigo (Acute) Anticoagulated (Acute) Ambulatory dysfunction (Acute) Weakness (Acute) Apathy (Acute) Advance care planning (Acute) Hypoxic brain injury (Acute) Depression (Chronic) Memory changes (Acute) Chronic anticoagulation (Acute) Ascending aortic aneurysm (Chronic) Paroxysmal atrial fibrillation (Chronic) 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 Rheumatoid arthritis (Chronic 10/19/17) Hypercholesterolemia (Chronic 04/01/15) Acute posterior circulation transient ischemic attack (Chronic 04/01/15) Acute CVA (cerebrovascular accident) (Chronic) Anoxic brain injury (Chronic) Medical History Lyme disease (07/30/15) Lyme disease 07/30/15 Discharge planning issues DVT prophylaxis Altered mental status Troponin level elevated Confusion Lyme disease 07/30/15 Dizziness History of TIA (transient ischemic attack) History of cardiac arrest Status post myocardial infarction of inferior wall Elevated troponin I level Transient ischemic attack Surgical History History of open reduction and internal fixation (ORIF) procedure History of open reduction and internal fixation (ORIF) procedure 08/17/13 right 5th metatarsal fx History of open reduction and internal fixation (ORIF) procedure 08/17/13 right 5th metatarsal fx Stented coronary artery Resolute [employer] (Zotarolimus-Eluting Coronary Stent System) Resolute [employer] [id number] Ref: [id number] Lot: [id number] Exp: 10/04/2019 Resolute [employer] [id number] Ref:[id number] Exp: 08/28/2019 S/P ablation of atrial fibrillation (10/19/17) Fracture, Open Treatment (09/09/13) ORIF; RIGHT 5TH METATARSAL FX Family History Mother , age 82 No problems noted. Father , age 78 No problems noted. Sister No problems noted. Sister No problems noted. Brother No problems noted. Social History Smoking/Tobacco Use Status: Never Smoking risk assessment performed?: Yes Alcohol Intake: former Drug use: Never Substance use type: does not use Caregiver/Support person: Yes Household members: spouse and children Housing: house Communication Needs: None Do you need help understanding health information?: Never Pets and animals: Yes Pets and animals: cat(s) and dog(s) Sexually active: Yes Do you think of yourself as: straight/heterosexual Current gender identity: male What is your relationship status?: How often do you talk on the phone with friends or family?: twice per week How often do you get together with friends or relatives?: decline to answer How often do you attend bahai or yazidism services?: 1-3 times per year Do you belong to any clubs or organized social groups?: no Panel score (0-1 are the most socially isolated patients): 1 What type of physical activity do you participate in: other Details: franca chi, PT Duration: 30-45 minutes/day Frequency: 3-4 times per week Nini/Taoism: Catholic Special nini needs: No Seatbelt use: always Helmet use: Yes Helmet use: always Drive intox or ride w/intox bellman driver: No Do you feel safe at home: Yes Do you feel safe in your relationship?: Yes Time Spent with Patient Time Spent with Patient: <45 minutes Time was spent: preparing to see the patient(eg.review tests), obtaining and/or reviewing separately otained hiistory, ordering medications,tests, procedures, referring, communicating with other health home health caregiver, indepentently interpreting results, counseling the patient and care coordination
--- NOTE | 2024-02-03 10:31 | CMDISCH_ITS ---
Date of service: 02/03/24 Time of Service: 10:31 LACE Index Scoring Tool Questions: Length of Stay (in days): 4 - 6 Was the patient admitted via the E.D.?: Yes Comorbidities: Cerebrovascular Disease and Connective Tissue Disease E.D. Visits: 0 Answers: Total Score: 12 Risk of Readmission: High Risk Care Management Discharge Plan Reason for Hospitalization: Vertigo, Rule Out CVA Discharge Plan: Carlton will discharge to [facility] for continued physical therapy, prior to returning home. He will transport via W/C Van provided by facility. Patient/Family Education Needs: Review discharge instructions, patient choice for SNF-discharging to first choice facility, discuss self care needs upon discharge-goals for rehab and returning home. Services Needed at Discharge: Group Home Facility and Transportation SDOH Health Related Social Needs: No Data to Display
--- NOTE | 2024-02-03 10:43 | NUR.NOTE ---
Nursing Note: Report given to Isaak Youssef RN at [facility]. RN denied further questions.
== END 2024-02-03 11:00 | disposition skilled nursing facility (03) | DRG 67 ==
LOC: ER 08:46 → MS 09:49
PROVIDERS: Admitting Provider Internal Medicine; Emergency Provider Student in an Organized Health Care Education/Training Program; PCP Family Medicine; Visit Provider Internal Medicine
DX: I65.22 Occlusion and stenosis of left carotid artery; I77.74 Dissection of vertebral artery; G93.1 Anoxic brain damage, not elsewhere classified; H81.4 Vertigo of central origin; I65.03 Occlusion and stenosis of bilateral vertebral arteries; I48.0 Paroxysmal atrial fibrillation; I25.10 Atherosclerotic heart disease of native coronary artery without angina pectoris; I71.21 Aneurysm of the ascending aorta, without rupture; R53.1 Weakness; W19.XXXA Unspecified fall, initial encounter; Z66 Do not resuscitate; R41.3 Other amnesia; I25.2 Old myocardial infarction; Z95.828 Presence of other vascular implants and grafts; Z79.01 Long term (current) use of anticoagulants; Z86.73 Personal history of transient ischemic attack (TIA), and cerebral infarction without residual deficits; M06.9 Rheumatoid arthritis, unspecified; E78.00 Pure hypercholesterolemia, unspecified; F32.A Depression, unspecified; R26.2 Difficulty in walking, not elsewhere classified; Z86.74 Personal history of sudden cardiac arrest; Z95.5 Presence of coronary angioplasty implant and graft; Z79.82 Long term (current) use of aspirin
CPT/HCPCS: 00123; 36415; 70496; 70498; 80048; 80053; 80061; 92610; 93005; 93306; 97116; 97162; 97166; 97530; 97535; 99285; 70551; 81003; 81015; 83036; 83735; 84484; 85025; 85610; 85730; 93010; 99222; 99233; 99238; J3490

== ENCOUNTER → 2024-03-08 15:00 | Outpatient (BNVA) | payer MEDICARE, BC, SELFPAY | PROVIDERS: PCP Family Medicine; Referring Provider Family Medicine; Visit Provider Psychiatry & Neurology Neurology | DX: G93.1 Anoxic brain damage, not elsewhere classified (principal); R41.3 Other amnesia; I63.9 Cerebral infarction, unspecified; G25.3 Myoclonus | CPT/HCPCS: 99214 ==

== ENCOUNTER 2024-03-14 02:28 | Outpatient (CLI) | payer MEDICARE, BC, SELFPAY ==
[2024-03-14 14:44] LABS: INR 3.1 (0.9-1.1); Prothrombin Time 28.6 sec (9.1-11.1)
== END 2024-03-14 02:29 | disposition home or self-care (01) ==
LOC: LBO 02:28
PROVIDERS: PCP Family Medicine; Visit Provider Nurse Practitioner Family
DX: Z79.01 Long term (current) use of anticoagulants (principal); I48.0 Paroxysmal atrial fibrillation
CPT/HCPCS: 36415; 85610

== ENCOUNTER 2024-03-22 02:35 | Outpatient (CLI) | payer MEDICARE, BC, SELFPAY ==
[2024-03-22 13:57] LABS: INR 3.8 (0.9-1.1); Prothrombin Time 33.7 sec (9.1-11.1)
== END 2024-03-22 02:36 | disposition home or self-care (01) ==
LOC: LBO 02:35
PROVIDERS: PCP Family Medicine; Visit Provider Family Medicine
DX: I48.0 Paroxysmal atrial fibrillation (principal)
CPT/HCPCS: 36415; 85610

== ENCOUNTER 2024-04-01 01:34 | Outpatient (CLI) | payer MEDICARE, BC, SELFPAY ==
[2024-04-01 14:11] LABS: INR 2.2 (0.9-1.1); Prothrombin Time 20.7 sec (9.1-11.1)
== END 2024-04-01 01:35 | disposition home or self-care (01) ==
LOC: LBO 01:34
PROVIDERS: PCP Family Medicine; Visit Provider Family Medicine
DX: I48.0 Paroxysmal atrial fibrillation (principal)
CPT/HCPCS: 36415; 85610

== ENCOUNTER 2024-04-22 01:16 | Outpatient (CLI) | payer MEDICARE, BC, SELFPAY ==
[2024-04-22 14:07] LABS: INR 1.9 (0.9-1.1); Prothrombin Time 18.1 sec (9.1-11.1)
== END 2024-04-22 01:17 | disposition home or self-care (01) ==
LOC: LBO 01:16
PROVIDERS: PCP Family Medicine; Visit Provider Family Medicine
DX: I48.0 Paroxysmal atrial fibrillation (principal)
CPT/HCPCS: 36415; 85610

== ENCOUNTER 2024-05-06 01:48 | Outpatient (CLI) | payer MEDICARE, BC, SELFPAY ==
[2024-05-06 11:35] LABS: INR 1.8 (0.9-1.1); Prothrombin Time 16.8 sec (9.1-11.1)
== END 2024-05-06 01:49 | disposition home or self-care (01) ==
LOC: LBO 01:48
PROVIDERS: PCP Family Medicine; Visit Provider Family Medicine
DX: I48.0 Paroxysmal atrial fibrillation (principal)
CPT/HCPCS: 36415; 85610

== ENCOUNTER 2024-05-20 02:09 | Outpatient (CLI) | payer MEDICARE, BC, SELFPAY ==
[2024-05-20 11:56] LABS: INR 2.4 (0.9-1.1); Prothrombin Time 22.7 sec (9.1-11.1)
== END 2024-05-20 02:10 | disposition home or self-care (01) ==
LOC: LBO 02:19
PROVIDERS: PCP Family Medicine; Visit Provider Family Medicine
DX: I48.0 Paroxysmal atrial fibrillation (principal)
CPT/HCPCS: 36415; 85610

== ENCOUNTER 2024-06-03 02:05 | Outpatient (CLI) | payer MEDICARE, BC, SELFPAY ==
[2024-06-03 13:39] LABS: INR 1.9 (0.9-1.1); Prothrombin Time 18.5 sec (9.1-11.1)
== END 2024-06-03 02:06 | disposition home or self-care (01) ==
LOC: LBO 02:05
PROVIDERS: PCP Family Medicine; Visit Provider Family Medicine
DX: I48.0 Paroxysmal atrial fibrillation (principal)
CPT/HCPCS: 36415; 85610

== ENCOUNTER 2024-06-17 02:28 | Outpatient (CLI) | payer MEDICARE, BC, SELFPAY ==
[2024-06-17 11:30] LABS: INR 1.8 (0.9-1.1); Prothrombin Time 17.2 sec (9.1-11.1)
== END 2024-06-17 02:29 | disposition home or self-care (01) ==
PROVIDERS: PCP Family Medicine; Visit Provider Family Medicine
DX: I48.0 Paroxysmal atrial fibrillation (principal)
CPT/HCPCS: 36415; 85610

== ENCOUNTER 2024-07-01 01:52 | Outpatient (CLI) | payer MEDICARE, BC, SELFPAY ==
[2024-07-01 11:35] LABS: Prothrombin Time 23.6 sec (9.1-11.1)
[2024-07-01 11:39] LABS: INR 2.5 (0.9-1.1)
== END 2024-07-01 01:53 | disposition home or self-care (01) ==
LOC: LBO 01:52
PROVIDERS: PCP Family Medicine; Visit Provider Family Medicine
DX: I48.0 Paroxysmal atrial fibrillation (principal)
CPT/HCPCS: 36415; 85610

== ENCOUNTER 2024-07-22 01:04 | Outpatient (CLI) | payer MEDICARE, BC, SELFPAY ==
[2024-07-22 12:12] LABS: Prothrombin Time 19.2 sec (9.1-11.1)
== END 2024-07-22 01:05 | disposition home or self-care (01) ==
LOC: LBO 01:05
PROVIDERS: PCP Family Medicine; Visit Provider Family Medicine
DX: I48.0 Paroxysmal atrial fibrillation (principal)
CPT/HCPCS: 36415; 85610

== ENCOUNTER 2024-08-19 01:32 | Outpatient (CLI) | payer MEDICARE, BC, SELFPAY ==
[2024-08-19 12:24] LABS: INR 2.6 (0.9-1.1); Prothrombin Time 24.4 sec (9.1-11.1)
== END 2024-08-19 01:33 | disposition home or self-care (01) ==
LOC: LBO 01:32
PROVIDERS: PCP Family Medicine; Visit Provider Family Medicine
DX: I48.0 Paroxysmal atrial fibrillation (principal)
CPT/HCPCS: 36415; 85610

== ENCOUNTER → 2024-09-20 12:51 | Outpatient (BNVA) | payer MEDICARE, BC, SELFPAY | PROVIDERS: PCP Family Medicine; Referring Provider Family Medicine; Visit Provider Psychiatry & Neurology Neurology | DX: G93.1 Anoxic brain damage, not elsewhere classified (principal); R41.3 Other amnesia; I63.9 Cerebral infarction, unspecified; G25.3 Myoclonus | CPT/HCPCS: 99214 ==

== ENCOUNTER 2024-09-30 13:38 | Outpatient (CLI) | payer MEDICARE, BC, SELFPAY ==
[2024-09-30 13:21] LABS: Prothrombin Time 19.3 sec (9.1-11.1)
== END 2024-09-30 13:39 | disposition home or self-care (01) ==
LOC: LBO 13:39
PROVIDERS: PCP Family Medicine; Referring Provider Family Medicine; Visit Provider Family Medicine
DX: I48.0 Paroxysmal atrial fibrillation (principal)
CPT/HCPCS: 36415; 85610

== ENCOUNTER 2024-12-15 03:50 | Outpatient (CLI) | payer MEDICARE, BC, SELFPAY ==
[2024-12-15 12:23] LABS: HCT 52.6 % (40.0-50.0); HGB 17.3 g/dL (13.5-17.5); MCH 29.5 pg (27.0-33.0); MCHC 32.9 % (32.0-36.0); MCV 90 fL (80-95); MPV 8.9 fL (8.0-11.0); Platelet Count 236 10^3/uL (130-400); RBC 5.86 10^6/uL (4.36-5.78); RDW 13.7 % (11.8-14.1); RDW-SD 45.1 fL; WBC 6.97 10^3/uL (4.4-10.8)
[2024-12-15 12:30] LABS: INR 3.5 (0.9-1.1); Prothrombin Time 32.2 sec (9.1-11.1)
[2024-12-15 13:32] LABS: ALT 19 U/L (16-63); AST 17 U/L (15-37); Albumin 3.7 g/dL (3.4-5.0); Alkaline Phosphatase 112 U/L (46-116); Anion Gap 10.6 mmol/L (3-11); BUN 12 mg/dL (7-18); Bilirubin, Total 0.5 mg/dL (0.2-1.0); CO2 27.4 mmol/L (21.0-32.0); CREATININE 1.2 mg/dL (0.70-1.30); Calcium 9.3 mg/dL (8.5-10.1); Chloride 105 mmol/L (98-107); Estimated GFR 63.85 (mL/min/1.73m2); Glucose 99 mg/dL (74-106); Sodium 143 mmol/L (136-145); Total Protein 8.3 g/dL (6.4-8.2)
[2024-12-18 14:13] LABS: Levetiracetam 4.2 mcg/mL
== END 2024-12-15 03:51 | disposition home or self-care (01) ==
LOC: LBO 03:51
PROVIDERS: PCP Family Medicine; Visit Provider Family Medicine
DX: G93.1 Anoxic brain damage, not elsewhere classified (principal); I10 Essential (primary) hypertension; Z79.01 Long term (current) use of anticoagulants; I48.0 Paroxysmal atrial fibrillation
CPT/HCPCS: 36415; 80053; 85027; 80177; 85610

== ENCOUNTER 2024-12-22 01:43 | Outpatient (CLI) | payer MEDICARE, BC, SELFPAY ==
[2024-12-22 12:53] LABS: INR 1.7 (0.9-1.1); Prothrombin Time 16.4 sec (9.1-11.1)
== END 2024-12-22 01:44 | disposition home or self-care (01) ==
LOC: LOS 01:43
PROVIDERS: PCP Family Medicine; Visit Provider Family Medicine
DX: I48.0 Paroxysmal atrial fibrillation (principal)
CPT/HCPCS: 36415; 85610

== ENCOUNTER 2025-01-05 03:28 | Outpatient (CLI) | payer MEDICARE, BC, SELFPAY ==
[2025-01-05 12:42] LABS: INR 1.6 (0.9-1.1); Prothrombin Time 15.9 sec (9.1-11.1)
== END 2025-01-05 03:29 | disposition home or self-care (01) ==
LOC: LOS 03:28
PROVIDERS: PCP Family Medicine; Visit Provider Family Medicine
DX: I48.0 Paroxysmal atrial fibrillation (principal)
CPT/HCPCS: 36415; 85610

== ENCOUNTER 2025-01-19 03:35 | Outpatient (CLI) | payer MEDICARE, BC, SELFPAY ==
[2025-01-19 12:33] LABS: INR 2.4 (0.9-1.1); Prothrombin Time 22.5 sec (9.1-11.1)
== END 2025-01-19 03:36 | disposition home or self-care (01) ==
LOC: LOS 03:35
PROVIDERS: PCP Family Medicine; Visit Provider Family Medicine
DX: I48.0 Paroxysmal atrial fibrillation (principal)
CPT/HCPCS: 36415; 85610

== ENCOUNTER 2025-01-26 01:57 | Outpatient (CLI) | payer MEDICARE, BC, SELFPAY ==
[2025-01-26 13:55] LABS: INR 2.5 (0.9-1.1); Prothrombin Time 23.7 sec (9.1-11.1)
== END 2025-01-26 01:58 | disposition home or self-care (01) ==
LOC: LOS 01:57
PROVIDERS: PCP Family Medicine; Visit Provider Family Medicine
DX: I48.0 Paroxysmal atrial fibrillation (principal)
CPT/HCPCS: 36415; 85610

== ENCOUNTER 2025-02-23 02:08 | Outpatient (CLI) | payer MEDICARE, BC, SELFPAY ==
[2025-02-23 12:55] LABS: INR 2.7 (0.9-1.1); Prothrombin Time 25.3 sec (9.1-11.1)
== END 2025-02-23 02:09 | disposition home or self-care (01) ==
LOC: LOS 02:08
PROVIDERS: PCP Family Medicine; Visit Provider Family Medicine
DX: I48.0 Paroxysmal atrial fibrillation (principal)
CPT/HCPCS: 36415; 85610

== ENCOUNTER → 2025-03-22 13:05 | Outpatient (BNVA) | payer MEDICARE, BC, SELFPAY | PROVIDERS: PCP Family Medicine; Referring Provider Family Medicine; Visit Provider Psychiatry & Neurology Neurology | DX: G93.1 Anoxic brain damage, not elsewhere classified (principal); R41.3 Other amnesia; I63.9 Cerebral infarction, unspecified; G25.3 Myoclonus; I10 Essential (primary) hypertension | CPT/HCPCS: 99214 ==

== ENCOUNTER 2025-03-23 04:37 | Outpatient (CLI) | payer MEDICARE, BC, SELFPAY ==
[2025-03-23 12:56] LABS: INR 2.7 (0.9-1.1); Prothrombin Time 25.2 sec (9.1-11.1)
== END 2025-03-23 04:38 | disposition home or self-care (01) ==
LOC: LOS 04:37
PROVIDERS: PCP Family Medicine; Visit Provider Family Medicine
DX: I48.0 Paroxysmal atrial fibrillation (principal)
CPT/HCPCS: 36415; 85610

== ENCOUNTER 2025-04-27 04:09 | Outpatient (CLI) | payer MEDICARE, BC, SELFPAY ==
[2025-04-27 15:47] LABS: INR 2.6 (0.9-1.1); Prothrombin Time 24.3 sec (9.1-11.1)
== END 2025-04-27 04:10 | disposition home or self-care (01) ==
LOC: LOS 04:09
PROVIDERS: PCP Family Medicine; Visit Provider Family Medicine
DX: I48.0 Paroxysmal atrial fibrillation (principal)
CPT/HCPCS: 36415; 85610

== ENCOUNTER 2025-05-25 00:56 | Outpatient (CLI) | payer MEDICARE, BC, SELFPAY ==
[2025-05-25 16:21] LABS: INR 2.6 (0.9-1.1); Prothrombin Time 24.2 sec (9.1-11.1)
== END 2025-05-25 00:57 | disposition home or self-care (01) ==
LOC: LOS 00:56
PROVIDERS: PCP Family Medicine; Visit Provider Family Medicine
DX: I48.0 Paroxysmal atrial fibrillation (principal)
CPT/HCPCS: 36415; 85610

== ENCOUNTER 2025-06-22 00:28 | Outpatient (CLI) | payer MEDICARE, BC, SELFPAY ==
[2025-06-22 15:14] LABS: INR 2.4 (0.9-1.1); Prothrombin Time 22.9 sec (9.1-11.1)
== END 2025-06-22 00:29 | disposition home or self-care (01) ==
LOC: LOS 00:28
PROVIDERS: PCP Family Medicine; Visit Provider Family Medicine
DX: I48.0 Paroxysmal atrial fibrillation (principal)
CPT/HCPCS: 36415; 85610

== ENCOUNTER 2025-07-19 01:30 | Outpatient (CLI) | payer MEDICARE, BC, SELFPAY ==
[2025-07-19 15:43] LABS: INR 2.6 (0.9-1.1); Prothrombin Time 24.6 sec (9.1-11.1)
== END 2025-07-19 01:31 | disposition home or self-care (01) ==
LOC: LOS 01:30
PROVIDERS: PCP Family Medicine; Visit Provider Family Medicine
DX: I48.0 Paroxysmal atrial fibrillation (principal)
CPT/HCPCS: 36415; 85610